=== PATIENT | female | born 1945 | race Caucasian/White ===

== ENCOUNTER 2016-09-12 15:03 | Outpatient (CLI) | payer MEDICARE, BC | END 2016-09-12 15:04 | disposition home or self-care (01) | DX: R06.02 Shortness of breath (principal); R53.83 Other fatigue; R00.2 Palpitations ==

== ENCOUNTER 2016-09-14 19:45 | Observation (INO) | payer MEDICARE, BC ==
[2016-09-14] MEDS ORDERED: SODIUM CHLORIDE 0.9% 1,000 ML IV ONE (20:24)
[2016-09-14] MEDS ORDERED: POTASSIUM BICARB 25 MEQ TABLET PO STA (21:27)
[2016-09-14] MEDS ORDERED: POTASSIUM BICARB 25 MEQ TABLET PO ONE (21:33)
[2016-09-14] MEDS ORDERED: ACETAMINOPHEN 325 MG TABLET PO PRN (21:54)
[2016-09-14] MEDS ORDERED: PROCHLORPERAZINE 10 MG/2 ML VIAL IVP PRN (21:54)
[2016-09-14] MEDS ORDERED: SODIUM CHLORIDE FLUSH 0.9% 10 ML SYRINGE IVP PRN (21:54)
[2016-09-14] MEDS ORDERED: ONDANSETRON 4 MG/2 ML VIAL IVP PRN (21:54)
[2016-09-14] MEDS ORDERED: ALPRAZolam 0.25 MG TABLET PO PRN (22:08)
[2016-09-14] MEDS ORDERED: traZODone 50 MG TABLET PO PRN (22:08)
[2016-09-14] MEDS ORDERED: ZOLPIDEM 5 MG TABLET PO PRN (22:08)
[2016-09-14] MEDS ORDERED: ALBUTEROL NEB 2.5 MG/3 ML INH PRN (23:05)
[2016-09-14] MEDS: NS W/20 MEQ KCL 1,000 ML IV SCH (23:35)
[2016-09-14] MEDS: SODIUM CHLORIDE FLUSH 0.9% 10 ML SYRINGE IVP SCH (23:35)
[2016-09-15] MEDS: BUDESONIDE 0.5 MG/2 ML NEB INH SCH ×2 (00:30→07:41)
[2016-09-15] MEDS: SODIUM CHLORIDE FLUSH 0.9% 10 ML SYRINGE IVP SCH ×2 (06:09→09:12)
[2016-09-15] MEDS ORDERED: POLYETHYLENE GLYCOL 3350 17 GM PACKET PO SCH (09:00)
[2016-09-15] MEDS ORDERED: ESCITALOPRAM 10 MG TABLET PO SCH (09:00)
[2016-09-15] MEDS ORDERED: ASPIRIN EC 81 MG TABLET PO SCH (09:00)
[2016-09-15] MEDS ORDERED: LOSARTAN 50 MG TABLET PO SCH (09:00)
[2016-09-15] MEDS ORDERED: ENOXAPARIN 40 MG/0.4 ML SYRINGE SUBQ SCH (09:00)
[2016-09-15] MEDS: INSULIN ASPART 300 UNIT/3 ML PEN SUBQ SCH ×2 (09:13→11:14)
[2016-09-15] MEDS: NS W/20 MEQ KCL 1,000 ML IV SCH (09:14)
[2016-09-15] MEDS ORDERED: ATORVASTATIN 40 MG TABLET PO SCH (21:00)
== END 2016-09-15 16:00 | disposition home or self-care (01) ==
DX: R20.9 Unspecified disturbances of skin sensation (principal); E10.42 Type 1 diabetes mellitus with diabetic polyneuropathy; E87.6 Hypokalemia; E86.0 Dehydration; I45.10 Unspecified right bundle-branch block; I10 Essential (primary) hypertension; E78.5 Hyperlipidemia, unspecified; J45.909 Unspecified asthma, uncomplicated; Z96.41 Presence of insulin pump (external) (internal); Z79.82 Long term (current) use of aspirin; Z98.84 Bariatric surgery status; Z85.828 Personal history of other malignant neoplasm of skin
CPT/HCPCS: 36415; 70450; 70551; 80053; 81003; 83690; 83735; 84443; 84484; 85025; 93005; 93010; 93306; 93880; 94640; 96360; 96361; 96372; 99285; A9270; G0378; J1650; J7626

== ENCOUNTER 2017-09-07 12:00 | Outpatient (CLI) | payer MEDICARE, OTHER ==
--- NOTE | 2017-09-07 18:00 | XRAY Report ---
TWO VIEW CHEST: 09/07/2017 CLINICAL INDICATION: Cough, fever. FINDINGS: Frontal and lateral views of the chest demonstrate a normal cardiac silhouette. The lungs are clear. No effusion or pneumothorax is present. IMPRESSION: NORMAL CHEST. TD: 09/07/2017 17:58
== END 2017-09-07 12:01 | disposition home or self-care (01) ==
LOC: DI 12:00 → DI.S 12:01
PROVIDERS: ATTEND Nurse Practitioner Family
DX: R05 Cough (principal); R50.9 Fever, unspecified
CPT/HCPCS: 71046

== ENCOUNTER 2017-09-09 11:54 | Emergency (ER) | payer MEDICARE, OTHER ==
[2017-09-09 13:14] LABS: BASOPHILS # (AUTO) 0.1 10^3/uL (0.0-0.1); BASOPHILS % (AUTO) 0.5 %; EOSINOPHILS % (AUTO) 0.3 %; HGB - HEMOGLOBIN 9.4 g/dL (12.0-16.0); LYMPHOCYTES # (AUTO) 0.7 10^3/uL (1.5-3.5); MEAN CORPUSCULAR HEMOGLOBIN 27.6 pg (27.0-31.0); MEAN CORPUSCULAR HGB CONC 33.5 g/dL (32.0-36.0); MEAN CORPUSCULAR VOLUME 82.4 fL (81.0-99.0); MEAN PLATELET VOLUME 7.6 fL (7.9-10.8); MONOCYTES # (AUTO) 0.5 10^3/uL (0.0-1.0); NEUTROPHILS # (AUTO) 10.3 10^3/uL (1.5-6.6); NEUTROPHILS % (AUTO) 89.2 %; PLT - PLATELET COUNT 387 10^3/uL (130-450); RED BLOOD COUNT 3.41 10^6/uL (4.20-5.40); RED CELL DISTRIBUTION WIDTH 13.9 % (12.0-15.0); WHITE BLOOD COUNT 11.5 x10^3/uL (4.8-10.8)
[2017-09-09 13:17] LABS: CALCIUM 8.6 mg/dL (8.5-10.3); CREATININE 0.6 mg/dL (0.4-1.0)
--- NOTE | 2017-09-09 13:26 | ED Physician Documentation ---
History of Present Illness - Stated complaint Stated Complaint: FEVER - Chief complaint Chief Complaint: General - Additonal information Additional information: hx from pt 71 female has had fevers to 104 for 3-4 weeks seen PMD a few times - had blood work (not available) CXR (neg) and a UA (not available) fevers continue pt denies [employer] no sore throat cough NV has had diarrhea s blood and urinary freq no back pain no rash no recent surgery or dental work uses an insulin pump and site is s infection her blood sugar have been hard to control travelled to [facility] in July but sx did not start for at least a month after that Review of Systems Constitutional: reports: Fever. denies: Chills Throat: denies: Sore throat Cardiac: denies: Chest pain / pressure Respiratory: denies: Dyspnea, Cough GI: reports: Diarrhea. denies: Abdominal Pain, Nausea, Vomiting, Bloody / black stool : reports: Frequency Endocrine: denies: Easy bruising / bleeding Immunocompromised: denies: Immunocompromised PD PAST MEDICAL HISTORY - Past Medical History Cardiovascular: Hypertension, High cholesterol Respiratory: Asthma Endocrine/Autoimmune: Type 1 diabetes Psych: Depression Musculoskeletal: Osteoarthritis Derm: Psoriasis - Past Surgical History Past Surgical History: Yes General: Gastric surgery HEENT: Cataracts - Present Medications Home Medications: Ambulatory Orders Medication Instructions Recorded Confirmed Albuterol Sulfate [Proair Hfa 2 puffs IH QID PRN 11/13/12 09/14/16 Inhaler] Aspirin 81 mg PO DAILY 11/13/12 09/14/16 Calcium Citrate [Calcitrate] 600 mg PO DAILY 11/13/12 09/14/16 Cholecalciferol (Vitamin D3) 5,000 unit PO DAILY 11/13/12 09/14/16 [Vitamin D3] Losartan Potassium [Cozaar] 100 mg PO DAILY 11/13/12 09/14/16 Multivitamin [Multivitamins] 1 each PO DAILY 11/13/12 09/14/16 Zolpidem Tartrate [Ambien] 5 mg PO DAILY PRN 11/13/12 09/14/16 Ascorbic Acid [Vitamin C] 500 mg PO DAILY 06/11/13 09/14/16 Cetirizine HCl 10 mg PO BID 06/11/13 09/14/16 Cyanocobalamin/Folic Acid [Vitamin 2 each PO DAILY 06/11/13 09/14/16 T73-Qitim Acid Tablet] Escitalopram [Lexapro] 20 mg PO DAILY 06/11/13 09/14/16 Ferrous Sulfate [Slow Release Iron] 1 tab PO DAILY 06/11/13 09/14/16 Ibandronate Sodium [Boniva] 150 mg PO ONCE 06/11/13 09/14/16 Insulin Lispro [Humalog] 80 unit SUBQ DAILY 06/11/13 09/14/16 Lactobacillus Acidophilus 1 each PO DAILY 06/11/13 09/14/16 [Acidophilus] Trazodone HCl 50 mg PO HS PRN 06/11/13 09/14/16 Ubidecarenone [Co Q-10] 200 mg PO DAILY 06/11/13 09/14/16 Vitamin B Complex [B Complex] 1 each PO DAILY 06/11/13 09/14/16 Simvastatin 20 mg PO DAILY 09/03/13 09/14/16 Estrogens, Conjugated [Premarin] 0.625 mg TOP ONCE 09/28/15 09/14/16 Fluocinonide/Emollient Base 15 gm TP BID 09/28/15 09/14/16 [Fluocinonide-E 0.05% Cream] Loperamide HCl [Loperamide] 2 mg PO QID PRN 09/28/15 09/14/16 ALPRAZolam [Xanax] 0.25 mg PO DAILY PRN 09/14/16 09/14/16 Cephalexin [Keflex] 500 mg PO Q6H #28 capsule 09/09/17 - Allergies Allergies/Adverse Reactions: Allergies Allergy/AdvReac Type Severity Reaction Status Date / Time Penicillins Allergy Intermediate Rash Verified 09/14/16 20:28 amoxicillin Allergy Rash Verified 09/09/17 12:19 gabapentin AdvReac diarrhea Verified 09/09/17 12:19 - Social History Does the pt smoke?: No Smoking Status: Never smoker Does the pt drink ETOH?: No Does the pt have substance abuse?: No - Immunizations Immunizations are current?: Yes - POLST Patient has POLST: No PD ED PE NORMAL - Vitals Vital signs reviewed: Yes - General General: Alert and oriented X 3 - HEENT HEENT: PERRL - Neck Neck: Supple, no meningeal sign - Cardiac Cardiac: RRR. No: No murmur (_ sys mumrur - pt rpeorts hx of a mild murmur but this is quite noticable) - Respiratory Respiratory: No respiratory distress - Abdomen Abdomen: Soft, Non tender - Back Back: No CVA TTP, No spinal TTP - Derm Derm: Normal color, No rash - Extremities Extremities: No deformity, No tenderness to palpate, Other (no red warm or swollen joints) - Neuro Neuro: Alert and oriented X 3 Results - Vitals Vitals: Vital Signs - 24 hr 09/09/17 09/09/17 09/09/17 12:12 14:34 17:25 Temperature 37.4 C 37.3 C Heart Rate 105 H 107 H 86 Respiratory 20 18 18 Rate Blood Pressure 110/48 L 102/47 L 113/52 L O2 Saturation 96 97 96 Oxygen O2 Source Room air - Labs Labs: Laboratory Tests 09/09/17 09/09/17 09/09/17 12:40 12:40 12:40 WBC 11.5 H RBC 3.41 L Hgb 9.4 L Hct 28.1 L MCV 82.4 MCH 27.6 MCHC 33.5 RDW 13.9 Plt Count 387 MPV 7.6 L Neut # 10.3 H Lymph # 0.7 L Bailey # 0.5 Eos # 0.0 Baso # 0.1 Absolute Nucleated RBC 0.00 Nucleated RBC % 0.0 Sodium 136 Potassium 2.8 L Chloride 103 Carbon Dioxide 25 Anion Gap 8.0 BUN 13 Creatinine 0.6 Estimated GFR (MDRD) 99 Glucose 149 H Lactic Acid 1.2 Calcium 8.6 Urine Color Urine Clarity Urine pH Ur Specific [place] Urine Protein Urine Glucose (UA) Urine Ketones Urine Occult Blood Urine Nitrite Urine Bilirubin Urine Urobilinogen Ur Leukocyte Esterase Urine RBC Urine WBC Ur Squamous Epith Cells Urine Bacteria Ur Microscopic Review Urine Culture Comments Influenza A (Rapid) Influenza B (Rapid) Influenza Types A,B Ag 09/09/17 09/09/17 13:40 14:43 WBC RBC Hgb Hct MCV MCH MCHC RDW Plt Count MPV Neut # Lymph # Bailey # Eos # Baso # Absolute Nucleated RBC Nucleated RBC % Sodium Potassium Chloride Carbon Dioxide Anion Gap BUN Creatinine Estimated GFR (MDRD) Glucose Lactic Acid Calcium Urine Color YELLOW Urine Clarity CLOUDY Urine pH 6.0 Ur Specific [place] 1.015 Urine Protein NEGATIVE Urine Glucose (UA) NEGATIVE Urine Ketones TRACE Urine Occult Blood NEGATIVE Urine Nitrite POSITIVE H Urine Bilirubin NEGATIVE Urine Urobilinogen 0.2 (NORMAL) Ur Leukocyte Esterase MODERATE H Urine RBC 0-5 Urine WBC >25 H Ur Squamous Epith Cells MOD Squamous H Urine Bacteria Many H Ur Microscopic Review INDICATED Urine Culture Comments NOT INDICATED Influenza A (Rapid) Negative Influenza B (Rapid) Negative Influenza Types A,B Ag - - Rads (name of study) echo Radiology: See rad report (no vegetations, no change from prior (prelim)) PD MEDICAL DECISION MAKING - ED course ED course: source seems to be UTI CXR 2 days ago neg and no resp sx so did not rpt pt states already on macrobid and not better and UA still + pt reports itchy rash rxn to amox but has taken cephalosporins s rxn - gave rocephin and will dc on keflex pt advised to fup PMD re anemia and K and final echo report Departure - Departure Disposition: Home, Self Care Clinical Impression: Hypokalemia UTI (urinary tract infection) Qualifiers: Urinary tract infection type: acute cystitis Hematuria presence: without hematuria Qualified Code(s): N30.00 - Acute cystitis without hematuria Anemia Qualifiers: Anemia type: unspecified type Qualified Code(s): D64.9 - Anemia, unspecified Condition: Good Instructions: ED Diet High Potassium, ED UTI Cystitis Female Follow-Up: Javan Black MD [Primary Care Provider] - Prescriptions: Cephalexin [Keflex] 500 mg PO Q6H #28 capsule Comments: It looks like the source of your fever is a urine infection. A culture will be run on the urine to identify the bacteria causing the infection and you will be called if a change of antibiotic is needed Also you have blood cultures running and will be called if those are positive The preliminary echocardiogram report does not indicate a heart valve infection - a final report will be available later this week - please have Dr Black follow up on that result Also please follow up with Dr Black about the anemia and low potassium Discharge Date/Time: 09/09/17 17:35
[2017-09-09] MEDS ORDERED: POTASSIUM CHLORIDE 20 MEQ TABLET PO STA (14:18)
[2017-09-09 14:46] LABS: BILIRUBIN,URINE NEGATIVE (NEGATIVE); GLUCOSE, URINE (UA) NEGATIVE (NEGATIVE); KETONES,URINE (UA) TRACE mg/dL (NEGATIVE); LEUKOCYTE ESTERASE, URINE MODERATE (NEGATIVE); NITRITE,URINE POSITIVE (NEGATIVE); OCCULT BLOOD,URINE NEGATIVE (NEGATIVE); PROTEIN,URINE NEGATIVE (NEGATIVE); UROBILINOGEN,URINE 0.2 (NORMAL) E.U./dL (NORMAL)
[2017-09-09 14:48] LABS: CLARITY,URINE CLOUDY (CLEAR)
[2017-09-09 14:54] LABS: BACTERIA,URINE Many /HPF (None Seen); RBC,URINE 0-5 /HPF (0-5); SQUAMOUS EPITHELIAL CELL,UR MOD Squamous (<= Few)
[2017-09-09] MEDS ORDERED: cefTRIAXone 1 GM in SODIUM CHLORIDE 0.9% MINIBAG 100 ML IV STA (15:17)
[2017-09-09] MEDS ORDERED: SODIUM CHLORIDE 0.9% 1,000 ML IV ONE (15:19)
[2017-09-09 17:26] VITALS: BP 113/52
== END 2017-09-09 17:35 | disposition home or self-care (01) ==
LOC: ED 11:54
DX: E87.6 Hypokalemia (principal); N30.00 Acute cystitis without hematuria; I10 Essential (primary) hypertension; E78.00 Pure hypercholesterolemia, unspecified; E10.9 Type 1 diabetes mellitus without complications; Z96.41 Presence of insulin pump (external) (internal); Z79.82 Long term (current) use of aspirin
CPT/HCPCS: 36415; 80048; 81001; 83605; 85025; 87040; 87275; 87276; 93306; 96365; 96366; 99283; 99284; A9270; 81003; 87086

== ENCOUNTER 2017-09-10 09:17 | Inpatient (IN) | payer MEDICARE, OTHER ==
[2017-09-10] MEDS ORDERED: cefTRIAXone 1 GM in SODIUM CHLORIDE 0.9% MINIBAG 100 ML IV STA (09:23)
--- NOTE | 2017-09-10 09:51 | ED Physician Documentation ---
History of Present Illness - Stated complaint Stated Complaint: NAUSEA/FEVER/SHAKY - Chief complaint Chief Complaint: Fever - Additonal information Additional information: hx from pt and EMR pt seen by me yesterday for a fever up to 104 for 3-4 weeks had seen PMD and had some workup including blood and urine (results not available on weekend) and CXR 09/07 which was neg workup yesterday included labs, blood cx, UA, and an echo because a heart murmur was noted (no vegetation) UA was + - pt was already on macrobid but not getting better and so gave rocephin and dc on keflex overnight her blood cx grew gram neg bacilli so she was caled and asked to return which she did she states no fever chills overnight stills feels generally weak and nauseated Review of Systems Constitutional: reports: Fever, Chills, Myalgias, Fatigue Respiratory: denies: Cough GI: reports: Nausea. denies: Abdominal Pain, Vomiting, Diarrhea : denies: Dysuria Skin: denies: Rash Musculoskeletal: denies: Back pain Endocrine: denies: Easy bruising / bleeding Immunocompromised: denies: Immunocompromised PD PAST MEDICAL HISTORY - Past Medical History Cardiovascular: Hypertension, High cholesterol Respiratory: Asthma Endocrine/Autoimmune: Type 1 diabetes Psych: Depression Musculoskeletal: Osteoarthritis Derm: Psoriasis - Past Surgical History Past Surgical History: Yes General: Gastric surgery HEENT: Cataracts - Present Medications Home Medications: Ambulatory Orders Medication Instructions Recorded Confirmed Albuterol Sulfate [Proair Hfa 2 puffs INH QID PRN 11/13/12 09/10/17 Inhaler] Aspirin 81 mg PO DAILY 11/13/12 09/10/17 Losartan Potassium [Cozaar] 100 mg PO DAILY 11/13/12 09/10/17 Multivitamin [Multivitamins] 1 each PO DAILY 11/13/12 09/10/17 Zolpidem Tartrate [Ambien] 2.5 - 5 mg PO DAILY PRN 11/13/12 09/10/17 Ascorbic Acid [Vitamin C] 500 mg PO DAILY 06/11/13 09/10/17 Ferrous Sulfate [Slow Release Iron] 1 tab PO DAILY 06/11/13 09/10/17 Ibandronate Sodium [Boniva] 150 mg PO Q30D 06/11/13 09/10/17 Insulin Lispro [Humalog] 60 unit SUBQ .INSULINPUMP 06/11/13 09/10/17 Lactobacillus Acidophilus 1 each PO BID 06/11/13 09/10/17 [Acidophilus] Trazodone HCl 25 - 50 mg PO QPM PRN 06/11/13 09/10/17 Ubidecarenone [Co Q-10] 200 mg PO QPM 06/11/13 09/10/17 Vitamin B Complex [B Complex] 1 each PO DAILY 06/11/13 09/10/17 Fluocinonide/Emollient Base 1 applic TP BID PRN 09/28/15 09/10/17 [Fluocinonide-E 0.05% Cream] Loperamide HCl [Loperamide] 2 mg PO QID PRN 09/28/15 09/10/17 Calcium Carbonate/Vitamin D3 2 each PO DAILY 09/10/17 09/10/17 [Calcium 600-Vit D3 800 Tablet] Cholecalciferol [Vitamin D3] 5,000 unit PO DAILY 09/10/17 09/10/17 Cyanocobalamin (Vitamin B-12) 500 mcg SL DAILY 09/10/17 09/10/17 [Vitamin B-12 (500 mcg sublingual)] Escitalopram Oxalate [Lexapro] 20 mg PO DAILY 09/10/17 09/10/17 Estrogens, Conjugated Cream 0.5 applic VG Q7D 09/10/17 09/10/17 [Premarin Cream] Glucosamine HCl/Chondroitin Rojas 1,000 mg PO DAILY 09/10/17 09/10/17 [Endur-Flex Sr Tablet] Magnesium Glycinate 120 mg PO DAILY 09/10/17 09/10/17 Mometasone Furoate [Asmanex Hfa] 2 puffs INH BID 09/10/17 09/10/17 Naproxen Sodium [Aleve] 220 mg PO BID PRN 09/10/17 09/10/17 Simvastatin [Zocor] 40 mg PO QPM 09/10/17 09/10/17 - Allergies Allergies/Adverse Reactions: Allergies Allergy/AdvReac Type Severity Reaction Status Date / Time Penicillins Allergy Intermediate Rash Verified 09/10/17 09:24 amoxicillin Allergy Rash Verified 09/10/17 09:24 gabapentin AdvReac diarrhea Verified 09/10/17 09:24 - Social History Does the pt smoke?: No Smoking Status: Never smoker Does the pt drink ETOH?: No Does the pt have substance abuse?: No - Immunizations Immunizations are current?: Yes - POLST Patient has POLST: No PD ED PE NORMAL - Vitals Vital signs reviewed: Yes - General General: Alert and oriented X 3 - HEENT HEENT: PERRL - Neck Neck: Supple, no meningeal sign - Cardiac Cardiac: RRR - Respiratory Respiratory: No respiratory distress, Clear bilaterally - Abdomen Abdomen: Soft, Non tender - Back Back: No CVA TTP, No spinal TTP (no redness swelling focal TTP) - Derm Derm: No rash - Extremities Extremities: No deformity - Neuro Neuro: Alert and oriented X 3 Results - Vitals Vitals: Vital Signs - 24 hr 09/10/17 09:20 Temperature 36.7 C Heart Rate 92 Respiratory 18 Rate Blood Pressure 123/57 L O2 Saturation 97 Oxygen O2 Source Room air - Labs Labs: Laboratory Tests 09/10/17 09/10/17 09/10/17 09:57 09:57 09:57 WBC 10.0 RBC 3.04 L Hgb 8.5 L Hct 25.2 L MCV 83.0 MCH 28.0 MCHC 33.8 RDW 13.6 Plt Count 352 MPV 7.4 L Neut # 7.6 H Lymph # 1.4 L [place] # 0.8 Eos # 0.1 Baso # 0.1 Absolute Nucleated RBC 0.00 Nucleated RBC % 0.0 Sodium 133 L Potassium 2.9 L Chloride 102 Carbon Dioxide 23 Anion Gap 8.0 BUN 13 Creatinine 0.6 Estimated GFR (MDRD) 99 Glucose 343 H Glycated Hemoglobin Estim Average Glucose Lactic Acid 0.9 Calcium 8.4 L 09/10/17 09:57 WBC RBC Hgb Hct MCV MCH MCHC RDW Plt Count MPV Neut # Lymph # [place] # Eos # Baso # Absolute Nucleated RBC Nucleated RBC % Sodium Potassium Chloride Carbon Dioxide Anion Gap BUN Creatinine Estimated GFR (MDRD) Glucose Glycated Hemoglobin 8.4 H Estim Average Glucose 194 H Lactic Acid Calcium PD MEDICAL DECISION MAKING - ED course ED course: gram neg bacilli on blood cx gave rocephin will admit spoke to Dr Rodriguez at 1005 AM pt and family updated Departure - Departure Disposition: 66 [facility] DC/Xfer Clinical Impression: Gram-negative bacteremia, Hypokalemia, Hyperglycemia Anemia Qualifiers: Anemia type: unspecified type Qualified Code(s): D64.9 - Anemia, unspecified Condition: Good Discharge Date/Time: 09/10/17 11:37
[2017-09-10 10:10] LABS: BASOPHILS # (AUTO) 0.1 10^3/uL (0.0-0.1); BASOPHILS % (AUTO) 0.6 %; EOSINOPHILS # (AUTO) 0.1 10^3/uL (0.0-0.7); EOSINOPHILS % (AUTO) 0.9 %; HGB - HEMOGLOBIN 8.5 g/dL (12.0-16.0); LYMPHOCYTES # (AUTO) 1.4 10^3/uL (1.5-3.5); LYMPHOCYTES % (AUTO) 13.8 %; MEAN CORPUSCULAR HGB CONC 33.8 g/dL (32.0-36.0); MEAN PLATELET VOLUME 7.4 fL (7.9-10.8); MONOCYTES # (AUTO) 0.8 10^3/uL (0.0-1.0); MONOCYTES % (AUTO) 8.3 %; NEUTROPHILS # (AUTO) 7.6 10^3/uL (1.5-6.6); NEUTROPHILS % (AUTO) 76.4 %; PLT - PLATELET COUNT 352 10^3/uL (130-450); RED BLOOD COUNT 3.04 10^6/uL (4.20-5.40); RED CELL DISTRIBUTION WIDTH 13.6 % (12.0-15.0)
[2017-09-10 10:14] LABS: CALCIUM 8.4 mg/dL (8.5-10.3); CREATININE 0.6 mg/dL (0.4-1.0)
[2017-09-10] MEDS ORDERED: SODIUM CHLORIDE FLUSH 0.9% 10 ML SYRINGE IVP PRN (10:52)
[2017-09-10] MEDS ORDERED: ZOLPIDEM 5 MG TABLET PO PRN (10:52)
[2017-09-10] MEDS ORDERED: ONDANSETRON 4 MG/2 ML VIAL IVP PRN (10:52)
[2017-09-10] MEDS ORDERED: ACETAMINOPHEN 325 MG TABLET PO PRN (10:52)
[2017-09-10] MEDS ORDERED: ALBUTEROL NEB 2.5 MG/3 ML INH PRN (11:14)
--- NOTE | 2017-09-10 11:25 | HISTORY & PHYSICAL EXAMINATION ---
Chief Complaint - Chief Complaint Chief Complaint: fever History of Present Illness - Admitted From Admitted From:: ER - History Obtained From History obtained from: pt - History of Present Illness HPI Comment/Other: Ms. Jacob is a 71-year-old female with a past medical history significant for DM1 , recurrent UTI, HTN, HLD, Asthma, Depression, Osteoarthritis, Psoriasis, anemia , who present ER for complains of fever, and subsequent positive bacterial blood culture. Pt report she had fever for about one week, and at 104 degree fever with chill for the last four days. Pt went to her PCP and she was prescribed Macrobid but it seems pt did not get better. Pt went to ER yesterday. UA reveals she had UTI. The blood was draw for culture and pt was treated with IV rocephin and was prescribed Kflex to D/C to home. The blood culture was positive for negative bacilli. Pt was called to come back to hospital for further treatment. Pt also report she had nausea but no vomiting, and loose stool but not diarrhea, and with discomfort in abdomen. Pt report she had DM1 since forty year ago. Pt denies chest pain, shortness of breath, cough, headache, vision changing. In lab test in ER, pt has 2.9 potassium, glucose 343 , HGB 8.5. Na 133. History - Past Medical History Cardiovascular: reports: Hypertension, High cholesterol Respiratory: reports: Asthma Endocrine/Autoimmune: reports: Type 1 diabetes Psych: reports: Depression Musculoskeletal: reports: Osteoarthritis Derm: reports: Psoriasis MRSA Hx?: No - Past Surgical History General: reports: Gastric surgery HEENT: reports: Cataracts - Family & Social History Family History Comment/Other: pt is living [place] with her and two children Living arrangement: At home Living Situation: With spouse/s.o., With family - Substance History Use: Uses substance without health or social issues: NONE Abuse: Recurrent use of substance despite neg consequences: NONE Dependence: Experiences withdrawal or developed tolerances: NONE - POLST Patient has POLST: No POLST Status: Full Code Meds/Allgy - Home Medications Home Medications: Ambulatory Orders Medication Instructions Recorded Confirmed Albuterol Sulfate [Proair Hfa 2 puffs INH QID PRN 11/13/12 09/10/17 Inhaler] Aspirin 81 mg PO DAILY 11/13/12 09/10/17 Losartan Potassium [Cozaar] 100 mg PO DAILY 11/13/12 09/10/17 Multivitamin [Multivitamins] 1 each PO DAILY 11/13/12 09/10/17 Zolpidem Tartrate [Ambien] 2.5 - 5 mg PO DAILY PRN 11/13/12 09/10/17 Ascorbic Acid [Vitamin C] 500 mg PO DAILY 06/11/13 09/10/17 Ferrous Sulfate [Slow Release Iron] 1 tab PO DAILY 06/11/13 09/10/17 Ibandronate Sodium [Boniva] 150 mg PO Q30D 06/11/13 09/10/17 Insulin Lispro [Humalog] 60 unit SUBQ .INSULINPUMP 06/11/13 09/10/17 Lactobacillus Acidophilus 1 each PO BID 06/11/13 09/10/17 [Acidophilus] Trazodone HCl 25 - 50 mg PO QPM PRN 06/11/13 09/10/17 Ubidecarenone [Co Q-10] 200 mg PO QPM 06/11/13 09/10/17 Vitamin B Complex [B Complex] 1 each PO DAILY 06/11/13 09/10/17 Fluocinonide/Emollient Base 1 applic TP BID PRN 09/28/15 09/10/17 [Fluocinonide-E 0.05% Cream] Loperamide HCl [Loperamide] 2 mg PO QID PRN 09/28/15 09/10/17 Calcium Carbonate/Vitamin D3 2 each PO DAILY 09/10/17 09/10/17 [Calcium 600-Vit D3 800 Tablet] Cholecalciferol [Vitamin D3] 5,000 unit PO DAILY 09/10/17 09/10/17 Cyanocobalamin (Vitamin B-12) 500 mcg SL DAILY 09/10/17 09/10/17 [Vitamin B-12 (500 mcg sublingual)] Escitalopram Oxalate [Lexapro] 20 mg PO DAILY 09/10/17 09/10/17 Estrogens, Conjugated Cream 0.5 applic VG Q7D 09/10/17 09/10/17 [Premarin Cream] Glucosamine HCl/Chondroitin Rojas 1,000 mg PO DAILY 09/10/17 09/10/17 [Endur-Flex Sr Tablet] Magnesium Glycinate 120 mg PO DAILY 09/10/17 09/10/17 Mometasone Furoate [Asmanex Hfa] 2 puffs INH BID 09/10/17 09/10/17 Naproxen Sodium [Aleve] 220 mg PO BID PRN 09/10/17 09/10/17 Simvastatin [Zocor] 40 mg PO QPM 09/10/17 09/10/17 - Allergies Allergies/Adverse Reactions: Allergies Allergy/AdvReac Type Severity Reaction Status Date / Time Penicillins Allergy Intermediate Rash Verified 09/10/17 09:24 amoxicillin Allergy Rash Verified 09/10/17 09:24 gabapentin AdvReac diarrhea Verified 09/10/17 09:24 Review of Systems - Constitutional Constitutional: reports: Fatigue, Fever, Chills. denies: Malaise, Weakness, Poor appetite, Diaphoresis, Night sweats - Eyes Eyes: denies: Pain, Irritation, Amaurosis, Blurred vision, Spots in vision, Field loss, Vision loss, Dipolpia - Ears, Nose & Throat Ears, Nose & Throat: denies: Ear pain, Hearing loss, Hearing aids, Tinnitus, Vertigo, Nasal pain, Nasal discharge, Nosebleeds, Nasal obstruction, Dentures, Sore throat, Bleeding gums - Cardiovascular Cariovascular: denies: Irregular heart rate, Palpitations, Chest pain, Edema, Lightheadedness, Syncope, Exertional dyspnea, Decr. exercise tolerance - Respiratory Respiratory: denies: Cough, Sputum production, Wheezing, Snoring, Hemoptysis, Orthopnea, SOB at rest, SOB with exertion - Gastrointestinal Gastrointestinal: reports: Nausea. denies: Abdominal pain, Abdominal distention , Constipation, Diarrhea, Change in bowel habits, Rectal bleeding, Black stools , Bloody stools, Vomiting, Prabhjot blood emesis, Coffee grounds emesis - Genitourinary Genitourinary: denies: Dysuria, Frequency, Urgency, Hematuria, Incontinence, Flank pain, Nocturia, Urethral discharge - Musculoskeletal Musculoskeletal: denies: Muscle pain, Back pain, Muscle aches, Stiffness, Limited range of motion, Muscle weakness, Gout, Joint pain - Integumentary Integumentary: denies: Rash, Pruritis, Lesions, Dryness, Lumps, Acne, Pigment changes, Nail changes - Neurological Neurological: denies: General weakness, Focal weakness, Headache, Dizziness, Numbness, Memory problems, Pre-existing deficit, Abnormal gait, Seizures, Incoordination, Slurred speech - Psychiatric Psychiatric: denies: Depression, Anxiety, Suicidal, Delusions, Hallucinations, Homicidal - Endocrine Endocrine: denies: Polyuria, Polydypsia, Polyphagia, Intolerance to cold, Intolerance to heat - Hematologic/Lymphatic Hematologic/Lymphatic: reports: Anemia, Recurrent infections. denies: Bruising , Petechiae, Blood clots, Lymphadenopathy, Bleeding tendencies Exam - Vital Signs Reviewed Vital Signs: Yes Vital Signs: Vital Signs x48h Temp Pulse Resp BP Pulse Ox 09/10/17 11:03 81 15 120/68 97 09/10/17 09:20 36.7 C 92 18 123/57 L 97 - Physical Exam General Appearance: positive: No acute distress, Alert. negative: Lethargic Eyes Bilateral: positive: Normal inspection, PERRL, No lid inflammation, Conjunctivae nml ENT: positive: ENT inspection nml, Pharynx nml, No signs of dehydration. negative: Purulent nasal drainage, Pharyngeal erythema, Oral lesions Neck: positive: Nml inspection, Thyroid nml, No JVD, Trachea midline. negative : Thyromegaly, Lymphadenopathy (R), Lymphadenopathy (L), Stiff neck, Carotid bruit, Swelling/bruising, Tracheal deviation Respiratory: positive: Chest non-tender, No respiratory distress, Breath sounds nml. negative: Wheezes, Rales, Rhonchi Cardiovascular: positive: Regular rate & rhythm, No murmur, No gallop. negative : Irregularly irregular, Extrasystoles, Tachycardia, Bradycardia, Systolic murmur, Diastolic murmur Peripheral Pulses: positive: 2+ Abdomen: positive: Non-tender, No organomegaly, Nml bowel sounds, No distention. negative: Tenderness, Guarding, Rebound Back: positive: Nml inspection. negative: CVA tenderness (R), CVA tenderness (L ) Skin: positive: Color nml, No rash, Warm, Dry. negative: Cyanosis, Diaphoresis , Pallor Extremities: positive: Non-tender, Full ROM, Nml appearance. negative: Calf tenderness, Joint swelling, Peter's sign/cords Neurologic/Psychiatric: positive: Oriented x3, Motor nml, Sensation nml, Mood/ affect nml. negative: Sensory loss, Facial droop, Slurred/abnml speech, Depressed mood/affect Conclusion/Plan - Problem List (1) Gram-negative bacteremia Conclusion/Plan: blood culture reveals ESBL negative bacilli, fever for a week with 104 degree fever for 4 days start with Meropenem IVF with NS follow with second culture vital and lab monitor (2) UTI (urinary tract infection) Conclusion/Plan: UA culture positive, recurrent infection for recently nearly year treat with Meropenem Qualifiers: Urinary tract infection type: acute cystitis Hematuria presence: without hematuria Qualified Code(s): N30.00 - Acute cystitis without hematuria (3) Diabetes 1.5, managed as type 1 Conclusion/Plan: pt had DM1 for forty years with insulin Pump check A1c continue insulin Pump slide scale, [facility] hypoglycemia protocol (4) Hypokalemia Conclusion/Plan: Potassium 2.9 today replacement Potassium, closely monitor Potassium when using insulin and insulin Pump (5) Abdominal discomfort Conclusion/Plan: pt with negative Bacilli bacteremia, abdominal discomfort, loose stool order CT of abdomen and Pelvis to r/o etiology, follow up the test (6) Anemia Conclusion/Plan: HGB is 8.5, pt was already on B12 and Ferrous, will continue these meds Qualifiers: Anemia type: unspecified type Qualified Code(s): D64.9 - Anemia, unspecified (7) DVT prophylaxis Conclusion/Plan: SCD and Lovenox (8) Full code status Conclusion/Plan: pt request full code status - Lab Results Fish Bones: 09/10/17 09:57 09/10/17 09:57 Core Measures - Anticipated LOS I expect patient to be DC'd or transferred within 96 hours.: Yes - DVT/VTE - Prophylaxis VTE/DVT Device ordered at admit?: Yes VTE/DVT Prophylaxis med ordered at admit?: Yes
[2017-09-10 11:40] LABS: HB2 TOTAL 8.8 g/dL; HEMOGLOBIN A1C 0.6 g/dL; HEMOGLOBIN A1C % 8.4 % (4.6-6.2)
[2017-09-10] MEDS ORDERED: LOPERAMIDE 2 MG CAPSULE PO PRN (11:46)
[2017-09-10] MEDS ORDERED: traZODone 50 MG TABLET PO PRN (11:46)
[2017-09-10] MEDS ORDERED: NAPROXEN 250 MG TABLET PO PRN (11:46)
[2017-09-10] MEDS ORDERED: IBANDRONATE SODIUM 150 MG PO SCH (12:00)
[2017-09-10] MEDS ORDERED: INSULIN ASPART 300 UNIT/3 ML PEN SUBQ SCH (12:00)
[2017-09-10] MEDS: SODIUM CHLORIDE 0.9% 1,000 ML IV SCH (12:00)
[2017-09-10] MEDS ORDERED: INSULIN LISPRO 60 UNIT SUBQ SCH (12:00)
[2017-09-10] MEDS: MEROPENEM 1 GM in SODIUM CHLORIDE 0.9% MINIBAG 100 ML IV SCH ×2 (12:07→21:35)
[2017-09-10] MEDS ORDERED: cefTRIAXone 1 GM in SODIUM CHLORIDE 0.9% MINIBAG 100 ML IV ONE (12:30)
[2017-09-10] MEDS ORDERED: INSULIN ASPART 300 UNIT/3 ML PEN SUBQ ONE (12:30)
[2017-09-10] MEDS ORDERED: POTASSIUM CHLORIDE 20 MEQ TABLET PO ONE (12:30)
[2017-09-10] MEDS: POTASSIUM CHLOR 10 MEQ/100 ML 10 MEQ/100 ML BAG IV SCH ×2 (12:40→13:34)
[2017-09-10] MEDS: SODIUM CHLORIDE FLUSH 0.9% 10 ML SYRINGE IVP SCH (15:29)
--- NOTE | 2017-09-10 17:33 | CT Report ---
EXAM: CT ABDOMEN AND PELVIS EXAM DATE: 09/10/2017 04:59 PM. CLINICAL HISTORY: Discomfort with diarrhea and bloating for one month. COMPARISONS: None. TECHNIQUE: Routine helical CT imaging was performed through the abdomen and pelvis. IV contrast: None . Enteric contrast: No. Reconstructions: Coronal and sagittal. In accordance with CT protocol optimization, one or more of the following dose reduction techniques w ere utilized for this exam: automated exposure control, adjustment of mA and/or KV based on patient s ize, or use of iterative reconstructive technique. FINDINGS: Lung Bases: Unremarkable. Liver: Normal. No masses. Gallbladder/Bile Ducts: Small gallstones. No dilated ducts. Spleen: Normal. Pancreas: Normal. Adrenal Glands: Normal. Kidneys: Left posterior lower pole complex cyst or mass 4 cm across with adjacent fat stranding, othe rwise unremarkable. Peritoneal Cavity/Bowel: Gastric bypass noted. No free fluid, free air or adenopathy. No masses or ac janae inflammatory process. The appendix is well visualized and normal. Pelvic Organs: Air in the bladder. Reproductive organs are unremarkable. Vasculature: No aneurysms or other significant abnormality. Bones: No significant abnormality. Other: None. IMPRESSION: 1. Small gallstones. 2. Gastric bypass, otherwise unremarkable bowel. 3. Complex 4 cm cyst or mass off the lower left kidney with mild adjacent fat stranding. Consider ult rasound evaluation. 4. Air noted within the bladder. [facility] Referring Provider Line: [phone] SITE ID: [id number]
[2017-09-10] MEDS ORDERED: LACTOBACILLUS ACIDOPHILUS PO SCH (21:00)
[2017-09-10] MEDS ORDERED: CETIRIZINE 10 MG TABLET PO SCH (21:00)
--- NOTE | 2017-09-10 21:29 | Ultrasound Report ---
EXAM: RENAL ULTRASOUND EXAM DATE: 09/10/2017 08:14 PM. CLINICAL HISTORY: Mass at left kidney. COMPARISON: CT earlier today. TECHNIQUE: Real-time scanning was performed with static images obtained. FINDINGS: Right Kidney: 9.7 x 5.4 x 5.4 cm. The resistive index measures . Normal echotexture with no stones, c ontour-deforming masses, or hydronephrosis. Left Kidney: 10.3 x 5.6 x 8.4 cm. The resistive index measures . Normal echotexture with no stones, c ontour-deforming masses, or hydronephrosis. Lower pole 2.8 x 3.1 x 3.2 cm well-circumscribed complex cyst with internal nodule. Bladder: Only the left ureteral jet seen. The prevoid bladder volume was 199 cc. The postvoid bladder volume was 22 cc. Other: None. IMPRESSION: Lower left renal complex cyst corresponding to the CT abnormality with internal nodule, c lot versus mass. Consider one-year follow-up ultrasound. [facility] Referring Provider Line: [phone] SITE ID: [id number]
[2017-09-10] MEDS: ATORVASTATIN 10 MG TABLET PO SCH (21:34)
[2017-09-11] MEDS: SODIUM CHLORIDE 0.9% 1,000 ML IV SCH ×3 (00:54→17:41)
[2017-09-11] MEDS: SODIUM CHLORIDE FLUSH 0.9% 10 ML SYRINGE IVP SCH ×3 (00:59→17:42)
[2017-09-11 05:58] LABS: BASOPHILS % (AUTO) 0.5 %; EOSINOPHILS # (AUTO) 0.1 10^3/uL (0.0-0.7); EOSINOPHILS % (AUTO) 0.8 %; HGB - HEMOGLOBIN 7.9 g/dL (12.0-16.0); LYMPHOCYTES # (AUTO) 1.6 10^3/uL (1.5-3.5); LYMPHOCYTES % (AUTO) 19.4 %; MEAN CORPUSCULAR HEMOGLOBIN 28.1 pg (27.0-31.0); MEAN CORPUSCULAR HGB CONC 33.2 g/dL (32.0-36.0); MEAN CORPUSCULAR VOLUME 84.5 fL (81.0-99.0); MEAN PLATELET VOLUME 7.6 fL (7.9-10.8); MONOCYTES # (AUTO) 0.9 10^3/uL (0.0-1.0); MONOCYTES % (AUTO) 10.2 %; NEUTROPHILS # (AUTO) 5.8 10^3/uL (1.5-6.6); NEUTROPHILS % (AUTO) 69.1 %; PLT - PLATELET COUNT 332 10^3/uL (130-450); RED BLOOD COUNT 2.81 10^6/uL (4.20-5.40); RED CELL DISTRIBUTION WIDTH 13.8 % (12.0-15.0); WHITE BLOOD COUNT 8.4 x10^3/uL (4.8-10.8)
[2017-09-11 06:06] LABS: ALBUMIN 2.2 g/dL (3.2-5.5); ALBUMIN/GLOBULIN RATIO 0.7 (1.0-2.2); BILIRUBIN,TOTAL 0.7 mg/dL (0.2-1.0); CALCIUM 7.7 mg/dL (8.5-10.3); CREATININE 0.6 mg/dL (0.4-1.0); MAGNESIUM 1.7 mg/dL (1.7-2.8); TOTAL PROTEIN 5.3 g/dL (6.7-8.2)
[2017-09-11] MEDS: FAMOTIDINE 20 MG TABLET PO SCH (08:20)
[2017-09-11] MEDS: MEROPENEM 1 GM in SODIUM CHLORIDE 0.9% MINIBAG 100 ML IV SCH ×2 (08:20→22:08)
[2017-09-11] MEDS: ESCITALOPRAM 10 MG TABLET PO SCH (08:32)
[2017-09-11] MEDS: LOSARTAN 50 MG TABLET PO SCH (08:32)
[2017-09-11] MEDS: ASPIRIN CHEW 81 MG TABLET PO SCH (08:33)
[2017-09-11] MEDS: ASCORBIC ACID CHEW 500 MG TABLET PO SCH (08:33)
[2017-09-11] MEDS: CHOLECALCIFEROL 5,000 UNIT CAPSULE PO SCH (08:33)
[2017-09-11] MEDS: MULTIVITAMIN TABLET PO SCH (08:33)
[2017-09-11] MEDS: ENOXAPARIN 40 MG/0.4 ML SYRINGE SUBQ SCH (08:37)
[2017-09-11] MEDS ORDERED: CYANOCOBALAMIN 500 MCG TABLET PO SCH (09:00)
[2017-09-11] MEDS ORDERED: cefTRIAXone 2 GM in SODIUM CHLORIDE 0.9% MINIBAG 100 ML IV SCH (09:00)
[2017-09-11] MEDS ORDERED: FERROUS SULFATE PO SCH (09:00)
[2017-09-11] MEDS ORDERED: VITAMIN D3 PO SCH (09:00)
[2017-09-11] MEDS ORDERED: cefTRIAXone 1 GM VIAL IVP SCH ×2 (09:00)
[2017-09-11] MEDS ORDERED: CYANOCOBALAMIN SL SCH (09:00)
[2017-09-11] MEDS ORDERED: CALCIUM CARBONATE PO SCH (09:00)
[2017-09-11] MEDS ORDERED: POLYETHYLENE GLYCOL 3350 17 GM PACKET PO SCH (09:00)
[2017-09-11] MEDS ORDERED: SODIUM CHLORIDE 0.9% 500 ML IV ONE ×2 (09:45→10:13)
[2017-09-11] MEDS ORDERED: CALCIUM GLUCONATE 1,000 MG in SODIUM CHLORIDE 0.9% 50 ML IV ONE (10:30)
[2017-09-11 10:31] LABS: MEAN RETIC VALUE 108.7; RED BLOOD COUNT 3.07 10^6/uL (4.20-5.40)
[2017-09-11 10:54] LABS: % IRON SATURATION 7 % (20-50); IRON 13 ug/dL (28-170); TOTAL IRON BINDING CAPACITY 181 ug/dL (250-450); TRANSFERRIN 129 mg/dL (192-382)
[2017-09-11] MEDS: Mometasone Furoate [Asmanex Hfa] 2 PUFFS INH SCH ×2 (11:00→20:23)
[2017-09-11] MEDS ORDERED: [UNRECOGNIZED DRUG - OTHER] TOP PRN (12:00)
--- NOTE | 2017-09-11 12:03 | PROVIDER PROGRESS NOTE ---
Subjective - Prog Note Date Prog Note Date: 09/11/17 - Subjective Pt reports feeling: Improved Subjective: pt feel better. No fever, chill, cough, chest pain, shortness of breath. Current Medications - Current Medications Current Medications: Active Medications Acetaminophen (Tylenol) 650 mg PO Q4HR PRN PRN Reason: Pain 1 to 4 Albuterol () 2.5 mg INH RTQ4H PRN PRN Reason: Wheezing Ascorbic Acid (Vitamin C) 500 mg PO DAILY [facility] Last Admin: 09/11/17 08:33 Dose: 500 mg Aspirin ([place] Aspirin) 81 mg PO DAILY [facility] Last Admin: 09/11/17 08:33 Dose: 81 mg Atorvastatin Calcium (Lipitor) 20 mg PO QPM [facility] Last Admin: 09/10/17 21:34 Dose: 20 mg Cholecalciferol (Vitamin D3) 5,000 unit PO DAILY [facility] Last Admin: 09/11/17 08:33 Dose: 5,000 unit Cyanocobalamin (Vitamin B-12) 500 mcg PO DAILY [facility] Last Admin: 09/11/17 08:33 Dose: 500 mcg Enoxaparin Sodium (Lovenox) 40 mg SUBQ DAILY [facility] Last Admin: 09/11/17 08:37 Dose: 40 mg Escitalopram Oxalate (Lexapro) 20 mg PO DAILY [facility] Last Admin: 09/11/17 08:32 Dose: 20 mg Famotidine (Pepcid) 20 mg PO DAILY [facility] Last Admin: 09/11/17 08:20 Dose: 20 mg Ferrous Sulfate (Feosol) 325 mg PO BIDWM [facility] Sodium Chloride (Normal Saline 0.9%) 1,000 mls @ 83.3 mls/hr IV .Q12H1M [facility] Last Admin: 09/11/17 00:54 Dose: 83 mls/hr Meropenem 1 gm/ Sodium (Chloride) 100 mls @ 200 mls/hr IV BID [facility] Last Infusion: 09/11/17 08:45 Dose: 0 mls/hr Loperamide HCl (Imodium) 2 mg PO QID PRN PRN Reason: Diarrhea Losartan Potassium (Cozaar) 100 mg PO DAILY [facility] Last Admin: 09/11/17 08:32 Dose: 100 mg Multivitamins (Theragran) 1 tab PO DAILY [facility] Last Admin: 09/11/17 08:33 Dose: 1 tab Naproxen (Naprosyn) 220 mg PO BID PRN PRN Reason: PAIN Non-Formulary Medication (Insulin Lispro [Humalog]) 60 unit SUBQ .INSULINPUMP [facility] Ondansetron HCl (Zofran Inj) 4 mg IVP Q6HR PRN PRN Reason: Nausea / Vomiting Vitamin B Complex 1 each PO DAILY [facility] Mometasone Furoate [ (Asmanex Hfa] 2 Puffs) 2 each INH RTBID [facility] Fluocinonide-E 0.05% (Cream) 1 each TOP BID PRN PRN Reason: ITCHING Polyethylene Glycol (Miralax) 17 gm PO DAILY [facility] Last Admin: 09/11/17 09:53 Dose: 17 gm Sodium Chloride (Normal Saline Flush 0.9%) 10 ml IVP PRN PRN PRN Reason: NEEDED PER PROVIDER ORDERS Last Admin: 09/10/17 17:34 Dose: 10 ml Sodium Chloride (Normal Saline Flush 0.9%) 10 ml IVP 0100,0900,1700 [facility] Last Admin: 09/11/17 09:53 Dose: Not Given Trazodone HCl (Desyrel) 25 - 50 mg PO QPM PRN PRN Reason: Insomnia Zolpidem Tartrate (Ambien) 5 mg PO QPM PRN PRN Reason: Insomnia Albuterol Sulfate [Proair Hfa Inhaler] 2 puffs INH QID PRN 11/13/12 Aspirin 81 mg PO DAILY 11/13/12 Losartan Potassium [Cozaar] 100 mg PO DAILY 11/13/12 Multivitamin [Multivitamins] 1 each PO DAILY 11/13/12 Zolpidem Tartrate [Ambien] 2.5 - 5 mg PO DAILY PRN 11/13/12 Ascorbic Acid [Vitamin C] 500 mg PO DAILY 06/11/13 Ferrous Sulfate [Slow Release Iron] 1 tab PO DAILY 06/11/13 Ibandronate Sodium [Boniva] 150 mg PO Q30D 06/11/13 Insulin Lispro [Humalog] 60 unit SUBQ .INSULINPUMP 06/11/13 Lactobacillus Acidophilus [Acidophilus] 1 each PO BID 06/11/13 Trazodone HCl 25 - 50 mg PO QPM PRN 06/11/13 Ubidecarenone [Co Q-10] 200 mg PO QPM 06/11/13 Vitamin B Complex [B Complex] 1 each PO DAILY 06/11/13 Fluocinonide/Emollient Base [Fluocinonide-E 0.05% Cream] 1 applic TP BID PRN Loperamide HCl [Loperamide] 2 mg PO QID PRN 09/28/15 Calcium Carbonate/Vitamin D3 [Calcium 600-Vit D3 800 Tablet] 2 each PO DAILY 05/20 Cholecalciferol [Vitamin D3] 5,000 unit PO DAILY 09/10/17 Cyanocobalamin (Vitamin B-12) [Vitamin B-12 (500 mcg sublingual)] 500 mcg SL DAILY 09/10/17 Escitalopram Oxalate [Lexapro] 20 mg PO DAILY 09/10/17 Estrogens, Conjugated Cream [Premarin Cream] 0.5 applic VG Q7D 09/10/17 Glucosamine HCl/Chondroitin Rojas [Endur-Flex Sr Tablet] 1,000 mg PO DAILY Magnesium Glycinate 120 mg PO DAILY 09/10/17 Mometasone Furoate [Asmanex Hfa] 2 puffs INH BID 09/10/17 Naproxen Sodium [Aleve] 220 mg PO BID PRN 09/10/17 Simvastatin [Zocor] 40 mg PO QPM 09/10/17 Objective - Vital Signs/Intake & Output Reviewed Vital Signs: Yes Vital Signs: Vital Signs x48h Temp Pulse Pulse Resp BP Pulse Ox 09/11/17 08:40 90 20 09/11/17 08:10 37.1 C 81 18 137/65 H 97 09/11/17 05:00 37.3 C 91 16 141/67 H 95 Intake & Output: Intake & Output 09/08/17 09/09/17 09/10/17 09/11/17 22:59 22:59 23:59 23:59 Intake Total 839.333 Output Total 325 Balance 514.333 - Objective General Appearance: positive: No acute distress, Alert. negative: Lethargic Eyes Bilateral: positive: Normal inspection, PERRL, No lid inflammation, Conjunctivae nml ENT: positive: ENT inspection nml, Pharynx nml, No signs of dehydration. negative: Purulent nasal drainage, Pharyngeal erythema, Oral lesions Neck: positive: Nml inspection, Thyroid nml, No JVD, Trachea midline. negative : Thyromegaly, Lymphadenopathy (R), Lymphadenopathy (L), Stiff neck, Carotid bruit, Swelling/bruising, Tracheal deviation Respiratory: positive: Chest non-tender, No respiratory distress, Breath sounds nml. negative: Wheezes, Rales, Rhonchi Cardiovascular: positive: Regular rate & rhythm, No murmur, No gallop. negative : Irregularly irregular, Extrasystoles, Tachycardia, Bradycardia, Systolic murmur, Diastolic murmur Peripheral Pulses: 2+ Radial (R), 2+ Radial (L), 2+ Dorsalis pedis (R), 2+ Dorsalis pedis (L) Abdomen: positive: Non-tender, No organomegaly, Nml bowel sounds, No distention. negative: Tenderness, Guarding, Rebound Back: positive: Nml inspection. negative: CVA tenderness (R), CVA tenderness (L ) Skin: positive: Color nml, No rash, Warm, Dry. negative: Cyanosis, Diaphoresis , Pallor Extremities: positive: Non-tender, Full ROM, Nml appearance. negative: Calf tenderness, Joint swelling, Peter's sign/cords Neurologic/Psychiatric: positive: Oriented x3, Motor nml, Sensation nml, Mood/ affect nml. negative: Sensory loss, Facial droop, Slurred/abnml speech, Depressed mood/affect - Lab Results Fish Bones: 09/11/17 05:17 09/11/17 05:17 Other Labs: Lab Results x24hrs 09/11/17 09/11/17 09/11/17 Range/Units 10:05 10:05 10:05 WBC (4.8-10.8) x10^3/uL RBC (4.20-5.40) 10^6/uL Hgb (12.0-16.0) g/dL Hct (37.0-47.0) % MCV (81.0-99.0) fL MCH (27.0-31.0) pg MCHC (32.0-36.0) g/dL RDW (12.0-15.0) % Plt Count (130-450) 10^3/uL MPV (7.9-10.8) fL Reticulocyte % (Auto) (0.5-2.3) % Neut # (1.5-6.6) 10^3/uL Lymph # (1.5-3.5) 10^3/uL Archuleta # (0.0-1.0) 10^3/uL Eos # (0.0-0.7) 10^3/uL Baso # (0.0-0.1) 10^3/uL Absolute Nucleated RBC x10^3/uL Nucleated RBC % /100WBC Absolute Retic (0.020-0.110) 10^6/uL Sodium (135-145) mmol/L Potassium (3.5-5.0) mmol/L Chloride (101-111) mmol/L Carbon Dioxide (21-32) mmol/L Anion Gap (6-13) BUN (6-20) mg/dL Creatinine (0.4-1.0) mg/dL Estimated GFR (MDRD) (>89) Glucose (70-100) mg/dL POC Whole Bld Glucose (70 - 100) mg/dL Calcium (8.5-10.3) mg/dL Magnesium (1.7-2.8) mg/dL Iron 13 L (28-170) ug/dL TIBC 181 L (250-450) ug/dL % Saturation 7 L (20-50) % Transferrin 129 L (192-382) mg/dL Ferritin 296.0 (11.0-306.8) ng/mL Total Bilirubin (0.2-1.0) mg/dL AST (10-42) IU/L ALT (10-60) IU/L Alkaline Phosphatase (42-121) IU/L Lactate Dehydrogenase 128 (91-225) IU/L Total Protein (6.7-8.2) g/dL Albumin (3.2-5.5) g/dL Globulin (2.1-4.2) g/dL Albumin/Globulin Ratio (1.0-2.2) Vitamin B12 751 (180-914) pg/mL 09/11/17 09/11/17 09/11/17 Range/Units 10:05 05:17 05:17 WBC 8.4 (4.8-10.8) x10^3/uL RBC 3.07 L 2.81 L (4.20-5.40) 10^6/uL Hgb 7.9 L (12.0-16.0) g/dL Hct 23.8 L (37.0-47.0) % MCV 84.5 (81.0-99.0) fL MCH 28.1 (27.0-31.0) pg MCHC 33.2 (32.0-36.0) g/dL RDW 13.8 (12.0-15.0) % Plt Count 332 (130-450) 10^3/uL MPV 7.6 L (7.9-10.8) fL Reticulocyte % (Auto) 2.07 (0.5-2.3) % Neut # 5.8 (1.5-6.6) 10^3/uL Lymph # 1.6 (1.5-3.5) 10^3/uL Archuleta # 0.9 (0.0-1.0) 10^3/uL Eos # 0.1 (0.0-0.7) 10^3/uL Baso # 0.0 (0.0-0.1) 10^3/uL Absolute Nucleated RBC 0.00 x10^3/uL Nucleated RBC % 0.0 /100WBC Absolute Retic 0.064 (0.020-0.110) 10^6/uL Sodium 136 (135-145) mmol/L Potassium 3.8 (3.5-5.0) mmol/L Chloride 109 (101-111) mmol/L Carbon Dioxide 19 L (21-32) mmol/L Anion Gap 8.0 (6-13) BUN 12 (6-20) mg/dL Creatinine 0.6 (0.4-1.0) mg/dL Estimated GFR (MDRD) 99 (>89) Glucose 337 H (70-100) mg/dL POC Whole Bld Glucose (70 - 100) mg/dL Calcium 7.7 L (8.5-10.3) mg/dL Magnesium 1.7 (1.7-2.8) mg/dL Iron (28-170) ug/dL TIBC (250-450) ug/dL % Saturation (20-50) % Transferrin (192-382) mg/dL Ferritin (11.0-306.8) ng/mL Total Bilirubin 0.7 (0.2-1.0) mg/dL AST 18 (10-42) IU/L ALT 15 (10-60) IU/L Alkaline Phosphatase 62 (42-121) IU/L Lactate Dehydrogenase (91-225) IU/L Total Protein 5.3 L (6.7-8.2) g/dL Albumin 2.2 L (3.2-5.5) g/dL Globulin 3.1 (2.1-4.2) g/dL Albumin/Globulin Ratio 0.7 L (1.0-2.2) Vitamin B12 (180-914) pg/mL 09/10/17 09/10/17 Range/Units 20:37 16:48 WBC (4.8-10.8) x10^3/uL RBC (4.20-5.40) 10^6/uL Hgb (12.0-16.0) g/dL Hct (37.0-47.0) % MCV (81.0-99.0) fL MCH (27.0-31.0) pg MCHC (32.0-36.0) g/dL RDW (12.0-15.0) % Plt Count (130-450) 10^3/uL MPV (7.9-10.8) fL Reticulocyte % (Auto) (0.5-2.3) % Neut # (1.5-6.6) 10^3/uL Lymph # (1.5-3.5) 10^3/uL Archuleta # (0.0-1.0) 10^3/uL Eos # (0.0-0.7) 10^3/uL Baso # (0.0-0.1) 10^3/uL Absolute Nucleated RBC x10^3/uL Nucleated RBC % /100WBC Absolute Retic (0.020-0.110) 10^6/uL Sodium (135-145) mmol/L Potassium (3.5-5.0) mmol/L Chloride (101-111) mmol/L Carbon Dioxide (21-32) mmol/L Anion Gap (6-13) BUN (6-20) mg/dL Creatinine (0.4-1.0) mg/dL Estimated GFR (MDRD) (>89) Glucose (70-100) mg/dL POC Whole Bld Glucose 258 H 150 H (70 - 100) mg/dL Calcium (8.5-10.3) mg/dL Magnesium (1.7-2.8) mg/dL Iron (28-170) ug/dL TIBC (250-450) ug/dL % Saturation (20-50) % Transferrin (192-382) mg/dL Ferritin (11.0-306.8) ng/mL Total Bilirubin (0.2-1.0) mg/dL AST (10-42) IU/L ALT (10-60) IU/L Alkaline Phosphatase (42-121) IU/L Lactate Dehydrogenase (91-225) IU/L Total Protein (6.7-8.2) g/dL Albumin (3.2-5.5) g/dL Globulin (2.1-4.2) g/dL Albumin/Globulin Ratio (1.0-2.2) Vitamin B12 (180-914) pg/mL Assessment/Plan - Problem List (1) Gram-negative bacteremia Impression: (1) Gram-negative bacteremia Conclusion/Plan: no fever, chill, cough continue Meropenem the second culture is negative in preliminary, pt may switch to PO antibiotics, plan for d/c blood culture reveals ESBL negative bacilli, fever for a week with 104 degree fever for 4 days start with Meropenem IVF with NS follow with second culture vital and lab monitor (2) UTI (urinary tract infection) Conclusion/Plan: continue Meropenem UA culture positive, recurrent infection for recently nearly year treat with Meropenem (3) Diabetes 1.5, managed as type 1 Conclusion/Plan: continue to use pt'w own insulin Pump ACHS pt had DM1 for forty years with insulin Pump check A1c continue insulin Pump slide scale, [facility] hypoglycemia protocol (4) Hypokalemia Conclusion/Plan: resolved Potassium 2.9 today replacement Potassium, closely monitor Potassium when using insulin and insulin Pump (5) Abdominal discomfort Conclusion/Plan: discuss with pt for the CT and US result, advise pt annual check her kidney nodule pt with negative Bacilli bacteremia, abdominal discomfort, loose stool order CT of abdomen and Pelvis to r/o etiology, follow up the test (6) Anemia Conclusion/Plan: continue B12 oral and Ferrous sulfate order anemia study, follow up HGB is 8.5, pt was already on B12 and Ferrous, will continue these meds (7) hx of Asthma stable, resume home, pt may have her own meds (2) UTI (urinary tract infection) Qualifiers: Urinary tract infection type: acute cystitis Hematuria presence: without hematuria Qualified Code(s): N30.00 - Acute cystitis without hematuria (6) Anemia Qualifiers: Anemia type: unspecified type Qualified Code(s): D64.9 - Anemia, unspecified
[2017-09-11] MEDS: FERROUS SULFATE 325 MG TABLET PO SCH ×2 (12:16→17:42)
[2017-09-11] MEDS: ATORVASTATIN 10 MG TABLET PO SCH (22:07)
[2017-09-11] MEDS: INSULIN ASPART 300 UNIT/3 ML PEN SUBQ SCH (22:10)
[2017-09-12] MEDS: SODIUM CHLORIDE FLUSH 0.9% 10 ML SYRINGE IVP SCH ×2 (02:07→11:37)
[2017-09-12 06:10] LABS: BASOPHILS % (AUTO) 0.6 %; EOSINOPHILS # (AUTO) 0.1 10^3/uL (0.0-0.7); EOSINOPHILS % (AUTO) 1.3 %; HGB - HEMOGLOBIN 8.5 g/dL (12.0-16.0); LYMPHOCYTES # (AUTO) 2.1 10^3/uL (1.5-3.5); LYMPHOCYTES % (AUTO) 23.9 %; MEAN CORPUSCULAR HEMOGLOBIN 27.4 pg (27.0-31.0); MEAN CORPUSCULAR HGB CONC 32.4 g/dL (32.0-36.0); MEAN CORPUSCULAR VOLUME 84.6 fL (81.0-99.0); MEAN PLATELET VOLUME 7.7 fL (7.9-10.8); MONOCYTES % (AUTO) 11.4 %; NEUTROPHILS # (AUTO) 5.5 10^3/uL (1.5-6.6); NEUTROPHILS % (AUTO) 62.8 %; PLT - PLATELET COUNT 376 10^3/uL (130-450); RED BLOOD COUNT 3.09 10^6/uL (4.20-5.40); RED CELL DISTRIBUTION WIDTH 13.5 % (12.0-15.0); WHITE BLOOD COUNT 8.8 x10^3/uL (4.8-10.8)
[2017-09-12 06:19] LABS: ALBUMIN 2.3 g/dL (3.2-5.5); ALBUMIN/GLOBULIN RATIO 0.7 (1.0-2.2); BILIRUBIN,TOTAL 0.5 mg/dL (0.2-1.0); CALCIUM 8.4 mg/dL (8.5-10.3); CREATININE 0.5 mg/dL (0.4-1.0); TOTAL PROTEIN 5.7 g/dL (6.7-8.2)
[2017-09-12] MEDS: SODIUM CHLORIDE 0.9% 1,000 ML IV SCH (06:33)
[2017-09-12] MEDS: Mometasone Furoate [Asmanex Hfa] 2 PUFFS INH SCH (06:46)
[2017-09-12] MEDS: MEROPENEM 1 GM in SODIUM CHLORIDE 0.9% MINIBAG 100 ML IV SCH (08:12)
[2017-09-12] MEDS: ASCORBIC ACID CHEW 500 MG TABLET PO SCH (08:14)
[2017-09-12] MEDS: FAMOTIDINE 20 MG TABLET PO SCH (08:15)
[2017-09-12] MEDS: LOSARTAN 50 MG TABLET PO SCH (08:15)
[2017-09-12] MEDS: MULTIVITAMIN TABLET PO SCH (08:15)
[2017-09-12] MEDS: FERROUS SULFATE 325 MG TABLET PO SCH (08:15)
[2017-09-12] MEDS: ASPIRIN CHEW 81 MG TABLET PO SCH (08:15)
[2017-09-12] MEDS: CHOLECALCIFEROL 5,000 UNIT CAPSULE PO SCH (08:16)
[2017-09-12] MEDS: ESCITALOPRAM 10 MG TABLET PO SCH (08:17)
[2017-09-12] MEDS: ENOXAPARIN 40 MG/0.4 ML SYRINGE SUBQ SCH (08:17)
[2017-09-12] MEDS: INSULIN ASPART 300 UNIT/3 ML PEN SUBQ SCH ×2 (08:17→11:35)
--- NOTE | 2017-09-12 11:44 | Discharge Plan ---
Discharge Plan Disposition: Home, Self Care Condition: Good Prescriptions: Diphenoxylate/Atropine [Lomotil] 1 each PO Q4H PRN #30 tablet PRN Reason: Diarrhea Saccharomyces Boulardii [Florastor] 250 mg PO BID 14 Days #28 capsule Sulfamethoxazole/Trimethoprim [Bactrim 400-80 mg Tablet] 1 each PO BID 7 Days # 14 tablet Diet: Diabetic Activity Restrictions: No Restrictions Shower Restrictions: No Driving Restrictions: No Weight Bearing: Full Weight Additional Instructions or Follow Up instructions: You were admitted for treatment of your UTI, and it was suspected that you may have a "blood infection". All testing for this was negative. Cultures from your urine grew e. coli (ESBL+). You should continue on the antibiotics most sensitive to this bacteria for 7 days. Please see your PCP within one week of your hospitalization. No Smoking: If you smoke, Please STOP! Call for help. Follow-up with: Javan Black MD [Primary Care Provider] -
--- NOTE | 2017-09-12 11:49 | DISCHARGE SUMMARY ---
Discharge Summary Admit Date: 09/10/17 Discharge Date: 09/12/17 Discharging Provider: AREN Macias Primary Care Provider: Javan Black Code Status: Attempt Resuscitation Condition at Discharge: Good Discharge Disposition: 01 Home, Self Care - DIAGNOSES Admission Diagnoses: Bacteremia (R78.81) Urinary tract infection, site not specified (N39.0) Type 2 diabetes mellitus without complications (E11.9) Hypokalemia (E87.6) Anemia, unspecified (D64.9) Discharge Diagnoses with Status of Each Condition: UTI (urinary tract infection) (N39.0) improved, treatment to continue. Diabetes mellitus type 1 (E10.9) chronic, stable. Hypokalemia (E87.6) resolved. Anemia (D64.9) chronic, stable. Bacteremia due to Gram-negative bacteria (R78.81) new on this admission, treatment to continue. - HPI History of Present Illness: Ms. Jacob is a 71-year-old female with a past medical history significant for DM1 , recurrent UTI, HTN, HLD, Asthma, Depression, Osteoarthritis, Psoriasis, anemia , who present ER for complains of fever, and subsequent positive bacterial blood culture. Pt report she had fever for about one week, and at 104 degree fever with chill for the last four days. Pt went to her PCP and she was prescribed Macrobid but it seems pt did not get better. Pt went to ER yesterday. UA reveals she had UTI. The blood was draw for culture and pt was treated with IV rocephin and was prescribed Kflex to D/C to home. The blood culture was positive for negative bacilli. Pt was called to come back to hospital for further treatment. Pt also report she had nausea but no vomiting, and loose stool but not diarrhea, and with discomfort in abdomen. Pt report she had DM1 since forty year ago. Patient denies chest pain, shortness of breath, cough, headache, or vision changes. Lab tests in ER show a potassium of 2.9, glucose 343, HGB 8.5. Na 133. - HOSPITAL COURSE Hospital Course: The following diagnoses were prevalent during this hospital stay: (1) Gram-negative bacteremia- Blood culture reveals + ESBL. Patient stated that she had a fever for about a week with a max temp of 104. Patient was prescribed Meropenem, given IV fluids, and final cultures show sensitivities to florquinalones. (2) UTI (urinary tract infection)- A UA was obtained in the ED at the time of admission, and cultures were positive. Patient has had recurrent infections for the past year. She was treated with Meropenem IV that was changed to Rocephin and finally to Keflex PO to be continued. (3) Diabetes 1.5, managed as type 1- Patient was allowed to continue using her home insulin Pump. Blood sugars were checked as usual ACHS, an patient admits to a 40 history of DM. A hemoglobin A1c 8.4 that was obtained on 09/10/17. No changes were made at the time of discharge. (4) Hypokalemia- This is considered to be resolved at the time of discharge. Potassium was 2.9 upon admission. Both PO/IV forms of K+ were used for replacement. Labs were monitored during her stay. (5) Abdominal discomfort- Results were discussed with patient regarding CT and US. She was advised to follow up as a kidney nodule was noted. Patient's blood cultures grew out gram negative Bacilli. The patient struggled with loose at the beginning of her stay that resolved by the time of discharge. (6) Anemia- Patient was continued on supplemental B12 and Ferrous sulfate. Irons studies showed a low iron of 13, low TIBC at 181, saturation of 7%, a low transferrin of 129 and a normal ferritin level of 296. Last H/H was 8.5/26.2 and has been stable. She did not require a blood transfusion while here. (7) hx of Asthma- This remains stable and the patient was maintained on home medications as per patient request. Disposition: The patient was discharged in stable condition home. - ALLERGIES Allergies/Adverse Reactions: Allergies Allergy/AdvReac Type Severity Reaction Status Date / Time Penicillins Allergy Intermediate Rash Verified 09/10/17 09:24 amoxicillin Allergy Rash Verified 09/10/17 09:24 gabapentin AdvReac diarrhea Verified 09/10/17 09:24 - MEDICATIONS Home Medications: Ambulatory Orders Medication Instructions Recorded Confirmed Albuterol Sulfate [Proair Hfa 2 puffs INH QID PRN 11/13/12 09/10/17 Inhaler] Aspirin 81 mg PO DAILY 11/13/12 09/10/17 Losartan Potassium [Cozaar] 100 mg PO DAILY 11/13/12 09/10/17 Multivitamin [Multivitamins] 1 each PO DAILY 11/13/12 09/10/17 Zolpidem Tartrate [Ambien] 2.5 - 5 mg PO DAILY PRN 11/13/12 09/10/17 Ascorbic Acid [Vitamin C] 500 mg PO DAILY 06/11/13 09/10/17 Ferrous Sulfate [Slow Release Iron] 1 tab PO DAILY 06/11/13 09/10/17 Ibandronate Sodium [Boniva] 150 mg PO Q30D 06/11/13 09/10/17 Insulin Lispro [Humalog] 60 unit SUBQ .INSULINPUMP 06/11/13 09/10/17 Lactobacillus Acidophilus 1 each PO BID 06/11/13 09/10/17 [Acidophilus] Trazodone HCl 25 - 50 mg PO QPM PRN 06/11/13 09/10/17 Ubidecarenone [Co Q-10] 200 mg PO QPM 06/11/13 09/10/17 Vitamin B Complex [B Complex] 1 each PO DAILY 06/11/13 09/10/17 Fluocinonide/Emollient Base 1 applic TP BID PRN 09/28/15 09/10/17 [Fluocinonide-E 0.05% Cream] Loperamide HCl [Loperamide] 2 mg PO QID PRN 09/28/15 09/10/17 Calcium Carbonate/Vitamin D3 2 each PO DAILY 09/10/17 09/10/17 [Calcium 600-Vit D3 800 Tablet] Cholecalciferol [Vitamin D3] 5,000 unit PO DAILY 09/10/17 09/10/17 Cyanocobalamin (Vitamin B-12) 500 mcg SL DAILY 09/10/17 09/10/17 [Vitamin B-12 (500 mcg sublingual)] Escitalopram Oxalate [Lexapro] 20 mg PO DAILY 09/10/17 09/10/17 Estrogens, Conjugated Cream 0.5 applic VG Q7D 09/10/17 09/10/17 [Premarin Cream] Glucosamine HCl/Chondroitin Rojas 1,000 mg PO DAILY 09/10/17 09/10/17 [Endur-Flex Sr Tablet] Magnesium Glycinate 120 mg PO DAILY 09/10/17 09/10/17 Mometasone Furoate [Asmanex Hfa] 2 puffs INH BID 09/10/17 09/10/17 Naproxen Sodium [Aleve] 220 mg PO BID PRN 09/10/17 09/10/17 Simvastatin [Zocor] 40 mg PO QPM 09/10/17 09/10/17 Diphenoxylate/Atropine [Lomotil] 1 each PO Q4H PRN #30 tablet 09/12/17 Saccharomyces Boulardii [Florastor] 250 mg PO BID 14 Days #28 capsule 09/12/17 Sulfamethoxazole/Trimethoprim 1 each PO BID 7 Days #14 tablet 09/12/17 [Bactrim 400-80 mg Tablet] - PHYSICAL EXAM AT DISCHARGE General Appearance: positive: No acute distress, Alert Eyes Bilateral: positive: Normal inspection, PERRL ENT: positive: ENT inspection nml, Pharynx nml, No signs of dehydration Neck: positive: Nml inspection, Thyroid nml, No JVD, Trachea midline Respiratory: positive: Chest non-tender, No respiratory distress, Breath sounds nml Cardiovascular: positive: Regular rate & rhythm, No murmur, No gallop Peripheral Pulses: positive: 2+ Abdomen: positive: Non-tender, No organomegaly, Abnml bowel sounds (hyperactive. ) Back: positive: Nml inspection Skin: positive: No rash, Warm, Dry Extremities: positive: Non-tender, Full ROM, Nml appearance, No pedal edema Neurologic/Psychiatric: positive: Oriented x3, CN's nml (2-12), Motor nml, Sensation nml, Mood/affect nml Reflexes: Bicep (R): 3+, Bicep (L): 3+ - LABS Result Diagrams: 09/12/17 05:20 09/12/17 05:20 - DIAGNOSTIC IMAGING Diagnostic Imaging Results: Final report reviewed Diagnostic Imaging Results Comments: EXAM: CT ABDOMEN AND PELVIS EXAM DATE: 09/10/2017 04:59 PM. CLINICAL HISTORY: Discomfort with diarrhea and bloating for one month. COMPARISONS: None. TECHNIQUE: Routine helical CT imaging was performed through the abdomen and pelvis. IV contrast: None. Enteric contrast: No. Reconstructions: Coronal and sagittal. In accordance with CT protocol optimization, one or more of the following dose reduction techniques were utilized for this exam: automated exposure control, adjustment of mA and/or KV based on patient size, or use of iterative reconstructive technique. FINDINGS: Lung Bases: Unremarkable. Liver: Normal. No masses. Gallbladder/Bile Ducts: Small gallstones. No dilated ducts. Spleen: Normal. Pancreas: Normal. Adrenal Glands: Normal. Kidneys: Left posterior lower pole complex cyst or mass 4 cm across with adjacent fat stranding, otherwise unremarkable. Peritoneal Cavity/Bowel: Gastric bypass noted. No free fluid, free air or adenopathy. No masses or acute inflammatory process. The appendix is well visualized and normal. Pelvic Organs: Air in the bladder. Reproductive organs are unremarkable. Vasculature: No aneurysms or other significant abnormality. Bones: No significant abnormality. Other: None. IMPRESSION: 1. Small gallstones. 2. Gastric bypass, otherwise unremarkable bowel. 3. Complex 4 cm cyst or mass off the lower left kidney with mild adjacent fat stranding. Consider ultrasound evaluation. 4. Air noted within the bladder. EXAM: RENAL ULTRASOUND EXAM DATE: 09/10/2017 08:14 PM. CLINICAL HISTORY: Mass at left kidney. COMPARISON: CT earlier today. TECHNIQUE: Real-time scanning was performed with static images obtained. FINDINGS: Right Kidney: 9.7 x 5.4 x 5.4 cm. The resistive index measures . Normal echotexture with no stones, contour-deforming masses, or hydronephrosis. Left Kidney: 10.3 x 5.6 x 8.4 cm. The resistive index measures . Normal echotexture with no stones, contour-deforming masses, or hydronephrosis. Lower pole 2.8 x 3.1 x 3.2 cm well-circumscribed complex cyst with internal nodule. Bladder: Only the left ureteral jet seen. The prevoid bladder volume was 199 cc. The postvoid bladder volume was 22 cc. Other: None. IMPRESSION: Lower left renal complex cyst corresponding to the CT abnormality with internal nodule, clot versus mass. Consider one-year follow-up ultrasound. - FOLLOW UP Follow Up: Disposition: 01 Home, Self Care Condition: Good Prescriptions: Diphenoxylate/Atropine [Lomotil] 1 each PO Q4H PRN #30 tablet PRN Reason: Diarrhea Saccharomyces Boulardii [Florastor] 250 mg PO BID 14 Days #28 capsule Sulfamethoxazole/Trimethoprim [Bactrim 400-80 mg Tablet] 1 each PO BID 7 Days # 14 tablet Diet: Diabetic Activity Restrictions: No Restrictions Shower Restrictions: No Driving Restrictions: No Weight Bearing: Full Weight Additional Instructions or Follow Up instructions: You were admitted for treatment of your UTI, and it was suspected that you may have a "blood infection". All testing for this was negative. Cultures from your urine grew e. coli (ESBL+). You should continue on the antibiotics most sensitive to this bacteria for 7 days. Please see your PCP within one week of your hospitalization. - TIME SPENT Time Spent in Discharge (Minutes): 60
[2017-09-12 11:56] VITALS: BP 103/61
== END 2017-09-12 14:00 | disposition home or self-care (01) | DRG 690 ==
LOC: ED 09:17 → MS2 10:52
PROVIDERS: ADMIT Nurse Practitioner Gerontology; ATTEND Nurse Practitioner Gerontology
DX: N30.00 Acute cystitis without hematuria (principal); R78.81 Bacteremia; E10.65 Type 1 diabetes mellitus with hyperglycemia; B96.20 Unspecified Escherichia coli [E. coli] as the cause of diseases classified elsewhere; Z16.12 Extended spectrum beta lactamase (ESBL) resistance; Z79.4 Long term (current) use of insulin; R10.9 Unspecified abdominal pain; E10.9 Type 1 diabetes mellitus without complications; E87.6 Hypokalemia; D64.9 Anemia, unspecified; I10 Essential (primary) hypertension; E78.5 Hyperlipidemia, unspecified; F32.9 Major depressive disorder, single episode, unspecified; J45.909 Unspecified asthma, uncomplicated; M19.90 Unspecified osteoarthritis, unspecified site; Z96.41 Presence of insulin pump (external) (internal); Z88.0 Allergy status to penicillin; Z79.82 Long term (current) use of aspirin; Z98.84 Bariatric surgery status
CPT/HCPCS: 36415; 74176; 76770; 80048; 80053; 82607; 82728; 83036; 83540; 83605; 83615; 83735; 84466; 85025; 85044; 87040; 94640; 96365; 99283; 99284

== ENCOUNTER 2017-10-23 06:08 | Day surgery (SDC) | payer MEDICARE, OTHER ==
[2017-10-23] MEDS ORDERED: LACTATED RINGERS 1,000 ML IV ONE (06:50)
[2017-10-23] MEDS ORDERED: LIDO GARGLE 30 ML BOTTLE ONE (07:35)
[2017-10-23] MEDS ORDERED: BENZOCAINE/TETRACAINE/BUTAMBEN SPRAY 56 GM TOP ONE (07:55)
[2017-10-23] MEDS ORDERED: LIDO GARGLE 30 ML BOTTLE TOP ONE (07:55)
[2017-10-23] MEDS ORDERED: fentaNYL 250 MCG/5 ML VIAL IVP ONE (08:40)
[2017-10-23] MEDS ORDERED: MIDAZOLAM 2 MG/2 ML VIAL IVP ONE (08:40)
[2017-10-23 09:07] VITALS: BP 132/68
== END 2017-10-23 06:09 | disposition home or self-care (01) ==
LOC: SDS 06:08
PROVIDERS: ATTEND Surgery
PROC: 0DJD8ZZ Inspection of Lower Intestinal Tract, Via Natural or Artificial Opening Endoscopic (ICD-10-PCS; principal; 2017-10-23 07:30)
DX: D50.9 Iron deficiency anemia, unspecified (principal); K64.8 Other hemorrhoids; E11.9 Type 2 diabetes mellitus without complications; Z79.4 Long term (current) use of insulin; Z96.41 Presence of insulin pump (external) (internal); Z86.010 Personal history of colon polyps; J45.909 Unspecified asthma, uncomplicated; Z98.84 Bariatric surgery status
CPT/HCPCS: 45378; A9270; J3010; J7120

== ENCOUNTER 2017-12-30 12:04 | Emergency (ER) | payer MEDICARE, OTHER ==
[2017-12-30 12:29] LABS: BILIRUBIN,URINE NEGATIVE (NEGATIVE); GLUCOSE, URINE (UA) >=1000 mg/dL (NEGATIVE); KETONES,URINE (UA) NEGATIVE (NEGATIVE); LEUKOCYTE ESTERASE, URINE MODERATE (NEGATIVE); NITRITE,URINE POSITIVE (NEGATIVE); OCCULT BLOOD,URINE TRACE-INTA (NEGATIVE); PROTEIN,URINE TRACE mg/dL (NEGATIVE); UROBILINOGEN,URINE 0.2 (NORMAL) E.U./dL (NORMAL)
[2017-12-30 12:31] LABS: CLARITY,URINE SL. CLOUDY (CLEAR)
[2017-12-30 12:39] LABS: BACTERIA,URINE Many /HPF (None Seen); RBC,URINE 0-5 /HPF (0-5); SQUAMOUS EPITHELIAL CELL,UR RARE Squamous (<= Few); WBC CLUMPS,URINE PRESENT
[2017-12-30] MEDS ORDERED: CIPROFLOXACIN 250 MG TABLET PO STA (12:58)
--- NOTE | 2017-12-30 13:00 | ED Physician Documentation ---
PD HPI FEMALE - Stated complaint Stated Complaint: FEMALE - Chief complaint Chief Complaint: UTI - History obtained from History obtained from: Patient - History of Present Illness Timing - onset: Yesterday (72-year-old woman with history of recurrent UTIs. She was admitted here in August with ESBL UTI/sepsis. She was on Macrobid starting about 10 days ago for a week. The symptoms recurred over the last day or 2 and she also has a yeast infection. She is very mild left flank pain but no fevers or chills.) Review of Systems Constitutional: denies: Fever, Chills GI: denies: Abdominal Pain, Nausea, Vomiting : reports: Dysuria, Frequency PD PAST MEDICAL HISTORY - Past Medical History Cardiovascular: Hypertension, High cholesterol Respiratory: Asthma Endocrine/Autoimmune: Type 1 diabetes GI: GERD Psych: Depression Musculoskeletal: Osteoarthritis Derm: Psoriasis - Past Surgical History Past Surgical History: Yes General: Gastric surgery, Colonoscopy Ortho: Other HEENT: Cataracts - Present Medications Home Medications: Ambulatory Orders Medication Instructions Recorded Confirmed Albuterol Sulfate [Proair Hfa 2 puffs INH QID PRN 11/13/12 12/11/17 Inhaler] Aspirin 81 mg PO DAILY 11/13/12 12/11/17 Losartan Potassium [Cozaar] 100 mg PO DAILY 11/13/12 12/11/17 Multivitamin [Multivitamins] 1 each PO DAILY 11/13/12 12/11/17 Zolpidem Tartrate [Ambien] 2.5 - 5 mg PO DAILY PRN 11/13/12 12/11/17 Ascorbic Acid [Vitamin C] 500 mg PO DAILY 06/11/13 12/11/17 Ferrous Sulfate [Slow Release Iron] 1 tab PO DAILY 06/11/13 12/11/17 Ibandronate Sodium [Boniva] 150 mg PO Q30D 06/11/13 12/11/17 Insulin Lispro [Humalog] 60 unit SUBQ .INSULINPUMP 06/11/13 12/11/17 Lactobacillus Acidophilus 1 each PO BID 06/11/13 12/11/17 [Acidophilus] Trazodone HCl 25 - 50 mg PO QPM PRN 06/11/13 12/11/17 Ubidecarenone [Co Q-10] 200 mg PO QPM 06/11/13 12/11/17 Vitamin B Complex [B Complex] 1 each PO DAILY 06/11/13 12/11/17 Fluocinonide/Emollient Base 1 applic TP BID PRN 09/28/15 12/11/17 [Fluocinonide-E 0.05% Cream] Calcium Carbonate/Vitamin D3 2 each PO DAILY 09/10/17 12/11/17 [Calcium 600-Vit D3 800 Tablet] Cholecalciferol [Vitamin D3] 5,000 unit PO DAILY 09/10/17 12/11/17 Cyanocobalamin (Vitamin B-12) 500 mcg SL DAILY 09/10/17 12/11/17 [Vitamin B-12 (500 mcg sublingual)] Escitalopram Oxalate [Lexapro] 20 mg PO DAILY 09/10/17 12/11/17 Estrogens, Conjugated Cream 0.5 applic VG Q7D 09/10/17 12/11/17 [Premarin Cream] Glucosamine HCl/Chondroitin Rojas 1,000 mg PO DAILY 09/10/17 12/11/17 [Endur-Flex Sr Tablet] Magnesium Glycinate 120 mg PO DAILY 09/10/17 12/11/17 Mometasone Furoate [Asmanex Hfa] 2 puffs INH BID 09/10/17 12/11/17 Naproxen Sodium [Aleve] 220 mg PO BID PRN 09/10/17 12/11/17 Simvastatin [Zocor] 40 mg PO QPM 09/10/17 12/11/17 Saccharomyces Boulardii [Florastor] 250 mg PO BID 14 Days #28 capsule 09/12/17 12/11/17 [place] Pump 1 infus.set SUBQ TITR 12/11/17 12/11/17 Ciprofloxacin HCl [Cipro] 500 mg PO BID #20 tablet 12/30/17 Fluconazole [Diflucan] 150 mg PO ONCE #2 tablet 12/30/17 - Allergies Allergies/Adverse Reactions: Allergies Allergy/AdvReac Type Severity Reaction Status Date / Time Penicillins Allergy Intermediate Rash Verified 09/10/17 09:24 amoxicillin Allergy Rash Verified 09/10/17 09:24 gabapentin AdvReac diarrhea Verified 09/10/17 09:24 - Social History Does the pt smoke?: No Smoking Status: Never smoker Does the pt drink ETOH?: No Does the pt have substance abuse?: No - Immunizations Immunizations are current?: Yes - POLST Patient has POLST: No POLST Status: Full Code PD ED PE NORMAL - Vitals Vital signs reviewed: Yes - General General: Alert and oriented X 3, No acute distress - Abdomen Abdomen: Normal bowel sounds, Soft, Non tender - Back Back: No CVA TTP - Neuro Neuro: Alert and oriented X 3, Normal speech Results - Vitals Vitals: Vital Signs - 24 hr 12/30/17 12/30/17 12:06 13:04 Temperature 36.4 C L 37.4 C Heart Rate 91 71 Respiratory 17 16 Rate Blood Pressure 107/57 L 124/58 L O2 Saturation 98 100 Oxygen O2 Source Room air - Labs Labs: Laboratory Tests 12/30/17 12:26 Urine Color YELLOW Urine Clarity SL. CLOUDY Urine pH 6.0 Ur Specific [place] 1.010 Urine Protein TRACE Urine Glucose (UA) >=1000 H Urine Ketones NEGATIVE Urine Occult Blood TRACE-INTA Urine Nitrite POSITIVE H Urine Bilirubin NEGATIVE Urine Urobilinogen 0.2 (NORMAL) Ur Leukocyte Esterase MODERATE H Urine RBC 0-5 Urine WBC >25 H Urine WBC Clumps PRESENT Ur Squamous Epith Cells RARE Squamous Urine Bacteria Many H Ur Microscopic Review INDICATED Urine Culture Comments INDICATED PD MEDICAL DECISION MAKING - ED course ED course: 72-year-old woman with history of ESBL producing pyelonephritis/sepsis presents with symptoms of UTI and also very mild symptoms of pyelonephritis but no evidence of sepsis and is well-appearing. Prior cultures were reviewed and she was started on Cipro, also as needed Diflucan for yeast infection. - Sepsis Event Vital Signs: Vital Signs - 24 hr 12/30/17 12/30/17 12:06 13:04 Temperature 36.4 C L 37.4 C Heart Rate 91 71 Respiratory 17 16 Rate Blood Pressure 107/57 L 124/58 L O2 Saturation 98 100 Oxygen O2 Source Room air Departure - Departure Disposition: 01 Home, Self Care Clinical Impression: Pyelonephritis Condition: Good Record reviewed to determine appropriate education?: Yes Instructions: Pyelonephritis Dc Prescriptions: Ciprofloxacin HCl [Cipro] 500 mg PO BID #20 tablet Fluconazole [Diflucan] 150 mg PO ONCE #2 tablet Comments: We will culture your urine, the results should be done in 48-72 hours. If an antibiotic change is necessary we will call you. Return if worse in the meantime, especially if you develop increasing flank pain, fevers, or cannot keep down the medication. Discharge Date/Time: 12/30/17 13:08
[2017-12-30 13:05] VITALS: BP 124/58
== END 2017-12-30 13:08 | disposition home or self-care (01) ==
LOC: ED 12:04
DX: N12 Tubulo-interstitial nephritis, not specified as acute or chronic (principal); I10 Essential (primary) hypertension; E10.9 Type 1 diabetes mellitus without complications; B37.9 Candidiasis, unspecified; Z79.82 Long term (current) use of aspirin; Z79.4 Long term (current) use of insulin; Z16.12 Extended spectrum beta lactamase (ESBL) resistance
CPT/HCPCS: 81001; 87086; 87181; 99283; A9270; 81003

== ENCOUNTER 2019-05-12 09:05 | Outpatient (CLI) | payer MEDICARE, OTHER ==
--- NOTE | 2019-05-12 14:57 | Ultrasound Report ---
Reason: LEFT UPPER QUADRANT PAIN Procedure Date: 05/12/2019 Accession Number: [id number] / [id number] Procedure: US - Abdomen Complete CPT Code: Final Report FULL RESULT: EXAM: ABDOMEN ULTRASOUND EXAM DATE: 05/12/2019 10:31 AM. CLINICAL HISTORY: LEFT UPPER QUADRANT PAIN. COMPARISON: ABDOMEN/PELVIS W/O 09/10/2017 4:58 PM RETROPERITONEAL 09/10/2017 7:25 PM. TECHNIQUE: Real-time scanning was performed with static images obtained. FINDINGS: Liver: No focal abnormality. Liver size approximately 12.7 cm. Main portal vein flow: Hepatopetal. Gallbladder: The gallbladder contains a small amount of sludge and a stone measuring up to 1.9 cm. Borderline wall thickening measuring 3 mm. Negative sonographic Kirby's sign. Biliary System: Common bile duct measures 3 mm. No intrahepatic or extrahepatic ductal dilatation. Pancreas: Visualized portion is unremarkable. Kidneys: Right: 9.7 cm longitudinally. Normal. No contour-deforming mass, stones, or hydronephrosis. Left: 10.5 cm longitudinally. Normal. No contour-deforming mass, stones, or hydronephrosis. Spleen: 8.8 x 2.6 x 8.9 cm. Normal in size and echotexture. Aorta and Inferior Vena Cava: Unremarkable. Other: None. IMPRESSION: 1. There is gallbladder sludge and a 1.9 cm shadowing stone. The gallbladder wall is borderline thickened measuring 3 mm. Negative sonographic Kirby's sign. Cholecystitis not excluded. 2. No other significant abnormality. RADIA
== END 2019-05-12 09:06 | disposition home or self-care (01) ==
LOC: DI 09:05
PROVIDERS: ATTEND Internal Medicine
DX: K80.20 Calculus of gallbladder without cholecystitis without obstruction (principal); K82.8 Other specified diseases of gallbladder
CPT/HCPCS: 76700

== ENCOUNTER 2019-06-03 14:00 | Outpatient (CLI) | payer MEDICARE, OTHER ==
--- NOTE | 2019-06-03 14:59 | Mammography Report ---
Reason: ROUTINE MAMMO Procedure Date: 06/03/2019 Accession Number: [id number] / [id number] Procedure: MGS - Screening Mammo Dig Bilat CPT Code: Final Report FULL RESULT: EXAM: Screening Mammo Dig Bilat DATE: 06/03/2019 2:00 PM CLINICAL HISTORY: The patient is an asymptomatic 73-year-old female presenting for screening mammography. No personal or family history of breast cancer. TECHNIQUE: (B) - Bilateral CC and MLO views were obtained. COMPARISON: 05/13/2015, 08/26/2013 and 07/05/2012 PARENCHYMAL PATTERN: (A) - The breasts demonstrate scattered fibroglandular densities bilaterally. FINDINGS: The pattern of asymmetry is stable given positional variation. Progressive benign parenchymal and vascular calcifications noted. No developing mass, distortion or pleomorphic calcifications. IMPRESSION: Benign findings. BI-RADS category 2. RECOMMENDATION: (ANNUAL) - Recommend routine annual screening mammography. BI-RADS CATEGORY: (2) - Benign Findings. STANDARD QUALIFYING STATEMENTS: 1. This examination was reviewed with the aid of Computer-Aided Detection (CAD). 2. A negative or benign imaging report should not preclude biopsy if clinically suspicious findings are present. 3. Dense breasts may obscure an underlying neoplasm.
== END 2019-06-03 14:01 | disposition home or self-care (01) ==
LOC: DI.S 14:00
DX: Z12.31 Encounter for screening mammogram for malignant neoplasm of breast (principal)
CPT/HCPCS: 77067

== ENCOUNTER 2019-09-20 10:08 | Inpatient (IN) | payer MEDICARE, OTHER ==
[2019-09-20] MEDS ORDERED: SODIUM CHLORIDE 0.9% 1,000 ML IV ONE ×2 (10:32→11:28)
[2019-09-20] MEDS ORDERED: cefTRIAXone 1 GM VIAL IVP STA (10:33)
--- NOTE | 2019-09-20 10:35 | ED Physician Documentation ---
History of Present Illness - Stated complaint Stated Complaint: FEMALE - Chief complaint Chief Complaint: General - History obtained from History obtained from: Patient - History of Present Illness Pain level max: 0 Pain level now: 0 - Additonal information Additional information: 73-year-old diabetic female has an insulin pump and continuous blood glucose monitor, was seen by her doctor on Monday. Had a urine dipstick that showed nitrite positive, she was not treated for a UTI however. The urine culture came back yesterday and antibiotics were called in. She has not taken them yet. She states that she had a temperature of 100.3 last night. Has been having chills and states that her blood sugar is around 400 currently. She is having dysuria and urinary frequency as well. States she is feeling generally unwell. Nothing makes it better or worse. Review of Systems Ten Systems: 10 systems reviewed and negative Constitutional: reports: Fever, Chills Throat: denies: Sore throat Cardiac: denies: Chest pain / pressure Respiratory: denies: Dyspnea, Cough, Wheezing GI: reports: Abdominal Pain (Crampy, diffuse), Nausea. denies: Vomiting, Diarrhea : reports: Dysuria, Frequency, Hesitancy Skin: denies: Rash Musculoskeletal: denies: Neck pain, Back pain Neurologic: denies: Headache PD PAST MEDICAL HISTORY - Past Medical History Cardiovascular: Hypertension, High cholesterol Respiratory: Asthma Endocrine/Autoimmune: Type 1 diabetes GI: GERD Psych: Depression Musculoskeletal: Osteoarthritis Derm: Psoriasis - Past Surgical History Past Surgical History: Yes General: Gastric surgery, Colonoscopy Ortho: Other HEENT: Cataracts - Present Medications Home Medications: Ambulatory Orders Medication Instructions Recorded Confirmed Albuterol Sulfate [Proair Hfa 2 puffs INH QID PRN 11/13/12 12/11/17 Inhaler] Aspirin 81 mg PO DAILY 11/13/12 12/11/17 Losartan Potassium [Cozaar] 100 mg PO DAILY 11/13/12 12/11/17 Multivitamin [Multivitamins] 1 each PO DAILY 11/13/12 12/11/17 Zolpidem Tartrate [Ambien] 2.5 - 5 mg PO DAILY PRN 11/13/12 12/11/17 Ascorbic Acid [Vitamin C] 500 mg PO DAILY 06/11/13 12/11/17 Ferrous Sulfate [Slow Release Iron] 1 tab PO DAILY 06/11/13 12/11/17 Ibandronate Sodium [Boniva] 150 mg PO Q30D 06/11/13 12/11/17 Insulin Lispro [Humalog] 60 unit SUBQ .INSULINPUMP 06/11/13 12/11/17 Lactobacillus Acidophilus 1 each PO BID 06/11/13 12/11/17 [Acidophilus] Trazodone HCl 25 - 50 mg PO QPM PRN 06/11/13 12/11/17 Ubidecarenone [Co Q-10] 200 mg PO QPM 06/11/13 12/11/17 Vitamin B Complex [B Complex] 1 each PO DAILY 06/11/13 12/11/17 Fluocinonide/Emollient Base 1 applic TP BID PRN 09/28/15 12/11/17 [Fluocinonide-E 0.05% Cream] Calcium Carbonate/Vitamin D3 2 each PO DAILY 09/10/17 12/11/17 [Calcium 600-Vit D3 800 Tablet] Cholecalciferol [Vitamin D3] 5,000 unit PO DAILY 09/10/17 12/11/17 Cyanocobalamin (Vitamin B-12) 500 mcg SL DAILY 09/10/17 12/11/17 [Vitamin B-12 (500 mcg sublingual)] Escitalopram Oxalate [Lexapro] 20 mg PO DAILY 09/10/17 12/11/17 Estrogens, Conjugated Cream 0.5 applic VG Q7D 09/10/17 12/11/17 [Premarin Cream] Glucosamine HCl/Chondroitin Rojas 1,000 mg PO DAILY 09/10/17 12/11/17 [Endur-Flex Sr Tablet] Magnesium Glycinate 120 mg PO DAILY 09/10/17 12/11/17 Mometasone Furoate [Asmanex Hfa] 2 puffs INH BID 09/10/17 12/11/17 Naproxen Sodium [Aleve] 220 mg PO BID PRN 09/10/17 12/11/17 Simvastatin [Zocor] 40 mg PO QPM 09/10/17 12/11/17 Saccharomyces Boulardii [Florastor] 250 mg PO BID 14 Days #28 capsule 09/12/17 12/11/17 Yutan Pump 1 infus.set SUBQ TITR 12/11/17 12/11/17 Ciprofloxacin HCl [Cipro] 500 mg PO BID #20 tablet 12/30/17 Fluconazole [Diflucan] 150 mg PO ONCE #2 tablet 12/30/17 - Allergies Allergies/Adverse Reactions: Allergies Allergy/AdvReac Type Severity Reaction Status Date / Time Penicillins Allergy Intermediate Rash Verified 09/20/19 10:16 amoxicillin Allergy Rash Verified 09/20/19 10:16 gabapentin AdvReac diarrhea Verified 09/20/19 10:16 - Social History Does the pt smoke?: No Smoking Status: Never smoker Does the pt drink ETOH?: No Does the pt have substance abuse?: No - Immunizations Immunizations are current?: Yes - POLST Patient has POLST: No POLST Status: Full Code PD ED PE NORMAL - Vitals Vital signs reviewed: Yes - General General: Alert and oriented X 3, No acute distress, Well developed/nourished - HEENT HEENT: PERRL, Moist mucous membranes - Neck Neck: Supple, no meningeal sign - Cardiac Cardiac: RRR, Strong equal pulses - Respiratory Respiratory: No respiratory distress, Clear bilaterally - Abdomen Abdomen: Soft, Non tender, Non distended - Back Back: Other (Mild bilateral CVA tenderness) - Derm Derm: Warm and dry, No rash - Extremities Extremities: No edema - Neuro Neuro: Alert and oriented X 3 - Psych Psych: Normal mood, Normal affect Results - Vitals Vitals: Vital Signs - 24 hr 09/20/19 09/20/19 09/20/19 10:13 10:45 11:27 Temperature 37.1 C 36.8 C Heart Rate 115 H 100 93 Respiratory 20 18 18 Rate Blood Pressure 181/55 H 200/71 H 188/89 H O2 Saturation 99 99 94 Oxygen O2 Source Room air - Labs Labs: Laboratory Tests 09/20/19 09/20/19 09/20/19 10:40 10:40 10:40 WBC 17.5 H RBC 4.66 Hgb 13.4 Hct 40.9 MCV 87.8 MCH 28.8 MCHC 32.8 RDW 13.0 Plt Count 289 MPV 10.3 Neut # (Auto) 15.2 H Lymph # (Auto) 0.9 L [place] # (Auto) 1.2 H Eos # (Auto) 0.0 Baso # (Auto) 0.1 Absolute Nucleated RBC 0.00 Nucleated RBC % 0.0 VBG pH VBG pCO2 VBG pO2 VBG HCO3 VBG Total CO2 VBG O2 Saturation VBG Base Excess Sodium 134 L Potassium 3.2 L Chloride 98 L Carbon Dioxide 20 L Anion Gap 16.0 H BUN 14 Creatinine 0.7 Estimated GFR (MDRD) 82 L Glucose 300 H Lactic Acid 2.8 H Calcium 9.8 Total Bilirubin 1.0 AST 32 ALT 23 Alkaline Phosphatase 48 Total Protein 7.9 Albumin 4.8 Globulin 3.1 Albumin/Globulin Ratio 1.5 Urine Color Urine Clarity Urine pH Ur Specific [place] Urine Protein Urine Glucose (UA) Urine Ketones Urine Occult Blood Urine Nitrite Urine Bilirubin Urine Urobilinogen Ur Leukocyte Esterase Urine RBC Urine WBC Ur Squamous Epith Cells Urine Bacteria Urine Culture Comments Serum Ketones NEGATIVE 09/20/19 09/20/19 10:40 10:55 WBC RBC Hgb Hct MCV MCH MCHC RDW Plt Count MPV Neut # (Auto) Lymph # (Auto) [place] # (Auto) Eos # (Auto) Baso # (Auto) Absolute Nucleated RBC Nucleated RBC % VBG pH 7.493 H VBG pCO2 31.2 L VBG pO2 31.3 VBG HCO3 23.4 VBG Total CO2 24.4 VBG O2 Saturation 68.2 VBG Base Excess 0.8 Sodium Potassium Chloride Carbon Dioxide Anion Gap BUN Creatinine Estimated GFR (MDRD) Glucose Lactic Acid Calcium Total Bilirubin AST ALT Alkaline Phosphatase Total Protein Albumin Globulin Albumin/Globulin Ratio Urine Color LT. YELLOW Urine Clarity CLEAR Urine pH 6.0 Ur Specific [place] 1.015 Urine Protein TRACE Urine Glucose (UA) 500 H Urine Ketones >=80 H Urine Occult Blood NEGATIVE Urine Nitrite POSITIVE H Urine Bilirubin NEGATIVE Urine Urobilinogen 0.2 (NORMAL) Ur Leukocyte Esterase NEGATIVE Urine RBC 0-5 Urine WBC 0-3 Ur Squamous Epith Cells RARE Squamous Urine Bacteria Moderate H Urine Culture Comments INDICATED Serum Ketones PD MEDICAL DECISION MAKING - ED course Complexity details: reviewed results, re-evaluated patient, considered differential, d/w patient ED course: 73-year-old female with urosepsis. Fever last night. Vomiting last night. Uncontrolled hyperglycemia. Not in DKA. Given IV fluids, Rocephin. Blood cultures drawn. Mildly elevated lactate. Discussed the case with Dr. Rodriguez, hospitalist who accepts This document was made in part using voice recognition software. While efforts are made to proofread this document, sound alike and grammatical errors may occur. - Sepsis Event Current Stage of Sepsis: Sepsis Possible source of Sepsis: Genitourinary Mental/Cognitive Status: Alert/Oriented X3 Reason for not giving 30ml/kg crystalloid fluids: Bolus previously given Capillary refill: Less than 2 seconds Peripheral Pulse Strength: 3+ Normal Peripheral Pulse Location: Radial Bedside ultrasound performed: No Departure - Departure Disposition: 66 [facility] DC/Xfer Clinical Impression: Pyelonephritis, Hyperglycemia Sepsis Qualifiers: Sepsis type: sepsis due to unspecified organism Sepsis acute organ dysfunction status: without acute organ dysfunction Qualified Code(s): A41.9 - Sepsis, un specified organism Condition: Stable
[2019-09-20] MEDS ORDERED: ONDANSETRON 4 MG/2 ML VIAL IVP STA (10:59)
[2019-09-20] MEDS ORDERED: MORPHINE 2 MG/ML CARPUJECT IVP STA (10:59)
[2019-09-20 11:03] LABS: VBG BASE EXCESS 0.8 mmol/L (-2 - +2); VBG PCO2 31.2 mmHg (41-51); VBG PH 7.493 (7.31-7.41); VBG PO2 31.3 mmHg (25-47); VBG TOTAL CO2 24.4 mmol/L (24-29)
[2019-09-20 11:04] LABS: BASOPHILS # (AUTO) 0.1 10^3/uL (0.0-0.1); BASOPHILS % (AUTO) 0.3 %; EOSINOPHILS % (AUTO) 0.1 %; HGB - HEMOGLOBIN 13.4 g/dL (12.0-16.0); LYMPHOCYTES # (AUTO) 0.9 10^3/uL (1.5-3.5); LYMPHOCYTES % (AUTO) 5.2 %; MEAN CORPUSCULAR HEMOGLOBIN 28.8 pg (27.0-31.0); MEAN CORPUSCULAR HGB CONC 32.8 g/dL (32.0-36.0); MEAN CORPUSCULAR VOLUME 87.8 fL (81.0-99.0); MEAN PLATELET VOLUME 10.3 fL (7.9-10.8); MONOCYTES # (AUTO) 1.2 10^3/uL (0.0-1.0); MONOCYTES % (AUTO) 7.1 %; NEUTROPHILS # (AUTO) 15.2 10^3/uL (1.5-6.6); NEUTROPHILS % (AUTO) 86.7 %; PLT - PLATELET COUNT 289 10^3/uL (130-450); RED BLOOD COUNT 4.66 10^6/uL (4.20-5.40); WHITE BLOOD COUNT 17.5 x10^3/uL (4.8-10.8)
[2019-09-20 11:06] LABS: BILIRUBIN,URINE NEGATIVE (NEGATIVE); GLUCOSE, URINE (UA) 500 mg/dL (NEGATIVE); KETONES,URINE (UA) >=80 mg/dL (NEGATIVE); LEUKOCYTE ESTERASE, URINE NEGATIVE (NEGATIVE); NITRITE,URINE POSITIVE (NEGATIVE); OCCULT BLOOD,URINE NEGATIVE (NEGATIVE); PROTEIN,URINE TRACE mg/dL (NEGATIVE); UROBILINOGEN,URINE 0.2 (NORMAL) E.U./dL (NORMAL)
[2019-09-20 11:07] LABS: CLARITY,URINE CLEAR (CLEAR)
[2019-09-20 11:10] LABS: KETONES, SERUM (ACETEST) NEGATIVE (NEGATIVE)
[2019-09-20 11:14] LABS: BACTERIA,URINE Moderate /HPF (None Seen); RBC,URINE 0-5 /HPF (0-5); SQUAMOUS EPITHELIAL CELL,UR RARE Squamous (<= Few)
[2019-09-20 11:16] LABS: ALBUMIN 4.8 g/dL (3.2-5.5); ALBUMIN/GLOBULIN RATIO 1.5 (1.0-2.2); ALKALINE PHOSPHATASE 48 IU/L (42-121); ALT ALANINE AMINOTRANSFERASE 23 IU/L (10-60); AST ASPARTATE AMINOTRANSFERASE 32 IU/L (10-42); BUN - BLOOD UREA NITROGEN 14 mg/dL (6-20); CALCIUM 9.8 mg/dL (8.5-10.3); CARBON DIOXIDE - CO2 20 mmol/L (21-32); CHLORIDE 98 mmol/L (101-111); CREATININE 0.7 mg/dL (0.4-1.0); GFR - MDRD 82 (>89); GLUCOSE 300 mg/dL (70-100); SODIUM 134 mmol/L (135-145); TOTAL PROTEIN 7.9 g/dL (6.7-8.2)
[2019-09-20] MEDS ORDERED: SODIUM CHLORIDE FLUSH 0.9% 10 ML SYRINGE IVP PRN (11:44)
--- NOTE | 2019-09-20 13:18 | HISTORY & PHYSICAL EXAMINATION ---
Chief Complaint - Chief Complaint Chief Complaint: N/V, back pain, UTI History of Present Illness - Admitted From Admitted From:: ED - History Obtained From Records Reviewed: yes History obtained from: patient, chart review Exam Limitations: none - History of Present Illness HPI Comment/Other: Carmela Jacob is a pleasant 73-year old white female with a past medical history of hypertension, hyperlipidemia, kidney stones, recurrent UTI, IBS, GERD, gastric bypass surgery with Ra fundoplication, allergic rhinitis, eczema, insomnia, PANKAJ, TIA, diabetes mellitus type 1.5, treated as a type 1 on chronic home insulin pump, asthma, depression, anxiety, restless leg syndrome, fatigue, colon polyps, basal cell carcinoma, MARCIE-resolved since weight loss, diabetic peripheral neuropathy, and osteopenia. The patient was brought in via private car for ongoing nausea and the inability to consume and food or liquids. The patient states that she had a urinalysis done at her PCP office, and results were back yesterday. A prescription for antibiotics were sent to her pharmacy, but she has not started them yet. She has fever, nausea, vomiting, loss of appetite, and lower abdominal pain. There was no labs initially, so a kidney US is ordered to evaluate for hydronephrosis, or kidney stones. Labs show a WBC count of 17.5, neut # 15.2, sodium 134, potassium 3.2, chloride 98, carbon dioxide 20, anion gap 16.0, GFR 82, glucose 300, lactic acid 2.8, with no other lab abnormalities. Her urine shows + nitrites, urine glucose of 500, urine ketones greater than 80, and moderate bacteria with a culture pending. She had a similar admission in 2018 for urosepsis of which she was treated with IV meropenem. She was initially given IV Rocephin, but we will continue with IV meropenem since she is showing signs of sepsis. History - Past Medical History Cardiovascular: reports: Hypertension, High cholesterol, Peripheral Vascular Disease Respiratory: reports: Asthma, Sleep apnea Neuro: reports: Headaches, Peripheral neuropathy Endocrine/Autoimmune: reports: Type 1 diabetes, Type 2 diabetes GI: reports: GERD, Hiatal hernia (repaired with gastric bypass surgery), Colon polyps, Chronic diarrhea (IBS) [employer]ATEGY: reports: None : reports: Chronic bladder infection, Nocturia, Frequency, Kidney stones HEENT: reports: Chronic vision loss Psych: reports: Depression, Anxiety Musculoskeletal: reports: Osteoarthritis, Osteopenia Derm: reports: Eczema, Psoriasis MRSA Hx?: No - Past Surgical History General: reports: Gastric surgery (gastric bypass), Colonoscopy HEENT: reports: Cataracts - Family & Social History Family History: Mother: , Father: , Sister: , Brother: Alive and Well Family History Comment/Other: Father: cancer, arthritis, anxiety, depression, HTN, HLD, melanoma. Mother: arthritis, asthma, HTN, HLD, osteoporosis, weight disorder. Sister: for unknown reasons, one brother who is alive and well Living arrangement: At home Living Situation: With spouse/s.o. Social History Notes: Patient lives independently in [place], [place] with her and dogs. 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 She denies tobacco, alcohol, or illicit drug use. She wishes to be a full code. - Substance History Use: Uses substance without health or social issues: NONE Abuse: Recurrent use of substance despite neg consequences: NONE Dependence: Experiences withdrawal or developed tolerances: NONE - POLST Patient has POLST: No POLST Status: Full Code Meds/Allgy - Home Medications Home Medications: Ambulatory Orders Medication Instructions Recorded Confirmed Zolpidem Tartrate [Ambien] 5 mg PO QPM PRN 11/13/12 09/21/19 Insulin Lispro [Humalog] 60 unit SUBQ .INSULINPUMP 06/11/13 09/21/19 ALPRAZolam [Alprazolam] 0.25 mg PO DAILY PRN 09/21/19 09/21/19 Albuterol Sulf [Ventolin Hfa 1 - 2 puffs INH Q4HR PRN 09/21/19 09/21/19 Inhaler] Alpha Lipoic Acid 300 mg PO BID 09/21/19 09/21/19 Ascorbic Acid 500 mg PO DAILY 09/21/19 09/21/19 Aspirin [Children's Aspirin] 81 mg PO DAILY 09/21/19 09/21/19 Budesonide [Pulmicort] 2 puffs INH BID 09/21/19 09/21/19 Buspirone HCl 10 mg PO BID 09/21/19 09/21/19 Calcium Carbonate/Vitamin D3 [Sm 1 each PO BID 09/21/19 09/21/19 Calcium 600-Vit D3 400 Tab] Cyanocobalamin (Vitamin B-12) 500 mcg PO DAILY 09/21/19 09/21/19 [Vitamin B-12] Escitalopram Oxalate 20 mg PO DAILY 09/21/19 09/21/19 Fluocinonide 1 applic TOP DAILY 09/21/19 09/21/19 Omeprazole 20 mg PO BIDAC 09/21/19 09/21/19 Simvastatin 20 mg PO QPM 09/21/19 09/21/19 Vitamin B Complex [Balanced B-50] 1 each PO DAILY 09/21/19 09/21/19 traZODone [Desyrel] 50 mg PO QPM PRN 09/21/19 09/21/19 - Allergies Allergies/Adverse Reactions: Allergies Allergy/AdvReac Type Severity Reaction Status Date / Time Penicillins Allergy Intermediate Rash Verified 09/20/19 10:16 amoxicillin Allergy Rash Verified 09/20/19 10:16 doxycycline Allergy Rash Verified 09/20/19 13:30 gabapentin AdvReac diarrhea Verified 09/20/19 10:16 Review of Systems - Constitutional Constitutional: reports: Fatigue, Fever, Chills, Weakness, Poor appetite, Diaphoresis, Weight loss - Eyes Eyes: reports: Vision loss - Ears, Nose & Throat Ears, Nose & Throat: reports: Sore throat - Cardiovascular Cariovascular: reports: Lightheadedness, Syncope, Decr. exercise tolerance - Respiratory Respiratory: reports: Cough, SOB with exertion - Gastrointestinal Gastrointestinal: reports: Abdominal pain, Change in bowel habits, Nausea, Vomiting, Reflux/heartburn, Bloating, Poor appetite - Genitourinary Genitourinary: reports: Dysuria, Frequency, Nocturia - Musculoskeletal Musculoskeletal: reports: Muscle aches, Joint pain - Integumentary Integumentary: reports: Dryness - Neurological Neurological: reports: General weakness, Headache, Numbness, Pre-existing deficit - Psychiatric Psychiatric: reports: Depression, Anxiety - Hematologic/Lymphatic Hematologic/Lymphatic: reports: Recurrent infections - All Other Systems All Other Systems: reports: Reviewed and negative Prior Level of Functionality: No use of a walker or a cane, uses a walking stick when going to the beach. No recent falls, lives independently with her . Exam - Vital Signs Reviewed Vital Signs: Yes Vital Signs: Vital Signs x48h Temp Pulse Resp BP Pulse Ox 09/20/19 12:27 37.7 C H 118 H 16 189/78 H 95 09/20/19 11:57 37.7 C H 118 H 18 187/87 H 95 09/20/19 11:52 36.8 C 108 H 16 198/76 H 95 09/20/19 11:27 93 18 188/89 H 94 09/20/19 10:45 36.8 C 100 18 200/71 H 99 09/20/19 10:13 37.1 C 115 H 20 181/55 H 99 - Physical Exam General Appearance: positive: Alert, Moderate distress, Anxious Eyes Bilateral: positive: No lid inflammation ENT: positive: Pharyngeal erythema, Dry mucous membranes Neck: positive: Trachea midline Respiratory: positive: Chest non-tender, No respiratory distress, Breath sounds nml Cardiovascular: positive: Regular rate & rhythm, No gallop, Tachycardia, Systolic murmur, Decreased pulse(s) Peripheral Pulses: positive: 1+ Abdomen: positive: Tenderness, Guarding, Abnml bowel sounds, Other (rounded, soft) Back: positive: Nml inspection Skin: positive: No rash, Warm, Dry, Other (bronze toned skin) Neurologic/Psychiatric: positive: Oriented x3, CN's nml (2-12), Motor nml, Weakness, Sensory loss, Depressed mood/affect (flat) Reflexes: Bicep (R): 3+, Bicep (L): 3+ Sepsis Event Note (H) - Evaluation Current Stage of Sepsis: Sepsis Possible source of Sepsis: positive: Genitourinary - Sepsis Criteria Sepsis Criteria: Recorded Temperature greater than 38.3C or Less than 36C, Recorded Heart Rate greater than 90 bpm, Recorded Respiratory Rate greater than 20, Respiratory: Increasing oxygen requirements, Metabolic: lactate > 2 mmol/L Conclusion/Plan - Problem List (1) Sepsis Conclusion/Plan: -Sepsis criteria met due to: febrile, tachycardia, respiratory rate elevated, and elevated lactic acid indicating potential end organ damage -Confusion noted at home -Continue generous IV fluids, IV meropenem, await blood culture results Pyelonephritis -Patient was seen outpatient, and there was a delay in treatment -Low abdominal pain, nausea with vomiting, poor appetite, and slight confusion -Nausea started a "few weeks ago" -US of the kidneys show no hydronephrosis, but a few renal cysts, no stones -UA shows +nitrites Nausea and vomiting -These symptoms do improve with treatment, but soon return -This is a hospital problem, as it will delay proper treatment which could lead to a progression of the presenting sepsis -No hematemesis, no black tarry stools -Continue to treat with IV zofran, add additional agents if needed -Continue IV hydration, IV antibiotics Dehydration -Caused by ongoing N/V, acute infection -Has not caused ROGER -Continue IV fluids Hypokalemia -serum K+ down to 3.2, likely due to GI losses -IV fluids with 20 Kcl -Routine labs Abdominal discomfort -Low abdominal pain, intermittent -Confirms pyelonephritis, also with N/V -Monitor for improvement, use IV dilaudid if needed Low back pain -Likely a result of ongoing illness, may be from recurrent vomiting, less activity -Treat acute pain with IV dilaudid, monitor for improvement Kidney stones -Listed in history, kidney US did not show any currently Recurrent UTI -Patient required inpatient care in 2018, for the same illness -Risk factors include; female anatomy, DM, age, chronic diarrhea due to IBS -Consider outpatient referral to Urology for recommendations long-term Essential (primary) hypertension -Blood pressures have been elevated since admission -197/90, also with tachycardia -Likely a result of this illness, no chest pain or dizziness on exam -Since not taking PO, scheduled metoprolol 2.5mg Q6H -Monitor on telemetry x24 hours, adjust as needed Diabetes 1.5, managed as type 1 -Unknown last A1C, but patient claims with the exception of the past few weeks, her blood sugars have been well managed -Patient will leave her home insulin pump in place -Admission glucose on electrolyte panel was 300 -Blood sugar checks ordered AC/HS, no SSI for now -Order new A1C in the AM Hyperlipidemia -Unknown recent lipid panel -No indication for a lipid panel for this hospital stay -Holding home statin for now, resume when clinically improved History of IBS -A consequence of gastric bypass per patient -Likely a contributing factor to this illness -No recent stools since loss of appetite, N/V -Recommend no c-diff testing since her baseline is diarrhea -Offer imodium for diarrhea by tomorrow Asthma -Home rescue inhaler, now on albuterol, PRN while here Depression -Patient has a flat affect, but also is ill -Holding home meds for now - Lab Results Lab results reviewed: Yes Fish Bones: 09/20/19 10:40 09/20/19 10:40 Core Measures - Anticipated LOS I expect patient to be DC'd or transferred within 96 hours.: Yes - DVT/VTE - Prophylaxis VTE/DVT Device ordered at admit?: Yes VTE/DVT Prophylaxis med ordered at admit?: No Not Ordered - Medical Reason: Contraindicated - Stroke - Rehab Assessment Rehab services assessment to be ordered?: No Not Ordered - Medical Reason: Contraindicated - AMI - Statin at Admit Aspirin Prescribed on Admit: Yes
[2019-09-20] MEDS: HYDROmorphone 1 MG/ML CARPUJECT IVP PRN ×2 (13:34→19:25)
[2019-09-20] MEDS: ONDANSETRON 4 MG/2 ML VIAL IVP PRN (13:34)
[2019-09-20] MEDS: NS W/20 MEQ KCL 1,000 ML IV SCH ×2 (13:37→23:36)
[2019-09-20] MEDS: MEROPENEM 1 GM in SODIUM CHLORIDE 0.9% MINIBAG 100 ML IV SCH ×2 (13:37→20:24)
[2019-09-20] MEDS: METOPROLOL 5 MG/5 ML VIAL IVP SCH ×2 (14:12→20:25)
[2019-09-20] MEDS: SODIUM CHLORIDE FLUSH 0.9% 10 ML SYRINGE IVP SCH (20:30)
--- NOTE | 2019-09-20 21:56 | Ultrasound Report ---
Reason: kidney infection, back pain Procedure Date: 09/20/2019 Accession Number: [id number] / [id number] Procedure: US - Retroperitoneal CPT Code: Final Report FULL RESULT: EXAM: RENAL ULTRASOUND EXAM DATE: 09/20/2019 08:22 PM. CLINICAL HISTORY: Kidney infection, back pain. COMPARISON: RETROPERITONEAL 09/10/2017 7:25 PM ABDOMEN COMPLETE 05/12/2019 9:37 AM. TECHNIQUE: Real-time scanning was performed with static images obtained. FINDINGS: Right Kidney: 9.5 cm. Right mid kidney cyst measuring 11 mm. Normal echotexture with no stones, contour-deforming masses, or hydronephrosis. Left Kidney: 10.1 cm. Normal echotexture with no stones, contour-deforming masses, or hydronephrosis. Previous ultrasound noted cyst not identified on this exam. Bladder: Bilateral jets seen. The prevoid bladder volume was 48.4 cc. Other: None. IMPRESSION: No significant sonographic abnormality of the kidneys. RADIA
[2019-09-21] MEDS: METOPROLOL 5 MG/5 ML VIAL IVP SCH ×2 (00:35→07:26)
[2019-09-21] MEDS: MEROPENEM 1 GM in SODIUM CHLORIDE 0.9% MINIBAG 100 ML IV SCH ×3 (05:22→20:38)
[2019-09-21] MEDS: SODIUM CHLORIDE FLUSH 0.9% 10 ML SYRINGE IVP SCH ×3 (05:23→21:55)
[2019-09-21] MEDS ORDERED: ALBUTEROL NEB 2.5 MG/3 ML INH PRN (08:12)
[2019-09-21] MEDS ORDERED: ALPRAZolam 0.25 MG TABLET PO PRN ×2 (08:13→08:39)
--- NOTE | 2019-09-21 08:49 | PHARMACY PROGRESS NOTE ---
- Best Possible Medication History Admit Date and Time: 09/20/19 1144 Processed by: Pharmacy Medication History completed: Yes Patient Interview: Completed Secondary Source(s): Written medication list, Pharmacy records, Insurance records As the person ultimately responsible for medication therapy, providers are able to order a medication from an existing home medication list in [facility] via the "Reconcile Routine" prior to Confirmation of that medication by direct support specialist. Such practice is discouraged except when the physician, in their clinical judgment, deems that a medical need exists for a medication without regard to previous use.
[2019-09-21] MEDS: NS W/20 MEQ KCL 1,000 ML IV SCH ×2 (09:04→18:34)
[2019-09-21] MEDS: BUDESONIDE 0.5 MG/2 ML NEB INH SCH ×2 (09:08→19:55)
[2019-09-21] MEDS: ESCITALOPRAM 10 MG TABLET PO SCH (09:52)
[2019-09-21] MEDS: busPIRone 5 MG TABLET PO SCH ×2 (09:52→20:38)
[2019-09-21] MEDS: ONDANSETRON 4 MG/2 ML VIAL IVP PRN (09:52)
[2019-09-21] MEDS: HYDROmorphone 1 MG/ML CARPUJECT IVP PRN (12:14)
[2019-09-21] MEDS: LORazepam 2 MG/ML VIAL IVP PRN (12:53)
[2019-09-21] MEDS: INSULIN ASPART 300 UNIT/3 ML PEN SUBQ SCH ×2 (12:57→17:34)
[2019-09-21] MEDS: METOPROLOL 5 MG/5 ML VIAL IVP PRN (13:07)
--- NOTE | 2019-09-21 15:59 | PROVIDER PROGRESS NOTE ---
Subjective - Prog Note Date Prog Note Date: 09/21/19 Prog Note Time: 15:57 - Subjective Pt reports feeling: Improved Subjective: Carmela is having much less nausea, although did not tolerate breakfast. Her nausea is treatable with lorazepam. Her poor appetite continues. She has no new symptoms and no issues with her insulin pump. Current Medications - Current Medications Current Medications: Active Medications: Albuterol 2.5 mg INH RTQ4H PRN Alprazolam (Xanax) 0.25 mg PO DAILY PRN Aspirin ([facility] Aspirin) 81 mg PO DAILY KANIKA Budesonide (Pulmicort) 0.5 mg INH RTBID KANIKA Buspirone HCl (Buspar) 10 mg PO BID KANIKA Escitalopram Oxalate (Lexapro) 10 mg PO DAILY KANIKA Hydromorphone HCl (Dilaudid Inj Carp) 1 mg IVP Q2HR PRN Meropenem 1 gm/ Sodium (Chloride) 100 mls @ 200 mls/hr IV Q8H KANIKA Potassium Chloride/Sodium Chloride 1,000 mls @ 125 mls/hr IV .Q8H KANIKA Insulin Aspart (Novolog) 5 unit SUBQ TIDWM KANIKA Lorazepam (Ativan Inj (Vial)) 0.5 mg IVP Q2H PRN Metoprolol Tartrate (Lopressor Inj) 5 mg IVP Q6H PRN Ondansetron HCl (Zofran Inj) 4 mg IVP Q4HR PRN HOME meds: Zolpidem Tartrate [Ambien] 5 mg PO QPM PRN 11/13/12 Insulin Lispro [Humalog] 60 unit SUBQ .INSULINPUMP 06/11/13 ALPRAZolam [Alprazolam] 0.25 mg PO DAILY PRN 09/21/19 Albuterol Sulf [Ventolin Hfa Inhaler] 1 - 2 puffs INH Q4HR PRN 09/21/19 Alpha Lipoic Acid 300 mg PO BID 09/21/19 Ascorbic Acid 500 mg PO DAILY 09/21/19 Aspirin [Children's Aspirin] 81 mg PO DAILY 09/21/19 Budesonide [Pulmicort] 2 puffs INH BID 09/21/19 Buspirone HCl 10 mg PO BID 09/21/19 Calcium Carbonate/Vitamin D3 [Sm Calcium 600-Vit D3 400 Tab] 1 each PO BID 09/21/19 Cyanocobalamin (Vitamin B-12) [Vitamin B-12] 500 mcg PO DAILY 09/21/19 Escitalopram Oxalate 20 mg PO DAILY 09/21/19 Fluocinonide 1 applic TOP DAILY 09/21/19 Omeprazole 20 mg PO BIDAC 09/21/19 Simvastatin 20 mg PO QPM 09/21/19 Objective - Vital Signs/Intake & Output Reviewed Vital Signs: Yes Vital Signs: Vital Signs x48h Temp Pulse Pulse Resp BP BP Pulse Ox 09/21/19 13:37 146/87 H 09/21/19 13:07 149/66 H 09/21/19 09:12 37.1 C 87 16 96 09/21/19 09:11 87 16 09/21/19 08:00 37.2 C 96 10 L 158/63 H 97 Intake & Output: Intake & Output 09/18/19 09/19/19 09/20/19 09/21/19 23:59 23:59 23:59 23:59 Intake Total 2200 1500 Output Total 100 1010 Balance 2100 490 - Objective General Appearance: positive: No acute distress, Alert, Lethargic (due to taking a nap after lunch, otherwise more alert today, no confusion) Eyes Bilateral: positive: PERRL, No lid inflammation Eyes: OU Conjunctivae pale ENT: positive: Dry mucous membranes Neck: positive: No JVD, Trachea midline, Stiff neck Respiratory: positive: Chest non-tender, No respiratory distress, Breath sounds nml Cardiovascular: positive: Regular rate & rhythm, No gallop, Tachycardia, Systolic murmur, Decreased pulse(s) Peripheral Pulses: 1+ Radial (R), 1+ Radial (L) Abdomen: positive: Non-tender, Nml bowel sounds, Guarding, Other (rounded, soft) Back: positive: Nml inspection Skin: positive: No rash, Warm, Dry, Other (pale, bronze toned) Extremities: positive: Non-tender, Full ROM, Nml appearance, No pedal edema, Joint swelling Neurologic/Psychiatric: positive: Oriented x3, CN's nml (2-12), Motor nml, Sensation nml, Depressed mood/affect (flat) Reflexes: Bicep (R): 3+, Bicep (L): 3+ - Lab Results Fish Bones: 09/20/19 10:40 09/20/19 10:40 Other Labs: Lab Results x24hrs 09/21/19 09/20/19 Range/Units 00:00 16:27 POC Whole Bld Glucose 223 H (70 - 100) mg/dL Lactic Acid 1.9 (0.5-2.2) mmol/L ABX Reporting Has patient been on IV antibiotics over the past 48 hours?: Yes Sepsis Event Note (H) - Evaluation Current Stage of Sepsis: Sepsis Possible source of Sepsis: positive: Genitourinary Confirmed Source and Organism (if known) of Sepsis: e coli urine culture - Sepsis Criteria Sepsis Criteria: Recorded Temperature greater than 38.3C or Less than 36C, Recorded Heart Rate greater than 90 bpm Assessment/Plan - Problem List (1) Sepsis Impression: -Sepsis criteria met due to: febrile, tachycardia, respiratory rate elevated, and elevated lactic acid indicating potential end organ damage -Confusion noted at home -No growth for blood cultures today -Urine culture is as expected with showing e. coli -Continue generous IV fluids, IV meropenem, await final blood culture results Fever -Temp max was 38.0 C on 09/20 @ 2300 -Afebrile for today so far -Overall improved -Continues on IV meropenem, IV fluids Pyelonephritis -Low abdominal pain, nausea with vomiting, poor appetite, and slight confusion -Confusion and vomiting have resolved, but patient remains sleepy today, overall poor appetite, but had a few bites for lunch, and intermittent nausea with abdominal pain -Nausea started a "few weeks ago", which may have the start of this infection -Also blood sugars have been more out of control, greater than 300's -US of the kidneys show no hydronephrosis, but a few renal cysts, no stones -UA shows +nitrites, preliminary cultures shows e. coli -Continues on IV meropenem, IV fluids Nausea and vomiting -These symptoms do improve with treatment, but soon return -This is a hospital problem, as it will delay proper treatment which could lead to a progression of the presenting sepsis -No hematemesis, no black tarry stools -Continue to treat with IV zofran, add additional agents if needed -Continue IV hydration, IV antibiotics Diabetes 1.5, managed as type 1 -Unknown last A1C, but patient claims with the exception of the past few weeks, her blood sugars have been well managed -Patient will leave her home insulin pump in place -Admission glucose on electrolyte panel was 300 -Blood sugar checks ordered AC/HS, no SSI for now -Order new A1C in the AM Dehydration -Caused by ongoing N/V, acute infection -Continue IV fluids Hypokalemia -serum K+ down to 3.2, likely due to GI losses -IV fluids with 20 Kcl -Routine labs Abdominal discomfort -Low abdominal pain, intermittent -Confirms pyelonephritis, also with N/V -Monitor for improvement, use IV dilaudid if needed Low back pain -Likely a result of ongoing illness, may be from recurrent vomiting, less activity -Treat acute pain with IV dilaudid, monitor for improvement Kidney stones -Listed in history, kidney US did not show any currently Recurrent UTI -Patient required inpatient care in 2018, for the same illness -Risk factors include; female anatomy, DM, age, chronic diarrhea due to IBS -Consider outpatient referral to Urology for recommendations long-term Essential (primary) hypertension -Blood pressures have been elevated since admission -197/90, also with tachycardia -Likely a result of this illness, no chest pain or dizziness on exam -Since not taking PO, scheduled metoprolol 2.5mg Q6H -Monitor on telemetry x24 hours, adjust as needed Hyperlipidemia -Unknown recent lipid panel -No indication for a lipid panel for this hospital stay -Holding home statin for now, resume when clinically improved History of IBS -A consequence of gastric bypass per patient -Likely a contributing factor to this illness -No recent stools since loss of appetite, N/V -Recommend no c-diff testing since her baseline is diarrhea -Offer imodium for diarrhea by tomorrow Asthma -Home rescue inhaler, now on albuterol, PRN while here Depression -Patient has a flat affect, but also is ill -Holding home meds for now
[2019-09-21 19:12] LABS: HB2 TOTAL 12.8 g/dL; HEMOGLOBIN A1C 0.81 g/dL; HEMOGLOBIN A1C % 7.9 % (4.6-6.2)
[2019-09-22] MEDS: NS W/20 MEQ KCL 1,000 ML IV SCH ×2 (03:45→07:50)
[2019-09-22] MEDS: MEROPENEM 1 GM in SODIUM CHLORIDE 0.9% MINIBAG 100 ML IV SCH ×2 (03:45→14:31)
[2019-09-22] MEDS: SODIUM CHLORIDE FLUSH 0.9% 10 ML SYRINGE IVP SCH ×3 (04:22→16:20)
[2019-09-22] MEDS: METOPROLOL 5 MG/5 ML VIAL IVP PRN (06:10)
[2019-09-22] MEDS: BUDESONIDE 0.5 MG/2 ML NEB INH SCH ×2 (07:04→20:22)
[2019-09-22 07:24] LABS: CALCIUM 8.9 mg/dL (8.5-10.3); CREATININE 0.5 mg/dL (0.4-1.0); MAGNESIUM 1.8 mg/dL (1.7-2.8); PHOSPHORUS 1.5 mg/dL (2.5-4.6)
[2019-09-22 07:59] LABS: BASOPHILS % (AUTO) 0.2 %; EOSINOPHILS # (AUTO) 0.1 10^3/uL (0.0-0.7); EOSINOPHILS % (AUTO) 0.7 %; HGB - HEMOGLOBIN 10.8 g/dL (12.0-16.0); LYMPHOCYTES # (AUTO) 1.1 10^3/uL (1.5-3.5); MEAN CORPUSCULAR HEMOGLOBIN 27.7 pg (27.0-31.0); MEAN CORPUSCULAR HGB CONC 31.3 g/dL (32.0-36.0); MEAN CORPUSCULAR VOLUME 88.5 fL (81.0-99.0); MEAN PLATELET VOLUME 10.4 fL (7.9-10.8); MONOCYTES % (AUTO) 7.1 %; NEUTROPHILS # (AUTO) 11.8 10^3/uL (1.5-6.6); NEUTROPHILS % (AUTO) 82.9 %; PLT - PLATELET COUNT 191 10^3/uL (130-450); RED CELL DISTRIBUTION WIDTH 13.2 % (12.0-15.0); WHITE BLOOD COUNT 14.3 x10^3/uL (4.8-10.8)
[2019-09-22] MEDS: INSULIN ASPART 300 UNIT/3 ML PEN SUBQ SCH ×4 (08:13→21:12)
[2019-09-22] MEDS: ASPIRIN CHEW 81 MG TABLET PO SCH (08:15)
[2019-09-22] MEDS: polyethylene glycoL 3350 17 GM PACKET PO SCH (08:16)
[2019-09-22] MEDS: busPIRone 5 MG TABLET PO SCH ×2 (08:16→21:11)
[2019-09-22] MEDS: ESCITALOPRAM 10 MG TABLET PO SCH (08:16)
[2019-09-22 08:30] LABS: PLATELET ESTIMATE, MANUAL NORMAL (130-450,000) (NORMAL); PLATELET MORPHOLOGY NORMAL APPEARANCE (NORMAL); RBC MORPHOLOGY (MULTIPLE) NORMAL APPEARANCE (NORMAL)
[2019-09-22] MEDS ORDERED: INSULIN ASPART 300 UNIT/3 ML PEN SUBQ ONE (12:04)
[2019-09-22] MEDS ORDERED: MAGNESIUM OXIDE 400 MG TABLET PO ONE (12:05)
[2019-09-22] MEDS ORDERED: CIPROFLOXACIN 250 MG TABLET PO SCH (14:36)
[2019-09-22] MEDS: NEUTRA-PHOS 250 MG TABLET PO SCH ×2 (14:44→18:01)
[2019-09-22] MEDS: ONDANSETRON 4 MG/2 ML VIAL IVP PRN (16:19)
[2019-09-22] MEDS ORDERED: INSULIN ASPART 300 UNIT/3 ML PEN SUBQ SCH ×2 (17:00→21:00)
[2019-09-22] MEDS ORDERED: ACETAMINOPHEN 325 MG TABLET PO PRN (17:01)
--- NOTE | 2019-09-22 17:02 | PROVIDER PROGRESS NOTE ---
Subjective - Prog Note Date Prog Note Date: 09/22/19 Prog Note Time: 16:59 - Subjective Pt reports feeling: Improved Subjective: Carmela complains of a continued poor appetite and intermittent nausea. Her blood sugars are not getting below 300, despite adding AC/HS aspart. She agrees to stay one more night given her symptoms and hyperglycemia which is not controlled. Current Medications - Current Medications Current Medications: Active Medications: Tylenol 650 mgPO Q4H, PRN Albuterol 2.5 mg INH RTQ4H PRN Alprazolam (Xanax) 0.25 mg PO DAILY PRN Aspirin ([facility] Aspirin) 81 mg PO DAILY KANIKA Budesonide (Pulmicort) 0.5 mg INH RTBID KANIKA Buspirone HCl (Buspar) 10 mg PO BID KANIKA Escitalopram Oxalate (Lexapro) 10 mg PO DAILY KANIKA Hydromorphone HCl (Dilaudid Inj Carp) 1 mg IVP Q2HR PRN Vantin 200 mg PO BID starting at 2100 Insulin Aspart (Novolog) 12 unit SUBQ TIDWM KANIKA Lorazepam (Ativan Inj (Vial) 0.5 mg IVP Q2H PRN Metoprolol Tartrate (Lopressor Inj) 5 mg IVP Q6H PRN Ondansetron HCl (Zofran Inj) 4 mg IVP Q4HR PRN HOME meds: Zolpidem Tartrate [Ambien] 5 mg PO QPM PRN 11/13/12 Insulin Lispro [Humalog] 60 unit SUBQ .INSULINPUMP 06/11/13 ALPRAZolam [Alprazolam] 0.25 mg PO DAILY PRN 09/21/19 Albuterol Sulf [Ventolin Hfa Inhaler] 1 - 2 puffs INH Q4HR PRN 09/21/19 Alpha Lipoic Acid 300 mg PO BID 09/21/19 Ascorbic Acid 500 mg PO DAILY 09/21/19 Aspirin [Children's Aspirin] 81 mg PO DAILY 09/21/19 Budesonide [Pulmicort] 2 puffs INH BID 09/21/19 Buspirone HCl 10 mg PO BID 09/21/19 Calcium Carbonate/Vitamin D3 [ Calcium 600-Vit D3 400 Tab] 1 each PO BID 09/21/19 Cyanocobalamin (Vitamin B-12) [Vitamin B-12] 500 mcg PO DAILY 09/21/19 Escitalopram Oxalate 20 mg PO DAILY 09/21/19 Fluocinonide 1 applic TOP DAILY 09/21/19 Omeprazole 20 mg PO BIDAC 09/21/19 Simvastatin 20 mg PO QPM 09/21/19 Objective - Vital Signs/Intake & Output Reviewed Vital Signs: Yes Vital Signs: Vital Signs x48h Temp Pulse Resp BP Pulse Ox 09/22/19 16:01 37 C 87 16 165/56 H 98 09/22/19 12:00 36.7 C 80 16 149/68 H 96 Intake & Output: Intake & Output 09/19/19 09/20/19 09/21/19 09/22/19 23:59 23:59 23:59 23:59 Intake Total 2200 3030 2183.000 Output Total 100 1710 775 Balance 2100 1320 1408.000 - Objective General Appearance: positive: No acute distress, Alert, Other (taking naps today) Eyes Bilateral: positive: PERRL, No lid inflammation ENT: positive: Pharynx nml, No signs of dehydration Neck: positive: No JVD, Trachea midline Respiratory: positive: Chest non-tender, No respiratory distress, Breath sounds nml Cardiovascular: positive: Regular rate & rhythm, No gallop, Tachycardia, Systolic murmur, Decreased pulse(s) Peripheral Pulses: 1+ Radial (R), 1+ Radial (L) Abdomen: positive: Non-tender, Nml bowel sounds, Guarding, Other (rounded, full, soft) Back: positive: Nml inspection Skin: positive: Color nml, No rash, Warm, Dry Extremities: positive: Non-tender, Full ROM, Nml appearance, No pedal edema (very skinny legs) Neurologic/Psychiatric: positive: Oriented x3, CN's nml (2-12), Motor nml, Sensation nml, Mood/affect nml Reflexes: Bicep (R): 3+, Bicep (L): 3+ - Lab Results Fish Bones: 09/22/19 07:06 09/22/19 07:06 Other Labs: Lab Results x24hrs 09/22/19 09/22/19 09/22/19 Range/Units 11:42 07:06 07:06 WBC 14.3 H (4.8-10.8) x10^3/uL RBC 3.90 L (4.20-5.40) 10^6/uL Hgb 10.8 L (12.0-16.0) g/dL Hct 34.5 L (37.0-47.0) % MCV 88.5 (81.0-99.0) fL MCH 27.7 (27.0-31.0) pg MCHC 31.3 L (32.0-36.0) g/dL RDW 13.2 (12.0-15.0) % Plt Count 191 (130-450) 10^3/uL MPV 10.4 (7.9-10.8) fL Neut # (Auto) 11.8 H (1.5-6.6) 10^3/uL Lymph # (Auto) 1.1 L (1.5-3.5) 10^3/uL [place] # (Auto) 1.0 (0.0-1.0) 10^3/uL Eos # (Auto) 0.1 (0.0-0.7) 10^3/uL Baso # (Auto) 0.0 (0.0-0.1) 10^3/uL Absolute Nucleated RBC 0.00 x10^3/uL Nucleated RBC % 0.0 /100WBC Manual Slide Review Indicated WBC Morphology NORMAL APPEARANCE (NORMAL) Platelet Estimate NORMAL (130-450,000) (NORMAL) Platelet Morphology NORMAL APPEARANCE (NORMAL) RBC Morph Micro Appear NORMAL APPEARANCE (NORMAL) Sodium 135 (135-145) mmol/L Potassium 4.1 (3.5-5.0) mmol/L Chloride 106 (101-111) mmol/L Carbon Dioxide 20 L (21-32) mmol/L Anion Gap 9.0 (6-13) BUN 11 (6-20) mg/dL Creatinine 0.5 (0.4-1.0) mg/dL Estimated GFR (MDRD) 122 (>89) Glucose 275 H (70-100) mg/dL POC Whole Bld Glucose 342 H (70 - 100) mg/dL Glycated Hemoglobin (4.6-6.2) % Estim Average Glucose (70-100) Calcium 8.9 (8.5-10.3) mg/dL Phosphorus 1.5 L (2.5-4.6) mg/dL Magnesium 1.8 (1.7-2.8) mg/dL 09/21/19 Range/Units 05:12 WBC (4.8-10.8) x10^3/uL RBC (4.20-5.40) 10^6/uL Hgb (12.0-16.0) g/dL Hct (37.0-47.0) % MCV (81.0-99.0) fL MCH (27.0-31.0) pg MCHC (32.0-36.0) g/dL RDW (12.0-15.0) % Plt Count (130-450) 10^3/uL MPV (7.9-10.8) fL Neut # (Auto) (1.5-6.6) 10^3/uL Lymph # (Auto) (1.5-3.5) 10^3/uL [place] # (Auto) (0.0-1.0) 10^3/uL Eos # (Auto) (0.0-0.7) 10^3/uL Baso # (Auto) (0.0-0.1) 10^3/uL Absolute Nucleated RBC x10^3/uL Nucleated RBC % /100WBC Manual Slide Review WBC Morphology (NORMAL) Platelet Estimate (NORMAL) Platelet Morphology (NORMAL) RBC Morph Micro Appear (NORMAL) Sodium (135-145) mmol/L Potassium (3.5-5.0) mmol/L Chloride (101-111) mmol/L Carbon Dioxide (21-32) mmol/L Anion Gap (6-13) BUN (6-20) mg/dL Creatinine (0.4-1.0) mg/dL Estimated GFR (MDRD) (>89) Glucose (70-100) mg/dL POC Whole Bld Glucose (70 - 100) mg/dL Glycated Hemoglobin 7.9 H (4.6-6.2) % Estim Average Glucose 180 H (70-100) Calcium (8.5-10.3) mg/dL Phosphorus (2.5-4.6) mg/dL Magnesium (1.7-2.8) mg/dL ABX Reporting Has patient been on IV antibiotics over the past 48 hours?: Yes Sepsis Event Note (H) - Evaluation Current Stage of Sepsis: Resolved Assessment/Plan - Problem List (1) Pyelonephritis due to Escherichia coli Impression: -Low abdominal pain, nausea with vomiting, poor appetite, and slight confusion -Confusion and vomiting have resolved, but patient remains sleepy today, overall poor appetite, but had a few bites for lunch, and intermittent nausea with abdominal pain -Nausea started a "few weeks ago", which may have the start of this infection -Also blood sugars have been more out of control, greater than 300's -US of the kidneys show no hydronephrosis, but a few renal cysts, no stones -Transitioned form IV meropenem, to PO Cipro, but not tolerated, starting PO Vantin tonight to prepare for D/C home in the AM Nausea and vomiting -Ongoing intermittent nausea, no related to intolerance of PO ciprofloxacin, added to adverse reaction list in EMR -Monitor for improvement after tonights new antibiotic, Vantin Hyperglycemia -Blood sugars have been 340-347 for the past 24 hours -Added Aspart, now increased to 12 units AC/HS -Routine labs, insulin pump to remain in place -Nutritional consult in the AM for guidance in discharging home and for a device check Diabetes 1.5, managed as type 1 -Unknown last A1C, but patient claims with the exception of the past few weeks, her blood sugars have been well managed -Patient will leave her home insulin pump in place -Admission glucose on electrolyte panel was 300 -Blood sugar checks ordered AC/HS, no SSI for now -Order new A1C in the AM Dehydration -Resolved, but likely to return due to ongoing hyperglycemia ~300's -Stay one more night to better control sugars Hypokalemia -Resolved -Routine labs Abdominal discomfort -Low abdominal pain, intermittent -Confirms pyelonephritis, also with N/V -Tylenol if needed Low back pain -Likely a result of ongoing illness, may be from recurrent vomiting, less activity -Treat acute pain with tylenol, monitor for improvement Kidney stones -Listed in history, kidney US did not show any currently Recurrent UTI -Patient required inpatient care in 2018, for the same illness -Risk factors include; female anatomy, DM, age, chronic diarrhea due to IBS -Consider outpatient referral to Urology for recommendations long-term Essential (primary) hypertension -Blood pressures have been elevated since admission -165/56, heart rates 80's -Likely a result of this illness, no chest pain or dizziness on exam Hyperlipidemia -Unknown recent lipid panel -No indication for a lipid panel for this hospital stay -Holding home statin for now, resume when clinically improved History of IBS -A consequence of gastric bypass per patient -Likely a contributing factor to this illness -No recent stools since loss of appetite, N/V -Recommend no c-diff testing since her baseline is diarrhea -Offer imodium for diarrhea by tomorrow Asthma -Home rescue inhaler, now on albuterol, PRN while here Depression -Patient has a flat affect, but also is ill, more manager strategic 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
[2019-09-22] MEDS: LORazepam 2 MG/ML VIAL IVP PRN (18:06)
[2019-09-22] MEDS: CEFPODOXIME PROXETIL 100 MG TABLET PO SCH (21:12)
[2019-09-23] MEDS: SODIUM CHLORIDE FLUSH 0.9% 10 ML SYRINGE IVP SCH ×2 (01:56→08:23)
[2019-09-23 06:35] LABS: BASOPHILS % (AUTO) 0.3 %; EOSINOPHILS # (AUTO) 0.1 10^3/uL (0.0-0.7); EOSINOPHILS % (AUTO) 0.5 %; HGB - HEMOGLOBIN 10.6 g/dL (12.0-16.0); LYMPHOCYTES # (AUTO) 1.6 10^3/uL (1.5-3.5); LYMPHOCYTES % (AUTO) 17.1 %; MEAN CORPUSCULAR HEMOGLOBIN 29.3 pg (27.0-31.0); MEAN CORPUSCULAR HGB CONC 33.3 g/dL (32.0-36.0); MEAN CORPUSCULAR VOLUME 87.8 fL (81.0-99.0); MONOCYTES # (AUTO) 0.8 10^3/uL (0.0-1.0); MONOCYTES % (AUTO) 8.2 %; NEUTROPHILS % (AUTO) 73.5 %; PLT - PLATELET COUNT 216 10^3/uL (130-450); RED BLOOD COUNT 3.62 10^6/uL (4.20-5.40); RED CELL DISTRIBUTION WIDTH 12.8 % (12.0-15.0); WHITE BLOOD COUNT 9.6 x10^3/uL (4.8-10.8)
[2019-09-23 06:42] LABS: CALCIUM 8.5 mg/dL (8.5-10.3); CREATININE 0.4 mg/dL (0.4-1.0); PHOSPHORUS 1.3 mg/dL (2.5-4.6)
[2019-09-23] MEDS: busPIRone 5 MG TABLET PO SCH (08:21)
[2019-09-23] MEDS: CEFPODOXIME PROXETIL 100 MG TABLET PO SCH (08:21)
[2019-09-23] MEDS: ASPIRIN CHEW 81 MG TABLET PO SCH (08:22)
[2019-09-23] MEDS: ESCITALOPRAM 10 MG TABLET PO SCH (08:22)
[2019-09-23] MEDS: INSULIN ASPART 300 UNIT/3 ML PEN SUBQ SCH (08:22)
[2019-09-23] MEDS: polyethylene glycoL 3350 17 GM PACKET PO SCH (08:22)
[2019-09-23] MEDS: BUDESONIDE 0.5 MG/2 ML NEB INH SCH (08:34)
--- NOTE | 2019-09-23 08:49 | Discharge Plan ---
Discharge Plan Problem Reviewed?: Yes Disposition: Home, Self Care Condition: Good Prescriptions: Cefpodoxime Proxetil [Vantin] 200 mg PO Q12H 10 Days #40 tablet Diet: Diabetic Activity Restrictions: Activity as Tolerated Shower Restrictions: No Driving Restrictions: No Health Concerns: E coli kidney infection Hypergylcemia (elevated blood sugars) Nausea, vomiting and abdominal pain Plan of Treatment: Continue the antibiotic for an extended course at home (another 10 days) See your PCP within one week if they are allowing this with the COVID restrictions See your provider who manages your insulin pump for adjustments Drink plenty of fluids Care Goals: Prevent a recurrence of this infection Prevent ED visits or hospital stays Manage blood sugars to a more reasonable range Maintain your independence at home Assessment: You were admitted to the hospital for a UTI which was determined to be involving your kidneys. You were initially given IV antibiotics that were transitioned to a pill form. Your blood sugars were greater than 300 for most of your stay, so a rapid acting insulin was given along with your insulin pump. You will need prompt follow up regarding your pump in the event it is not delivering the insulin intended. You are medically stable and can return home with your today. Additional Instructions or Follow Up instructions: On the ultrasound of your kidneys you were found to have kidney cysts with NO mention of malignancy (cancer). Please have your primary care provider follow up with this. No Smoking: If you smoke, Please STOP! Call for help. Follow-up with: Javan Black MD [Primary Care Provider] -
[2019-09-23 08:55] VITALS: BP 136/64
--- NOTE | 2019-09-23 17:42 | DISCHARGE SUMMARY ---
Discharge Summary Admit Date: 09/20/19 Discharge Date: 09/23/19 Discharging Provider: AREN Macias Primary Care Provider: Javan Black Code Status: Attempt Resuscitation Condition at Discharge: Good Discharge Disposition: 01 Home, Self Care - DIAGNOSES Discharge Diagnoses with Status of Each Condition: E. coli pyelonephritis-Present on admit, treatment to continue at home, stable Nausea and vomiting-Present on admit, resolved Hyperglycemia-Chronic, ongoing Diabetes 1.5, managed as type 1-Chronic, stable Dehydration-Present on admit, resolved Hypokalemia-Present on admit, resolved Abdominal discomfort-Present on admit, resolved Low back pain-Chronic, ongoing Kidney stones-Chronic, ongoing Recurrent UTI-Chronic, ongoing Essential (primary) hypertension-Chronic, ongoing Hyperlipidemia-Chronic, ongoing Insulin pump in place-Chronic, ongoing History of IBS-Chronic, ongoing Asthma-Chronic, ongoing Depression-Chronic, ongoing - HPI History of Present Illness: Carmela Jacob is a pleasant 73-year old white female with a past medical history of hypertension, hyperlipidemia, kidney stones, recurrent UTI, IBS, GERD, gastric bypass surgery with Ra fundoplication, allergic rhinitis, eczema, insomnia, PANKAJ, TIA, diabetes mellitus type 1.5, treated as a type 1 on chronic home insulin pump, asthma, depression, anxiety, restless leg syndrome, fatigue, colon polyps, basal cell carcinoma, MARCIE-resolved since weight loss, diabetic peripheral neuropathy, and osteopenia. The patient was brought in via private car for ongoing nausea and the inability to consume and food or liquids. The patient states that she had a urinalysis done at her PCP office, and results were back yesterday. A prescription for antibiotics were sent to her pharmacy, but she has not started them yet. She has fever, nausea, vomiting, loss of appetite, and lower abdominal pain. There was no labs initially, so a kidney US is ordered to evaluate for hydronephrosis, or kidney stones. Labs show a WBC count of 17.5, neut # 15.2, sodium 134, potassium 3.2, chloride 98, carbon dioxide 20, anion gap 16.0, GFR 82, glucose 300, lactic acid 2.8, with no other lab abnormalities. Her urine shows + nitrites, urine glucose of 500, urine ketones greater than 80, and moderate bacteria with a culture pending. She had a similar admission in 2018 for urosepsis of which she was treated with IV meropenem. She was initially given IV Rocephin, but we will continue with IV meropenem since she is showing signs of sepsis. - HOSPITAL COURSE Hospital Course: The patient was admitted to the hospital for a UTI which was determined to be pyelonephritis. She was initially given IV antibiotics that were transitioned to a pill form. Her blood sugars were greater than 300 for most of her stay, so a rapid acting insulin was given along with her insulin pump. She will need prompt follow up regarding her pump in the event it is not delivering the insulin intended. The patient is medically stable and can return home with her today. Upon the discharge exam, she was encouraged to request to see a Urologist, and to follow her kidney cysts in the next 6 months. - ALLERGIES Allergies/Adverse Reactions: Allergies Allergy/AdvReac Type Severity Reaction Status Date / Time Penicillins Allergy Intermediate Rash Verified 09/20/19 10:16 amoxicillin Allergy Rash Verified 09/20/19 10:16 doxycycline Allergy Rash Verified 09/20/19 13:30 gabapentin AdvReac diarrhea Verified 09/20/19 10:16 - MEDICATIONS Home Medications: Ambulatory Orders Medication Instructions Recorded Confirmed Zolpidem Tartrate [Ambien] 5 mg PO QPM PRN 11/13/12 09/21/19 Insulin Lispro [Humalog] 60 unit SUBQ .INSULINPUMP 06/11/13 09/21/19 ALPRAZolam [Alprazolam] 0.25 mg PO DAILY PRN 09/21/19 09/21/19 Albuterol Sulf [Ventolin Hfa 1 - 2 puffs INH Q4HR PRN 09/21/19 09/21/19 Inhaler] Alpha Lipoic Acid 300 mg PO BID 09/21/19 09/21/19 Ascorbic Acid 500 mg PO DAILY 09/21/19 09/21/19 Aspirin [Children's Aspirin] 81 mg PO DAILY 09/21/19 09/21/19 Budesonide [Pulmicort] 2 puffs INH BID 09/21/19 09/21/19 Buspirone HCl 10 mg PO BID 09/21/19 09/21/19 Calcium Carbonate/Vitamin D3 [Sm 1 each PO BID 09/21/19 09/21/19 Calcium 600-Vit D3 400 Tab] Cyanocobalamin (Vitamin B-12) 500 mcg PO DAILY 09/21/19 09/21/19 [Vitamin B-12] Escitalopram Oxalate 20 mg PO DAILY 09/21/19 09/21/19 Fluocinonide 1 applic TOP DAILY 09/21/19 09/21/19 Omeprazole 20 mg PO BIDAC 09/21/19 09/21/19 Simvastatin 20 mg PO QPM 09/21/19 09/21/19 Vitamin B Complex [Balanced B-50] 1 each PO DAILY 09/21/19 09/21/19 traZODone [Desyrel] 50 mg PO QPM PRN 09/21/19 09/21/19 Cefpodoxime Proxetil [Vantin] 200 mg PO Q12H 10 Days #40 tablet 09/23/19 - PHYSICAL EXAM AT DISCHARGE General Appearance: positive: No acute distress, Alert Eyes Bilateral: positive: Normal inspection, PERRL ENT: positive: Pharynx nml, No signs of dehydration Neck: positive: No JVD, Trachea midline Respiratory: positive: Chest non-tender, No respiratory distress, Breath sounds nml Cardiovascular: positive: Regular rate & rhythm, No gallop, Systolic murmur Peripheral Pulses: positive: 2+ Abdomen: positive: Non-tender, Nml bowel sounds, Other (rounded, soft) Back: positive: Nml inspection Skin: positive: Color nml, No rash, Warm, Dry Extremities: positive: Non-tender, Full ROM, Nml appearance, No pedal edema, Other (very thin extremities, very little subq fat) Neurologic/Psychiatric: positive: Oriented x3, CN's nml (2-12), Motor nml, Sensation nml, Mood/affect nml Reflexes: Bicep (R): 3+, Bicep (L): 3+ - LABS Result Diagrams: 09/23/19 06:16 09/23/19 06:16 - SEPSIS Current Stage of Sepsis: Resolved Possible source of Sepsis: Genitourinary Sepsis Criteria: Recorded Temperature greater than 38.3C or Less than 36C, R ecorded Heart Rate greater than 90 bpm - FOLLOW UP Follow Up: Continue the antibiotic for an extended course at home (another 10 days) See your PCP within one week if they are allowing this with the COVID restrictions See about a Urology referral for recurrent UTIs Follow kidney cysts, not thought to be worrisome for malignancy See your provider who manages your insulin pump for adjustments - TIME SPENT Time Spent in Discharge (Minutes): 55
== END 2019-09-23 11:28 | disposition home or self-care (01) | DRG 872 ==
LOC: ED 10:08 → MS2 11:44
PROVIDERS: ADMIT Nurse Practitioner; ATTEND Nurse Practitioner
DX: A41.51 Sepsis due to Escherichia coli [E. coli] (principal); N12 Tubulo-interstitial nephritis, not specified as acute or chronic; N30.20 Other chronic cystitis without hematuria; R11.2 Nausea with vomiting, unspecified; E86.0 Dehydration; E87.6 Hypokalemia; A41.9 Sepsis, unspecified organism; N39.0 Urinary tract infection, site not specified; E13.65 Other specified diabetes mellitus with hyperglycemia; E78.5 Hyperlipidemia, unspecified; K58.9 Irritable bowel syndrome, unspecified; J45.909 Unspecified asthma, uncomplicated; F32.9 Major depressive disorder, single episode, unspecified; F41.9 Anxiety disorder, unspecified; N28.1 Cyst of kidney, acquired; E13.51 Other specified diabetes mellitus with diabetic peripheral angiopathy without gangrene; E13.42 Other specified diabetes mellitus with diabetic polyneuropathy; G47.30 Sleep apnea, unspecified; I10 Essential (primary) hypertension; K58.0 Irritable bowel syndrome with diarrhea; H54.7 Unspecified visual loss; K21.9 Gastro-esophageal reflux disease without esophagitis; M85.80 Other specified disorders of bone density and structure, unspecified site; L40.9 Psoriasis, unspecified; L30.9 Dermatitis, unspecified; G47.00 Insomnia, unspecified; G25.81 Restless legs syndrome; M19.90 Unspecified osteoarthritis, unspecified site; Z96.41 Presence of insulin pump (external) (internal); Z79.51 Long term (current) use of inhaled steroids; Z98.84 Bariatric surgery status; Z87.442 Personal history of urinary calculi; Z86.73 Personal history of transient ischemic attack (TIA), and cerebral infarction without residual deficits; Z85.828 Personal history of other malignant neoplasm of skin; Z79.82 Long term (current) use of aspirin; Z79.899 Other long term (current) drug therapy
CPT/HCPCS: 36415; 76770; 80048; 80053; 81001; 82009; 82803; 83036; 83605; 83735; 83880; 84100; 85025; 87040; 87086; 87181; 94640; 96361; 96374; 96375; 99285; A9270; J1170; J2060; J2185; J7626

== ENCOUNTER 2020-04-24 09:02 | Observation (INO) | payer MEDICARE, OTHER ==
--- NOTE | 2020-04-24 09:17 | ED Physician Documentation ---
PD HPI ABD PAIN - Stated complaint Stated Complaint: FEVER/NAUSEA/ABD PX - History obtained from History obtained from: Patient - History of Present Illness Timing - onset: Today, Last night Timing - duration: Hours (5-6) Timing - details: Abrupt onset, Still present Quality: Cramping, Aching, Pain Location: RUQ, Periumbilical Radiation: Right flank, Upper back. No: Chest, Left flank Improved by: No: Vomiting Worsened by: Palpation. No: Moving, Breathing Associated symptoms: Nausea, Loss of appetite. No: Vomiting, Diarrhea, Constipation, Dysuria Similar symptoms before: No diagnosis (Had similar symptoms 1 1/2 weeks ago lasting just an hour and not as severe.) Recently seen: Not recently seen Review of Systems Constitutional: reports: Fever (mild subjective). denies: Myalgias, Fatigue Nose: denies: Rhinorrhea / runny nose, Congestion Throat: denies: Sore throat Cardiac: denies: Chest pain / pressure Respiratory: denies: Cough GI: reports: Abdominal Pain, Nausea. denies: Vomiting, Constipation, Diarrhea Skin: denies: Rash, Lesions Neurologic: reports: Generalized weakness. 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 : Chronic bladder infection, Nocturia, Frequency, Kidney stones HEENT: Chronic vision loss Psych: Depression, Anxiety Musculoskeletal: Osteoarthritis, Osteopenia Derm: Eczema, Psoriasis - Past Surgical History Past Surgical History: Yes General: Gastric surgery (gastric bypass), Colonoscopy Ortho: Other HEENT: Cataracts - Present Medications Home Medications: Ambulatory Orders Medication Instructions Recorded Confirmed Zolpidem Tartrate [Ambien] 5 mg PO QPM PRN 11/13/12 09/21/19 Insulin Lispro [Humalog] 60 unit SUBQ .INSULINPUMP 06/11/13 09/21/19 ALPRAZolam [Alprazolam] 0.25 mg PO DAILY PRN 09/21/19 09/21/19 Albuterol Sulf [Ventolin Hfa 1 - 2 puffs INH Q4HR PRN 09/21/19 09/21/19 Inhaler] Alpha Lipoic Acid 300 mg PO BID 09/21/19 09/21/19 Ascorbic Acid 500 mg PO DAILY 09/21/19 09/21/19 Aspirin [Children's Aspirin] 81 mg PO DAILY 09/21/19 09/21/19 Budesonide [Pulmicort] 2 puffs INH BID 09/21/19 09/21/19 Buspirone HCl 10 mg PO BID 09/21/19 09/21/19 Calcium Carbonate/Vitamin D3 [Sm 1 each PO BID 09/21/19 09/21/19 Calcium 600-Vit D3 400 Tab] Cyanocobalamin (Vitamin B-12) 500 mcg PO DAILY 09/21/19 09/21/19 [Vitamin B-12] Escitalopram Oxalate 20 mg PO DAILY 09/21/19 09/21/19 Fluocinonide 1 applic TOP DAILY 09/21/19 09/21/19 Omeprazole 20 mg PO BIDAC 09/21/19 09/21/19 Simvastatin 20 mg PO QPM 09/21/19 09/21/19 Vitamin B Complex [Balanced B-50] 1 each PO DAILY 09/21/19 09/21/19 traZODone [Desyrel] 50 mg PO QPM PRN 09/21/19 09/21/19 Cefpodoxime Proxetil [Vantin] 200 mg PO Q12H 10 Days #40 tablet 09/23/19 - Allergies Allergies/Adverse Reactions: Allergies Allergy/AdvReac Type Severity Reaction Status Date / Time Penicillins Allergy Intermediate Rash Verified 04/24/20 09:19 amoxicillin Allergy Rash Verified 04/24/20 09:19 doxycycline Allergy Rash Verified 04/24/20 09:19 gabapentin AdvReac diarrhea Verified 04/24/20 09:19 - Social History Does the pt smoke?: No Smoking Status: Never smoker Does the pt drink ETOH?: No Does the pt have substance abuse?: No - Immunizations Immunizations are current?: Yes - POLST Patient has POLST: No POLST Status: Full Code PD ED PE NORMAL - Vitals Vital signs reviewed: Yes (hypertensive, with good heart rate.) - General General: Alert and oriented X 3, Well developed/nourished, Other (appears in pain and discomfort; holding emesis bag. ) - HEENT HEENT: Pharynx benign. No: Moist mucous membranes - Neck Neck: Supple, no meningeal sign, No adenopathy - Cardiac Cardiac: RRR, No murmur - Respiratory Respiratory: Clear bilaterally - Abdomen Abdomen: Non distended, Other (tender mid to RUQ abd with guarding. Some local percussion RUQ tenderness. No rebound. ). No: Normal bowel sounds (diminished) - Rectal Rectal: Deferred - Back Back: No CVA TTP - Derm Derm: Normal color, Warm and dry - Extremities Extremities: No deformity, Normal ROM s pain, No edema, No calf tenderness / cord - Neuro Neuro: Alert and oriented X 3, No motor deficit, Normal speech Results - Vitals Vitals: Vital Signs - 24 hr 04/24/20 04/24/20 04/24/20 09:12 09:33 10:17 Temperature 36.9 C Heart Rate 96 83 Respiratory 17 32 H 15 Rate Blood Pressure 216/75 H 220/84 H 197/61 H O2 Saturation 96 98 04/24/20 04/24/20 04/24/20 10:30 11:42 12:22 Temperature 37.3 C Heart Rate 74 92 84 Respiratory 12 16 16 Rate Blood Pressure 197/71 H 164/59 H 180/63 H O2 Saturation 100 99 100 04/24/20 04/24/20 04/24/20 12:56 13:00 13:30 Temperature Heart Rate 106 H 100 92 Respiratory 21 20 14 Rate Blood Pressure 155/57 H 130/103 H 124/56 L O2 Saturation 98 97 97 04/24/20 04/24/20 14:30 15:07 Temperature Heart Rate 77 73 Respiratory 14 17 Rate Blood Pressure 134/48 H 135/50 H O2 Saturation 98 97 Oxygen O2 Source Room air - Labs Labs: Laboratory Tests 04/24/20 04/24/20 04/24/20 09:30 09:30 09:40 WBC 13.0 H RBC 4.38 Hgb 12.4 Hct 37.4 MCV 85.4 MCH 28.3 MCHC 33.2 RDW 12.3 Plt Count 282 MPV 10.0 Neut # (Auto) 10.8 H Lymph # (Auto) 1.0 L [place] # (Auto) 1.0 Eos # (Auto) 0.0 Baso # (Auto) 0.0 Absolute Nucleated RBC 0.00 Nucleated RBC % 0.0 Sodium 137 Potassium 3.0 L Chloride 102 Carbon Dioxide 20 L Anion Gap 15.0 H BUN 14 Creatinine 0.4 Estimated GFR (MDRD) 157 Glucose 166 H POC Whole Bld Glucose Calcium 9.2 Magnesium 1.7 Total Bilirubin 2.7 H AST 421 H ALT 310 H Alkaline Phosphatase 174 H Total Protein 7.0 Albumin 3.7 Globulin 3.3 Albumin/Globulin Ratio 1.1 Lipase 539 H Urine Color DARK YELLOW Urine Clarity CLEAR Urine pH 8.5 H Ur Specific [place] 1.020 Urine Protein NEGATIVE Urine Glucose (UA) NEGATIVE Urine Ketones 15 H Urine Occult Blood NEGATIVE Urine Nitrite NEGATIVE Urine Bilirubin NEGATIVE Urine Urobilinogen 2 H Ur Leukocyte Esterase NEGATIVE Ur Microscopic Review NOT INDICATED Urine Culture Comments NOT INDICATED Serum Ketones 04/24/20 04/24/20 04/24/20 09:43 14:02 14:02 WBC RBC Hgb Hct MCV MCH MCHC RDW Plt Count MPV Neut # (Auto) Lymph # (Auto) [place] # (Auto) Eos # (Auto) Baso # (Auto) Absolute Nucleated RBC Nucleated RBC % Sodium 138 Potassium 3.0 L Chloride 103 Carbon Dioxide 24 Anion Gap 11.0 BUN 11 Creatinine 0.4 Estimated GFR (MDRD) 157 Glucose 110 H POC Whole Bld Glucose 155 H Calcium 8.6 Magnesium Total Bilirubin 2.9 H AST 276 H ALT 248 H Alkaline Phosphatase 149 H Total Protein 6.1 L Albumin 3.3 Globulin 2.8 Albumin/Globulin Ratio 1.2 Lipase 293 H Urine Color Urine Clarity Urine pH Ur Specific [place] Urine Protein Urine Glucose (UA) Urine Ketones Urine Occult Blood Urine Nitrite Urine Bilirubin Urine Urobilinogen Ur Leukocyte Esterase Ur Microscopic Review Urine Culture Comments Serum Ketones NEGATIVE - Rads (name of study) abd CT Radiology: Prelim report reviewed (CT showing normal gallbladder with some possible small stones. However the common bile duct is dilated at 9 mm. No pancreatic lesions.), See rad report RUQ U/S Radiology: Prelim report reviewed (No gallstones seen in the gallbladder. Common bile duct is again demonstrated to be dilated up to 9 mm distally. No stones seen in the duct itself. Pancreatic duct appeared okay.), See rad report PD MEDICAL DECISION MAKING - ED course Complexity details: reviewed results, re-evaluated patient (Remarkably better after some IV fluids pain and nausea medicines.), considered differential, d/w patient, d/w eyewear consultant (With Dr. Srivastava on for GI at [facility]. Given her pain had greatly improved/resolved, he suggested following numbers and he would not do an ERCP at this point unless she has return of symptoms or increasing) ED course: The patient seems to have had some sludging or small stones blocking the common bile duct with elevation of liver enzymes and symptoms associated. However her symptoms have remarkably improved and repeat exam is minimally to nontender at this point. I talked with GI at [facility], Dr. Srivastava, who suggested this blockage may have resolved. He would not do ERCP at this point but would watch her symptoms and labs and see if they improve overnight. This will be done through the hospitalist service and gave me the option of their hospital or hours. I talked with our hospitalist here who is comfortable with this plan Departure - Departure Disposition: ED Place in Observation Clinical Impression: Acute upper abdominal pain, Common bile duct (CBD) obstruction, Elevated liver enzymes Condition: Stable Record reviewed to determine appropriate education?: Yes
[2020-04-24] MEDS ORDERED: ONDANSETRON 4 MG/2 ML VIAL IVP STA (09:46)
[2020-04-24] MEDS ORDERED: MORPHINE 2 MG/ML CARPUJECT IVP STA (09:46)
[2020-04-24] MEDS ORDERED: SODIUM CHLORIDE 0.9% 1,000 ML IV STA (09:46)
[2020-04-24 09:57] LABS: BASOPHILS % (AUTO) 0.3 %; HGB - HEMOGLOBIN 12.4 g/dL (12.0-16.0); LYMPHOCYTES % (AUTO) 7.7 %; MEAN CORPUSCULAR HEMOGLOBIN 28.3 pg (27.0-31.0); MEAN CORPUSCULAR HGB CONC 33.2 g/dL (32.0-36.0); MEAN CORPUSCULAR VOLUME 85.4 fL (81.0-99.0); MONOCYTES % (AUTO) 7.9 %; NEUTROPHILS # (AUTO) 10.8 10^3/uL (1.5-6.6); NEUTROPHILS % (AUTO) 83.6 %; PLT - PLATELET COUNT 282 10^3/uL (130-450); RED BLOOD COUNT 4.38 10^6/uL (4.20-5.40); RED CELL DISTRIBUTION WIDTH 12.3 % (12.0-15.0)
[2020-04-24 10:02] LABS: BILIRUBIN,URINE NEGATIVE (NEGATIVE); CLARITY,URINE CLEAR (CLEAR); GLUCOSE, URINE (UA) NEGATIVE (NEGATIVE); KETONES,URINE (UA) 15 mg/dL (NEGATIVE); LEUKOCYTE ESTERASE, URINE NEGATIVE (NEGATIVE); NITRITE,URINE NEGATIVE (NEGATIVE); OCCULT BLOOD,URINE NEGATIVE (NEGATIVE); PH,URINE 8.5 PH (5.0-7.5); PROTEIN,URINE NEGATIVE (NEGATIVE); UROBILINOGEN,URINE 2 E.U./dL (NORMAL)
[2020-04-24] MEDS ORDERED: IOVERSOL 320 100 ML VIAL IVP ONE ×2 (10:08→11:29)
[2020-04-24 10:31] LABS: ALBUMIN 3.7 g/dL (3.2-5.5); ALBUMIN/GLOBULIN RATIO 1.1 (1.0-2.2); BILIRUBIN,TOTAL 2.7 mg/dL (0.2-1.0); CALCIUM 9.2 mg/dL (8.5-10.3); CREATININE 0.4 mg/dL (0.4-1.0); MAGNESIUM 1.7 mg/dL (1.7-2.8)
--- NOTE | 2020-04-24 11:46 | CT Report ---
PROCEDURE: Abdomen/Pelvis W INDICATIONS: mid/upper abd pain and vomiting CONTRAST: IV CONTRAST: Isovue 370 ml: 100 PO CONTRAST: *NO PO CONTRAST TECHNIQUE: After the administration of intravenous contrast, 5 mm thick sections acquired from the diaphragms to the symphysis. 5 mm thick coronal and sagittal reformats were acquired. For radiation dose reducti on, the following was used: automated exposure control, adjustment of mA and/or kV according to chika ent size. COMPARISON: CT abdomen pelvis 09/10/2017. FINDINGS: Image quality: Excellent. ABDOMEN: Lung bases: There is minimal scarring in the lung bases. Heart size is normal. Solid organs: Evaluation of the liver demonstrates no focal hepatic lesions. There are small depende nt filling defects in the gallbladder fundus suggestive of gallstones. No definite gallbladder wall t hickening or pericholecystic fluid. There is intra and extra hepatic biliary ductal dilatation, with the common bile duct measuring up to 0.9 cm. This extends distally to the ampulla with a suspected sm all filling defect measuring up to 0.4 cm. No pancreatic duct dilatation. No peripancreatic fluid col lections. The spleen is normal in size. No adrenal nodules. Kidneys demonstrate no hydronephrosis. Peritoneum and bowel: There are postsurgical changes consistent with prior gastric bypass. Small bow el loops are predominantly nondistended. There is suggestion of associated mild bowel wall thickening . The appendix is normal in appearance. Colon demonstrates mild segmental wall thickening involving t he transverse, descending, and rectosigmoid colon. No free fluid or air. Nodes and vessels: No retroperitoneal or mesenteric adenopathy by size criteria. Aorta and inferior vena cava are normal in size. Miscellaneous: No ventral hernias. PELVIS: Genitourinary: Bladder wall thickness is normal. Miscellaneous: No inguinal hernias or adenopathy. Bones: No suspicious bony lesions. No vertebral body compression fractures. IMPRESSION: 1. Mild intra- and extrahepatic biliary ductal dilatation with suspected choledocholithiasis distally at the ampulla. Probable noncalcified gallstones are demonstrated in the gallbladder without definit e CT evidence of acute cholecystitis. Recommend correlation clinically and if indicated further evalu ation may be obtained with ultrasound or MRCP. 2. Mild segmental wall thickening involving the distal colon beginning in the proximal transverse col on compatible with a mild colitis, likely infectious or inflammatory in etiology. 3. Nondistention of the majority of the small bowel with suggestion of mild associated wall thickenin g which may also represent a mild infectious or inflammatory enteritis. No bowel obstruction. Reviewed by: Jose Serraon MD on 04/24/2020 11:45 AM PDT Approved by: Jose Serrano MD on 04/24/2020 11:45 AM PDT Station ID: [id number]
--- NOTE | 2020-04-24 13:24 | Ultrasound Report ---
PROCEDURE: Abdomen Limited INDICATIONS: elevated LFTs; abd pain; apparent dilated duct CT TECHNIQUE: Real-time scanning was performed of the abdominal and retroperitoneal organs, with image documentatio n. COMPARISON: CT of abdomen and pelvis from the same day.. FINDINGS: Liver: Liver is normal in size. Normal liver parenchymal echotexture is seen. No discrete hepatic les ion. Gallbladder: No obvious gallstone is seen. No gallbladder wall thickening or pericholecystic fluid. N o sonographic Kirby's sign. Biliary ducts: Intrahepatic bile ducts are mildly distended. Extrahepatic bile duct caliber measure s 9 mm. Normal is 6-7 mm or less in diameter, or 10 mm or less post-cholecystectomy. Pancreas: Visualized portions of the pancreas are sonographically normal. Kidneys: Right kidney measures 10.7 cm long. No hydronephrosis or nephrolithiasis. No solid masses. Miscellaneous: No free abdominal fluid. IMPRESSION: 1. No definite gallstone is seen. No gallbladder wall thickening or pericholecystic fluid. No sonogra phic evidence of acute cholecystitis. 2. Mild intrahepatic biliary ductal dilatation of mild dilatation of common bile the. No obvious chol edocholithiasis is seen. This can be further evaluated with MRCP if indicated. 3. No gross abnormality is seen in the visualized portion of pancreas, or right kidney. Reviewed by: Ankit Ray MD on 04/24/2020 12:23 PM CELI Approved by: Ankit Ray MD on 04/24/2020 12:23 PM AKJULIO Station ID: [id number]
[2020-04-24 14:21] LABS: ALBUMIN 3.3 g/dL (3.2-5.5); ALBUMIN/GLOBULIN RATIO 1.2 (1.0-2.2); BILIRUBIN,TOTAL 2.9 mg/dL (0.2-1.0); CALCIUM 8.6 mg/dL (8.5-10.3); CREATININE 0.4 mg/dL (0.4-1.0); TOTAL PROTEIN 6.1 g/dL (6.7-8.2)
[2020-04-24] MEDS ORDERED: ACETAMINOPHEN 325 MG TABLET PO PRN (15:15)
[2020-04-24] MEDS ORDERED: SODIUM CHLORIDE FLUSH 0.9% 10 ML SYRINGE IVP PRN (15:15)
[2020-04-24] MEDS ORDERED: oxyCODONE 5 MG TABLET PO PRN (15:15)
[2020-04-24] MEDS ORDERED: ONDANSETRON 4 MG/2 ML VIAL IVP PRN (15:15)
[2020-04-24] MEDS ORDERED: MORPHINE 2 MG/ML CARPUJECT IVP PRN (15:15)
[2020-04-24] MEDS ORDERED: ALBUTEROL NEB 2.5 MG/3 ML INH PRN (15:23)
[2020-04-24] MEDS ORDERED: ALPRAZolam 0.25 MG TABLET PO PRN ×2 (15:24→15:28)
[2020-04-24] MEDS ORDERED: traZODone 50 MG TABLET PO PRN (15:29)
--- NOTE | 2020-04-24 15:35 | HISTORY & PHYSICAL EXAMINATION ---
Chief Complaint - Chief Complaint Chief Complaint: abdominal pain History of Present Illness - Admitted From Admitted From:: ER - History Obtained From Records Reviewed: [facility] History obtained from: pt Exam Limitations: no - History of Present Illness HPI Comment/Other: Ms. Carmela Jacob is a pleasant 74-year old white female with a past medical history of hypertension, hyperlipidemia, kidney stones, recurrent UTI, IBS, GERD, gastric bypass surgery with Ra fundoplication, allergic rhinitis, eczema, insomnia, PANKAJ, TIA, diabetes mellitus type 1.5, treated as a type 1 on chronic home insulin pump, asthma, depression, anxiety, restless leg syndrome, fatigue, colon polyps, basal cell carcinoma, MARCIE-resolved since weight loss, diabetic peripheral neuropathy, and osteopenia. Patient report in the senior oracle soa developer she had upper abdominal pain with radiating pain in the right back. She also report nausea but without vomiting or diarrhea. She denies fever, shortness of breathing, chest pain. Patient reported she feel much better now her pain is almost controlled, No more nausea or vomiting. CAT scan of abdomen and pelvis show Mild intra and extra hepatic biliary ductal dilatation with suspicion choledocholithiasis distally at the ampulla, without CT evidence of acute cholecystitis, Mild segmental wall thickening involving the distal colon compatible with a mild colitis, nondistention of the majority of the small bowel of mild associated wall thickening which may represent a mild infectious or inflammatory enteritis, no bowel obstruction. Ultrasound of the abdomen show, No definite gallstone, no gallstone wall thickening, no sonographic evidence of acute cholecystitis, Mild intra hepatic biliary ductal dilatation and mild dilatation of common bile, no obvious choledocholithiasis is seen, no gross abnormality is seen in the pancreas or right kidney. Routine laboratory test show patient has elevated total bili, AST, ALT, alkaline phosphate, And a slight elevated lipase and WBC. Patient is afebrile, Initially patient had a significantly elevated blood pressure. When assessment to patient, patient's blood pressure is in the normal range now. Patient is admitted in observation unit for further medical management. Discussed the care goal with the patient, patient requests full code. History - Past Medical History Cardiovascular: reports: Hypertension, High cholesterol, Peripheral Vascular Disease Respiratory: reports: Asthma, Sleep apnea Neuro: reports: Headaches, Peripheral neuropathy Endocrine/Autoimmune: reports: Type 1 diabetes, Type 2 diabetes GI: reports: GERD, Hiatal hernia (repaired with gastric bypass surgery), Colon polyps, Chronic diarrhea (IBS) BODY AND FENDER WORKER: reports: None : reports: Chronic bladder infection, Nocturia, Frequency, Kidney stones HEENT: reports: Chronic vision loss Psych: reports: Depression, Anxiety Musculoskeletal: reports: Osteoarthritis, Osteopenia Derm: reports: Eczema, Psoriasis MRSA Hx?: No - Past Surgical History General: reports: Gastric surgery (gastric bypass), Colonoscopy Ortho: reports: Other HEENT: reports: Cataracts - Family & Social History Family History: Mother: , Father: , Sister: , Brother: Alive and Well Family History Comment/Other: Father: cancer, arthritis, anxiety, depression, HTN, HLD, melanoma. Mother: arthritis, asthma, HTN, HLD, osteoporosis, weight disorder. Sister: for unknown reasons, one brother who is alive and well Social History Notes: Patient lives independently in [place], [place] with her and dogs. 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 She denies tobacco, alcohol, or illicit drug use. She wishes to be a full code. - Substance History Use: Uses substance without health or social issues: NONE - POLST Patient has POLST: No POLST Status: Full Code Meds/Allgy - Home Medications Home Medications: Ambulatory Orders Medication Instructions Recorded Confirmed Zolpidem Tartrate [Ambien] 5 mg PO QPM PRN 11/13/12 09/21/19 Insulin Lispro [Humalog] 60 unit SUBQ .INSULINPUMP 06/11/13 09/21/19 ALPRAZolam [Alprazolam] 0.25 mg PO DAILY PRN 09/21/19 09/21/19 Albuterol Sulf [Ventolin Hfa 1 - 2 puffs INH Q4HR PRN 09/21/19 09/21/19 Inhaler] Alpha Lipoic Acid 300 mg PO BID 09/21/19 09/21/19 Ascorbic Acid 500 mg PO DAILY 09/21/19 09/21/19 Aspirin [Children's Aspirin] 81 mg PO DAILY 09/21/19 09/21/19 Budesonide [Pulmicort] 2 puffs INH BID 09/21/19 09/21/19 Buspirone HCl 10 mg PO BID 09/21/19 09/21/19 Calcium Carbonate/Vitamin D3 [Sm 1 each PO BID 09/21/19 09/21/19 Calcium 600-Vit D3 400 Tab] Cyanocobalamin (Vitamin B-12) 500 mcg PO DAILY 09/21/19 09/21/19 [Vitamin B-12] Escitalopram Oxalate 20 mg PO DAILY 09/21/19 09/21/19 Fluocinonide 1 applic TOP DAILY 09/21/19 09/21/19 Omeprazole 20 mg PO BIDAC 09/21/19 09/21/19 Simvastatin 20 mg PO QPM 09/21/19 09/21/19 Vitamin B Complex [Balanced B-50] 1 each PO DAILY 09/21/19 09/21/19 traZODone [Desyrel] 50 mg PO QPM PRN 09/21/19 09/21/19 Cefpodoxime Proxetil [Vantin] 200 mg PO Q12H 10 Days #40 tablet 09/23/19 - Allergies Allergies/Adverse Reactions: Allergies Allergy/AdvReac Type Severity Reaction Status Date / Time Penicillins Allergy Intermediate Rash Verified 04/24/20 09:19 amoxicillin Allergy Rash Verified 04/24/20 09:19 doxycycline Allergy Rash Verified 04/24/20 09:19 gabapentin AdvReac diarrhea Verified 04/24/20 09:19 Review of Systems - Constitutional Constitutional: denies: Fatigue, Fever, Chills, Weakness, Poor appetite - Eyes Eyes: denies: Pain, Blurred vision, Field loss, Vision loss - Ears, Nose & Throat Ears, Nose & Throat: denies: Ear pain, Hearing loss, Nosebleeds, Nasal congestion, Bleeding gums - Cardiovascular Cariovascular: denies: Irregular heart rate, Palpitations, Chest pain, Edema, Lightheadedness, Syncope, Exertional dyspnea, Orthopnea - Respiratory Respiratory: denies: Cough, Sputum production, Wheezing, Hemoptysis, Orthopnea, SOB at rest, SOB with exertion - Gastrointestinal Gastrointestinal: reports: Abdominal pain, Nausea, Vomiting. denies: Abdominal distention, Constipation, Diarrhea, Change in bowel habits, Rectal bleeding, Black stools, Bloody stools, Bile emesis, Prabhjot blood emesis, Coffee grounds emesis - Genitourinary Genitourinary: denies: Dysuria, Hematuria, Incontinence - Musculoskeletal Musculoskeletal: denies: Muscle pain, Muscle aches, Limited range of motion, Muscle weakness - Integumentary Integumentary: denies: Rash, Lesions, Lumps - Neurological Neurological: denies: General weakness, Focal weakness, Headache, Dizziness, Numbness, Memory problems, Pre-existing deficit, Abnormal gait, Seizures, Incoordination, Slurred speech - Psychiatric Psychiatric: denies: Depression, Suicidal, Delusions, Hallucinations - Endocrine Endocrine: denies: Polyuria, Intolerance to cold - Hematologic/Lymphatic Hematologic/Lymphatic: denies: Anemia, Lymphadenopathy Exam - Vital Signs Vital Signs: Vital Signs x48h Temp Pulse Resp BP Pulse Ox 04/24/20 15:22 84 13 130/47 L 98 04/24/20 15:07 73 17 135/50 H 97 04/24/20 14:30 77 14 134/48 H 98 04/24/20 13:30 92 14 124/56 L 97 04/24/20 13:00 100 20 130/103 H 97 04/24/20 12:56 106 H 21 155/57 H 98 04/24/20 12:22 84 16 180/63 H 100 04/24/20 11:42 37.3 C 92 16 164/59 H 99 04/24/20 10:30 74 12 197/71 H 100 04/24/20 10:17 83 15 197/61 H 98 04/24/20 09:33 32 H 220/84 H 04/24/20 09:12 36.9 C 96 17 216/75 H 96 - Physical Exam General Appearance: positive: No acute distress, Alert. negative: Lethargic Eyes Bilateral: positive: Normal inspection, PERRL, No lid inflammation ENT: positive: ENT inspection nml, No signs of dehydration. negative: Purulent nasal drainage Neck: positive: Nml inspection, Thyroid nml, Trachea midline. negative: Thyromegaly, Stiff neck, Tracheal deviation Respiratory: negative: Chest non-tender, No respiratory distress, Wheezes, Rales, Rhonchi Cardiovascular: positive: Regular rate & rhythm, Systolic murmur, Diastolic murmur. negative: Tachycardia, Bradycardia Peripheral Pulses: positive: 2+ Abdomen: positive: Non-tender, Nml bowel sounds, No distention. negative: Tenderness, Guarding, Rebound Back: positive: Nml inspection. negative: CVA tenderness (R), CVA tenderness (L) Skin: positive: Color nml, Warm, Dry. negative: Cyanosis, Diaphoresis, Pallor Extremities: positive: Non-tender, Full ROM, Nml appearance. negative: Calf tenderness Neurologic/Psychiatric: positive: Oriented x3, Motor nml, Sensation nml, Mood/affect nml. negative: Weakness, Sensory loss, Facial droop, Slurred/abnml speech, Depressed mood/affect Conclusion/Plan - Problem List (1) Acute upper abdominal pain Conclusion/Plan: Patient reported she had a upper abdominal pain In the senior oracle soa developer. After the patient was given intravenous IV fluids, pain medication, right now her abdominal pain is resolved. She denies any more nausea vomiting, fever or chill. In physical exam, patient has negative Kirby sign, Soft abdominal, good bowel sounds,No tenderness. CAT scan show patient has choledocholithiasis at distally ampulla, No evidence acute cholecystitis. It indicated patient's stone in common bile may pass through ampulla. At this stage we will put the patient in the observation unit, We will clinically closely monitor patient. We may consult with surgeon or further image study such as MRCP if patient clinically become worsening. Continue IV fluids, continue pain control, Continue field laboratory operator and vital signs monitor. (2) Elevated liver enzymes Conclusion/Plan: Patient had elevated total bili, AST, ALT, alkaline phosphatePatient, and slight elevated Lipase, pt might have choledocholithiasis before and in this morning Which caused patient had elevated liver enzyme. Now stone is likely passed through ampulla. Clinically patient has no abdominal pain, no nausea or vomiting, she feel much better. We will continue field laboratory operator patient, hold Hepatic toxic agent. (3) Hypokalemia Conclusion/Plan: Patient potassium is 3.0, we will replace and field laboratory operator (4) Diabetes Conclusion/Plan: Patient has a combination of diabetic 1 and diabetic 2, patient has insulin pump and sensors. But the patient still take extra insulin in the home. Continue sliding scale, ACHS to check glucose level, check A1c, Hypoglycemia protocol. (5) Asthma Conclusion/Plan: Patient has a history of asthma, patient has no Respiratory distress, no asthma exacerbation in hospital now. We added albuterol as needed, will resume home medication after confirmed (6) Anxiety Conclusion/Plan: continue Xanax, and Buspar, Resume home medication after confirmed - Lab Results Fish Bones: 04/24/20 09:30 04/24/20 14:02 Core Measures - Anticipated LOS I expect patient to be DC'd or transferred within 96 hours.: Yes - DVT/VTE - Prophylaxis VTE/DVT Device ordered at admit?: Yes VTE/DVT Prophylaxis med ordered at admit?: Yes
[2020-04-24] MEDS: SODIUM CHLORIDE 0.9% 1,000 ML IV SCH (16:48)
[2020-04-24] MEDS: POTASSIUM CHLOR 10 MEQ/100 ML 10 MEQ/100 ML BAG IV SCH ×2 (16:48→18:36)
[2020-04-24] MEDS: SODIUM CHLORIDE FLUSH 0.9% 10 ML SYRINGE IVP SCH (16:49)
[2020-04-24] MEDS ORDERED: POTASSIUM CHLORIDE 20 MEQ TABLET PO ONE (17:00)
[2020-04-24] MEDS: PANTOPRAZOLE 40 MG TABLET PO SCH (17:06)
[2020-04-24] MEDS ORDERED: POTASSIUM CHLORIDE 20 MEQ TABLET PO SCH (17:10)
[2020-04-24] MEDS: INSULIN ASPART 300 UNIT/3 ML PEN SUBQ SCH ×2 (17:34→21:43)
--- NOTE | 2020-04-24 17:38 | PHARMACY PROGRESS NOTE ---
- Best Possible Medication History Admit Date and Time: 04/24/20 1515 Processed by: Pharmacy Medication History completed: Yes Patient Interview: Completed Secondary Source(s): Physician records, Pharmacy records, Insurance records (PATIENT INTERVIEWED BY PHARMACY. PATIENT ABLE TO CONFIRM HOME MEDICATIONS ) As the person ultimately responsible for medication therapy, providers are able to order a medication from an existing home medication list in [facility] via the "Reconcile Routine" prior to Confirmation of that medication by supportive employment case manager. Such practice is discouraged except when the physician, in their clinical judgment, deems that a medical need exists for a medication without regard to previous use.
[2020-04-24] MEDS ORDERED: ZOLPIDEM 5 MG TABLET PO PRN (17:59)
[2020-04-24] MEDS: BUDESONIDE 0.5 MG/2 ML NEB INH SCH (18:17)
[2020-04-24 20:23] LABS: HEMOGLOBIN A1c% 6.6 % (4.27-6.07)
[2020-04-24] MEDS: busPIRone 5 MG TABLET PO SCH (20:50)
[2020-04-24] MEDS ORDERED: traZODone 50 MG TABLET PO SCH (21:00)
[2020-04-24] MEDS ORDERED: busPIRone 5 MG TABLET PO SCH (21:00)
[2020-04-25] MEDS: SODIUM CHLORIDE 0.9% 1,000 ML IV SCH (02:47)
[2020-04-25] MEDS: SODIUM CHLORIDE FLUSH 0.9% 10 ML SYRINGE IVP SCH ×2 (02:48→09:31)
[2020-04-25] MEDS: PANTOPRAZOLE 40 MG TABLET PO SCH (05:27)
[2020-04-25 06:30] LABS: BASOPHILS % (AUTO) 0.3 %; EOSINOPHILS # (AUTO) 0.1 10^3/uL (0.0-0.7); EOSINOPHILS % (AUTO) 1.2 %; HGB - HEMOGLOBIN 9.7 g/dL (12.0-16.0); LYMPHOCYTES # (AUTO) 2.3 10^3/uL (1.5-3.5); LYMPHOCYTES % (AUTO) 30.4 %; MEAN CORPUSCULAR HGB CONC 30.9 g/dL (32.0-36.0); MEAN CORPUSCULAR VOLUME 90.5 fL (81.0-99.0); MEAN PLATELET VOLUME 9.8 fL (7.9-10.8); MONOCYTES # (AUTO) 0.6 10^3/uL (0.0-1.0); MONOCYTES % (AUTO) 7.7 %; NEUTROPHILS # (AUTO) 4.5 10^3/uL (1.5-6.6); PLT - PLATELET COUNT 196 10^3/uL (130-450); RED BLOOD COUNT 3.47 10^6/uL (4.20-5.40); RED CELL DISTRIBUTION WIDTH 12.8 % (12.0-15.0); WHITE BLOOD COUNT 7.4 x10^3/uL (4.8-10.8)
[2020-04-25 06:45] LABS: ALBUMIN 2.9 g/dL (3.2-5.5); ALBUMIN/GLOBULIN RATIO 1.2 (1.0-2.2); BILIRUBIN,TOTAL 0.8 mg/dL (0.2-1.0); CALCIUM 8.6 mg/dL (8.5-10.3); CREATININE 0.6 mg/dL (0.4-1.0); MAGNESIUM 1.9 mg/dL (1.7-2.8); PHOSPHORUS 2.9 mg/dL (2.5-4.6); TOTAL PROTEIN 5.4 g/dL (6.7-8.2)
[2020-04-25] MEDS: BUDESONIDE 0.5 MG/2 ML NEB INH SCH (07:30)
[2020-04-25] MEDS: INSULIN ASPART 300 UNIT/3 ML PEN SUBQ SCH ×2 (08:03→11:27)
[2020-04-25] MEDS ORDERED: ENOXAPARIN 40 MG/0.4 ML SYRINGE SUBQ SCH (09:00)
[2020-04-25] MEDS ORDERED: ESCITALOPRAM 10 MG TABLET PO SCH (09:00)
[2020-04-25] MEDS ORDERED: ASPIRIN CHEW 81 MG TABLET PO SCH (09:00)
[2020-04-25] MEDS: busPIRone 5 MG TABLET PO SCH (09:27)
--- NOTE | 2020-04-25 11:56 | Discharge Plan ---
Discharge Plan Problem Reviewed?: Yes Disposition: Home, Self Care Condition: Stable Diet: Soft Activity Restrictions: Activity as Tolerated Shower Restrictions: No Driving Restrictions: No Instruction Topics: Gallstones Tx, Pancreatitis Health Concerns: You have been diagnosed with gallstone pancreatitis and hepatitis. You were brought in to evaluate if your pain and blood tests all remained improved, after it appears that you passed a gallstone. Please remain on a low fat diet that is easily digestible, advance your diet as tolerated. Adjust your insulin as needed for this change in diet. You may resume taking all your usual medications EXCEPT stop the Simvastatin for a while, because it can affect your liver. Your PCP will tell you when to restart that. You need follow-up with your PCP in this next week for repeat blood tests and hospital follow-up. Plan of Treatment: As above. Care Goals: Improvement in symptoms and stabilization are the goals. Assessment: Patient understands and is agreeable with the plan. Additional Instructions or Follow Up instructions: If you have new or worsening symptoms, call your PCP for advice or come to the ER. No Smoking: If you smoke, Please STOP! Call for help. Follow-up with: Javan Black MD [Primary Care Provider] -
--- NOTE | 2020-04-25 12:06 | DISCHARGE SUMMARY ---
Discharge Summary Admit Date: 04/24/20 Discharge Date: 04/25/20 Discharging Provider: Dr Steffanie Garcia Primary Care Provider: Dr Javan Black Code Status: Attempt Resuscitation Condition at Discharge: Stable Discharge Disposition: 01 Home, Self Care - [facility] History of Present Illness: From the admission H&P of [employer] STUDENT SUPPORT SERVICES DIRECTOR: Ms. Carmela Jacob is a pleasant 74-year old white female with a past medical history of hypertension, hyperlipidemia, kidney stones, recurrent UTI, IBS, GERD, gastric bypass surgery with Ra fundoplication, allergic rhinitis, eczema, insomnia, PANKAJ, TIA, diabetes mellitus type 1.5, treated as a type 1 on chronic home insulin pump, asthma, depression, anxiety, restless leg syndrome, fatigue, colon polyps, basal cell carcinoma, MARCIE-resolved since weight loss, diabetic peripheral neuropathy, and osteopenia. 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 She also report nausea but without vomiting or diarrhea. She denies fever, shortness of breathing, chest pain. Patient reported she feels much better now, afgter pain management in [facility] ER; her pain is almost gone and no more nausea. In the ER, CT scan of abdomen and pelvis showed mild intra and extra hepatic biliary ductal dilatation with suspicion of choledocholithiasis distally at the ampulla, without CT evidence of acute cholecystitis, also mild segmental wall thickening involving the distal colon compatible with a mild colitis, nondistention of the majority of the small bowel of mild associated wall thickening which may represent a mild infectious or inflammatory enteritis, no bowel obstruction. Ultrasound of the abdomen showed no definite gallstone, no gallbladder wall thickening, no sonographic evidence of acute cholecystitis. Mild intra hepatic biliary ductal dilatation and mild dilatation of common bile, no obvious choledocholithiasis was seen, no gross abnormality was seen in the pancreas or right kidney. Routine laboratory tests show patient has elevated total bili, AST, ALT, alkaline phosphate, and an elevated lipase of 539, and elevated WBC of . Patient is afebrile. Initially patient had a significantly elevated blood pressure. When I assessed her, the patient's blood pressure is in the normal range now. Patient is being admitted into Observation unit for further medical management of gallstone pancreatitis, and she probably already passed a gallstone. ER doctor's note states: "I talked with GI at [facility] Gorey, who suggested this blockage may have resolved. He would not do ERCP at this point but would watch her symptoms and labs and see if they continue to improve overnight." I discussed care goals with the patient; patient requests to be a full code. - HOSPITAL COURSE Hospital Course: (1) Gallstone pancreatitis Lipase was elevated at 539 and decreased to 263 on the following day, with bowel rest. Diet was advanced from clears to pureed and she tolerated this. She did not need any further medications for abdominal pain. Still to have follow-up with her PCP this upcoming week for repeat blood tests and any further management. (2) Choledocholithiasis She probably had choledocholithiasis before and passed it already through the ampulla. Clinically, patient had no further abdominal pain, no nausea or vomiting, she continued to feel much better. She needs follow-up for future gallstone management after discharge. (3) Hepatitis Patient had elevated total bili, AST, ALT, alkaline phosphate, which were resolving at discharge. She was told not to take her statin until OKd by her PCP. (4) Colitis Imaging reported "mild colitis". This was felt to be inflammatory in origin. She had no diarrhea, cramping and antibiotics were not started. (5) Hypokalemia Patient's potassium was 3.0, it was replaced and labs monitored. (6) Diabetes Patient has a combination of diabetic 1 and diabetic 2, and she has insulin pump and sensors, but the patient still takes extra sq insulin for coverage. Continue sliding scale, ACHS glucose level checks, and diabetic diet as she resumes it. (7) Hx of asthma Patient has a history of asthma, but patient had no respiratory distress or asthma exacerbation in hospital now. (8) Anxiety We continued her Xanax, and Buspar. - ALLERGIES Allergies/Adverse Reactions: Allergies Allergy/AdvReac Type Severity Reaction Status Date / Time Penicillins Allergy Intermediate Rash Verified 04/24/20 09:19 amoxicillin Allergy Rash Verified 04/24/20 09:19 doxycycline Allergy Rash Verified 04/24/20 09:19 gabapentin AdvReac diarrhea Verified 04/24/20 09:19 - MEDICATIONS Home Medications: Ambulatory Orders Medication Instructions Recorded Confirmed Zolpidem Tartrate [Ambien] 5 mg PO QPM PRN 11/13/12 04/24/20 Insulin Lispro [Humalog] 40 unit SUBQ .INSULINPUMP 06/11/13 04/24/20 ALPRAZolam [Alprazolam] 0.25 mg PO DAILY PRN 09/21/19 04/24/20 Albuterol Sulf [Ventolin Hfa 1 - 2 puffs INH Q4HR PRN 09/21/19 04/24/20 Inhaler] Alpha Lipoic Acid 300 mg PO DAILY 09/21/19 04/24/20 Ascorbic Acid 500 mg PO DAILY 09/21/19 04/24/20 Aspirin [Children's Aspirin] 81 mg PO DAILY 09/21/19 04/24/20 Budesonide [Pulmicort] 2 puffs INH BID 09/21/19 04/24/20 Buspirone HCl 20 mg PO BID 09/21/19 04/24/20 Calcium Carbonate/Vitamin D3 [Sm 1 each PO BID 09/21/19 04/24/20 Calcium 600-Vit D3 400 Tab] Cyanocobalamin (Vitamin B-12) 500 mcg PO DAILY 09/21/19 04/24/20 [Vitamin B-12] Escitalopram Oxalate 20 mg PO DAILY 09/21/19 04/24/20 Omeprazole 20 mg PO BIDAC 09/21/19 04/24/20 Vitamin B Complex [Balanced B-50] 1 tab PO DAILY 09/21/19 04/24/20 traZODone [Desyrel] 50 mg PO QPM PRN 09/21/19 04/24/20 - PHYSICAL EXAM AT DISCHARGE General Appearance: positive: No acute distress, Alert Eyes Bilateral: positive: Normal inspection, EOMI ENT: positive: ENT inspection nml, No signs of dehydration Neck: positive: Nml inspection, No JVD Respiratory: positive: No respiratory distress, Breath sounds nml Cardiovascular: positive: Regular rate & rhythm, No murmur Abdomen: positive: Non-tender, Nml bowel sounds, No distention Skin: positive: Warm, Dry Extremities: positive: No pedal edema Neurologic/Psychiatric: positive: Oriented x3 (Non-focal) - LABS Result Diagrams: 04/25/20 06:10 04/25/20 06:10 - DIAGNOSTIC IMAGING Diagnostic Imaging Results: Final report reviewed - FOLLOW UP Follow Up: See Dr Javan Black or his partner in this upcoming week, for lab tests and hospital follow-up.
[2020-04-25 15:23] VITALS: BP 112/94
== END 2020-04-25 12:55 | disposition home or self-care (01) ==
LOC: ED 09:02 → MS2 15:15
PROVIDERS: ADMIT Nurse Practitioner Gerontology; ATTEND Internal Medicine
DX: K85.10 Biliary acute pancreatitis without necrosis or infection (principal); K75.9 Inflammatory liver disease, unspecified; K52.9 Noninfective gastroenteritis and colitis, unspecified; E87.6 Hypokalemia; E13.42 Other specified diabetes mellitus with diabetic polyneuropathy; E13.51 Other specified diabetes mellitus with diabetic peripheral angiopathy without gangrene; F41.9 Anxiety disorder, unspecified; J45.909 Unspecified asthma, uncomplicated; E78.5 Hyperlipidemia, unspecified; I10 Essential (primary) hypertension; Z96.41 Presence of insulin pump (external) (internal); Z79.4 Long term (current) use of insulin; Z79.899 Other long term (current) drug therapy; Z98.84 Bariatric surgery status; Z79.82 Long term (current) use of aspirin; Z79.51 Long term (current) use of inhaled steroids; Z87.19 Personal history of other diseases of the digestive system
CPT/HCPCS: 36415; 74177; 76705; 80053; 81003; 82009; 83036; 83690; 83735; 84100; 85025; 93005; 94640; 96365; 96366; 96375; 99284; 99285; A9270; G0378; J7626; Q9967; 81001; 87086

== ENCOUNTER 2020-06-10 15:29 | Outpatient (CLI) | payer MEDICARE, OTHER ==
[2020-06-10 20:13] LABS: HEMOGLOBIN A1c% 6.6 % (4.27-6.07)
== END 2020-06-10 15:30 | disposition home or self-care (01) ==
LOC: LAB.S 15:29
PROVIDERS: ATTEND Nurse Practitioner
DX: E10.65 Type 1 diabetes mellitus with hyperglycemia (principal)
CPT/HCPCS: 36415; 83036

== ENCOUNTER 2020-08-31 10:00 | Outpatient (CLI) | payer MEDICARE, OTHER ==
[2020-08-31 16:04] LABS: BASOPHILS % (AUTO) 0.6 %; EOSINOPHILS # (AUTO) 0.3 10^3/uL (0.0-0.7); EOSINOPHILS % (AUTO) 4.8 %; HCT - HEMATOCRIT 36.3 % (37.0-47.0); HGB - HEMOGLOBIN 11.4 g/dL (12.0-16.0); LYMPHOCYTES # (AUTO) 2.8 10^3/uL (1.5-3.5); LYMPHOCYTES % (AUTO) 42.6 %; MEAN CORPUSCULAR HEMOGLOBIN 28.8 pg (27.0-31.0); MEAN CORPUSCULAR HGB CONC 31.4 g/dL (32.0-36.0); MEAN CORPUSCULAR VOLUME 91.7 fL (81.0-99.0); MEAN PLATELET VOLUME 10.8 fL (7.9-10.8); MONOCYTES # (AUTO) 0.5 10^3/uL (0.0-1.0); MONOCYTES % (AUTO) 8.2 %; NEUTROPHILS # (AUTO) 2.8 10^3/uL (1.5-6.6); NEUTROPHILS % (AUTO) 43.5 %; PLT - PLATELET COUNT 248 10^3/uL (130-450); RED BLOOD COUNT 3.96 10^6/uL (4.20-5.40); RED CELL DISTRIBUTION WIDTH 13.1 % (12.0-15.0); WHITE BLOOD COUNT 6.5 x10^3/uL (4.8-10.8)
[2020-08-31 16:23] LABS: ALBUMIN 3.6 g/dL (3.2-5.5); ALBUMIN/GLOBULIN RATIO 1.5 (1.0-2.2); BILIRUBIN,TOTAL 0.8 mg/dL (0.2-1.0); CALCIUM 9.2 mg/dL (8.5-10.3); CREATININE 0.7 mg/dL (0.4-1.0); POTASSIUM 3.8 mmol/L (3.5-5.0)
== END 2020-08-31 10:01 | disposition home or self-care (01) ==
LOC: LAB.S 10:00
PROVIDERS: ATTEND Internal Medicine Gastroenterology
DX: K85.90 Acute pancreatitis without necrosis or infection, unspecified (principal)
CPT/HCPCS: 36415; 80053; 83690; 85025

== ENCOUNTER 2020-09-08 21:42 | Emergency (ER) | payer MEDICARE, OTHER ==
--- NOTE | 2020-09-08 21:55 | ED Physician Documentation ---
PD HPI ABD PAIN - Stated complaint Stated Complaint: ABD/BACK PX; NAUSEA - History obtained from History obtained from: Patient, EMS - History of Present Illness Timing - onset: Enter time (17:00) Timing - details: Abrupt onset Pain level max: 8 Pain level now: 0 Quality: Pain Location: RUQ, Epigastric, LUQ Radiation: Left flank, Right flank Improved by: Other (no apparent ameliorating factors but pain spontaneously resolved) Worsened by: Other (no inciting nor exacerbating factors) Associated symptoms: Nausea, Vomiting ("dry heaves" per patient), Diarrhea (one episode earlier today). No: Fever Similar symptoms before: Other (see narrative below) Recently seen: Emergency Dept - Additional information Additional information: c/o sudden onset abdominal pain across upper abdomen radiating around bilateral flanks to back. Onset was while at home at rest. She had shaking chills but she did take her temperature and she says there was no fever (cannot recall exact result but that it was normal). She had nausea with episode of "dry heaving" (per patient). She called 911 but the symptoms resolved prior to EMS arrival and she remains asymptomatic on ED arrival except for nausea. Patient has h/o gastric bypass. Patient was evaluated in this ED in April 2020 and was admitted to [facility] due to abnormal LFTs, lipase, and findings on CT A/P included "suspected choledocholithiasis at the ampulla" (per radiologist's interpretation). At that time she was admitted to [facility]; per ED MD note, investment analyst was contacted by phone and they opined that patient did not need ERCP at that time as her symptoms had resolved and thus could be admitted to [facility] for observation for any recurrence of symptoms as well as improvement in lab abnormalities. Patient was discharged the following day without recurrence of symptoms and improving lab tests. Patient's workup is ongoing, including upper endoscopy last week; patient says the test could not be completed due to difficulty related to the gastric bypass surgery. Patient says the plan is to schedule a double balloon enteroscopy. Review of Systems Constitutional: reports: Chills. 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 denies: Abdominal Swelling, Hematemesis, Bloody / black stool : denies: Dysuria, Frequency Skin: reports: Reviewed and negative PD PAST MEDICAL HISTORY - Past Medical History Cardiovascular: Hypertension, High cholesterol, Peripheral Vascular Disease Respiratory: Asthma, Sleep apnea Neuro: Headaches, Peripheral neuropathy Endocrine/Autoimmune: Type 1 diabetes, Type 2 diabetes GI: GERD, Hiatal hernia (repaired with gastric bypass surgery), Colon polyps, Chronic diarrhea (IBS) STOPPING BUILDER: None : Chronic bladder infection, Nocturia, Frequency, Kidney stones HEENT: Chronic vision loss Psych: Depression, Anxiety Musculoskeletal: Osteoarthritis, Osteopenia Derm: Eczema, Psoriasis - Past Surgical History Past Surgical History: Yes General: Gastric surgery (gastric bypass), Colonoscopy Ortho: Other HEENT: Cataracts - Present Medications Home Medications: Ambulatory Orders Medication Instructions Recorded Confirmed Zolpidem Tartrate [Ambien] 5 mg PO QPM PRN 11/13/12 09/08/20 Insulin Lispro [Humalog] 40 unit SUBQ .INSULINPUMP 06/11/13 09/08/20 ALPRAZolam [Alprazolam] 0.25 mg PO DAILY PRN 09/21/19 09/08/20 Albuterol Sulf [Ventolin Hfa 1 - 2 puffs INH Q4HR PRN 09/21/19 09/08/20 Inhaler] Ascorbic Acid 500 mg PO DAILY 09/21/19 09/08/20 Aspirin [Children's Aspirin] 81 mg PO DAILY 09/21/19 09/08/20 Budesonide [Pulmicort] 2 puffs INH BID 09/21/19 09/08/20 Buspirone HCl 20 mg PO BID 09/21/19 09/08/20 Calcium Carbonate/Vitamin D3 [Sm 1 each PO BID 09/21/19 09/08/20 Calcium 600-Vit D3 400 Tab] Cyanocobalamin (Vitamin B-12) 500 mcg PO DAILY 09/21/19 09/08/20 [Vitamin B-12] Escitalopram Oxalate 20 mg PO DAILY 09/21/19 09/08/20 Vitamin B Complex [Balanced B-50] 1 tab PO DAILY 09/21/19 09/08/20 traZODone [Desyrel] 50 mg PO QPM PRN 09/21/19 09/08/20 Ondansetron HCl [Zofran] 4 mg PO QID PRN 09/08/20 09/08/20 - Allergies Allergies/Adverse Reactions: Allergies Allergy/AdvReac Type Severity Reaction Status Date / Time Penicillins Allergy Intermediate Rash Verified 09/08/20 21:59 amoxicillin Allergy Rash Verified 09/08/20 21:59 doxycycline Allergy Rash Verified 09/08/20 21:59 gabapentin AdvReac diarrhea Verified 09/08/20 21:59 - Social History Does the pt smoke?: No Smoking Status: Never smoker Does the pt drink ETOH?: No Does the pt have substance abuse?: No - Immunizations Immunizations are current?: Yes - POLST Patient has POLST: No POLST Status: Full Code PD ED PE NORMAL - Vitals Vital signs reviewed: Yes - General General: Alert and oriented X 3, No acute distress, Well developed/nourished - Neck Neck: Supple, no meningeal sign - Cardiac Cardiac: RRR, No murmur - Respiratory Respiratory: No respiratory distress, Clear bilaterally - Abdomen Abdomen: Normal bowel sounds, Soft, Non tender, Non distended - Back Back: No CVA TTP - Derm Derm: Normal color, Warm and dry Results - Vitals Vitals: Vital Signs - 24 hr 09/08/20 09/08/20 09/08/20 21:45 22:40 23:28 Temperature 37.7 C Heart Rate 102 H 97 96 Respiratory 16 16 Rate Blood Pressure 170/57 H 151/55 H 142/56 H O2 Saturation 97 99 95 09/09/20 09/09/20 09/09/20 01:00 01:10 02:45 Temperature 37.7 C 37.6 C Heart Rate 98 95 91 Respiratory 15 16 16 Rate Blood Pressure 133/50 H 133/50 H 135/58 H O2 Saturation 95 98 99 09/09/20 02:50 Temperature 37.6 C Heart Rate 91 Respiratory 16 Rate Blood Pressure 135/58 H O2 Saturation 99 Oxygen O2 Source Room air - Labs Labs: Laboratory Tests 09/08/20 09/08/20 09/08/20 22:20 22:20 22:50 WBC 6.2 RBC 3.96 L Hgb 11.5 L Hct 34.7 L MCV 87.6 MCH 29.0 MCHC 33.1 RDW 13.1 Plt Count 195 MPV 9.6 Neut # (Auto) 5.0 Lymph # (Auto) 0.5 L [place] # (Auto) 0.6 Eos # (Auto) 0.0 Baso # (Auto) 0.0 Absolute Nucleated RBC 0.00 Nucleated RBC % 0.0 Sodium 136 Potassium 2.8 L Chloride 104 Carbon Dioxide 21 Anion Gap 11.0 BUN 15 Creatinine 0.5 Estimated GFR (MDRD) 121 Glucose 112 H Calcium 8.8 Total Bilirubin 2.5 H AST < 10 L ALT 260 H Alkaline Phosphatase 188 H Total Protein 5.8 L Albumin 3.4 Globulin 2.4 Albumin/Globulin Ratio 1.4 Lipase 17 L Urine Color YELLOW Urine Clarity CLEAR Urine pH 6.0 Ur Specific [place] 1.010 Urine Protein NEGATIVE Urine Glucose (UA) NEGATIVE Urine Ketones NEGATIVE Urine Occult Blood NEGATIVE Urine Nitrite NEGATIVE Urine Bilirubin NEGATIVE Urine Urobilinogen 1 (NORMAL) Ur Leukocyte Esterase NEGATIVE Ur Microscopic Review NOT INDICATED Urine Culture Comments NOT INDICATED PD MEDICAL DECISION MAKING - ED course Complexity details: reviewed old records, reviewed results, re-evaluated patient, considered differential, d/w patient ED course: nontender on abdominal exam. She denies pain during ED stay, although she did continue to have nausea that improved with zofran 4mg IV x 2 (though did not resolve). She is found to be hypokalemic and is given 20meq KCL PO prior to discharge and advised to follow up for recheck and further evaluation of this finding. She has an elevated bilirubin and ALT but normal AST and lipase. Alkaline phosphotase is also found to be elevated. The bilirubin and ALT are comparable to results from April admission to [facility]. Her symptoms had resolved when she was admitted on that visit with subsequent improvement in these tests. Given that her pain has again resolved without intervention tonight, it is reasonable to d/c home with careful instruction provided to return if she has recurrence of pain. Other concerning signs/symptoms reviewed such as intractable n/v, blood in stool or vomitus, or fever 100.4 or greater. I provided a copy of her test results to her and highlighted the most concerning findings and she is to contact her PMD regarding her hypokalemia and her GI physician to inform them of the abnormal LFTs Departure - Departure Disposition: Home, Self Care Clinical Impression: Elevated liver enzymes Condition: Good Instructions: ED Abdominal Pain Unkn Cause Follow-Up: Javan Black MD [Primary Care Provider] - Comments: Your liver function tests are abnormal. At this time, it is appropriate to discharge you home based on several factors: your pain has resolved (prior to arriving to the emergency department), and your white blood cell count and pancreatic enzyme blood test are both normal (an elevated white blood cell count would be concerning for infection, while an elevated pancreatic enzyme would suggest inflammation of the pancreas which often requires hospitalization). I recommend that you contact your investment analyst's office in the morning and make them aware of the results of tonight's blood tests. They might be able to obtain the results by request from the hospital, but I have highlighted the most relevant results should they ask you about the results. Based on these results, your physician might recommend closer follow up and/or repeat testing. Also noted is a low potassium. This should also be rechecked soon; within 1 week is reasonable but the timing can be decided by your doctor (your primary care provider can arrange for this). Discharge Date/Time: 09/09/20 03:08
[2020-09-08] MEDS ORDERED: SODIUM CHLORIDE 0.9% 1,000 ML IV STA (22:10)
[2020-09-08 22:26] LABS: BASOPHILS % (AUTO) 0.3 %; EOSINOPHILS % (AUTO) 0.5 %; HCT - HEMATOCRIT 34.7 % (37.0-47.0); HGB - HEMOGLOBIN 11.5 g/dL (12.0-16.0); LYMPHOCYTES # (AUTO) 0.5 10^3/uL (1.5-3.5); LYMPHOCYTES % (AUTO) 8.6 %; MEAN CORPUSCULAR HGB CONC 33.1 g/dL (32.0-36.0); MEAN CORPUSCULAR VOLUME 87.6 fL (81.0-99.0); MEAN PLATELET VOLUME 9.6 fL (7.9-10.8); MONOCYTES # (AUTO) 0.6 10^3/uL (0.0-1.0); MONOCYTES % (AUTO) 9.2 %; NEUTROPHILS % (AUTO) 80.9 %; PLT - PLATELET COUNT 195 10^3/uL (130-450); RED BLOOD COUNT 3.96 10^6/uL (4.20-5.40); RED CELL DISTRIBUTION WIDTH 13.1 % (12.0-15.0); WHITE BLOOD COUNT 6.2 x10^3/uL (4.8-10.8)
[2020-09-08 23:04] LABS: BILIRUBIN,URINE NEGATIVE (NEGATIVE); GLUCOSE, URINE (UA) NEGATIVE (NEGATIVE); KETONES,URINE (UA) NEGATIVE (NEGATIVE); LEUKOCYTE ESTERASE, URINE NEGATIVE (NEGATIVE); NITRITE,URINE NEGATIVE (NEGATIVE); OCCULT BLOOD,URINE NEGATIVE (NEGATIVE); PROTEIN,URINE NEGATIVE (NEGATIVE); UROBILINOGEN,URINE 1 (NORMAL) E.U./dL (NORMAL)
[2020-09-08 23:09] LABS: CLARITY,URINE CLEAR (CLEAR)
[2020-09-08 23:12] LABS: ALBUMIN 3.4 g/dL (3.2-5.5); ALBUMIN/GLOBULIN RATIO 1.4 (1.0-2.2); ALKALINE PHOSPHATASE 188 IU/L (42-121); ALT ALANINE AMINOTRANSFERASE 260 IU/L (10-60); AST ASPARTATE AMINOTRANSFERASE < 10 IU/L (10-42); BILIRUBIN,TOTAL 2.5 mg/dL (0.2-1.0); BUN - BLOOD UREA NITROGEN 15 mg/dL (6-20); CALCIUM 8.8 mg/dL (8.5-10.3); CARBON DIOXIDE - CO2 21 mmol/L (21-32); CHLORIDE 104 mmol/L (101-111); CREATININE 0.5 mg/dL (0.4-1.0); GFR - MDRD 121 (>89); GLUCOSE 112 mg/dL (70-100); LIPASE 17 U/L (22-51); POTASSIUM 2.8 mmol/L (3.5-5.0); SODIUM 136 mmol/L (135-145); TOTAL PROTEIN 5.8 g/dL (6.7-8.2)
[2020-09-08] MEDS ORDERED: ONDANSETRON 4 MG/2 ML VIAL IVP STA (23:16)
[2020-09-09] MEDS ORDERED: ONDANSETRON 4 MG/2 ML VIAL IVP STA (02:01)
[2020-09-09] MEDS ORDERED: POTASSIUM CHLORIDE 20 MEQ TABLET PO STA (02:05)
[2020-09-09 02:45] VITALS: BP 135/58
== END 2020-09-09 03:08 | disposition home or self-care (01) ==
LOC: ED 21:42
DX: R74.8 Abnormal levels of other serum enzymes (principal); E87.6 Hypokalemia; R11.2 Nausea with vomiting, unspecified; R10.13 Epigastric pain; R19.7 Diarrhea, unspecified; Z98.84 Bariatric surgery status; I10 Essential (primary) hypertension; E10.42 Type 1 diabetes mellitus with diabetic polyneuropathy; E10.51 Type 1 diabetes mellitus with diabetic peripheral angiopathy without gangrene; Z79.82 Long term (current) use of aspirin
CPT/HCPCS: 36415; 80053; 81003; 83690; 85025; 96361; 96374; 96376; 99283; 99284; A9270; 81001; 87086

== ENCOUNTER 2020-09-12 16:38 | Emergency (ER) | payer MEDICARE, OTHER ==
[2020-09-12 17:04] LABS: BASOPHILS % (AUTO) 0.4 %; EOSINOPHILS # (AUTO) 0.1 10^3/uL (0.0-0.7); HGB - HEMOGLOBIN 11.5 g/dL (12.0-16.0); LYMPHOCYTES # (AUTO) 1.4 10^3/uL (1.5-3.5); LYMPHOCYTES % (AUTO) 17.2 %; MEAN CORPUSCULAR HGB CONC 32.9 g/dL (32.0-36.0); MEAN CORPUSCULAR VOLUME 88.4 fL (81.0-99.0); MEAN PLATELET VOLUME 8.8 fL (7.9-10.8); MONOCYTES # (AUTO) 0.6 10^3/uL (0.0-1.0); MONOCYTES % (AUTO) 7.5 %; NEUTROPHILS % (AUTO) 73.3 %; PLT - PLATELET COUNT 285 10^3/uL (130-450); RED BLOOD COUNT 3.96 10^6/uL (4.20-5.40); RED CELL DISTRIBUTION WIDTH 13.6 % (12.0-15.0); WHITE BLOOD COUNT 8.2 x10^3/uL (4.8-10.8)
[2020-09-12 17:16] LABS: ALBUMIN 3.8 g/dL (3.2-5.5); ALBUMIN/GLOBULIN RATIO 1.3 (1.0-2.2); BILIRUBIN,TOTAL 2.3 mg/dL (0.2-1.0); CALCIUM 9.1 mg/dL (8.5-10.3); CREATININE 0.6 mg/dL (0.4-1.0); TOTAL PROTEIN 6.8 g/dL (6.7-8.2)
--- NOTE | 2020-09-12 18:26 | ED Physician Documentation ---
PD HPI ABD PAIN - Stated complaint Stated Complaint: ABD PX - Chief complaint Chief Complaint: Abd Pain - History obtained from History obtained from: Patient - History of Present Illness Timing - onset: Today Timing - duration: Days (2) Timing - details: Gradual onset Pain level max: 8 Pain level now: 3 Quality: Aching, Pain Location: RUQ, Epigastric Radiation: No: Chest, , Lower back, Left flank, Left shoulder, Right flank, Right shoulder, Upper back Improved by: Vomiting Worsened by: Eating Associated symptoms: Nausea, Vomiting. No: Fever, Hematemesis, Diarrhea, Constipation, Melena, Hematochezia, Dysuria, Hematuria Similar symptoms before: Diagnosis ("gallbladder attacks") Recently seen: Emergency Dept (seen here 4 days ago for same) Review of Systems Ten Systems: 10 systems reviewed and negative Constitutional: denies: Fever, Chills Ears: denies: Ear pain Nose: denies: Rhinorrhea / runny nose, Congestion Throat: denies: Sore throat Cardiac: denies: Chest pain / pressure Respiratory: denies: Dyspnea, Cough GI: denies: Hematemesis, Bloody / black stool : denies: Dysuria, Frequency, Hesitancy Skin: denies: Rash Musculoskeletal: denies: Neck pain, Back pain Neurologic: denies: Headache PD PAST MEDICAL HISTORY - Past Medical History Past Medical History: Yes Cardiovascular: Hypertension, High cholesterol, Peripheral Vascular Disease Respiratory: Asthma, Sleep apnea Neuro: Headaches, Peripheral neuropathy Endocrine/Autoimmune: Type 1 diabetes GI: GERD, Hiatal hernia, Colon polyps, Chronic diarrhea CLINICAL RN LIAISON: None : Chronic bladder infection, Nocturia, Frequency, Kidney stones HEENT: Chronic vision loss Psych: Depression, Anxiety Musculoskeletal: Osteoarthritis, Osteopenia Derm: Eczema, Psoriasis - Past Surgical History Past Surgical History: Yes General: Gastric surgery, Colonoscopy Ortho: Other HEENT: Cataracts - Present Medications Home Medications: Ambulatory Orders Medication Instructions Recorded Confirmed Zolpidem Tartrate [Ambien] 5 mg PO QPM PRN 11/13/12 09/12/20 Insulin Lispro [Humalog] 40 unit SUBQ .INSULINPUMP 06/11/13 09/12/20 ALPRAZolam [Alprazolam] 0.25 mg PO DAILY PRN 09/21/19 09/12/20 Albuterol Sulf [Ventolin Hfa 1 - 2 puffs INH Q4HR PRN 09/21/19 09/12/20 Inhaler] Ascorbic Acid 500 mg PO DAILY 09/21/19 09/12/20 Aspirin [Children's Aspirin] 81 mg PO DAILY 09/21/19 09/12/20 Budesonide [Pulmicort] 2 puffs INH BID 09/21/19 09/12/20 Buspirone HCl 20 mg PO BID 09/21/19 09/12/20 Calcium Carbonate/Vitamin D3 [Sm 1 each PO BID 09/21/19 09/12/20 Calcium 600-Vit D3 400 Tab] Cyanocobalamin (Vitamin B-12) 500 mcg PO DAILY 09/21/19 09/12/20 [Vitamin B-12] Escitalopram Oxalate 20 mg PO DAILY 09/21/19 09/12/20 Vitamin B Complex [Balanced B-50] 1 tab PO DAILY 09/21/19 09/12/20 traZODone [Desyrel] 50 mg PO QPM PRN 09/21/19 09/12/20 Ondansetron HCl [Zofran] 4 mg PO QID PRN 09/08/20 09/12/20 - Allergies Allergies/Adverse Reactions: Allergies Allergy/AdvReac Type Severity Reaction Status Date / Time Penicillins Allergy Intermediate Rash Verified 09/12/20 16:45 amoxicillin Allergy Rash Verified 09/12/20 16:45 doxycycline Allergy Rash Verified 09/12/20 16:45 gabapentin AdvReac diarrhea Verified 09/12/20 16:45 - Social History Does the pt smoke?: No Smoking Status: Never smoker Does the pt drink ETOH?: No Does the pt have substance abuse?: Yes Substance Use and Type: CBD oil / Products - Immunizations Immunizations are current?: Yes - POLST Patient has POLST: No POLST Status: Full Code PD ED PE NORMAL - Vitals Vital signs reviewed: Yes - General General: Alert and oriented X 3, No acute distress, Well developed/nourished - HEENT HEENT: PERRL, Moist mucous membranes - Neck Neck: Supple, no meningeal sign - Cardiac Cardiac: RRR, Strong equal pulses - Respiratory Respiratory: No respiratory distress, Clear bilaterally - Abdomen Abdomen: Soft, Non distended, Other (TTP RUQ, +espino's sign) - Back Back: No CVA TTP - Derm Derm: Warm and dry - Neuro Neuro: Alert and oriented X 3 - Psych Psych: Normal mood, Normal affect Results - Vitals Vitals: Vital Signs - 24 hr 09/12/20 09/12/20 09/12/20 16:42 17:52 18:40 Temperature 36.5 C Heart Rate 88 88 78 Respiratory 18 14 16 Rate Blood Pressure 169/66 H 188/69 H 180/66 H O2 Saturation 99 98 99 09/12/20 20:00 Temperature Heart Rate 84 Respiratory 16 Rate Blood Pressure 186/64 H O2 Saturation 100 Oxygen O2 Source Room air - Labs Labs: Laboratory Tests 09/12/20 09/12/20 09/12/20 16:58 16:58 19:10 WBC 8.2 RBC 3.96 L Hgb 11.5 L Hct 35.0 L MCV 88.4 MCH 29.0 MCHC 32.9 RDW 13.6 Plt Count 285 MPV 8.8 Neut # (Auto) 6.0 Lymph # (Auto) 1.4 L [place] # (Auto) 0.6 Eos # (Auto) 0.1 Baso # (Auto) 0.0 Absolute Nucleated RBC 0.00 Nucleated RBC % 0.0 Sodium 138 Potassium 3.0 L Chloride 103 Carbon Dioxide 24 Anion Gap 11.0 BUN 17 Creatinine 0.6 Estimated GFR (MDRD) 98 Glucose 106 H Calcium 9.1 Total Bilirubin 2.3 H AST 223 H ALT 174 H Alkaline Phosphatase 216 H Total Protein 6.8 Albumin 3.8 Globulin 3.0 Albumin/Globulin Ratio 1.3 Lipase 16 L Urine Color YELLOW Urine Clarity CLEAR Urine pH 6.5 Ur Specific [place] 1.010 Urine Protein NEGATIVE Urine Glucose (UA) NEGATIVE Urine Ketones NEGATIVE Urine Occult Blood NEGATIVE Urine Nitrite NEGATIVE Urine Bilirubin NEGATIVE Urine Urobilinogen 1 (NORMAL) Ur Leukocyte Esterase NEGATIVE Ur Microscopic Review NOT INDICATED Urine Culture Comments NOT INDICATED - Rads (name of study) RUQ US Radiology: Prelim report reviewed, EMP read contemporaneously, See rad report Ct abd/pelvis Radiology: Prelim report reviewed, EMP read contemporaneously, See rad report PD MEDICAL DECISION MAKING - ED course Complexity details: reviewed old records, reviewed results, re-evaluated chika ent, considered differential, d/w patient, d/w quality assurance consultant ED course: 74-year-old female presents to the emergency department with continued right right upper quadrant abdominal pain. She appears to have common bile duct dilatation, possible acalculous cholecystitis as well. No fever or white count. She states that her pain is resolved, but remains significantly tender to palpation in the right upper quadrant. Therefore I consulted GI at [place] in Dr. Raul Saldana. She recommends transfer and admission to the hospitalist for an MRCP. 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 Discussed with the hospitalist, Dr. Vidya Oconnor who graciously accepts in transfer. COBRA forms completed. 1. Mild appearance of gallbladder wall thickening without definitively visualized stone. This is overall nonspecific and could be related to acalculous cholecystitis. However, other etiologies of gallbladder wall thickening can be related to entity such as hepatic disease. IMPRESSION: 1. No acute intra-abdominal or pelvic process. 2. Less prominent appearance of previous biliary dilation when compared to prior exam. Previously noted filling defect within the ampulla is not as well visualized when compared to prior exam. Departure - Departure Disposition: 02 Transfer Acute Care Hosp Clinical Impression: Biliary colic, LFT elevation, Dilated cbd, acquired Condition: Stable
[2020-09-12 19:21] LABS: BILIRUBIN,URINE NEGATIVE (NEGATIVE); GLUCOSE, URINE (UA) NEGATIVE (NEGATIVE); KETONES,URINE (UA) NEGATIVE (NEGATIVE); LEUKOCYTE ESTERASE, URINE NEGATIVE (NEGATIVE); NITRITE,URINE NEGATIVE (NEGATIVE); OCCULT BLOOD,URINE NEGATIVE (NEGATIVE); PH,URINE 6.5 PH (5.0-7.5); PROTEIN,URINE NEGATIVE (NEGATIVE); UROBILINOGEN,URINE 1 (NORMAL) E.U./dL (NORMAL)
[2020-09-12 19:26] LABS: CLARITY,URINE CLEAR (CLEAR)
[2020-09-12] MEDS ORDERED: IOVERSOL 320 100 ML VIAL IVP ONE ×2 (20:18→20:58)
--- NOTE | 2020-09-12 21:18 | CT Report ---
PROCEDURE: Abdomen/Pelvis W INDICATIONS: abd pain, elevated LFT CONTRAST: IV CONTRAST: Optiray 320 ml: 100 PO CONTRAST: *NO PO CONTRAST TECHNIQUE: After the administration of IV contrast, 5 mm thick sections acquired from the diaphragms to the symp hysis. 5 mm thick coronal and sagittal reformats were acquired. For radiation dose reduction, the f ollowing was used: automated exposure control, adjustment of mA and/or kV according to patient size. COMPARISON: Abdominal ultrasound 09/12/2020, CT abdomen pelvis 04/24/2020 FINDINGS: Image quality: Excellent. ABDOMEN: Lung bases: Lung bases are clear. Heart size is normal. Solid organs: Liver and spleen are normal in size and enhancement. Gallbladder is unremarkable prev ious dilation of the biliary system is less prominent in the extrahepatic portion. There remains mild common bile duct dilation, although slightly less prominent. Previously noted filling defect near th e ampulla is not as well visualized on current exam. Pancreas is markedly atretic. No adrenal nodules . Kidneys demonstrate normal size and enhancement, without hydronephrosis. Peritoneum and bowel: Bowel loops demonstrate normal wall thickness and caliber. No free fluid or a ir. Nodes and vessels: No retroperitoneal or mesenteric adenopathy by size criteria. Aorta and inferior vena cava are normal in size. Miscellaneous: No ventral hernias. Calcifications are noted within the anterior subcutaneous fat po ssibly related to injection granulomas. PELVIS: Genitourinary: Bladder wall thickness is normal. Miscellaneous: No inguinal hernias or adenopathy. Bones: No suspicious bony lesions. No vertebral body compression fractures. IMPRESSION: 1. No acute intra-abdominal or pelvic process. 2. Less prominent appearance of previous biliary dilation when compared to prior exam. Previously not ed filling defect within the ampulla is not as well visualized when compared to prior exam. Reviewed by: La Peter MD on 09/12/2020 9:16 PM PST Approved by: La Peter MD on 09/12/2020 9:16 PM PST Station ID: [id number]
--- NOTE | 2020-09-12 21:20 | Ultrasound Report ---
PROCEDURE: Abdomen Limited INDICATIONS: RUQ abd pain TECHNIQUE: Real-time focused scanning was performed of the abdomen, with image documentation. COMPARISON: CT abdomen and pelvis 09/12/2020, 04/23/2020, abdominal ultrasound 04/24/2020. FINDINGS: Liver is normal in size measuring 14.2 cm. No stones are identified within the gallbladder . Polyps are noted along the gallbladder wall. These are unchanged. Wall thickness is mildly prominen t measuring 3.6 cm. The common bile duct is dilated measuring 9 mm, similar to prior exam. No definit arun stone is identified. Right kidney measures 10.3 cm, cortex measures 1.4 cm. Small cyst measuring approximately 9 x 9 x 14 mm is noted. IMPRESSION: 1. Mild appearance of gallbladder wall thickening without definitively visualized stone. This is over all nonspecific and could be related to acalculous cholecystitis. However, other etiologies of gallbl adder wall thickening can be related to entity such as hepatic disease. Reviewed by: La Peter MD on 09/12/2020 9:19 PM PST Approved by: La Peter MD on 09/12/2020 9:19 PM PST Station ID: [id number]
[2020-09-12 22:12] VITALS: BP 191/69
[2020-09-12] MEDS ORDERED: HYDROmorphone 1 MG/ML CARPUJECT IVP STA (22:23)
[2020-09-12] MEDS ORDERED: ONDANSETRON 4 MG/2 ML VIAL IVP STA (22:23)
[2020-09-12 22:53] LABS: B. PARAPERTUSSIS- RESP PCR PAN NOT DETECTED; B. PERTUSSIS- RESP PCR PANEL NOT DETECTED; C. PNEUMONIAE- RESP PCR PANEL NOT DETECTED; CORONAVIRUS 229E-RESP PCR NOT DETECTED; CORONAVIRUS HKU1-RESP PCR NOT DETECTED; CORONAVIRUS NL63-RESP PCR NOT DETECTED; CORONAVIRUS OC43-RESP PCR NOT DETECTED; HUMAN METAPNEUMOVIRUS NOT DETECTED; INFLUENZA A- RESP PCR PANEL NOT DETECTED; INFLUENZA B - RESP PCR PANEL NOT DETECTED; M. PNEUMONIAE- RESP PCR PANEL NOT DETECTED; PARAINFLUENZA VIRUS 1 NOT DETECTED; PARAINFLUENZA VIRUS 2 NOT DETECTED; PARAINFLUENZA VIRUS 3 NOT DETECTED; PARAINFLUENZA VIRUS 4 NOT DETECTED; RHINOVIRUS/ENTEROVIRUS NOT DETECTED; RSV- RESP PCR PANEL NOT DETECTED; SARS-CoV-2 -RESP PCR PANEL NOT DETECTED
== END 2020-09-12 22:59 | disposition short-term general hospital (02) ==
LOC: ED 16:38
DX: K80.50 Calculus of bile duct without cholangitis or cholecystitis without obstruction (principal); K83.8 Other specified diseases of biliary tract; R74.8 Abnormal levels of other serum enzymes; Z20.822 Contact with and (suspected) exposure to COVID-19; I10 Essential (primary) hypertension; E10.42 Type 1 diabetes mellitus with diabetic polyneuropathy; E10.51 Type 1 diabetes mellitus with diabetic peripheral angiopathy without gangrene; Z79.82 Long term (current) use of aspirin
CPT/HCPCS: 36415; 74177; 76705; 80053; 81003; 83690; 85025; 87631; 96374; 96375; 99285; J1170; Q9967; 0202U; 81001; 87086

== ENCOUNTER 2020-09-12 22:58 | Outpatient (CLI) | payer MEDICARE, OTHER | END 2020-09-12 22:59 | disposition short-term general hospital (02) | LOC: EMS 22:58 | PROVIDERS: ATTEND Emergency Medicine | DX: K80.50 Calculus of bile duct without cholangitis or cholecystitis without obstruction (principal); R79.89 Other specified abnormal findings of blood chemistry | CPT/HCPCS: A0425; A0428 ==

== ENCOUNTER 2020-10-17 09:56 | Outpatient (CLI) | payer MEDICARE, OTHER ==
[2020-10-17 15:26] LABS: BUN - BLOOD UREA NITROGEN 20 mg/dL (6-20); CALCIUM 9.1 mg/dL (8.5-10.3); CARBON DIOXIDE - CO2 26 mmol/L (21-32); CHLORIDE 102 mmol/L (101-111); CHOL/HDL RATIO 2.2 (<4.4); CHOLESTEROL 161 mg/dL; CREATININE 0.5 mg/dL (0.4-1.0); GFR - MDRD 121 (>89); GLUCOSE 314 mg/dL (70-100); HDL CHOLESTEROL 74 mg/dL; LDL CHOLESTEROL,CALCULATED 71 mg/dL; POTASSIUM 3.6 mmol/L (3.5-5.0); SODIUM 137 mmol/L (135-145); TRIGLYCERIDES 80 mg/dL; VLDL CHOLESTEROL 16 mg/dL
[2020-10-17 21:17] LABS: ESTIMATED AVERAGE GLUCOSE 140 mg/dL (70-100); HEMOGLOBIN A1c% 6.5 % (4.27-6.07)
== END 2020-10-17 09:57 | disposition home or self-care (01) ==
LOC: LAB.S 09:56
PROVIDERS: ATTEND Nurse Practitioner
DX: E10.65 Type 1 diabetes mellitus with hyperglycemia (principal)
CPT/HCPCS: 36415; 80048; 80061; 82043; 82570; 83036; 83721

== ENCOUNTER 2020-10-18 08:00 | Outpatient (CLI) | payer MEDICARE, OTHER ==
[2020-10-18 18:24] LABS: CREATININE,URINE 135.7 mg/dL; MICROALBUM/CREATININE RATIO,UR 7.4 ug/mg (<30.0)
== END 2020-10-18 23:59 | disposition home or self-care (01) ==
LOC: LAB.S 08:00
PROVIDERS: ATTEND Nurse Practitioner
DX: E10.65 Type 1 diabetes mellitus with hyperglycemia (principal)
CPT/HCPCS: 82043; 82570

== ENCOUNTER 2021-02-09 13:33 | Outpatient (CLI) | payer MEDICARE, OTHER ==
[2021-02-09 20:49] LABS: ESTIMATED AVERAGE GLUCOSE 151 mg/dL (70-100); HEMOGLOBIN A1c% 6.9 % (4.27-6.07)
== END 2021-02-09 13:34 | disposition home or self-care (01) ==
LOC: LAB.S 13:33
PROVIDERS: ATTEND Nurse Practitioner
DX: E10.65 Type 1 diabetes mellitus with hyperglycemia (principal)
CPT/HCPCS: 36415; 83036

== ENCOUNTER 2021-03-05 11:19 | Outpatient (CLI) | payer MEDICARE, OTHER ==
[2021-03-05 14:44] LABS: BASOPHILS # (AUTO) 0.1 10^3/uL (0.0-0.1); BASOPHILS % (AUTO) 0.8 %; EOSINOPHILS # (AUTO) 0.2 10^3/uL (0.0-0.7); HCT - HEMATOCRIT 36.4 % (37.0-47.0); HGB - HEMOGLOBIN 11.7 g/dL (12.0-16.0); LYMPHOCYTES # (AUTO) 2.7 10^3/uL (1.5-3.5); LYMPHOCYTES % (AUTO) 44.8 %; MEAN CORPUSCULAR HEMOGLOBIN 30.2 pg (27.0-31.0); MEAN CORPUSCULAR HGB CONC 32.1 g/dL (32.0-36.0); MEAN CORPUSCULAR VOLUME 94.1 fL (81.0-99.0); MEAN PLATELET VOLUME 9.9 fL (7.9-10.8); MONOCYTES # (AUTO) 0.4 10^3/uL (0.0-1.0); MONOCYTES % (AUTO) 7.3 %; NEUTROPHILS # (AUTO) 2.6 10^3/uL (1.5-6.6); NEUTROPHILS % (AUTO) 43.9 %; PLT - PLATELET COUNT 270 10^3/uL (130-450); RED BLOOD COUNT 3.87 10^6/uL (4.20-5.40); RED CELL DISTRIBUTION WIDTH 12.2 % (12.0-15.0); WHITE BLOOD COUNT 5.9 x10^3/uL (4.8-10.8)
[2021-03-05 15:21] LABS: % IRON SATURATION 33 % (20-50); ALBUMIN 3.5 g/dL (3.2-5.5); ALBUMIN/GLOBULIN RATIO 1.4 (1.0-2.2); ALKALINE PHOSPHATASE 38 IU/L (42-121); ALT ALANINE AMINOTRANSFERASE 41 IU/L (10-60); AST ASPARTATE AMINOTRANSFERASE 35 IU/L (10-42); BILIRUBIN,TOTAL 0.9 mg/dL (0.2-1.0); BUN - BLOOD UREA NITROGEN 24 mg/dL (6-20); CALCIUM 8.9 mg/dL (8.5-10.3); CARBON DIOXIDE - CO2 27 mmol/L (21-32); CHLORIDE 106 mmol/L (101-111); CHOL/HDL RATIO 2.2 (<4.4); CHOLESTEROL 165 mg/dL; CREATININE 0.5 mg/dL (0.4-1.0); GFR - MDRD 121 (>89); GLUCOSE 167 mg/dL (70-100); HDL CHOLESTEROL 76 mg/dL; IRON 125 ug/dL (28-170); LDL CHOLESTEROL,CALCULATED 76 mg/dL; POTASSIUM 3.6 mmol/L (3.5-5.0); SODIUM 140 mmol/L (135-145); TOTAL IRON BINDING CAPACITY 378 ug/dL (250-450); TRANSFERRIN 270 mg/dL (192-382); TRIGLYCERIDES 63 mg/dL; VLDL CHOLESTEROL 13 mg/dL
== END 2021-03-05 11:20 | disposition home or self-care (01) ==
LOC: LAB.S 11:19
PROVIDERS: ATTEND Internal Medicine
DX: E78.5 Hyperlipidemia, unspecified (principal); Z98.84 Bariatric surgery status; I10 Essential (primary) hypertension
CPT/HCPCS: 36415; 80053; 80061; 82306; 82607; 83540; 83721; 84466; 85025

== ENCOUNTER 2021-04-13 19:30 | Inpatient (IN) | payer MEDICARE, OTHER ==
[2021-04-13 19:59] LABS: BASOPHILS # (AUTO) 0.1 10^3/uL (0.0-0.1); BASOPHILS % (AUTO) 0.7 %; EOSINOPHILS # (AUTO) 0.1 10^3/uL (0.0-0.7); EOSINOPHILS % (AUTO) 0.6 %; HGB - HEMOGLOBIN 10.2 g/dL (12.0-16.0); LYMPHOCYTES # (AUTO) 1.9 10^3/uL (1.5-3.5); LYMPHOCYTES % (AUTO) 12.8 %; MEAN CORPUSCULAR HEMOGLOBIN 29.1 pg (27.0-31.0); MEAN CORPUSCULAR VOLUME 96.9 fL (81.0-99.0); MEAN PLATELET VOLUME 8.8 fL (7.9-10.8); MONOCYTES # (AUTO) 0.8 10^3/uL (0.0-1.0); MONOCYTES % (AUTO) 5.3 %; NEUTROPHILS # (AUTO) 11.8 10^3/uL (1.5-6.6); NEUTROPHILS % (AUTO) 79.4 %; PLT - PLATELET COUNT 780 10^3/uL (130-450); RED BLOOD COUNT 3.51 10^6/uL (4.20-5.40); RED CELL DISTRIBUTION WIDTH 13.4 % (12.0-15.0); WHITE BLOOD COUNT 14.9 x10^3/uL (4.8-10.8)
[2021-04-13] MEDS ORDERED: SODIUM CHLORIDE 0.9% 500 ML IV STA (20:01)
[2021-04-13] MEDS ORDERED: SODIUM CHLORIDE 0.9% 1,000 ML IV STA (20:01)
[2021-04-13 20:07] LABS: ALBUMIN 3.7 g/dL (3.2-5.5); ALBUMIN/GLOBULIN RATIO 0.9 (1.0-2.2); CALCIUM 10.2 mg/dL (8.5-10.3); CREATININE 1.2 mg/dL (0.4-1.0); POTASSIUM 4.9 mmol/L (3.5-5.0); PT - PROTHROMBIN TIME 11.4 secs (9.9-12.6); TOTAL PROTEIN 7.6 g/dL (6.7-8.2)
[2021-04-13] MEDS ORDERED: MORPHINE 2 MG/ML CARPUJECT IVP STA (20:15)
--- NOTE | 2021-04-13 20:19 | ED Physician Documentation ---
History of Present Illness - Stated complaint Stated Complaint: POST OP CONFUSION - Chief complaint Chief Complaint: General - History obtained from History obtained from: Patient - History of Present Illness Timing: How many days ago (3) Pain level max: 7 Pain level now: 5 - Additonal information Additional information: Patient is a 75-year-old female who presents to the emergency department with increasing back pain over the past 2 to 3 days. She states that she had a laminectomy and spinal fusion on March 31 at [facility] in [place] by Dr. Santos. She states that the back pain has been increasing. Taking gabapentin without relief. She states she has also been feeling more confused and having difficulty concentrating. She states that her blood sugar was over 500 today and she was told to come to the emergency department for evaluation. Denies any fevers. No chills. No trauma. No focal weakness or numbness. No dysarthria or aphasia Review of Systems Ten Systems: 10 systems reviewed and negative Constitutional: denies: Fever, Chills Ears: denies: Ear pain Nose: denies: Rhinorrhea / runny nose, Congestion Respiratory: denies: Cough GI: denies: Abdominal Pain, Abdominal Swelling, Nausea, Vomiting, Diarrhea : reports: Dysuria, Frequency Skin: denies: Rash Musculoskeletal: reports: Back pain (Has chronic back pain, she states that the pain used to be worse on the right side of her back but since the surgery has been worse on the left.). denies: Neck pain Neurologic: reports: Confused (Patient states she has been feeling more confused over the past several days and having difficulty following commands. No focal neurological deficits.). denies: Headache PD PAST MEDICAL HISTORY - Past Medical History Past Medical History: Yes Cardiovascular: Hypertension, High cholesterol, Peripheral Vascular Disease Respiratory: Asthma, Sleep apnea Neuro: Headaches, Peripheral neuropathy Endocrine/Autoimmune: Type 1 diabetes GI: GERD, Hiatal hernia, Colon polyps, Chronic diarrhea HAND FUR CLEANER: None : Chronic bladder infection, Nocturia, Frequency, Kidney stones HEENT: Chronic vision loss Psych: Depression, Anxiety Musculoskeletal: Osteoarthritis, Osteopenia Derm: Eczema, Psoriasis - Past Surgical History Past Surgical History: Yes General: Gastric surgery, Colonoscopy Ortho: Other HEENT: Cataracts - Present Medications Home Medications: Ambulatory Orders Medication Instructions Recorded Confirmed Zolpidem Tartrate [Ambien] 5 mg PO QPM PRN 11/13/12 04/13/21 Insulin Lispro [Humalog] 40 unit SUBQ .INSULINPUMP 06/11/13 04/13/21 ALPRAZolam [Alprazolam] 0.25 mg PO DAILY PRN 09/21/19 04/13/21 Albuterol Sulf [Ventolin Hfa 1 - 2 puffs INH Q4HR PRN 09/21/19 04/13/21 Inhaler] Ascorbic Acid 500 mg PO DAILY 09/21/19 04/13/21 Aspirin [Children's Aspirin] 81 mg PO DAILY 09/21/19 04/13/21 Budesonide [Pulmicort] 2 puffs INH BID 09/21/19 04/13/21 Buspirone HCl 20 mg PO BID 09/21/19 04/13/21 Calcium Carbonate/Vitamin D3 [Sm 1 each PO BID 09/21/19 04/13/21 Calcium 600-Vit D3 400 Tab] Cyanocobalamin (Vitamin B-12) 500 mcg PO DAILY 09/21/19 04/13/21 [Vitamin B-12] Escitalopram Oxalate 20 mg PO DAILY 09/21/19 04/13/21 Vitamin B Complex [Balanced B-50] 1 tab PO DAILY 09/21/19 04/13/21 traZODone [Desyrel] 50 mg PO QPM PRN 09/21/19 04/13/21 Ondansetron HCl [Zofran] 4 mg PO QID PRN 09/08/20 04/13/21 methocarbamoL [Methocarbamol] 750 mg PO DAILY 04/13/21 04/13/21 - Allergies Allergies/Adverse Reactions: Allergies Allergy/AdvReac Type Severity Reaction Status Date / Time Penicillins Allergy Intermediate Rash Verified 04/13/21 19:39 amoxicillin Allergy Rash Verified 04/13/21 19:39 doxycycline Allergy Rash Verified 04/13/21 19:39 gabapentin AdvReac diarrhea Verified 04/13/21 19:39 - Social History Does the pt smoke?: No Smoking Status: Never smoker Does the pt drink ETOH?: No Does the pt have substance abuse?: Yes - Immunizations Immunizations are current?: Yes - POLST Patient has POLST: No POLST Status: Full Code PD ED PE NORMAL - Vitals Vital signs reviewed: Yes - General General: Alert and oriented X 3, No acute distress, Well developed/nourished - HEENT HEENT: PERRL, Moist mucous membranes - Neck Neck: Supple, no meningeal sign - Cardiac Cardiac: Strong equal pulses, Other (tachycardic) - Respiratory Respiratory: No respiratory distress, Clear bilaterally - Abdomen Abdomen: Soft, Non tender, Non distended - Back Back: No spinal TTP, Other (Incision is well-healed. Clean, dry, intact. No redness. No swelling. No drainage. No signs of infection) - Derm Derm: Warm and dry - Extremities Extremities: No edema, No calf tenderness / cord - Neuro Neuro: Alert and oriented X 3, Other (Patient does have mild confusion, occasionally she becomes confused when answering a question.) - Psych Psych: Normal mood, Normal affect Results - Vitals Vitals: Vital Signs - 24 hr 04/13/21 04/13/21 04/13/21 19:34 19:39 20:54 Temperature 36.8 C 36.8 C Heart Rate 122 H 122 H 124 H Respiratory 14 14 13 Rate Blood Pressure 153/64 H 153/64 H 171/60 H O2 Saturation 100 100 100 Oxygen O2 Source Room air - Labs Labs: Laboratory Tests 04/13/21 04/13/21 04/13/21 19:50 19:50 19:50 WBC 14.9 H RBC 3.51 L Hgb 10.2 L Hct 34.0 L MCV 96.9 MCH 29.1 MCHC 30.0 L RDW 13.4 Plt Count 780 H MPV 8.8 Neut # (Auto) 11.8 H Lymph # (Auto) 1.9 Nicollet # (Auto) 0.8 Eos # (Auto) 0.1 Baso # (Auto) 0.1 Absolute Nucleated RBC 0.00 Nucleated RBC % 0.0 PT 11.4 INR 1.0 APTT 29.0 VBG pH VBG pCO2 VBG pO2 VBG HCO3 VBG Total CO2 VBG O2 Saturation VBG Base Excess Sodium 129 L Potassium 4.9 Chloride 93 L Carbon Dioxide 10 L* Anion Gap 26.0 H BUN 19 Creatinine 1.2 H Estimated GFR (MDRD) 44 L Glucose 557 H* Lactic Acid Calcium 10.2 Total Bilirubin 2.0 H AST 20 ALT 18 Alkaline Phosphatase 119 Total Protein 7.6 Albumin 3.7 Globulin 3.9 Albumin/Globulin Ratio 0.9 L Lipase 19 L Urine Color Urine Clarity Urine pH Ur Specific Elgin Urine Protein Urine Glucose (UA) Urine Ketones Urine Occult Blood Urine Nitrite Urine Bilirubin Urine Urobilinogen Ur Leukocyte Esterase Ur Microscopic Review Urine Culture Comments Nasal Adenovirus (PCR) Nasal B. parapertussis DNA (PCR) Nasal Coronavir 229E PCR Nasal Coronavir HKU1 PCR Nasal Coronavir NL63 PCR Nasal Coronavir OC43 PCR Nasal Enterovir/Rhinovir PCR Nasal Influenza B PCR Nasal Influenza A PCR Nasal Parainfluen 1 PCR Nasal Parainfluen 2 PCR Nasal Parainfluen 3 PCR Nasal Parainfluen 4 PCR Nasal RSV (PCR) Nasal B.pertussis DNA PCR Nasal C.pneumoniae (PCR) Mathew Human Metapneumo PCR Nasal M.pneumoniae (PCR) Nasal SARS-CoV-2 (PCR) Serum Ketones 04/13/21 04/13/21 04/13/21 19:50 19:50 20:08 WBC RBC Hgb Hct MCV MCH MCHC RDW Plt Count MPV Neut # (Auto) Lymph # (Auto) Nicollet # (Auto) Eos # (Auto) Baso # (Auto) Absolute Nucleated RBC Nucleated RBC % PT INR APTT VBG pH 7.123 L VBG pCO2 27.0 L VBG pO2 41.7 VBG HCO3 8.6 L VBG Total CO2 9.5 L VBG O2 Saturation 71.8 VBG Base Excess -19.2 L Sodium Potassium Chloride Carbon Dioxide Anion Gap BUN Creatinine Estimated GFR (MDRD) Glucose Lactic Acid 1.9 Calcium Total Bilirubin AST ALT Alkaline Phosphatase Total Protein Albumin Globulin Albumin/Globulin Ratio Lipase Urine Color Urine Clarity Urine pH Ur Specific Elgin Urine Protein Urine Glucose (UA) Urine Ketones Urine Occult Blood Urine Nitrite Urine Bilirubin Urine Urobilinogen Ur Leukocyte Esterase Ur Microscopic Review Urine Culture Comments Nasal Adenovirus (PCR) Nasal B. parapertussis DNA (PCR) Nasal Coronavir 229E PCR Nasal Coronavir HKU1 PCR Nasal Coronavir NL63 PCR Nasal Coronavir OC43 PCR Nasal Enterovir/Rhinovir PCR Nasal Influenza B PCR Nasal Influenza A PCR Nasal Parainfluen 1 PCR Nasal Parainfluen 2 PCR Nasal Parainfluen 3 PCR Nasal Parainfluen 4 PCR Nasal RSV (PCR) Nasal B.pertussis DNA PCR Nasal C.pneumoniae (PCR) Mathew Human Metapneumo PCR Nasal M.pneumoniae (PCR) Nasal SARS-CoV-2 (PCR) Serum Ketones SMALL H 04/13/21 04/13/21 20:21 20:51 WBC RBC Hgb Hct MCV MCH MCHC RDW Plt Count MPV Neut # (Auto) Lymph # (Auto) Nicollet # (Auto) Eos # (Auto) Baso # (Auto) Absolute Nucleated RBC Nucleated RBC % PT INR APTT VBG pH VBG pCO2 VBG pO2 VBG HCO3 VBG Total CO2 VBG O2 Saturation VBG Base Excess Sodium Potassium Chloride Carbon Dioxide Anion Gap BUN Creatinine Estimated GFR (MDRD) Glucose Lactic Acid Calcium Total Bilirubin AST ALT Alkaline Phosphatase Total Protein Albumin Globulin Albumin/Globulin Ratio Lipase Urine Color YELLOW Urine Clarity CLEAR Urine pH 5.5 Ur Specific Elgin 1.025 Urine Protein NEGATIVE Urine Glucose (UA) >=1000 H Urine Ketones >=80 H Urine Occult Blood TRACE-INTA Urine Nitrite NEGATIVE Urine Bilirubin NEGATIVE Urine Urobilinogen 0.2 (NORMAL) Ur Leukocyte Esterase NEGATIVE Ur Microscopic Review NOT INDICATED Urine Culture Comments NOT INDICATED Nasal Adenovirus (PCR) NOT DETECTED Nasal B. parapertussis DNA (PCR) NOT DETECTED Nasal Coronavir 229E PCR NOT DETECTED Nasal Coronavir HKU1 PCR NOT DETECTED Nasal Coronavir NL63 PCR NOT DETECTED Nasal Coronavir OC43 PCR NOT DETECTED Nasal Enterovir/Rhinovir PCR NOT DETECTED Nasal Influenza B PCR NOT DETECTED Nasal Influenza A PCR NOT DETECTED Nasal Parainfluen 1 PCR NOT DETECTED Nasal Parainfluen 2 PCR NOT DETECTED Nasal Parainfluen 3 PCR NOT DETECTED Nasal Parainfluen 4 PCR NOT DETECTED Nasal RSV (PCR) NOT DETECTED Nasal B.pertussis DNA PCR NOT DETECTED Nasal C.pneumoniae (PCR) NOT DETECTED Mathew Human Metapneumo PCR NOT DETECTED Nasal M.pneumoniae (PCR) NOT DETECTED Nasal SARS-CoV-2 (PCR) NOT DETECTED Serum Ketones - Rads (name of study) cxr Radiology: Final report received, EMP read contemporaneously, See rad report (no acute abnormality) PD MEDICAL DECISION MAKING - ED course Complexity details: reviewed old records, reviewed results, re-evaluated patient , considered differential, d/w patient, d/w hospice care consultant ED course: 75-year-old female presents the emergency department with DKA. She apparently used to be on insulin pump, but is now on Lantus 8 units twice a day. Initial symptoms were consistent with a UTI, therefore was given Rocephin but urinalysis is negative. Blood cultures were drawn. Lactate is normal. Discussed the case with Dr. Cespedes, neurosurgery who recommends admission to the hospitalist here and does not see an issue with her spine surgery at this point. She does not have any focal neurological deficits. The incision is without signs of infection. Patient was given IV fluids and started on an insulin drip. Discussed the case with Dr. Melendrez, hospitalist who accepts This document was made in part using voice recognition software. While efforts are made to proofread this document, sound alike and grammatical errors may occur. Departure - Departure Disposition: 66 [facility] DC/Xfer Clinical Impression: DKA (diabetic ketoacidosis) Qualifiers: Diabetes mellitus type: type 1 Diabetes mellitus complication detail: without coma Qualified Code(s): E10.10 - Type 1 diabetes mellitus with ketoacidosis without coma Condition: Stable
[2021-04-13 20:20] LABS: VBG BASE EXCESS -19.2 mmol/L (-2 - +2); VBG HCO3 8.6 mmol/L (23-28); VBG OXYGEN SATURATION 71.8 % (60-80); VBG PH 7.123 (7.31-7.41); VBG PO2 41.7 mmHg (25-47); VBG TOTAL CO2 9.5 mmol/L (24-29)
[2021-04-13] MEDS ORDERED: INSULIN REGULAR HUMAN 100 UNIT in SODIUM CHLORIDE 0.9% 100ML 99 ML IV STA (20:21)
[2021-04-13] MEDS ORDERED: INSULIN REGULAR HUMAN 100 UNIT/1 ML 10 ML MDV ONE (20:32)
--- NOTE | 2021-04-13 20:33 | XRAY Report ---
PROCEDURE: Chest 1 View X-Ray INDICATIONS: fever post op TECHNIQUE: One view of the chest was acquired. COMPARISON: Chest x-ray 318 FINDINGS: Surgical changes and devices: None. Lungs and pleura: No pleural effusions or pneumothorax. Lungs are clear. Mediastinum: Mediastinal contours appear normal. Heart size is enlarged. Bones and chest wall: No suspicious bony lesions. Overlying soft tissues appear unremarkable. IMPRESSION: No acute pulmonary process. Reviewed by: La Peter MD on 04/13/2021 8:32 PM PDT Approved by: La Peter MD on 04/13/2021 8:32 PM PDT Station ID: [id number]
[2021-04-13] MEDS ORDERED: ONDANSETRON ODT 4 MG TABLET TL PRN (21:00)
[2021-04-13] MEDS ORDERED: cefTRIAXone 1 GM VIAL IVP STA (21:00)
[2021-04-13] MEDS ORDERED: ONDANSETRON 4 MG/2 ML VIAL IVP PRN (21:00)
[2021-04-13] MEDS ORDERED: SODIUM CHLORIDE FLUSH 0.9% 10 ML SYRINGE IVP PRN (21:00)
[2021-04-13 21:02] LABS: BILIRUBIN,URINE NEGATIVE (NEGATIVE); GLUCOSE, URINE (UA) >=1000 mg/dL (NEGATIVE); KETONES,URINE (UA) >=80 mg/dL (NEGATIVE); LEUKOCYTE ESTERASE, URINE NEGATIVE (NEGATIVE); NITRITE,URINE NEGATIVE (NEGATIVE); OCCULT BLOOD,URINE TRACE-INTA (NEGATIVE); PH,URINE 5.5 PH (5.0-7.5); PROTEIN,URINE NEGATIVE (NEGATIVE); UROBILINOGEN,URINE 0.2 (NORMAL) E.U./dL (NORMAL)
[2021-04-13 21:03] LABS: CLARITY,URINE CLEAR (CLEAR)
[2021-04-13] MEDS ORDERED: SODIUM CHLORIDE 0.9% 1,000 ML IV ONE (21:05)
--- NOTE | 2021-04-13 21:08 | HISTORY & PHYSICAL EXAMINATION ---
Chief Complaint - Chief Complaint Chief Complaint: Confusion and high blood sugar History of Present Illness - Admitted From Admitted From:: Home - History Obtained From Records Reviewed: Yes History obtained from: Patient, ER Physician, EMR - History of Present Illness HPI Comment/Other: This is a 75-year-old female with a past medical history significant for type 1 diabetes mellitus, asthma, anxiety who presents today complaining of increasing confusion and an elevated blood glucose. She reports having a laminectomy and lumbar fusion on March 31 at [facility] in [place] with Dr. Ma. She states that since surgery she has been increasingly confused but this was worse over the past few days. She also noticed that her blood glucose has been elevated at greater than 400 despite taking her usual insulin regimen. She states she takes short and long-acting insulin but cannot tell me exactly how much of each she takes but she believes it is at least 18 units a day. She tells me that her blood glucose is normally well controlled. She reports a decreased appetite over the past few days as well. She does have polyuria but no dysuria, urgency, hematuria. She reports no nausea, vomiting, abdominal pain, chest pain, dyspnea. She states she has been ambulating with a walker or cane since surgical intervention. Her back pain previously radiated down her right lower extremity but is now radiating down her left lower extremity. She states her pain is relatively controlled. Denies any focal deficits. In the emergency department, she was noted to be in diabetic ketoacidosis with elevated blood glucose, anion gap as well as a decreased pH and bicarbonate. Her serum ketones were positive. She was given insulin and IV fluids in the emergency department. Her surgeon was contacted who felt there was no concern for surgical site infection at this time. Given the above findings, medicine was consulted for admission. I did discuss goals of care with the patient and she would like to be a full code. History - Past Medical History Cardiovascular: reports: High cholesterol, Peripheral Vascular Disease Respiratory: reports: Asthma, Sleep apnea Neuro: reports: Headaches, Peripheral neuropathy Endocrine/Autoimmune: reports: Type 1 diabetes GI: reports: GERD, Hiatal hernia, Colon polyps, Chronic diarrhea COMMISSIONED POLICE OFFICER: reports: None : reports: Chronic bladder infection, Nocturia, Frequency, Kidney stones HEENT: reports: Chronic vision loss Psych: reports: Depression, Anxiety Musculoskeletal: reports: Osteoarthritis, Osteopenia Derm: reports: Eczema, Psoriasis MRSA Hx?: No - Past Surgical History General: reports: Gastric surgery, Colonoscopy Ortho: reports: Spine surgery HEENT: reports: Cataracts - Family & Social History Family History: Mother: , Father: , Sister: Family History Comment/Other: She states her father from melanoma. Both of her parents had hypertension. She denies a history of coronary artery disease. Living arrangement: At home Living Situation: With spouse/s.o. Social History Notes: She lives at home with her , Brennen. She denies any alcohol or tobacco use. - Substance History Use: Uses substance without health or social issues: NONE - POLST Patient has POLST: No POLST Status: Full Code Meds/Allgy - Home Medications Home Medications: Ambulatory Orders Medication Instructions Recorded Confirmed Zolpidem Tartrate [Ambien] 5 mg PO QPM PRN 11/13/12 04/13/21 Insulin Lispro [Humalog] 40 unit SUBQ .INSULINPUMP 06/11/13 04/13/21 ALPRAZolam [Alprazolam] 0.25 mg PO DAILY PRN 09/21/19 04/13/21 Albuterol Sulf [Ventolin Hfa 1 - 2 puffs INH Q4HR PRN 09/21/19 04/13/21 Inhaler] Ascorbic Acid 500 mg PO DAILY 09/21/19 04/13/21 Aspirin [Children's Aspirin] 81 mg PO DAILY 09/21/19 04/13/21 Budesonide [Pulmicort] 2 puffs INH BID 09/21/19 04/13/21 Buspirone HCl 20 mg PO BID 09/21/19 04/13/21 Calcium Carbonate/Vitamin D3 [Sm 1 each PO BID 09/21/19 04/13/21 Calcium 600-Vit D3 400 Tab] Cyanocobalamin (Vitamin B-12) 500 mcg PO DAILY 09/21/19 04/13/21 [Vitamin B-12] Escitalopram Oxalate 20 mg PO DAILY 09/21/19 04/13/21 Vitamin B Complex [Balanced B-50] 1 tab PO DAILY 09/21/19 04/13/21 traZODone [Desyrel] 50 mg PO QPM PRN 09/21/19 04/13/21 Ondansetron HCl [Zofran] 4 mg PO QID PRN 09/08/20 04/13/21 methocarbamoL [Methocarbamol] 750 mg PO DAILY 04/13/21 04/13/21 - Allergies Allergies/Adverse Reactions: Allergies Allergy/AdvReac Type Severity Reaction Status Date / Time Penicillins Allergy Intermediate Rash Verified 04/13/21 19:39 amoxicillin Allergy Rash Verified 04/13/21 19:39 doxycycline Allergy Rash Verified 04/13/21 19:39 gabapentin AdvReac diarrhea Verified 04/13/21 19:39 Review of Systems - Constitutional Constitutional: denies: Fever, Chills - Cardiovascular Cariovascular: denies: Palpitations, Chest pain, Exertional dyspnea, Decr. exercise tolerance - Respiratory Respiratory: denies: Cough, SOB at rest, SOB with exertion - Gastrointestinal Gastrointestinal: reports: Constipation. denies: Abdominal pain, Diarrhea, Nausea, Vomiting - Genitourinary Genitourinary: reports: Frequency. denies: Dysuria, Urgency, Hematuria - Musculoskeletal Musculoskeletal: reports: Back pain, Limited range of motion - Neurological Neurological: reports: General weakness, Other (Confusion.). denies: Focal weakness - Endocrine Endocrine: reports: Polyuria - All Other Systems All Other Systems: reports: Other (Review of systems is limited due to her confusion.) Prior Level of Functionality: She is normally independent with her ADLs. She currently uses a walker or cane to ambulate. Exam - Vital Signs Reviewed Vital Signs: Yes Vital Signs: Vital Signs x48h Temp Pulse Resp BP Pulse Ox 04/13/21 20:54 124 H 13 171/60 H 100 04/13/21 19:39 36.8 C 122 H 14 153/64 H 100 04/13/21 19:34 36.8 C 122 H 14 153/64 H 100 - Physical Exam General Appearance: positive: No acute distress, Alert Eyes Bilateral: positive: Normal inspection, Conjunctivae nml ENT: positive: Dry mucous membranes. negative: No signs of dehydration Neck: positive: Nml inspection Respiratory: positive: No respiratory distress. negative: Wheezes, Rales Cardiovascular: positive: Tachycardia. negative: Irregularly irregular, Bradycardia, Systolic murmur Abdomen: positive: Non-tender, No distention. negative: Tenderness, Guarding, Rebound Back: positive: Other (Incision lumbar spine appears clean dry and intact without surrounding erythema or tenderness. No fluctuance) Skin: positive: Warm, Dry Extremities: positive: No pedal edema Neurologic/Psychiatric: positive: Other (She able to move all 4 extremities without any focal deficits. Sensation is intact.). negative: Disoriented to person, Disoriented to place Conclusion/Plan - Problem List (1) DKA (diabetic ketoacidosis) Conclusion/Plan: She has evidence of diabetic acidosis given the elevated blood glucose, anion gap. She also decreased bicarbonate and positive ketones. She was given IV fluids and insulin in the emergency department. We will continue her on IV insulin and administer another liter of saline. Maintain n.p.o. status. Check labs every 4 hours and start her on clears once her anion gap is closed. Check A1c. Qualifiers: Diabetes mellitus type: type 1 Diabetes mellitus complication detail: without coma Qualified Code(s): E10.10 - Type 1 diabetes mellitus with ketoacidosis without coma (2) Altered mental status Conclusion/Plan: This appears related to the diabetic ketoacidosis. She is slow to respond to questions at times. No obvious focal deficits on exam to suggest a stroke. We will treat underlying DKA and reassess. Hold off on CT for the time being. (3) Status post laminectomy with spinal fusion Conclusion/Plan: She is status post laminectomy and spinal fusion on March 31 at [facility] in [place] by Dr. Cespedes. Low suspicion for infection at this point. Will use Tylenol as needed for pain control. (4) Thrombocytosis Conclusion/Plan: Her platelet count is elevated at 780 and this was within normal limits about 5 weeks ago. Suspect this is likely reactive. There is currently no evidence of infection. This may be related to iron deficiency anemia or hemoconcentration. We will check iron studies and repeat a CBC in the a.m. (5) Type 1 diabetes mellitus Conclusion/Plan: She is now admitted with DKA. Management as mentioned above. We will check an A1c and transition to subcutaneous insulin when appropriate. (6) Anxiety Conclusion/Plan: Stable. We will resume her home citalopram and buspirone tomorrow. (7) Asthma Conclusion/Plan: Not in exacerbation. We will continue her home budesonide and albuterol as needed. - Lab Results Lab results reviewed: Yes Fish Bones: 04/13/21 19:50 04/13/21 21:14 - Diagnostic Imaging Results Diagnostic Imaging Results: positive: Final report reviewed Core Measures - Anticipated LOS I expect patient to be DC'd or transferred within 96 hours.: Yes - Issues Hospital Issues and Management Plan: 75-year-old female presents with confusion found to have diabetic ketoacidosis. She be admitted for IV insulin and hydration. - DVT/VTE - Prophylaxis VTE/DVT Device ordered at admit?: Yes VTE/DVT Prophylaxis med ordered at admit?: Yes
[2021-04-13 21:17] LABS: B. PARAPERTUSSIS- RESP PCR PAN NOT DETECTED; B. PERTUSSIS- RESP PCR PANEL NOT DETECTED; C. PNEUMONIAE- RESP PCR PANEL NOT DETECTED; CORONAVIRUS 229E-RESP PCR NOT DETECTED; CORONAVIRUS HKU1-RESP PCR NOT DETECTED; CORONAVIRUS NL63-RESP PCR NOT DETECTED; CORONAVIRUS OC43-RESP PCR NOT DETECTED; HUMAN METAPNEUMOVIRUS NOT DETECTED; INFLUENZA A- RESP PCR PANEL NOT DETECTED; INFLUENZA B - RESP PCR PANEL NOT DETECTED; M. PNEUMONIAE- RESP PCR PANEL NOT DETECTED; PARAINFLUENZA VIRUS 1 NOT DETECTED; PARAINFLUENZA VIRUS 2 NOT DETECTED; PARAINFLUENZA VIRUS 3 NOT DETECTED; PARAINFLUENZA VIRUS 4 NOT DETECTED; RHINOVIRUS/ENTEROVIRUS NOT DETECTED; RSV- RESP PCR PANEL NOT DETECTED; SARS-CoV-2 -RESP PCR PANEL NOT DETECTED
[2021-04-13 21:34] LABS: CREATININE 1.1 mg/dL (0.4-1.0); MAGNESIUM 2.1 mg/dL (1.7-2.8); PHOSPHORUS 3.6 mg/dL (2.5-4.6); POTASSIUM 5.1 mmol/L (3.5-5.0)
[2021-04-13] MEDS ORDERED: INSULIN REGULAR HUMAN 100 UNIT in SODIUM CHLORIDE 0.9% 100ML 99 ML IV SCH ×2 (22:00→23:00)
[2021-04-13] MEDS ORDERED: SODIUM CHLORIDE 0.9% 1,000 ML IV SCH (22:00)
[2021-04-13] MEDS: DEXTROSE 5%-0.45% NACL 1,000 ML IV SCH (22:28)
[2021-04-14] MEDS: DEXTROSE 5%-0.45% NACL 1,000 ML IV SCH (01:00)
[2021-04-14] MEDS: SODIUM CHLORIDE FLUSH 0.9% 10 ML SYRINGE IVP SCH ×4 (01:02→21:09)
[2021-04-14 01:08] LABS: CALCIUM 9.8 mg/dL (8.5-10.3); CREATININE 0.9 mg/dL (0.4-1.0); PHOSPHORUS 2.3 mg/dL (2.5-4.6); POTASSIUM 4.2 mmol/L (3.5-5.0)
[2021-04-14] MEDS ORDERED: SODIUM PHOSPHATE 15 MMOL in SODIUM CHLORIDE 0.9% 250 ML IV ONE (01:37)
[2021-04-14] MEDS: ACETAMINOPHEN 325 MG TABLET PO PRN (04:16)
[2021-04-14 04:34] LABS: BASOPHILS # (AUTO) 0.1 10^3/uL (0.0-0.1); BASOPHILS % (AUTO) 0.6 %; EOSINOPHILS # (AUTO) 0.1 10^3/uL (0.0-0.7); EOSINOPHILS % (AUTO) 1.2 %; HCT - HEMATOCRIT 28.9 % (37.0-47.0); HGB - HEMOGLOBIN 8.9 g/dL (12.0-16.0); LYMPHOCYTES % (AUTO) 18.3 %; MEAN CORPUSCULAR HEMOGLOBIN 29.2 pg (27.0-31.0); MEAN CORPUSCULAR HGB CONC 30.8 g/dL (32.0-36.0); MEAN CORPUSCULAR VOLUME 94.8 fL (81.0-99.0); MEAN PLATELET VOLUME 8.6 fL (7.9-10.8); MONOCYTES # (AUTO) 0.8 10^3/uL (0.0-1.0); MONOCYTES % (AUTO) 7.6 %; NEUTROPHILS # (AUTO) 7.7 10^3/uL (1.5-6.6); NEUTROPHILS % (AUTO) 71.6 %; PLT - PLATELET COUNT 566 10^3/uL (130-450); RED BLOOD COUNT 3.05 10^6/uL (4.20-5.40); RED CELL DISTRIBUTION WIDTH 13.4 % (12.0-15.0); WHITE BLOOD COUNT 10.7 x10^3/uL (4.8-10.8)
[2021-04-14 05:20] LABS: CALCIUM 9.3 mg/dL (8.5-10.3); CREATININE 0.6 mg/dL (0.4-1.0); MAGNESIUM 1.8 mg/dL (1.7-2.8); PHOSPHORUS 2.5 mg/dL (2.5-4.6)
[2021-04-14] MEDS: oxyCODONE 5 MG TABLET PO PRN ×4 (07:09→21:09)
[2021-04-14] MEDS ORDERED: MAGNESIUM SULFATE 2 GRAM 2 GM/50 ML BAG IV ONE (07:23)
[2021-04-14] MEDS: ALBUTEROL NEB 2.5 MG/3 ML INH PRN ×2 (07:30→19:27)
[2021-04-14] MEDS: BUDESONIDE 0.5 MG/2 ML NEB INH SCH ×2 (07:30→19:28)
[2021-04-14] MEDS: busPIRone 5 MG TABLET PO SCH ×2 (08:47→20:32)
[2021-04-14] MEDS: ENOXAPARIN 40 MG/0.4 ML SYRINGE SUBQ SCH (08:47)
[2021-04-14] MEDS: ESCITALOPRAM 10 MG TABLET PO SCH (08:47)
[2021-04-14] MEDS: CYANOCOBALAMIN 500 MCG TABLET PO SCH (08:47)
[2021-04-14] MEDS: ASPIRIN CHEW 81 MG TABLET PO SCH (08:47)
[2021-04-14] MEDS: methocarbamoL 500 MG TABLET PO PRN ×3 (09:17→20:32)
--- NOTE | 2021-04-14 09:19 | PROVIDER PROGRESS NOTE ---
Subjective - Prog Note Date Prog Note Date: 04/14/21 Prog Note Time: 09:20 - Subjective Pt reports feeling: Improved Subjective: she is sleepy but more alert. c/o mod pain in back from previous surgery. denies cough, cp, sob,. Current Medications - Current Medications Current Medications: Active Medications Acetaminophen (Acetaminophen 325 Mg Tablet) 650 mg PO Q4HR PRN PRN Reason: Pain 1 to 4 Last Admin: 04/14/21 04:16 Dose: 650 mg Documented by: Albuterol (Albuterol Neb 2.5 Mg/3 Ml) 2.5 mg INH RTQ4H PRN PRN Reason: Wheezing Last Admin: 04/14/21 07:30 Dose: 2.5 mg Documented by: Aspirin (Aspirin Chew 81 Mg Tablet) 81 mg PO DAILY [facility] Last Admin: 04/14/21 08:47 Dose: 81 mg Documented by: Budesonide (Budesonide 0.5 Mg/2 Ml Neb) 0.5 mg INH BID [facility] Last Admin: 04/14/21 07:30 Dose: 0.5 mg Documented by: Buspirone HCl (Buspirone 5 Mg Tablet) 20 mg PO BID [facility] Last Admin: 04/14/21 08:47 Dose: 20 mg Documented by: Cyanocobalamin (Cyanocobalamin 500 Mcg Tablet) 500 mcg PO DAILY [facility] Last Admin: 04/14/21 08:47 Dose: 500 mcg Documented by: Enoxaparin Sodium (Enoxaparin 40 Mg/0.4 Ml Syringe) 40 mg SUBQ DAILY [facility] Last Admin: 04/14/21 08:47 Dose: 40 mg Documented by: Escitalopram Oxalate (Escitalopram 10 Mg Tablet) 20 mg PO DAILY [facility] Last Admin: 04/14/21 08:47 Dose: 20 mg Documented by: Insulin Human Regular 100 unit (/ Sodium Chloride) 100 mls @ 6.35 mls/hr IV TITR STA; Protocol Stop: 04/14/21 12:05 Last Admin: 04/13/21 20:38 Dose: 0.1 unit/kg/hr, 6.35 mls/hr Documented by: Insulin Human Regular 100 unit (/ Sodium Chloride) 100 mls @ 5.8 mls/hr IV .[id number] [facility]; Protocol Last Titration: 04/14/21 07:05 Dose: 0.02 unit/kg/hr, 1 mls/hr Documented by: Methocarbamol (Methocarbamol 500 Mg Tablet) 500 mg PO Q6HR PRN PRN Reason: Spasms Last Admin: 04/14/21 09:17 Dose: 500 mg Documented by: Ondansetron HCl (Ondansetron Odt 4 Mg Tablet) 4 mg TL Q6HR PRN PRN Reason: Nausea / Vomiting Ondansetron HCl (Ondansetron 4 Mg/2 Ml Vial) 4 mg IVP Q6HR PRN PRN Reason: Nausea / Vomiting Oxycodone HCl (Oxycodone 5 Mg Tablet) 5 mg PO Q4HR PRN PRN Reason: PAIN Last Admin: 04/14/21 07:09 Dose: 5 mg Documented by: Sodium Chloride (Sodium Chloride Flush 0.9% 10 Ml Syringe) 10 ml IVP [id number],[id number],[id number] KANIKA Last Admin: 04/14/21 08:48 Dose: 10 ml Documented by: Sodium Chloride (Sodium Chloride Flush 0.9% 10 Ml Syringe) 10 ml IVP PRN PRN PRN Reason: NEEDED PER PROVIDER ORDERS Zolpidem Tartrate [Ambien] 5 mg PO QPM PRN 11/13/12 Insulin Lispro [Humalog] 40 unit SUBQ .INSULINPUMP 06/11/13 ALPRAZolam [Alprazolam] 0.25 mg PO DAILY PRN 09/21/19 Albuterol Sulf [Ventolin Hfa Inhaler] 1 - 2 puffs INH Q4HR PRN 09/21/19 Ascorbic Acid 500 mg PO DAILY 09/21/19 Aspirin [Children's Aspirin] 81 mg PO DAILY 09/21/19 Budesonide [Pulmicort] 2 puffs INH BID 09/21/19 Buspirone HCl 20 mg PO BID 09/21/19 Calcium Carbonate/Vitamin D3 [ Calcium 600-Vit D3 400 Tab] 1 each PO BID 09/21/19 Cyanocobalamin (Vitamin B-12) [Vitamin B-12] 500 mcg PO DAILY 09/21/19 Escitalopram Oxalate 20 mg PO DAILY 09/21/19 Vitamin B Complex [Balanced B-50] 1 tab PO DAILY 09/21/19 traZODone [Desyrel] 50 mg PO QPM PRN 09/21/19 Ondansetron HCl [Zofran] 4 mg PO QID PRN 09/08/20 methocarbamoL [Methocarbamol] 750 mg PO DAILY 04/13/21 Gabapentin [Neurontin] 100 mg PO BID 04/14/21 Insulin Glargine [Lantus Solostar] 10 units SQ DAILY 04/14/21 Simvastatin [Zocor] 20 mg PO QPM 04/14/21 Objective - Vital Signs/Intake & Output Reviewed Vital Signs: Yes Vital Signs: Vital Signs x48h Temp Pulse Pulse Resp BP Pulse Ox 04/14/21 09:00 102 H 16 161/55 H 96 04/14/21 07:51 36.8 C 96 16 97 04/14/21 07:34 96 16 04/14/21 07:00 98 10 L 143/57 H 97 04/14/21 06:00 102 H 13 146/50 H 96 04/14/21 05:00 105 H 16 139/55 H 95 04/14/21 04:00 37.1 C 110 H 16 147/57 H 98 04/14/21 03:00 114 H 16 142/57 H 95 04/14/21 02:00 114 H 16 150/56 H 96 Intake & Output: Intake & Output 04/11/21 04/12/21 04/13/21 04/14/21 23:59 23:59 23:59 23:59 Intake Total 5310.236 9215.332 Output Total 0 600 Balance 1803.783 984.332 - Objective General Appearance: positive: No acute distress, Alert (but sleepy. appropriate) Eyes Bilateral: positive: PERRL, EOMI ENT: positive: No signs of dehydration Neck: positive: No JVD. negative: Stiff neck Respiratory: positive: No respiratory distress. negative: Wheezes, Rales, Rhonchi Cardiovascular: positive: Regular rate & rhythm. negative: Gallop/S4, Friction rub Abdomen: positive: Non-tender, No organomegaly, Nml bowel sounds, No distention Skin: positive: Warm, Dry, Pallor Extremities: positive: Full ROM, No pedal edema Neurologic/Psychiatric: positive: Oriented x3 (but vague on med list, especially insulin, recognizes she is not quite back to baseline), CN's nml (2-12), Motor nml, Sensation nml - Lab Results Fish Bones: 04/14/21 04:15 04/14/21 04:15 Other Labs: Lab Results x24hrs 04/14/21 04/14/21 04/14/21 Range/Units 09:00 07:04 06:47 WBC (4.8-10.8) x10^3/uL RBC (4.20-5.40) 10^6/uL Hgb (12.0-16.0) g/dL Hct (37.0-47.0) % MCV (81.0-99.0) fL MCH (27.0-31.0) pg MCHC (32.0-36.0) g/dL RDW (12.0-15.0) % Plt Count (130-450) 10^3/uL MPV (7.9-10.8) fL Neut # (Auto) (1.5-6.6) 10^3/uL Lymph # (Auto) (1.5-3.5) 10^3/uL [facility] # (Auto) (0.0-1.0) 10^3/uL Eos # (Auto) (0.0-0.7) 10^3/uL Baso # (Auto) (0.0-0.1) 10^3/uL Absolute Nucleated RBC x10^3/uL Nucleated RBC % /100WBC PT (9.9-12.6) secs INR (0.8-1.2) APTT (24.9-33.3) secs VBG pH (7.31-7.41) VBG pCO2 (41-51) mmHg VBG pO2 (25-47) mmHg VBG HCO3 (23-28) mmol/L VBG Total CO2 (24-29) mmol/L VBG O2 Saturation (60-80) % VBG Base Excess (-2 - +2) mmol/L Sodium (135-145) mmol/L Potassium (3.5-5.0) mmol/L Chloride (101-111) mmol/L Carbon Dioxide (21-32) mmol/L Anion Gap (6-13) BUN (6-20) mg/dL Creatinine (0.4-1.0) mg/dL Estimated GFR (MDRD) (>89) Glucose (70-100) mg/dL POC Whole Bld Glucose 284 H 172 H 185 H (70 - 100) mg/dL Lactic Acid (0.5-2.2) mmol/L Calcium (8.5-10.3) mg/dL Phosphorus (2.5-4.6) mg/dL Magnesium (1.7-2.8) mg/dL Iron (28-170) ug/dL TIBC (250-450) ug/dL % Saturation (20-50) % Transferrin (192-382) mg/dL Ferritin (11.0-306.8) ng/mL Total Bilirubin (0.2-1.0) mg/dL AST (10-42) IU/L ALT (10-60) IU/L Alkaline Phosphatase (42-121) IU/L Total Protein (6.7-8.2) g/dL Albumin (3.2-5.5) g/dL Globulin (2.1-4.2) g/dL Albumin/Globulin Ratio (1.0-2.2) Lipase (22-51) U/L Urine Color Urine Clarity (CLEAR) Urine pH (5.0-7.5) PH Ur Specific [place] (1.002-1.030) Urine Protein (NEGATIVE) mg/dL Urine Glucose (UA) (NEGATIVE) mg/dL Urine Ketones (NEGATIVE) mg/dL Urine Occult Blood (NEGATIVE) Urine Nitrite (NEGATIVE) Urine Bilirubin (NEGATIVE) Urine Urobilinogen (NORMAL) E.U./dL Ur Leukocyte Esterase (NEGATIVE) Ur Microscopic Review Urine Culture Comments Nasal Adenovirus (PCR) Nasal B. parapertussis DNA (PCR) Nasal Coronavir 229E PCR Nasal Coronavir HKU1 PCR Nasal Coronavir NL63 PCR Nasal Coronavir OC43 PCR Nasal Enterovir/Rhinovir PCR Nasal Influenza B PCR Nasal Influenza A PCR Nasal Parainfluen 1 PCR Nasal Parainfluen 2 PCR Nasal Parainfluen 3 PCR Nasal Parainfluen 4 PCR Nasal RSV (PCR) Nasal Screen MRSA (PCR) (NEGATIVE) Nasal B.pertussis DNA PCR Nasal C.pneumoniae (PCR) Mathew Human Metapneumo PCR Nasal M.pneumoniae (PCR) Nasal SARS-CoV-2 (PCR) Serum Ketones (NEGATIVE) 04/14/21 04/14/21 04/14/21 Range/Units 06:01 05:05 04:15 WBC (4.8-10.8) x10^3/uL RBC (4.20-5.40) 10^6/uL Hgb (12.0-16.0) g/dL Hct (37.0-47.0) % MCV (81.0-99.0) fL MCH (27.0-31.0) pg MCHC (32.0-36.0) g/dL RDW (12.0-15.0) % Plt Count (130-450) 10^3/uL MPV (7.9-10.8) fL Neut # (Auto) (1.5-6.6) 10^3/uL Lymph # (Auto) (1.5-3.5) 10^3/uL [facility] # (Auto) (0.0-1.0) 10^3/uL Eos # (Auto) (0.0-0.7) 10^3/uL Baso # (Auto) (0.0-0.1) 10^3/uL Absolute Nucleated RBC x10^3/uL Nucleated RBC % /100WBC PT (9.9-12.6) secs INR (0.8-1.2) APTT (24.9-33.3) secs VBG pH (7.31-7.41) VBG pCO2 (41-51) mmHg VBG pO2 (25-47) mmHg VBG HCO3 (23-28) mmol/L VBG Total CO2 (24-29) mmol/L VBG O2 Saturation (60-80) % VBG Base Excess (-2 - +2) mmol/L Sodium (135-145) mmol/L Potassium (3.5-5.0) mmol/L Chloride (101-111) mmol/L Carbon Dioxide (21-32) mmol/L Anion Gap (6-13) BUN (6-20) mg/dL Creatinine (0.4-1.0) mg/dL Estimated GFR (MDRD) (>89) Glucose (70-100) mg/dL POC Whole Bld Glucose 164 H 159 H 163 H (70 - 100) mg/dL Lactic Acid (0.5-2.2) mmol/L Calcium (8.5-10.3) mg/dL Phosphorus (2.5-4.6) mg/dL Magnesium (1.7-2.8) mg/dL Iron (28-170) ug/dL TIBC (250-450) ug/dL % Saturation (20-50) % Transferrin (192-382) mg/dL Ferritin (11.0-306.8) ng/mL Total Bilirubin (0.2-1.0) mg/dL AST (10-42) IU/L ALT (10-60) IU/L Alkaline Phosphatase (42-121) IU/L Total Protein (6.7-8.2) g/dL Albumin (3.2-5.5) g/dL Globulin (2.1-4.2) g/dL Albumin/Globulin Ratio (1.0-2.2) Lipase (22-51) U/L Urine Color Urine Clarity (CLEAR) Urine pH (5.0-7.5) PH Ur Specific [place] (1.002-1.030) Urine Protein (NEGATIVE) mg/dL Urine Glucose (UA) (NEGATIVE) mg/dL Urine Ketones (NEGATIVE) mg/dL Urine Occult Blood (NEGATIVE) Urine Nitrite (NEGATIVE) Urine Bilirubin (NEGATIVE) Urine Urobilinogen (NORMAL) E.U./dL Ur Leukocyte Esterase (NEGATIVE) Ur Microscopic Review Urine Culture Comments Nasal Adenovirus (PCR) Nasal B. parapertussis DNA (PCR) Nasal Coronavir 229E PCR Nasal Coronavir HKU1 PCR Nasal Coronavir NL63 PCR Nasal Coronavir OC43 PCR Nasal Enterovir/Rhinovir PCR Nasal Influenza B PCR Nasal Influenza A PCR Nasal Parainfluen 1 PCR Nasal Parainfluen 2 PCR Nasal Parainfluen 3 PCR Nasal Parainfluen 4 PCR Nasal RSV (PCR) Nasal Screen MRSA (PCR) (NEGATIVE) Nasal B.pertussis DNA PCR Nasal C.pneumoniae (PCR) Mathew Human Metapneumo PCR Nasal M.pneumoniae (PCR) Nasal SARS-CoV-2 (PCR) Serum Ketones (NEGATIVE) 04/14/21 04/14/21 04/14/21 Range/Units 04:15 04:15 04:15 WBC 10.7 (4.8-10.8) x10^3/uL RBC 3.05 L (4.20-5.40) 10^6/uL Hgb 8.9 L (12.0-16.0) g/dL Hct 28.9 L (37.0-47.0) % MCV 94.8 (81.0-99.0) fL MCH 29.2 (27.0-31.0) pg MCHC 30.8 L (32.0-36.0) g/dL RDW 13.4 (12.0-15.0) % Plt Count 566 H (130-450) 10^3/uL MPV 8.6 (7.9-10.8) fL Neut # (Auto) 7.7 H (1.5-6.6) 10^3/uL Lymph # (Auto) 2.0 (1.5-3.5) 10^3/uL [facility] # (Auto) 0.8 (0.0-1.0) 10^3/uL Eos # (Auto) 0.1 (0.0-0.7) 10^3/uL Baso # (Auto) 0.1 (0.0-0.1) 10^3/uL Absolute Nucleated RBC 0.00 x10^3/uL Nucleated RBC % 0.0 /100WBC PT (9.9-12.6) secs INR (0.8-1.2) APTT (24.9-33.3) secs VBG pH (7.31-7.41) VBG pCO2 (41-51) mmHg VBG pO2 (25-47) mmHg VBG HCO3 (23-28) mmol/L VBG Total CO2 (24-29) mmol/L VBG O2 Saturation (60-80) % VBG Base Excess (-2 - +2) mmol/L Sodium 137 (135-145) mmol/L Potassium 4.0 (3.5-5.0) mmol/L Chloride 113 H (101-111) mmol/L Carbon Dioxide 15 L (21-32) mmol/L Anion Gap 9.0 (6-13) BUN 16 (6-20) mg/dL Creatinine 0.6 (0.4-1.0) mg/dL Estimated GFR (MDRD) 98 (>89) Glucose 157 H (70-100) mg/dL POC Whole Bld Glucose (70 - 100) mg/dL Lactic Acid (0.5-2.2) mmol/L Calcium 9.3 (8.5-10.3) mg/dL Phosphorus 2.5 (2.5-4.6) mg/dL Magnesium 1.8 (1.7-2.8) mg/dL Iron 28 (28-170) ug/dL TIBC 258 (250-450) ug/dL % Saturation 11 L (20-50) % Transferrin 184 L (192-382) mg/dL Ferritin 166.9 (11.0-306.8) ng/mL Total Bilirubin (0.2-1.0) mg/dL AST (10-42) IU/L ALT (10-60) IU/L Alkaline Phosphatase (42-121) IU/L Total Protein (6.7-8.2) g/dL Albumin (3.2-5.5) g/dL Globulin (2.1-4.2) g/dL Albumin/Globulin Ratio (1.0-2.2) Lipase (22-51) U/L Urine Color Urine Clarity (CLEAR) Urine pH (5.0-7.5) PH Ur Specific [place] (1.002-1.030) Urine Protein (NEGATIVE) mg/dL Urine Glucose (UA) (NEGATIVE) mg/dL Urine Ketones (NEGATIVE) mg/dL Urine Occult Blood (NEGATIVE) Urine Nitrite (NEGATIVE) Urine Bilirubin (NEGATIVE) Urine Urobilinogen (NORMAL) E.U./dL Ur Leukocyte Esterase (NEGATIVE) Ur Microscopic Review Urine Culture Comments Nasal Adenovirus (PCR) Nasal B. parapertussis DNA (PCR) Nasal Coronavir 229E PCR Nasal Coronavir HKU1 PCR Nasal Coronavir NL63 PCR Nasal Coronavir OC43 PCR Nasal Enterovir/Rhinovir PCR Nasal Influenza B PCR Nasal Influenza A PCR Nasal Parainfluen 1 PCR Nasal Parainfluen 2 PCR Nasal Parainfluen 3 PCR Nasal Parainfluen 4 PCR Nasal RSV (PCR) Nasal Screen MRSA (PCR) (NEGATIVE) Nasal B.pertussis DNA PCR Nasal C.pneumoniae (PCR) Mathew Human Metapneumo PCR Nasal M.pneumoniae (PCR) Nasal SARS-CoV-2 (PCR) Serum Ketones (NEGATIVE) 04/14/21 04/14/21 04/14/21 Range/Units 02:58 02:00 00:50 WBC (4.8-10.8) x10^3/uL RBC (4.20-5.40) 10^6/uL Hgb (12.0-16.0) g/dL Hct (37.0-47.0) % MCV (81.0-99.0) fL MCH (27.0-31.0) pg MCHC (32.0-36.0) g/dL RDW (12.0-15.0) % Plt Count (130-450) 10^3/uL MPV (7.9-10.8) fL Neut # (Auto) (1.5-6.6) 10^3/uL Lymph # (Auto) (1.5-3.5) 10^3/uL [facility] # (Auto) (0.0-1.0) 10^3/uL Eos # (Auto) (0.0-0.7) 10^3/uL Baso # (Auto) (0.0-0.1) 10^3/uL Absolute Nucleated RBC x10^3/uL Nucleated RBC % /100WBC PT (9.9-12.6) secs INR (0.8-1.2) APTT (24.9-33.3) secs VBG pH (7.31-7.41) VBG pCO2 (41-51) mmHg VBG pO2 (25-47) mmHg VBG HCO3 (23-28) mmol/L VBG Total CO2 (24-29) mmol/L VBG O2 Saturation (60-80) % VBG Base Excess (-2 - +2) mmol/L Sodium 137 (135-145) mmol/L Potassium 4.2 (3.5-5.0) mmol/L Chloride 105 (101-111) mmol/L Carbon Dioxide 14 L (21-32) mmol/L Anion Gap 18.0 H (6-13) BUN 17 (6-20) mg/dL Creatinine 0.9 (0.4-1.0) mg/dL Estimated GFR (MDRD) 61 L (>89) Glucose 190 H (70-100) mg/dL POC Whole Bld Glucose 108 H 95 (70 - 100) mg/dL Lactic Acid (0.5-2.2) mmol/L Calcium 9.8 (8.5-10.3) mg/dL Phosphorus 2.3 L (2.5-4.6) mg/dL Magnesium 2.0 (1.7-2.8) mg/dL Iron (28-170) ug/dL TIBC (250-450) ug/dL % Saturation (20-50) % Transferrin (192-382) mg/dL Ferritin (11.0-306.8) ng/mL Total Bilirubin (0.2-1.0) mg/dL AST (10-42) IU/L ALT (10-60) IU/L Alkaline Phosphatase (42-121) IU/L Total Protein (6.7-8.2) g/dL Albumin (3.2-5.5) g/dL Globulin (2.1-4.2) g/dL Albumin/Globulin Ratio (1.0-2.2) Lipase (22-51) U/L Urine Color Urine Clarity (CLEAR) Urine pH (5.0-7.5) PH Ur Specific [place] (1.002-1.030) Urine Protein (NEGATIVE) mg/dL Urine Glucose (UA) (NEGATIVE) mg/dL Urine Ketones (NEGATIVE) mg/dL Urine Occult Blood (NEGATIVE) Urine Nitrite (NEGATIVE) Urine Bilirubin (NEGATIVE) Urine Urobilinogen (NORMAL) E.U./dL Ur Leukocyte Esterase (NEGATIVE) Ur Microscopic Review Urine Culture Comments Nasal Adenovirus (PCR) Nasal B. parapertussis DNA (PCR) Nasal Coronavir 229E PCR Nasal Coronavir HKU1 PCR Nasal Coronavir NL63 PCR Nasal Coronavir OC43 PCR Nasal Enterovir/Rhinovir PCR Nasal Influenza B PCR Nasal Influenza A PCR Nasal Parainfluen 1 PCR Nasal Parainfluen 2 PCR Nasal Parainfluen 3 PCR Nasal Parainfluen 4 PCR Nasal RSV (PCR) Nasal Screen MRSA (PCR) (NEGATIVE) Nasal B.pertussis DNA PCR Nasal C.pneumoniae (PCR) Mathew Human Metapneumo PCR Nasal M.pneumoniae (PCR) Nasal SARS-CoV-2 (PCR) Serum Ketones (NEGATIVE) 04/14/21 04/14/21 04/13/21 Range/Units 00:49 00:01 23:16 WBC (4.8-10.8) x10^3/uL RBC (4.20-5.40) 10^6/uL Hgb (12.0-16.0) g/dL Hct (37.0-47.0) % MCV (81.0-99.0) fL MCH (27.0-31.0) pg MCHC (32.0-36.0) g/dL RDW (12.0-15.0) % Plt Count (130-450) 10^3/uL MPV (7.9-10.8) fL Neut # (Auto) (1.5-6.6) 10^3/uL Lymph # (Auto) (1.5-3.5) 10^3/uL [facility] # (Auto) (0.0-1.0) 10^3/uL Eos # (Auto) (0.0-0.7) 10^3/uL Baso # (Auto) (0.0-0.1) 10^3/uL Absolute Nucleated RBC x10^3/uL Nucleated RBC % /100WBC PT (9.9-12.6) secs INR (0.8-1.2) APTT (24.9-33.3) secs VBG pH (7.31-7.41) VBG pCO2 (41-51) mmHg VBG pO2 (25-47) mmHg VBG HCO3 (23-28) mmol/L VBG Total CO2 (24-29) mmol/L VBG O2 Saturation (60-80) % VBG Base Excess (-2 - +2) mmol/L Sodium (135-145) mmol/L Potassium (3.5-5.0) mmol/L Chloride (101-111) mmol/L Carbon Dioxide (21-32) mmol/L Anion Gap (6-13) BUN (6-20) mg/dL Creatinine (0.4-1.0) mg/dL Estimated GFR (MDRD) (>89) Glucose (70-100) mg/dL POC Whole Bld Glucose 160 H 223 H 267 H (70 - 100) mg/dL Lactic Acid (0.5-2.2) mmol/L Calcium (8.5-10.3) mg/dL Phosphorus (2.5-4.6) mg/dL Magnesium (1.7-2.8) mg/dL Iron (28-170) ug/dL TIBC (250-450) ug/dL % Saturation (20-50) % Transferrin (192-382) mg/dL Ferritin (11.0-306.8) ng/mL Total Bilirubin (0.2-1.0) mg/dL AST (10-42) IU/L ALT (10-60) IU/L Alkaline Phosphatase (42-121) IU/L Total Protein (6.7-8.2) g/dL Albumin (3.2-5.5) g/dL Globulin (2.1-4.2) g/dL Albumin/Globulin Ratio (1.0-2.2) Lipase (22-51) U/L Urine Color Urine Clarity (CLEAR) Urine pH (5.0-7.5) PH Ur Specific [place] (1.002-1.030) Urine Protein (NEGATIVE) mg/dL Urine Glucose (UA) (NEGATIVE) mg/dL Urine Ketones (NEGATIVE) mg/dL Urine Occult Blood (NEGATIVE) Urine Nitrite (NEGATIVE) Urine Bilirubin (NEGATIVE) Urine Urobilinogen (NORMAL) E.U./dL Ur Leukocyte Esterase (NEGATIVE) Ur Microscopic Review Urine Culture Comments Nasal Adenovirus (PCR) Nasal B. parapertussis DNA (PCR) Nasal Coronavir 229E PCR Nasal Coronavir HKU1 PCR Nasal Coronavir NL63 PCR Nasal Coronavir OC43 PCR Nasal Enterovir/Rhinovir PCR Nasal Influenza B PCR Nasal Influenza A PCR Nasal Parainfluen 1 PCR Nasal Parainfluen 2 PCR Nasal Parainfluen 3 PCR Nasal Parainfluen 4 PCR Nasal RSV (PCR) Nasal Screen MRSA (PCR) (NEGATIVE) Nasal B.pertussis DNA PCR Nasal C.pneumoniae (PCR) Mathew Human Metapneumo PCR Nasal M.pneumoniae (PCR) Nasal SARS-CoV-2 (PCR) Serum Ketones (NEGATIVE) 04/13/21 04/13/21 04/13/21 Range/Units 22:20 22:11 21:37 WBC (4.8-10.8) x10^3/uL RBC (4.20-5.40) 10^6/uL Hgb (12.0-16.0) g/dL Hct (37.0-47.0) % MCV (81.0-99.0) fL MCH (27.0-31.0) pg MCHC (32.0-36.0) g/dL RDW (12.0-15.0) % Plt Count (130-450) 10^3/uL MPV (7.9-10.8) fL Neut # (Auto) (1.5-6.6) 10^3/uL Lymph # (Auto) (1.5-3.5) 10^3/uL [facility] # (Auto) (0.0-1.0) 10^3/uL Eos # (Auto) (0.0-0.7) 10^3/uL Baso # (Auto) (0.0-0.1) 10^3/uL Absolute Nucleated RBC x10^3/uL Nucleated RBC % /100WBC PT (9.9-12.6) secs INR (0.8-1.2) APTT (24.9-33.3) secs VBG pH (7.31-7.41) VBG pCO2 (41-51) mmHg VBG pO2 (25-47) mmHg VBG HCO3 (23-28) mmol/L VBG Total CO2 (24-29) mmol/L VBG O2 Saturation (60-80) % VBG Base Excess (-2 - +2) mmol/L Sodium (135-145) mmol/L Potassium (3.5-5.0) mmol/L Chloride (101-111) mmol/L Carbon Dioxide (21-32) mmol/L Anion Gap (6-13) BUN (6-20) mg/dL Creatinine (0.4-1.0) mg/dL Estimated GFR (MDRD) (>89) Glucose (70-100) mg/dL POC Whole Bld Glucose 430 H 454 H (70 - 100) mg/dL Lactic Acid (0.5-2.2) mmol/L Calcium (8.5-10.3) mg/dL Phosphorus (2.5-4.6) mg/dL Magnesium (1.7-2.8) mg/dL Iron (28-170) ug/dL TIBC (250-450) ug/dL % Saturation (20-50) % Transferrin (192-382) mg/dL Ferritin (11.0-306.8) ng/mL Total Bilirubin (0.2-1.0) mg/dL AST (10-42) IU/L ALT (10-60) IU/L Alkaline Phosphatase (42-121) IU/L Total Protein (6.7-8.2) g/dL Albumin (3.2-5.5) g/dL Globulin (2.1-4.2) g/dL Albumin/Globulin Ratio (1.0-2.2) Lipase (22-51) U/L Urine Color Urine Clarity (CLEAR) Urine pH (5.0-7.5) PH Ur Specific [place] (1.002-1.030) Urine Protein (NEGATIVE) mg/dL Urine Glucose (UA) (NEGATIVE) mg/dL Urine Ketones (NEGATIVE) mg/dL Urine Occult Blood (NEGATIVE) Urine Nitrite (NEGATIVE) Urine Bilirubin (NEGATIVE) Urine Urobilinogen (NORMAL) E.U./dL Ur Leukocyte Esterase (NEGATIVE) Ur Microscopic Review Urine Culture Comments Nasal Adenovirus (PCR) Nasal B. parapertussis DNA (PCR) Nasal Coronavir 229E PCR Nasal Coronavir HKU1 PCR Nasal Coronavir NL63 PCR Nasal Coronavir OC43 PCR Nasal Enterovir/Rhinovir PCR Nasal Influenza B PCR Nasal Influenza A PCR Nasal Parainfluen 1 PCR Nasal Parainfluen 2 PCR Nasal Parainfluen 3 PCR Nasal Parainfluen 4 PCR Nasal RSV (PCR) Nasal Screen MRSA (PCR) NEGATIVE (NEGATIVE) Nasal B.pertussis DNA PCR Nasal C.pneumoniae (PCR) Mathew Human Metapneumo PCR Nasal M.pneumoniae (PCR) Nasal SARS-CoV-2 (PCR) Serum Ketones (NEGATIVE) 04/13/21 04/13/21 04/13/21 Range/Units 21:14 20:51 20:21 WBC (4.8-10.8) x10^3/uL RBC (4.20-5.40) 10^6/uL Hgb (12.0-16.0) g/dL Hct (37.0-47.0) % MCV (81.0-99.0) fL MCH (27.0-31.0) pg MCHC (32.0-36.0) g/dL RDW (12.0-15.0) % Plt Count (130-450) 10^3/uL MPV (7.9-10.8) fL Neut # (Auto) (1.5-6.6) 10^3/uL Lymph # (Auto) (1.5-3.5) 10^3/uL [facility] # (Auto) (0.0-1.0) 10^3/uL Eos # (Auto) (0.0-0.7) 10^3/uL Baso # (Auto) (0.0-0.1) 10^3/uL Absolute Nucleated RBC x10^3/uL Nucleated RBC % /100WBC PT (9.9-12.6) secs INR (0.8-1.2) APTT (24.9-33.3) secs VBG pH (7.31-7.41) VBG pCO2 (41-51) mmHg VBG pO2 (25-47) mmHg VBG HCO3 (23-28) mmol/L VBG Total CO2 (24-29) mmol/L VBG O2 Saturation (60-80) % VBG Base Excess (-2 - +2) mmol/L Sodium 129 L (135-145) mmol/L Potassium 5.1 H (3.5-5.0) mmol/L Chloride 95 L (101-111) mmol/L Carbon Dioxide 9 L* (21-32) mmol/L Anion Gap 25.0 H (6-13) BUN 19 (6-20) mg/dL Creatinine 1.1 H (0.4-1.0) mg/dL Estimated GFR (MDRD) 49 L (>89) Glucose 508 H* (70-100) mg/dL POC Whole Bld Glucose (70 - 100) mg/dL Lactic Acid (0.5-2.2) mmol/L Calcium 10.0 (8.5-10.3) mg/dL Phosphorus 3.6 (2.5-4.6) mg/dL Magnesium 2.1 (1.7-2.8) mg/dL Iron (28-170) ug/dL TIBC (250-450) ug/dL % Saturation (20-50) % Transferrin (192-382) mg/dL Ferritin (11.0-306.8) ng/mL Total Bilirubin (0.2-1.0) mg/dL AST (10-42) IU/L ALT (10-60) IU/L Alkaline Phosphatase (42-121) IU/L Total Protein (6.7-8.2) g/dL Albumin (3.2-5.5) g/dL Globulin (2.1-4.2) g/dL Albumin/Globulin Ratio (1.0-2.2) Lipase (22-51) U/L Urine Color YELLOW Urine Clarity CLEAR (CLEAR) Urine pH 5.5 (5.0-7.5) PH Ur Specific [place] 1.025 (1.002-1.030) Urine Protein NEGATIVE (NEGATIVE) mg/dL Urine Glucose (UA) >=1000 H (NEGATIVE) mg/dL Urine Ketones >=80 H (NEGATIVE) mg/dL Urine Occult Blood TRACE-INTA (NEGATIVE) Urine Nitrite NEGATIVE (NEGATIVE) Urine Bilirubin NEGATIVE (NEGATIVE) Urine Urobilinogen 0.2 (NORMAL) (NORMAL) E.U./dL Ur Leukocyte Esterase NEGATIVE (NEGATIVE) Ur Microscopic Review NOT INDICATED Urine Culture Comments NOT INDICATED Nasal Adenovirus (PCR) NOT DETECTED Nasal B. parapertussis DNA (PCR) NOT DETECTED Nasal Coronavir 229E PCR NOT DETECTED Nasal Coronavir HKU1 PCR NOT DETECTED Nasal Coronavir NL63 PCR NOT DETECTED Nasal Coronavir OC43 PCR NOT DETECTED Nasal Enterovir/Rhinovir PCR NOT DETECTED Nasal Influenza B PCR NOT DETECTED Nasal Influenza A PCR NOT DETECTED Nasal Parainfluen 1 PCR NOT DETECTED Nasal Parainfluen 2 PCR NOT DETECTED Nasal Parainfluen 3 PCR NOT DETECTED Nasal Parainfluen 4 PCR NOT DETECTED Nasal RSV (PCR) NOT DETECTED Nasal Screen MRSA (PCR) (NEGATIVE) Nasal B.pertussis DNA PCR NOT DETECTED Nasal C.pneumoniae (PCR) NOT DETECTED Mathew Human Metapneumo PCR NOT DETECTED Nasal M.pneumoniae (PCR) NOT DETECTED Nasal SARS-CoV-2 (PCR) NOT DETECTED Serum Ketones (NEGATIVE) 04/13/21 04/13/21 04/13/21 Range/Units 20:08 19:50 19:50 WBC (4.8-10.8) x10^3/uL RBC (4.20-5.40) 10^6/uL Hgb (12.0-16.0) g/dL Hct (37.0-47.0) % MCV (81.0-99.0) fL MCH (27.0-31.0) pg MCHC (32.0-36.0) g/dL RDW (12.0-15.0) % Plt Count (130-450) 10^3/uL MPV (7.9-10.8) fL Neut # (Auto) (1.5-6.6) 10^3/uL Lymph # (Auto) (1.5-3.5) 10^3/uL [facility] # (Auto) (0.0-1.0) 10^3/uL Eos # (Auto) (0.0-0.7) 10^3/uL Baso # (Auto) (0.0-0.1) 10^3/uL Absolute Nucleated RBC x10^3/uL Nucleated RBC % /100WBC PT (9.9-12.6) secs INR (0.8-1.2) APTT (24.9-33.3) secs VBG pH 7.123 L (7.31-7.41) VBG pCO2 27.0 L (41-51) mmHg VBG pO2 41.7 (25-47) mmHg VBG HCO3 8.6 L (23-28) mmol/L VBG Total CO2 9.5 L (24-29) mmol/L VBG O2 Saturation 71.8 (60-80) % VBG Base Excess -19.2 L (-2 - +2) mmol/L Sodium (135-145) mmol/L Potassium (3.5-5.0) mmol/L Chloride (101-111) mmol/L Carbon Dioxide (21-32) mmol/L Anion Gap (6-13) BUN (6-20) mg/dL Creatinine (0.4-1.0) mg/dL Estimated GFR (MDRD) (>89) Glucose (70-100) mg/dL POC Whole Bld Glucose (70 - 100) mg/dL Lactic Acid 1.9 (0.5-2.2) mmol/L Calcium (8.5-10.3) mg/dL Phosphorus (2.5-4.6) mg/dL Magnesium (1.7-2.8) mg/dL Iron (28-170) ug/dL TIBC (250-450) ug/dL % Saturation (20-50) % Transferrin (192-382) mg/dL Ferritin (11.0-306.8) ng/mL Total Bilirubin (0.2-1.0) mg/dL AST (10-42) IU/L ALT (10-60) IU/L Alkaline Phosphatase (42-121) IU/L Total Protein (6.7-8.2) g/dL Albumin (3.2-5.5) g/dL Globulin (2.1-4.2) g/dL Albumin/Globulin Ratio (1.0-2.2) Lipase (22-51) U/L Urine Color Urine Clarity (CLEAR) Urine pH (5.0-7.5) PH Ur Specific [place] (1.002-1.030) Urine Protein (NEGATIVE) mg/dL Urine Glucose (UA) (NEGATIVE) mg/dL Urine Ketones (NEGATIVE) mg/dL Urine Occult Blood (NEGATIVE) Urine Nitrite (NEGATIVE) Urine Bilirubin (NEGATIVE) Urine Urobilinogen (NORMAL) E.U./dL Ur Leukocyte Esterase (NEGATIVE) Ur Microscopic Review Urine Culture Comments Nasal Adenovirus (PCR) Nasal B. parapertussis DNA (PCR) Nasal Coronavir 229E PCR Nasal Coronavir HKU1 PCR Nasal Coronavir NL63 PCR Nasal Coronavir OC43 PCR Nasal Enterovir/Rhinovir PCR Nasal Influenza B PCR Nasal Influenza A PCR Nasal Parainfluen 1 PCR Nasal Parainfluen 2 PCR Nasal Parainfluen 3 PCR Nasal Parainfluen 4 PCR Nasal RSV (PCR) Nasal Screen MRSA (PCR) (NEGATIVE) Nasal B.pertussis DNA PCR Nasal C.pneumoniae (PCR) Mathew Human Metapneumo PCR Nasal M.pneumoniae (PCR) Nasal SARS-CoV-2 (PCR) Serum Ketones SMALL H (NEGATIVE) 04/13/21 04/13/21 04/13/21 Range/Units 19:50 19:50 19:50 WBC 14.9 H (4.8-10.8) x10^3/uL RBC 3.51 L (4.20-5.40) 10^6/uL Hgb 10.2 L (12.0-16.0) g/dL Hct 34.0 L (37.0-47.0) % MCV 96.9 (81.0-99.0) fL MCH 29.1 (27.0-31.0) pg MCHC 30.0 L (32.0-36.0) g/dL RDW 13.4 (12.0-15.0) % Plt Count 780 H (130-450) 10^3/uL MPV 8.8 (7.9-10.8) fL Neut # (Auto) 11.8 H (1.5-6.6) 10^3/uL Lymph # (Auto) 1.9 (1.5-3.5) 10^3/uL [place] # (Auto) 0.8 (0.0-1.0) 10^3/uL Eos # (Auto) 0.1 (0.0-0.7) 10^3/uL Baso # (Auto) 0.1 (0.0-0.1) 10^3/uL Absolute Nucleated RBC 0.00 x10^3/uL Nucleated RBC % 0.0 /100WBC PT 11.4 (9.9-12.6) secs INR 1.0 (0.8-1.2) APTT 29.0 (24.9-33.3) secs VBG pH (7.31-7.41) VBG pCO2 (41-51) mmHg VBG pO2 (25-47) mmHg VBG HCO3 (23-28) mmol/L VBG Total CO2 (24-29) mmol/L VBG O2 Saturation (60-80) % VBG Base Excess (-2 - +2) mmol/L Sodium 129 L (135-145) mmol/L Potassium 4.9 (3.5-5.0) mmol/L Chloride 93 L (101-111) mmol/L Carbon Dioxide 10 L* (21-32) mmol/L Anion Gap 26.0 H (6-13) BUN 19 (6-20) mg/dL Creatinine 1.2 H (0.4-1.0) mg/dL Estimated GFR (MDRD) 44 L (>89) Glucose 557 H* (70-100) mg/dL POC Whole Bld Glucose (70 - 100) mg/dL Lactic Acid (0.5-2.2) mmol/L Calcium 10.2 (8.5-10.3) mg/dL Phosphorus (2.5-4.6) mg/dL Magnesium (1.7-2.8) mg/dL Iron (28-170) ug/dL TIBC (250-450) ug/dL % Saturation (20-50) % Transferrin (192-382) mg/dL Ferritin (11.0-306.8) ng/mL Total Bilirubin 2.0 H (0.2-1.0) mg/dL AST 20 (10-42) IU/L ALT 18 (10-60) IU/L Alkaline Phosphatase 119 (42-121) IU/L Total Protein 7.6 (6.7-8.2) g/dL Albumin 3.7 (3.2-5.5) g/dL Globulin 3.9 (2.1-4.2) g/dL Albumin/Globulin Ratio 0.9 L (1.0-2.2) Lipase 19 L (22-51) U/L Urine Color Urine Clarity (CLEAR) Urine pH (5.0-7.5) PH Ur Specific [place] (1.002-1.030) Urine Protein (NEGATIVE) mg/dL Urine Glucose (UA) (NEGATIVE) mg/dL Urine Ketones (NEGATIVE) mg/dL Urine Occult Blood (NEGATIVE) Urine Nitrite (NEGATIVE) Urine Bilirubin (NEGATIVE) Urine Urobilinogen (NORMAL) E.U./dL Ur Leukocyte Esterase (NEGATIVE) Ur Microscopic Review Urine Culture Comments Nasal Adenovirus (PCR) Nasal B. parapertussis DNA (PCR) Nasal Coronavir 229E PCR Nasal Coronavir HKU1 PCR Nasal Coronavir NL63 PCR Nasal Coronavir OC43 PCR Nasal Enterovir/Rhinovir PCR Nasal Influenza B PCR Nasal Influenza A PCR Nasal Parainfluen 1 PCR Nasal Parainfluen 2 PCR Nasal Parainfluen 3 PCR Nasal Parainfluen 4 PCR Nasal RSV (PCR) Nasal Screen MRSA (PCR) (NEGATIVE) Nasal B.pertussis DNA PCR Nasal C.pneumoniae (PCR) Mathew Human Metapneumo PCR Nasal M.pneumoniae (PCR) Nasal SARS-CoV-2 (PCR) Serum Ketones (NEGATIVE) Assessment/Plan - Problem List (1) DKA (diabetic ketoacidosis) Impression: Diabetic acidosis given the elevated blood glucose, anion gap, decreased bicarbonate and positive ketones. She was given IV fluids and insulin in the emergency department. Continued on IV insulin drip and administered another liter of saline. Labs were every 4 hours anion gap is closed, glucose is 170s. +maintain IV drip @ 1 unit/hr until I can verify her meds from home by pharmacy and start them + Check A1c. +start clear liquid diet this am. Qualifiers: Diabetes mellitus type: type 1 Diabetes mellitus complication detail: without coma Qualified Code(s): E10.10 - Type 1 diabetes mellitus with ketoacidosis without coma (2) Metabolic encephalopathy improved but still "sleepy" Conclusion/Plan: This appears related to the diabetic ketoacidosis. Better esponse to questions right now but she can't remember her home meds. No obvious focal deficits on exam to suggest a stroke. We will treat underlying DKA and reassess. Continue to hold off on CT for the time being. (3) Status post laminectomy with spinal fusion Conclusion/Plan: She is status post laminectomy and spinal fusion on March 31 at [place] in [place] by Dr. Cespedes. Low suspicion for infection at this point. Will use Tylenol as needed for pain control. She does say she hurts this am. If continues, add oxycodone prn. (4) Thrombocytosis Conclusion/Plan: Her platelet count is elevated at 780 and this was within normal limits about 5 weeks ago. Suspect this is likely reactive. There is currently no evidence of infection. This may be related to iron deficiency anemia or hemoconcentration. Order iron studies and repeat CBC this am shows platelets down to 544. (5) Type 1 diabetes mellitus Conclusion/Plan: She is now admitted with DKA. Management as mentioned above. We will check an A1c and transition to subcutaneous insulin when appropriate. (6) Anxiety Conclusion/Plan: Stable. We will resume her home citalopram and buspirone tomorrow. (7) Asthma Conclusion/Plan: Not in exacerbation. We will continue her home budesonide and albuterol as needed. Qualifiers: Qualified Code(s): E10.10 - Type 1 diabetes mellitus with ketoacidosis without coma
[2021-04-14 09:54] LABS: ESTIMATED AVERAGE GLUCOSE 171 mg/dL (70-100); HEMOGLOBIN A1c% 7.6 % (4.27-6.07)
[2021-04-14 10:08] LABS: % IRON SATURATION 10 % (20-50); IRON 27 ug/dL (28-170); TOTAL IRON BINDING CAPACITY 260 ug/dL (250-450); TRANSFERRIN 186 mg/dL (192-382)
--- NOTE | 2021-04-14 10:41 | PHARMACY PROGRESS NOTE ---
- Best Possible Medication History Admit Date and Time: 04/13/21 2100 Processed by: Pharmacy Medication History completed: Yes Patient Interview: Pt unable to participate (Medication history obtained through insurance records) As the person ultimately responsible for medication therapy, providers are able to order a medication from an existing home medication list in [facility] via the "Reconcile Routine" prior to Confirmation of that medication by residential support worker. Such practice is discouraged except when the physician, in their clinical judgment, deems that a medical need exists for a medication without regard to previous use.
[2021-04-14 11:16] LABS: CREATININE 0.5 mg/dL (0.4-1.0); POTASSIUM 3.8 mmol/L (3.5-5.0)
[2021-04-14 11:17] LABS: CALCIUM 9.6 mg/dL (8.5-10.3)
[2021-04-14 11:35] LABS: MAGNESIUM 2.8 mg/dL (1.7-2.8); PHOSPHORUS 2.3 mg/dL (2.5-4.6)
[2021-04-14] MEDS ORDERED: POTASSIUM CHLORIDE 20 MEQ TABLET PO ONE (11:42)
[2021-04-14] MEDS: INSULIN ASPART 300 UNIT/3 ML PEN SUBQ SCH ×5 (11:59→20:35)
[2021-04-14] MEDS ORDERED: INSULIN GLARGINE 300 UNIT/3 ML PEN SUBQ SCH ×2 (12:00→21:00)
[2021-04-14 13:37] LABS: CALCIUM 9.8 mg/dL (8.5-10.3); CREATININE 0.7 mg/dL (0.4-1.0); POTASSIUM 3.9 mmol/L (3.5-5.0)
[2021-04-14] MEDS ORDERED: BACITRACIN ZINC OINT 1 PACKET TOP PRN (14:39)
[2021-04-14] MEDS ORDERED: COD LIVER OIL/ZINC OXIDE 113 GM TUBE TOP PRN (14:55)
[2021-04-15] MEDS: oxyCODONE 5 MG TABLET PO PRN ×2 (00:56→06:21)
[2021-04-15 04:52] LABS: BASOPHILS # (AUTO) 0.1 10^3/uL (0.0-0.1); BASOPHILS % (AUTO) 0.9 %; EOSINOPHILS # (AUTO) 0.2 10^3/uL (0.0-0.7); EOSINOPHILS % (AUTO) 3.2 %; HCT - HEMATOCRIT 27.9 % (37.0-47.0); HGB - HEMOGLOBIN 8.9 g/dL (12.0-16.0); LYMPHOCYTES # (AUTO) 1.4 10^3/uL (1.5-3.5); LYMPHOCYTES % (AUTO) 26.3 %; MEAN CORPUSCULAR HEMOGLOBIN 29.6 pg (27.0-31.0); MEAN CORPUSCULAR HGB CONC 31.9 g/dL (32.0-36.0); MEAN CORPUSCULAR VOLUME 92.7 fL (81.0-99.0); MEAN PLATELET VOLUME 8.8 fL (7.9-10.8); MONOCYTES # (AUTO) 0.6 10^3/uL (0.0-1.0); MONOCYTES % (AUTO) 10.8 %; NEUTROPHILS # (AUTO) 3.1 10^3/uL (1.5-6.6); NEUTROPHILS % (AUTO) 58.4 %; PLT - PLATELET COUNT 501 10^3/uL (130-450); RED BLOOD COUNT 3.01 10^6/uL (4.20-5.40); RED CELL DISTRIBUTION WIDTH 13.4 % (12.0-15.0); WHITE BLOOD COUNT 5.4 x10^3/uL (4.8-10.8)
[2021-04-15 05:06] LABS: CALCIUM 9.1 mg/dL (8.5-10.3); CREATININE 0.6 mg/dL (0.4-1.0); PHOSPHORUS 2.2 mg/dL (2.5-4.6); POTASSIUM 3.9 mmol/L (3.5-5.0)
[2021-04-15] MEDS: methocarbamoL 500 MG TABLET PO PRN ×2 (06:21→16:16)
[2021-04-15] MEDS ORDERED: ALPRAZolam 0.25 MG TABLET PO PRN (07:26)
[2021-04-15] MEDS ORDERED: ZOLPIDEM 5 MG TABLET PO PRN (07:26)
[2021-04-15] MEDS ORDERED: traZODone 50 MG TABLET PO PRN (07:26)
[2021-04-15] MEDS: INSULIN GLARGINE 300 UNIT/3 ML PEN SUBQ SCH (07:34)
[2021-04-15] MEDS: INSULIN ASPART 300 UNIT/3 ML PEN SUBQ SCH ×7 (07:35→21:24)
[2021-04-15] MEDS ORDERED: INSULIN ASPART 300 UNIT/3 ML PEN SUBQ SCH (08:00)
[2021-04-15] MEDS: NEUTRA-PHOS 250 MG TABLET PO SCH ×2 (08:21→11:23)
[2021-04-15] MEDS: oxyCODONE 5 MG TABLET PO SCH ×4 (08:21→21:15)
[2021-04-15] MEDS: busPIRone 5 MG TABLET PO SCH ×2 (08:22→21:16)
[2021-04-15] MEDS: ASCORBIC ACID 500 MG TABLET PO SCH (08:22)
[2021-04-15] MEDS: ASPIRIN CHEW 81 MG TABLET PO SCH (08:22)
[2021-04-15] MEDS: POTASSIUM CHLORIDE 20 MEQ TABLET PO SCH ×2 (08:22→11:22)
[2021-04-15] MEDS: CHOLECALCIFEROL 400 UNIT TABLET PO SCH ×2 (08:23→21:16)
[2021-04-15] MEDS: CALCIUM CARB (OYSTER SHELL) 500 MG TABLET PO SCH ×2 (08:23→21:16)
[2021-04-15] MEDS: CYANOCOBALAMIN 500 MCG TABLET PO SCH (08:23)
[2021-04-15] MEDS: ESCITALOPRAM 10 MG TABLET PO SCH (08:24)
[2021-04-15] MEDS: ENOXAPARIN 40 MG/0.4 ML SYRINGE SUBQ SCH (08:24)
[2021-04-15] MEDS: GABAPENTIN 100 MG CAPSULE PO SCH ×2 (08:24→21:17)
[2021-04-15] MEDS: SODIUM CHLORIDE FLUSH 0.9% 10 ML SYRINGE IVP SCH ×3 (08:25→21:24)
[2021-04-15] MEDS: LOSARTAN 50 MG TABLET PO SCH (08:25)
[2021-04-15] MEDS: ALBUTEROL NEB 2.5 MG/3 ML INH PRN (08:58)
[2021-04-15] MEDS: BUDESONIDE 0.5 MG/2 ML NEB INH SCH ×2 (08:58→22:31)
[2021-04-15] MEDS ORDERED: VITAMIN B COMPLEX PO SCH (09:00)
[2021-04-15] MEDS ORDERED: METHOCARBAMOL 750 MG PO SCH (09:00)
--- NOTE | 2021-04-15 10:52 | PROVIDER PROGRESS NOTE ---
Subjective - Prog Note Date Prog Note Date: 04/15/21 Prog Note Time: 10:51 - Subjective Pt reports feeling: Improved Subjective: RN reports that patient was able to sleep well overnight and tolerated morning breakfast. She is not having difficulty oral intake. RN states that patient has appeared to have confusion throughout the morning. At care conference it was mentioned that the patient us unable to answer questions appropriately and that she cannot tell us about her medication regiment. Upon entering room patient is awake, oriented, and answered my questions. She does not appear obviously confused during casual conversation, but her inability to answer questions appropriately is apparent. She has occasional word finding difficulty. Pt reports improvement of her back pain, nausea, and confusion. When asked about her DM management, she mentioned that [place] has an [place] "Doctor of Nursing Police Liaison Officer" that comes to her house once or twice a month to help her DM management. There is currently no documentation available indicating who this specialist is. She feels that she was taking her medication appropriately. Discussion with the revealed that he does not know her medication dosages or timing. She is anxious about her pain and does not want to move around even after being educated on the importance of maintaining mobility for her condition. She was informed that she would continue to be monitored and that medication dosages may be altered during her stay. She has no additional needs at this time other than a diet coke which will be provided. Current Medications - Current Medications Current Medications: Active Medications Acetaminophen (Acetaminophen 325 Mg Tablet) 650 mg PO Q4HR PRN PRN Reason: Pain 1 to 4 Last Admin: 04/14/21 04:16 Dose: 650 mg Documented by: Albuterol (Albuterol Neb 2.5 Mg/3 Ml) 2.5 mg INH RTQ4H PRN PRN Reason: Wheezing Last Admin: 04/15/21 08:58 Dose: 2.5 mg Documented by: Alprazolam (Alprazolam 0.25 Mg Tablet) 0.25 mg PO DAILY PRN PRN Reason: Anxiety Ascorbic Acid (Ascorbic Acid 500 Mg Tablet) 500 mg PO DAILY [facility] Last Admin: 04/15/21 08:22 Dose: 500 mg Documented by: Aspirin (Aspirin Chew 81 Mg Tablet) 81 mg PO DAILY [facility] Last Admin: 04/15/21 08:22 Dose: 81 mg Documented by: Atorvastatin Calcium (Atorvastatin 10 Mg Tablet) 10 mg PO QPM [facility] Bacitracin (Bacitracin Zinc Oint 1 Packet) 1 packet TOP PRN PRN PRN Reason: Skin Care Last Admin: 04/14/21 15:10 Dose: 4 packet Documented by: Budesonide (Budesonide 0.5 Mg/2 Ml Neb) 0.5 mg INH BID [facility] Last Admin: 04/15/21 08:58 Dose: 0.5 mg Documented by: Buspirone HCl (Buspirone 5 Mg Tablet) 20 mg PO BID [facility] Last Admin: 04/15/21 08:22 Dose: 20 mg Documented by: Calcium Carbonate/Glycine (Calcium Carb (Oyster Shell) 500 Mg Tablet) 500 mg PO BID [facility] Last Admin: 04/15/21 08:23 Dose: 500 mg Documented by: Cholecalciferol (Cholecalciferol 400 Unit Tablet) 400 unit PO BID [facility] Last Admin: 04/15/21 08:23 Dose: 400 unit Documented by: Cyanocobalamin (Cyanocobalamin 500 Mcg Tablet) 500 mcg PO DAILY [facility] Last Admin: 04/15/21 08:23 Dose: 500 mcg Documented by: Docusate Sodium (Docusate Sodium 250 Mg Capsule) 250 - 500 mg PO DAILY [facility] Enoxaparin Sodium (Enoxaparin 40 Mg/0.4 Ml Syringe) 40 mg SUBQ DAILY [facility] Last Admin: 04/15/21 08:24 Dose: 40 mg Documented by: Escitalopram Oxalate (Escitalopram 10 Mg Tablet) 20 mg PO DAILY [facility] Last Admin: 04/15/21 08:24 Dose: 20 mg Documented by: Gabapentin (Gabapentin 100 Mg Capsule) 100 mg PO BID [facility] Last Admin: 04/15/21 08:24 Dose: 100 mg Documented by: Insulin Aspart (Insulin Aspart 300 Unit/3 Ml Pen) 1 - 5 unit SUBQ 0800,1200,1700,2100 [facility]; Protocol Last Admin: 04/15/21 07:35 Dose: 5 unit Documented by: Insulin Aspart (Insulin Aspart 300 Unit/3 Ml Pen) 7 unit SUBQ TIDWM [facility]; Protocol Last Admin: 04/15/21 07:35 Dose: 7 unit Documented by: Insulin Glargine (Insulin Glargine 300 Unit/3 Ml Pen) 10 unit SUBQ QPM [facility] Last Admin: 04/14/21 20:37 Dose: 10 unit Documented by: Insulin Glargine (Insulin Glargine 300 Unit/3 Ml Pen) 25 unit SUBQ QDBREAKFAST [facility] Last Admin: 04/15/21 07:34 Dose: 25 unit Documented by: Losartan Potassium (Losartan 50 Mg Tablet) 50 mg PO DAILY [facility] Last Admin: 04/15/21 08:25 Dose: 50 mg Documented by: Methocarbamol (Methocarbamol 500 Mg Tablet) 500 mg PO Q6HR PRN PRN Reason: Spasms Last Admin: 04/15/21 06:21 Dose: 500 mg Documented by: Ondansetron HCl (Ondansetron Odt 4 Mg Tablet) 4 mg TL Q6HR PRN PRN Reason: Nausea / Vomiting Ondansetron HCl (Ondansetron 4 Mg/2 Ml Vial) 4 mg IVP Q6HR PRN PRN Reason: Nausea / Vomiting Oxycodone HCl (Oxycodone 5 Mg Tablet) 5 mg PO Q4HR PRN PRN Reason: PAIN Last Admin: 04/15/21 06:21 Dose: 5 mg Documented by: Oxycodone HCl (Oxycodone 5 Mg Tablet) 5 mg PO Q4H [facility] Last Admin: 04/15/21 08:21 Dose: Not Given Documented by: Polyethylene Glycol (Polyethylene Glycol 3350 17 Gm Packet) 17 gm PO DAILY [facility] Sodium Chloride (Sodium Chloride Flush 0.9% 10 Ml Syringe) 10 ml IVP 0100,0900,1700 [facility] Last Admin: 04/15/21 08:25 Dose: 10 ml Documented by: Sodium Chloride (Sodium Chloride Flush 0.9% 10 Ml Syringe) 10 ml IVP PRN PRN PRN Reason: NEEDED PER PROVIDER ORDERS Last Admin: 04/14/21 21:09 Dose: 10 ml Documented by: Trazodone HCl (Trazodone 50 Mg Tablet) 50 mg PO QPM PRN PRN Reason: Insomnia Zinc Oxide (Cod Liver Oil/Zinc Oxide 113 Gm Tube) 113 gm TOP PRN PRN PRN Reason: Skin Care Last Admin: 04/14/21 15:53 Dose: 1 applic Documented by: Zolpidem Tartrate (Zolpidem 5 Mg Tablet) 5 mg PO QPM PRN PRN Reason: Insomnia Zolpidem Tartrate [Ambien] 5 mg PO QPM PRN 11/13/12 Insulin Lispro [Humalog] 40 - 60 unit SUBQ .INSULINPUMP 12/10/13 ALPRAZolam [Alprazolam] 0.25 mg PO DAILY PRN 09/21/19 Albuterol Sulf [Ventolin Hfa Inhaler] 1 - 2 puffs INH Q4HR PRN 09/21/19 Ascorbic Acid 500 mg PO DAILY 09/21/19 Aspirin [Children's Aspirin] 81 mg PO DAILY 09/21/19 Budesonide [Pulmicort] 2 puffs INH BID 09/21/19 Buspirone HCl 20 mg PO BID 09/21/19 Calcium Carbonate/Vitamin D3 [ Calcium 600-Vit D3 400 Tab] 1 each PO BID 09/21/19 Cyanocobalamin (Vitamin B-12) [Vitamin B-12] 500 mcg PO DAILY 09/21/19 Escitalopram Oxalate 20 mg PO DAILY 09/21/19 Vitamin B Complex [Balanced B-50] 1 tab PO DAILY 09/21/19 traZODone [Desyrel] 50 mg PO QPM PRN 09/21/19 Ondansetron HCl [Zofran] 4 mg PO QID PRN 09/08/20 methocarbamoL [Methocarbamol] 750 mg PO DAILY 04/13/21 Gabapentin [Neurontin] 100 mg PO BID 04/14/21 Insulin Glargine [Lantus Solostar] 8 - 10 units SQ BID 04/14/21 Losartan [Cozaar] 50 mg PO DAILY 04/14/21 Simvastatin [Zocor] 20 mg PO QPM 04/14/21 oxyCODONE [Roxicodone] 5 mg PO Q4H 04/14/21 Objective - Vital Signs/Intake & Output Vital Signs: Vital Signs x48h Temp Pulse Pulse Resp BP Pulse Ox 04/15/21 10:00 108 H 16 133/56 H 97 04/15/21 09:00 101 H 14 145/41 H 98 04/15/21 08:59 88 14 04/15/21 08:00 37 C 83 16 159/70 H 97 04/15/21 07:00 92 14 157/61 H 98 04/15/21 06:00 82 12 165/70 H 95 04/15/21 05:00 76 13 163/66 H 95 04/15/21 03:59 78 13 138/56 H 94 04/15/21 02:53 81 10 L 154/64 H 95 Intake & Output: Intake & Output 04/12/21 04/13/21 04/14/21 04/15/21 23:59 23:59 23:59 23:59 Intake Total 1658.865 8523.399 510 Output Total 0 1350 600 Balance 1427.197 8968.399 -90 - Objective General Appearance: positive: No acute distress, Alert, Anxious (Mild when discussing increased movement), Other (Mild confusion in answering questions about her medications.) Eyes Bilateral: positive: PERRL, EOMI ENT: positive: No signs of dehydration Neck: positive: No JVD, Trachea midline. negative: Lymphadenopathy (R), Lymphadenopathy (L) Respiratory: positive: No respiratory distress, Breath sounds nml. negative: Wheezes, Rales, Rhonchi Cardiovascular: positive: No murmur, No gallop, Tachycardia Peripheral Pulses: 1+ Radial (R), 1+ Radial (L), 1+ Dorsalis pedis (R), 1+ Dorsalis pedis (L) Abdomen: positive: Non-tender, Nml bowel sounds. negative: Guarding Skin: positive: Warm, Dry Extremities: positive: Nml appearance, No pedal edema Neurologic/Psychiatric: positive: Oriented x3, CN's nml (2-12), Motor nml, Sensation nml, Mood/affect nml, Other (word finding) Comments/Other: Due to patients pain. Did not inspect patients back. - Lab Results Fish Bones: 04/15/21 04:21 04/15/21 04:21 Other Labs: Lab Results x24hrs 04/15/21 04/15/21 04/15/21 Range/Units 07:28 04:21 04:21 WBC 5.4 (4.8-10.8) x10^3/uL RBC 3.01 L (4.20-5.40) 10^6/uL Hgb 8.9 L (12.0-16.0) g/dL Hct 27.9 L (37.0-47.0) % MCV 92.7 (81.0-99.0) fL MCH 29.6 (27.0-31.0) pg MCHC 31.9 L (32.0-36.0) g/dL RDW 13.4 (12.0-15.0) % Plt Count 501 H (130-450) 10^3/uL MPV 8.8 (7.9-10.8) fL Neut # (Auto) 3.1 (1.5-6.6) 10^3/uL [place] # (Auto) 0.6 (0.0-1.0) 10^3/uL Eos # (Auto) 0.2 (0.0-0.7) 10^3/uL Baso # (Auto) 0.1 (0.0-0.1) 10^3/uL Absolute Nucleated RBC 0.00 x10^3/uL Nucleated RBC % 0.0 /100WBC Sodium 134 L (135-145) mmol/L Potassium 3.9 (3.5-5.0) mmol/L Chloride 102 (101-111) mmol/L Carbon Dioxide 23 (21-32) mmol/L Anion Gap 9.0 (6-13) BUN 11 (6-20) mg/dL Creatinine 0.6 (0.4-1.0) mg/dL Estimated GFR (MDRD) 98 (>89) Glucose 378 H (70-100) mg/dL POC Whole Bld Glucose 366 H (70 - 100) mg/dL Calcium 9.1 (8.5-10.3) mg/dL Phosphorus 2.2 L (2.5-4.6) mg/dL Magnesium 2.0 (1.7-2.8) mg/dL 04/14/21 04/14/21 04/14/21 Range/Units 20:06 17:04 13:17 WBC (4.8-10.8) x10^3/uL RBC (4.20-5.40) 10^6/uL Hgb (12.0-16.0) g/dL Hct (37.0-47.0) % MCV (81.0-99.0) fL MCH (27.0-31.0) pg MCHC (32.0-36.0) g/dL RDW (12.0-15.0) % Plt Count (130-450) 10^3/uL MPV (7.9-10.8) fL Neut # (Auto) (1.5-6.6) 10^3/uL Lymph # (Auto) (1.5-3.5) 10^3/uL [place] # (Auto) (0.0-1.0) 10^3/uL Eos # (Auto) (0.0-0.7) 10^3/uL Baso # (Auto) (0.0-0.1) 10^3/uL Absolute Nucleated RBC x10^3/uL Nucleated RBC % /100WBC Sodium 131 L (135-145) mmol/L Potassium 3.9 (3.5-5.0) mmol/L Chloride 101 (101-111) mmol/L Carbon Dioxide 18 L (21-32) mmol/L Anion Gap 12.0 (6-13) BUN 14 (6-20) mg/dL Creatinine 0.7 (0.4-1.0) mg/dL Estimated GFR (MDRD) 82 L (>89) Glucose 248 H (70-100) mg/dL POC Whole Bld Glucose 307 H 223 H (70 - 100) mg/dL Calcium 9.8 (8.5-10.3) mg/dL Phosphorus (2.5-4.6) mg/dL Magnesium (1.7-2.8) mg/dL 04/14/21 04/14/21 04/14/21 Range/Units 11:56 10:59 09:29 WBC (4.8-10.8) x10^3/uL RBC (4.20-5.40) 10^6/uL Hgb (12.0-16.0) g/dL Hct (37.0-47.0) % MCV (81.0-99.0) fL MCH (27.0-31.0) pg MCHC (32.0-36.0) g/dL RDW (12.0-15.0) % Plt Count (130-450) 10^3/uL MPV (7.9-10.8) fL Neut # (Auto) (1.5-6.6) 10^3/uL Lymph # (Auto) (1.5-3.5) 10^3/uL [place] # (Auto) (0.0-1.0) 10^3/uL Eos # (Auto) (0.0-0.7) 10^3/uL Baso # (Auto) (0.0-0.1) 10^3/uL Absolute Nucleated RBC x10^3/uL Nucleated RBC % /100WBC Sodium 134 L (135-145) mmol/L Potassium 3.8 (3.5-5.0) mmol/L Chloride 106 (101-111) mmol/L Carbon Dioxide 17 L (21-32) mmol/L Anion Gap 11.0 (6-13) BUN 15 (6-20) mg/dL Creatinine 0.5 (0.4-1.0) mg/dL Estimated GFR (MDRD) 121 (>89) Glucose 273 H (70-100) mg/dL POC Whole Bld Glucose 160 H 219 H (70 - 100) mg/dL Calcium 9.6 (8.5-10.3) mg/dL Phosphorus 2.3 L (2.5-4.6) mg/dL Magnesium 2.8 (1.7-2.8) mg/dL ABX Reporting Has patient been on IV antibiotics over the past 48 hours?: Yes Assessment/Plan - Problem List (1) DKA (diabetic ketoacidosis) Impression: Patients insulin drip was discontinued yesterday afternoon as well as her fluids. She is tolerated oral hydration per RN. Patients current labs as of 420 showed Ca=9.1 Zw=961 phos: 2.2 mag = 2.2 K+ =3.9. At 0728 glucose 366 before breakfast and morning insulin. Her anion gap remains closed at 9. Cr/Bun normal. This patient is progressing as expected with insulin therapy however her blood glucose is still not at goal >200. She is not showing any signs of fruity ketone breath, abd pain, nausea,vomiting, or signs of dehydration. With her gap being closed at 9, labs not showing dehydration, and controlled electrolyte levels her condition appears to be stabilizing. To treat her continued elevated blood glucose her Lantus was increased from 10 to 25 units. In addition to her sliding scale protocol 7units of asparte was added. Will wait for new blood glucose reading at 1100 to reassess. Will continue to monitor BMP and vital signs. Additionally with the new information of the possibility of a diabetic specialist being involved... will try to reach about the contact information of this person. Qualifiers: Diabetes mellitus type: type 1 Diabetes mellitus complication detail: without coma Qualified Code(s): E10.10 - Type 1 diabetes mellitus with ketoacidosis without coma (2) Metabolic encephalopathy improved but still "sleepy" Conclusion/Plan: This appears related to the diabetic ketoacidosis. Patient has persistent confusion as of this morning, but is showing signs of improvement. Still does not know home med regiment. We will treat underlying DKA and reassess. Still considering head CT with the persistent confusion. Will revisit later this after noon. (3) Status post laminectomy with spinal fusion Conclusion/Plan: She is status post laminectomy and spinal fusion on March 31 at [facility] in [place] by Dr. Cespedes. Still low suspicion for infection at this point.No new signs of infection observed 04/15. Will use Tylenol as needed for pain control.Pain is better this AM. Will continue with current pain control measures. (4) Thrombocytosis Conclusion/Plan: Her platelet count was elevated at 780 and that was within normal limits about 5 weeks ago. Suspect this is likely reactive. There is currently no evidence of infection. This may be related to iron deficiency anemia or hemoconcentration. Ordered iron studies and the repeat CBC this am shows platelets down to 501 from 544 yesterday. Will continue to monitor. (5) Type 1 diabetes mellitus Conclusion/Plan: She is now admitted with DKA. Management as mentioned above. We will check an A1c and transition to subcutaneous insulin when appropriate. (6) Anxiety Conclusion/Plan: Stable. We will resume her home citalopram and buspirone tomorrow. (7) Asthma Conclusion/Plan: Not in exacerbation. We will continue her home budesonide and albuterol as needed. Qualifiers: Qualified Code(s): E10.10 - Type 1 diabetes mellitus with ketoacidosis without coma Qualifiers: Diabetes mellitus type: type 1 Qualified Code(s): E10.10 - Type 1 diabetes mellitus with ketoacidosis without coma
[2021-04-15] MEDS: DOCUSATE SODIUM 250 MG CAPSULE PO SCH (11:23)
[2021-04-15] MEDS: polyethylene glycoL 3350 17 GM PACKET PO SCH (11:23)
[2021-04-15] MEDS ORDERED: INSULIN GLARGINE 300 UNIT/3 ML PEN SUBQ SCH (21:00)
[2021-04-15] MEDS ORDERED: ATORVASTATIN 10 MG TABLET PO SCH (21:00)
[2021-04-16 05:00] LABS: BASOPHILS % (AUTO) 0.5 %; EOSINOPHILS # (AUTO) 0.3 10^3/uL (0.0-0.7); EOSINOPHILS % (AUTO) 4.1 %; HCT - HEMATOCRIT 28.9 % (37.0-47.0); HGB - HEMOGLOBIN 9.1 g/dL (12.0-16.0); LYMPHOCYTES # (AUTO) 2.3 10^3/uL (1.5-3.5); LYMPHOCYTES % (AUTO) 28.9 %; MEAN CORPUSCULAR HEMOGLOBIN 29.2 pg (27.0-31.0); MEAN CORPUSCULAR HGB CONC 31.5 g/dL (32.0-36.0); MEAN CORPUSCULAR VOLUME 92.6 fL (81.0-99.0); MEAN PLATELET VOLUME 8.9 fL (7.9-10.8); MONOCYTES # (AUTO) 0.7 10^3/uL (0.0-1.0); MONOCYTES % (AUTO) 9.2 %; NEUTROPHILS # (AUTO) 4.6 10^3/uL (1.5-6.6); NEUTROPHILS % (AUTO) 56.8 %; PLT - PLATELET COUNT 497 10^3/uL (130-450); RED BLOOD COUNT 3.12 10^6/uL (4.20-5.40); RED CELL DISTRIBUTION WIDTH 13.5 % (12.0-15.0); WHITE BLOOD COUNT 8.1 x10^3/uL (4.8-10.8)
[2021-04-16 05:11] LABS: CALCIUM 9.2 mg/dL (8.5-10.3); CREATININE 0.5 mg/dL (0.4-1.0); MAGNESIUM 2.1 mg/dL (1.7-2.8); PHOSPHORUS 2.8 mg/dL (2.5-4.6); POTASSIUM 3.5 mmol/L (3.5-5.0)
[2021-04-16] MEDS: oxyCODONE 5 MG TABLET PO SCH ×3 (06:51→10:49)
[2021-04-16] MEDS: BUDESONIDE 0.5 MG/2 ML NEB INH SCH (07:30)
[2021-04-16] MEDS: ALBUTEROL NEB 2.5 MG/3 ML INH PRN (07:30)
[2021-04-16] MEDS: INSULIN ASPART 300 UNIT/3 ML PEN SUBQ SCH ×4 (08:14→11:33)
[2021-04-16] MEDS: INSULIN GLARGINE 300 UNIT/3 ML PEN SUBQ SCH (08:17)
[2021-04-16] MEDS: ENOXAPARIN 40 MG/0.4 ML SYRINGE SUBQ SCH (08:21)
[2021-04-16] MEDS: busPIRone 5 MG TABLET PO SCH (08:22)
[2021-04-16] MEDS: ESCITALOPRAM 10 MG TABLET PO SCH (08:22)
[2021-04-16] MEDS: ASCORBIC ACID 500 MG TABLET PO SCH (08:22)
[2021-04-16] MEDS: ASPIRIN CHEW 81 MG TABLET PO SCH (08:22)
[2021-04-16] MEDS: polyethylene glycoL 3350 17 GM PACKET PO SCH (08:22)
[2021-04-16] MEDS: DOCUSATE SODIUM 250 MG CAPSULE PO SCH (08:23)
[2021-04-16] MEDS: GABAPENTIN 100 MG CAPSULE PO SCH (08:23)
[2021-04-16] MEDS: CHOLECALCIFEROL 400 UNIT TABLET PO SCH (08:23)
[2021-04-16] MEDS: CYANOCOBALAMIN 500 MCG TABLET PO SCH (08:23)
[2021-04-16] MEDS: CALCIUM CARB (OYSTER SHELL) 500 MG TABLET PO SCH (08:23)
[2021-04-16] MEDS: LOSARTAN 50 MG TABLET PO SCH (08:24)
[2021-04-16] MEDS: SODIUM CHLORIDE FLUSH 0.9% 10 ML SYRINGE IVP SCH (08:46)
[2021-04-16] MEDS: ACETAMINOPHEN 325 MG TABLET PO PRN (10:48)
[2021-04-16 12:09] VITALS: BP 102/41
--- NOTE | 2021-04-16 17:03 | Discharge Plan ---
Discharge Plan Problem Reviewed?: Yes Disposition: Home Health Service Condition: Stable Prescriptions: Syringe and Needle,Insulin,1Ml [Insulin Syringe] 1 each MC TID #100 syr Diet: Diabetic Activity Restrictions: Activity as Tolerated Shower Restrictions: No Driving Restrictions: Yes (no driving until cleared by neurosurgery) Assistance Devices: [facility] Concerns: You have a long history of type 1 diabetes mellitus and used to be on a pump. You underwent a laminectomy and lumbar fusion on March 31 at [facility] in [place] and your pump was stopped at that time. You were sent home with Humalog insulin but unfortunately you did not receive prescriptions for syringes or needles. As such she did not take your insulin for quite a few days. Your glucose started getting higher and you also started getting more and more confused. You lost her appetite, and your back was really starting to hurt with pain radiating down both her legs. In the emergency room you are found to have diabetic ketoacidosis with severe dehydration, confusion. There is no surgical site infection. Plan of Treatment: 1. You received an insulin drip with very aggressive intravenous hydration with saline water to hydrate you. This brought your glucose down enough for us to transition you to Lantus and Humalog. 2. You are on currently 25 units of Lantus in the morning, 15 units of Lantus in the evening. You also take 7 units of NovoLog before each meal. I will be sending a prescription for insulin needles and syringes to your pharmacy so that you can use the insulin that was sent home with you from [place]. 3. 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 Please, please, please make sure you follow through. Before you went home, your was able to show us that he could also give your insulin if need be. Care Goals: To get your glucose under control, did have less back pain. Assessment: Has been have demonstrated to their nurse that they can check her sugar, draw up the correct dose of insulin, and give it to the patient. No Smoking: If you smoke, Please STOP! Call for help. Follow-up with: Javan Black MD [Primary Care Provider] -
--- NOTE | 2021-04-16 18:42 | DISCHARGE SUMMARY ---
Discharge Summary Admit Date: 04/13/21 Discharge Date: 04/16/21 Discharging Provider: Nelsy Rodriguez MD Primary Care Provider: Javan Black MD Code Status: Attempt Resuscitation Condition at Discharge: Stable Discharge Disposition: Home Health Service - DIAGNOSES Discharge Diagnoses with Status of Each Condition: 1. Diabetic ketoacidosis type I 2. Altered mental status resolved 3. Status post laminectomy with spinal fusion 4. Reactive thrombocytosis 5. Type 1 diabetes mellitus 6. Anxiety 7. Asthma - HPI History of Present Illness: This is a 75-year-old female with a past medical history significant for type 1 diabetes mellitus, asthma, anxiety who presents today complaining of increasing confusion and an elevated blood glucose. She reports having a laminectomy and lumbar fusion on March 31 at [facility] in [place] with Dr. Ma. She states that since surgery she has been increasingly confused but this was worse over the past few days. She also noticed that her blood glucose has been elevated at greater than 400 despite taking her usual insulin regimen. She states she takes short and long-acting insulin but cannot tell me exactly how much of each she takes but she believes it is at least 18 units a day. She tells me that her blood glucose is normally well controlled. She reports a decreased appetite over the past few days as well. She does have polyuria but no dysuria, urgency, hematuria. She reports no nausea, vomiting, abdominal pain, chest pain, dyspnea. She states she has been ambulating with a walker or cane since surgical intervention. Her back pain previously radiated down her right lower extremity but is now radiating down her left lower extremity. She states her pain is relatively controlled. Denies any focal deficits. In the emergency department, she was noted to be in diabetic ketoacidosis with elevated blood glucose, anion gap as well as a decreased pH and bicarbonate. Her serum ketones were positive. She was given insulin and IV fluids in the emergency department. Her surgeon was contacted who felt there was no concern for surgical site infection at this time. Given the above findings, medicine was consulted for admission. I did discuss goals of care with the patient and she would like to be a full code. History - Past Medical History Cardiovascular: reports: High cholesterol, Peripheral Vascular Disease Respiratory: reports: Asthma, Sleep apnea Neuro: reports: Headaches, Peripheral neuropathy Endocrine/Autoimmune: reports: Type 1 diabetes GI: reports: GERD, Hiatal hernia, Colon polyps, Chronic diarrhea VP OF MARKETING: reports: None : reports: Chronic bladder infection, Nocturia, Frequency, Kidney stones HEENT: reports: Chronic vision loss Psych: reports: Depression, Anxiety Musculoskeletal: reports: Osteoarthritis, Osteopenia Derm: reports: Eczema, Psoriasis MRSA Hx?: No - Past Surgical History General: reports: Gastric surgery, Colonoscopy Ortho: reports: Spine surgery HEENT: reports: Cataracts - HOSPITAL COURSE Hospital Course: She was placed on an insulin drip, aggressive IV fluids for hydration. Electrolytes were replaced when needed. She had quite a bit of confusion at the beginning and was much better with lucid memory and history at the end of her stay. Apparently she was taken off of her pump with her back surgery and discharged with Humalog to be taken subcutaneously. However she was never sent with syringes or needles. As such her sugar got higher and higher and she became more more confused/dehydrated and admitted. At the time of discharge we have reinstructed her on how to do glucose checks, and give herself insulin. Her was also brought in to make sure he knew how to give it to her. She does have a occupational health nursing director that she says she will see on Monday (today is Monday). She has sent home with new prescriptions for insulin syringes. Lantus 25 units in the morning and 10 units to 15 units at night. 7 units before meals of Humalog. Hopefully this will guide her through the weekend until she can see the occupational health nursing director on Monday. Back pain was controlled with oxycodone as needed. Thrombocytosis presents on admission that we felt was reactive. She started at 780,000 was 497 by the time of discharge. Asthma was controlled. Anxiety was controlled. At the time of discharge temperature was 36.9. Pulse 79. Blood pressure 102/41. Respirations 15. 99% on room air. 5 foot 2 inch elderly female who looks older than stated age. 60.2 kg. Definite improvement in mentation from admission to discharge. She was cheerful, alert, completely appropriate at discharge. Neck was supple. Lungs were clear to auscultation and percussion without any asthma. Regular rate and rhythm. The abdomen was soft, nontender. She would occasionally wince and tell us that her tailbone hurt. But she was able to get up out of bed and walk to the bathroom slowly. She needs a walker. Very thin legs with reduced muscle mass and no edema. No venous stasis changes. Greater than 30 minutes was spent coordinating discharge. She is asked to follow-up with her primary care provider Javan Black in the next 1 to 2 weeks. And she promises to see her occupational health nursing director on Monday. She had home health prior to admission. It was ordered by her discharging hospital. I am reordering home health for home health RN to help her with glucose, bath aide, physical therapy, Occupational Therapy. - ALLERGIES Allergies/Adverse Reactions: Allergies Allergy/AdvReac Type Severity Reaction Status Date / Time Penicillins Allergy Intermediate Rash Verified 04/13/21 19:39 amoxicillin Allergy Rash Verified 04/13/21 19:39 doxycycline Allergy Rash Verified 04/13/21 19:39 gabapentin AdvReac diarrhea Verified 04/13/21 19:39 - MEDICATIONS Home Medications: Ambulatory Orders Medication Instructions Recorded Confirmed Zolpidem Tartrate [Ambien] 5 mg PO QPM PRN 11/13/12 04/13/21 Insulin Lispro [Humalog] 40 - 60 unit SUBQ .INSULINPUMP 06/11/13 04/14/21 ALPRAZolam [Alprazolam] 0.25 mg PO DAILY PRN 09/21/19 04/13/21 Albuterol Sulf [Ventolin Hfa 1 - 2 puffs INH Q4HR PRN 09/21/19 04/13/21 Inhaler] Ascorbic Acid 500 mg PO DAILY 09/21/19 04/13/21 Aspirin [Children's Aspirin] 81 mg PO DAILY 09/21/19 04/13/21 Budesonide [Pulmicort] 2 puffs INH BID 09/21/19 04/13/21 Buspirone HCl 20 mg PO BID 09/21/19 04/13/21 Calcium Carbonate/Vitamin D3 [Sm 1 each PO BID 09/21/19 04/13/21 Calcium 600-Vit D3 400 Tab] Cyanocobalamin (Vitamin B-12) 500 mcg PO DAILY 09/21/19 04/13/21 [Vitamin B-12] Escitalopram Oxalate 20 mg PO DAILY 09/21/19 04/13/21 Vitamin B Complex [Balanced B-50] 1 tab PO DAILY 09/21/19 04/13/21 traZODone [Desyrel] 50 mg PO QPM PRN 09/21/19 04/13/21 Ondansetron HCl [Zofran] 4 mg PO QID PRN 09/08/20 04/13/21 methocarbamoL [Methocarbamol] 750 mg PO DAILY 04/13/21 04/13/21 Gabapentin [Neurontin] 100 mg PO BID 04/14/21 04/14/21 Losartan [Cozaar] 50 mg PO DAILY 04/14/21 04/14/21 Simvastatin [Zocor] 20 mg PO QPM 04/14/21 04/14/21 oxyCODONE [Roxicodone] 5 mg PO Q4H 04/14/21 04/14/21 Insulin Glargine [Lantus Solostar] 25 units SQ BID #1 04/16/21 04/14/21 Syringe and Needle,Insulin,1Ml 1 each MC TID #100 syr 04/16/21 [Insulin Syringe] - LABS Result Diagrams: 04/16/21 04:29 04/16/21 04:29
== END 2021-04-16 17:45 | disposition home health service (06) | DRG 639 ==
LOC: ED 19:30 → ICU 21:00
PROVIDERS: ADMIT Internal Medicine; ATTEND Specialist
DX: E10.10 Type 1 diabetes mellitus with ketoacidosis without coma (principal); E10.42 Type 1 diabetes mellitus with diabetic polyneuropathy; E10.51 Type 1 diabetes mellitus with diabetic peripheral angiopathy without gangrene; G89.29 Other chronic pain; I10 Essential (primary) hypertension; Z79.4 Long term (current) use of insulin; G47.30 Sleep apnea, unspecified; Z98.1 Arthrodesis status; K21.9 Gastro-esophageal reflux disease without esophagitis; Z20.822 Contact with and (suspected) exposure to COVID-19; D75.838 Other thrombocytosis; F41.9 Anxiety disorder, unspecified; J45.909 Unspecified asthma, uncomplicated; M54.9 Dorsalgia, unspecified; R35.1 Nocturia; R35.0 Frequency of micturition; T38.3X6A Underdosing of insulin and oral hypoglycemic [antidiabetic] drugs, initial encounter; Z91.128 Patient's intentional underdosing of medication regimen for other reason; Y92.9 Unspecified place or not applicable; Z79.82 Long term (current) use of aspirin; Z79.899 Other long term (current) drug therapy
CPT/HCPCS: 36415; 51701; 71045; 80048; 80053; 81003; 82009; 82728; 82803; 83036; 83540; 83605; 83690; 83735; 84100; 84466; 85025; 85610; 85730; 87040; 87150; 87631; 94640; 96361; 96374; 97161; 97165; 97530; 99285; A9270; J1650; J1815; J7626; 0202U; 81001; 82947; 87086

== ENCOUNTER 2021-05-03 09:59 | Outpatient (CLI) | payer MEDICARE, OTHER ==
--- NOTE | 2021-05-03 15:13 | MRI Report ---
PROCEDURE: Lumbar Spine W/O INDICATIONS: SPINAL STENOSIS TECHNIQUE: Noncontrast sagittal T1 spin echo and T2 fast echo, sagittal STIR, axial T1 and T2 fast spin echo thr ough the lumbar spine. In cases with scoliosis, additional coronal T2 fast spin echo may be performe d. COMPARISON: No prior lumbar MRIs are available for review at the time of this dictation. Correlation is made with reports only (no images) from prior abdomen pelvis CT examinations, 04/24/2020 and 09/12. FINDINGS: Image quality: Diagnostic, with note made of motion artifact. Alignment and Curvature: There is minimal anterolisthesis seen at the L2-L3 level. Bone Marrow: The L5 vertebral body is abnormal, with decreased T1-weighted signal and loss of height centrally of approximately 50%. No abnormal STIR signal can be seen. Spinal Cord: Conus medullaris terminates at the L1-L2 level. Visualized cord demonstrates normal si gnal and size. Paraspinous Soft Tissues: No paravertebral masses. Postoperative changes are seen, with bilateral pedicle screws at L3, L4, and L5. There are disc space rs seen at L3-L4 and L4-5. T12-L1: Normal in appearance. L1-L2: The disc height is well-preserved. There is loss of disc signal seen. Mild disc bulge is se en, which is eccentric to the left. There is moderate left-sided and [id number] right-sided torie roforaminal narrowing seen. No significant central canal narrowing is seen. L2-L3: Mild loss of disc height and disc signal are seen. Moderate disc bulge is seen at this lev el. Moderate facet hypertrophy is seen. Moderate bilateral neuroforaminal narrowing can be seen, l eft worse than right. Moderate central canal narrowing is seen. L3-L4: Postoperative changes are seen at this level. Mild to moderate disc bulge is seen. There is moderate to severe bilateral neuroforaminal narrowing seen. Likely mild central canal narrowing is pr esent at this level. L4-L5: There are postoperative changes seen at this level. Moderate disc bulge is seen at this lev el. There is at least moderate right-sided and moderate to severe left-sided neuroforaminal narrowin g seen. Moderate central canal narrowing is seen. L5-S1: The disc height is well-preserved. There is loss of disc signal seen. Mild disc bulge is see n at this level. Moderate facet hypertrophy is seen. Moderate bilateral neural foraminal narrowing is seen. Mild central canal narrowing is seen. IMPRESSION: L3-L5 postoperative hardware. Chronic appearing collapse of L5. Multiple levels of degenerative change are seen. Reviewed by: Pelon Schuler MD on 05/03/2021 2:12 PM AKJULIO Approved by: Pelon Schuler MD on 05/03/2021 2:12 PM AKDT Station ID: [id number]
== END 2021-05-03 10:00 | disposition home or self-care (01) ==
LOC: DI 09:59
PROVIDERS: ATTEND Orthopaedic Surgery
DX: M48.062 Spinal stenosis, lumbar region with neurogenic claudication (principal); M51.27 Other intervertebral disc displacement, lumbosacral region

== ENCOUNTER 2021-05-10 12:18 | Outpatient (CLI) | payer MEDICARE, OTHER | END 2021-05-10 23:59 | disposition EMS.NT | LOC: EMS 12:18 | DX: M54.9 Dorsalgia, unspecified (principal) ==

== ENCOUNTER 2021-08-19 22:17 | Outpatient (CLI) | payer MEDICARE, OTHER | END 2021-08-19 23:59 | disposition EMS.NT | LOC: EMS 22:17 | DX: R41.0 Disorientation, unspecified (principal); R73.09 Other abnormal glucose ==

== ENCOUNTER 2021-09-03 08:05 | Outpatient (CLI) | payer MEDICARE, OTHER ==
[2021-09-03 16:10] LABS: BUN - BLOOD UREA NITROGEN 13 mg/dL (6-20); CALCIUM 8.7 mg/dL (8.5-10.3); CARBON DIOXIDE - CO2 25 mmol/L (21-32); CHLORIDE 101 mmol/L (101-111); CHOL/HDL RATIO 2.6 (<4.4); CHOLESTEROL 126 mg/dL; CREATININE 0.5 mg/dL (0.4-1.0); GFR - MDRD 121 (>89); GLUCOSE 333 mg/dL (70-100); HDL CHOLESTEROL 49 mg/dL; LDL CHOLESTEROL,CALCULATED 58 mg/dL; LDL/HDL RATIO 1.2 (<4.4); SODIUM 136 mmol/L (135-145); TRIGLYCERIDES 93 mg/dL; VLDL CHOLESTEROL 19 mg/dL
[2021-09-03 20:29] LABS: ESTIMATED AVERAGE GLUCOSE 157 mg/dL (70-100); HEMOGLOBIN A1c% 7.1 % (4.27-6.07)
== END 2021-09-03 08:06 | disposition home or self-care (01) ==
LOC: LAB.S 08:05
PROVIDERS: ATTEND Nurse Practitioner
DX: E10.65 Type 1 diabetes mellitus with hyperglycemia (principal); E78.2 Mixed hyperlipidemia
CPT/HCPCS: 36415; 80048; 80061; 82043; 82570; 83036; 83721

== ENCOUNTER 2021-09-04 08:00 | Outpatient (CLI) | payer MEDICARE, OTHER ==
[2021-09-04 15:33] LABS: CREATININE,URINE 89.1 mg/dL; MICROALBUM/CREATININE RATIO,UR 7.9 ug/mg (<30.0); MICROALBUMIN,URINE 0.7 mg/dL (0-300.0)
== END 2021-09-04 23:59 | disposition home or self-care (01) ==
LOC: LAB.S 08:00
PROVIDERS: ATTEND Nurse Practitioner
DX: E10.65 Type 1 diabetes mellitus with hyperglycemia (principal); E78.2 Mixed hyperlipidemia
CPT/HCPCS: 82043; 82570

== ENCOUNTER 2021-09-09 09:41 | Emergency (ER) | payer MEDICARE, OTHER ==
[2021-09-09] MEDS ORDERED: SODIUM CHLORIDE 0.9% 1,000 ML IV STA ×2 (09:52→11:19)
[2021-09-09 10:11] LABS: BASOPHILS % (AUTO) 0.5 %; EOSINOPHILS # (AUTO) 0.1 10^3/uL (0.0-0.7); EOSINOPHILS % (AUTO) 1.3 %; HCT - HEMATOCRIT 34.3 % (37.0-47.0); HGB - HEMOGLOBIN 11.2 g/dL (12.0-16.0); MEAN CORPUSCULAR HEMOGLOBIN 27.1 pg (27.0-31.0); MEAN CORPUSCULAR HGB CONC 32.7 g/dL (32.0-36.0); MEAN CORPUSCULAR VOLUME 83.1 fL (81.0-99.0); MONOCYTES # (AUTO) 0.6 10^3/uL (0.0-1.0); MONOCYTES % (AUTO) 7.4 %; NEUTROPHILS # (AUTO) 5.6 10^3/uL (1.5-6.6); NEUTROPHILS % (AUTO) 66.7 %; PLT - PLATELET COUNT 460 10^3/uL (130-450); RED BLOOD COUNT 4.13 10^6/uL (4.20-5.40); RED CELL DISTRIBUTION WIDTH 14.7 % (12.0-15.0); WHITE BLOOD COUNT 8.4 x10^3/uL (4.8-10.8)
--- NOTE | 2021-09-09 10:18 | XRAY Report ---
PROCEDURE: Hand 3 View LT INDICATIONS: injury/pain TECHNIQUE: 3 views of the hand(s) acquired. COMPARISON: None. FINDINGS: Bones: Acute fracture through distal shaft of fifth metacarpal bone is seen with volar displacement a nd angulation of fracture site. Diffuse osteopenia is seen. Osteoarthritic changes are noted througho ut the hand and wrist. No suspicious bony lesions. Soft tissues: No suspicious soft tissue calcifications. IMPRESSION: Acute boxer type fracture involving fifth metacarpal neck/distal shaft as above. Osteopenia. Left cornelius d and wrist joint osteoarthritis. Reviewed by: Ankit Ray MD on 09/09/2021 10:17 AM PST Approved by: Ankit Ray MD on 09/09/2021 10:17 AM PST Station ID: [id number]
[2021-09-09 10:22] LABS: ALBUMIN 3.1 g/dL (3.2-5.5); ALBUMIN/GLOBULIN RATIO 0.9 (1.0-2.2); BILIRUBIN,TOTAL 0.4 mg/dL (0.2-1.0); CALCIUM 9.1 mg/dL (8.5-10.3); CREATININE 0.6 mg/dL (0.4-1.0); TOTAL PROTEIN 6.6 g/dL (6.7-8.2)
[2021-09-09] MEDS ORDERED: POTASSIUM CHLORIDE 20 MEQ TABLET PO STA (11:15)
[2021-09-09 12:36] LABS: BILIRUBIN,URINE NEGATIVE (NEGATIVE); CLARITY,URINE CLEAR (CLEAR); GLUCOSE, URINE (UA) 250 mg/dL (NEGATIVE); KETONES,URINE (UA) TRACE mg/dL (NEGATIVE); LEUKOCYTE ESTERASE, URINE NEGATIVE (NEGATIVE); NITRITE,URINE NEGATIVE (NEGATIVE); OCCULT BLOOD,URINE NEGATIVE (NEGATIVE); PROTEIN,URINE NEGATIVE (NEGATIVE); UROBILINOGEN,URINE 0.2 (NORMAL) E.U./dL (NORMAL)
--- NOTE | 2021-09-09 13:23 | ED Physician Documentation ---
PD HPI ALTERED MENTAL STATUS - Stated complaint Stated Complaint: CONFUSION/LT HAND INJ - Chief complaint Chief Complaint: Neuro - History obtained from History obtained from: Patient, Family - Additional information Additional information: The patient comes to the emergency department with chief complaint of emotional outbursts and memory problems recently, as well as left hand pain and swelling. The patient has had a complicated medical history over the last approximately 6 months according to her . She had back surgery at the end of March after which she was started on oxycodone. She was admitted a couple of weeks later for diabetes and then had to have a second surgery on her back in May. Following this, she spent about 8 weeks in a short term care facility, then was discharged home in mid July with assistance from home health. Patient felt that her oxycodone was no longer needed a week or 2 ago and decided to stop taking it. She states she did not have any pain, goosebumps, yawning, or anxiety in the immediate days following the cessation of oxycodone. However, her notes that she for the last couple of nights has been agitated and combative and hostile toward him. The patient states she does not have recollection of these episodes. She has been having memory issues since April, she states, but has not had a formal evaluation of this. Since going off the oxycodone, the notes that the patient seems very anxious about her mental state, constantly writing notes for herself to try to remember what she is supposed to do. The also notes that she does not seem to know how to do tasks that she previously did, such as using her smart phone. The patient also sustained some sort of injury to her left hand but does not recall exactly how this happened. She states "I must of hit it on a cabinet", but when specifically questioned, does not actually remember the injury. She states that she has noticed pain in the hand when she puts pressure on it. states that actually, she took a fall, pitched forward, and tried to catch herself with her hand but ended up hitting the knuckles instead. The pain and swelling on the lateral aspect of the the left hand. No other complaints at this time. Review of Systems Ten Systems: 10 systems reviewed and negative Constitutional: reports: Reviewed and negative Eyes: reports: Reviewed and negative Ears: reports: Reviewed and negative Nose: reports: Reviewed and negative Throat: reports: Reviewed and negative Cardiac: reports: Reviewed and negative Respiratory: reports: Reviewed and negative GI: reports: Reviewed and negative : reports: Reviewed and negative Skin: reports: Reviewed and negative Musculoskeletal: reports: Extremity pain Neurologic: reports: Confused, Altered mental status Psychiatric: reports: Anxiety Endocrine: reports: Reviewed and negative Immunocompromised: reports: Reviewed and negative PD PAST MEDICAL HISTORY - Past Medical History Cardiovascular: High cholesterol, Peripheral Vascular Disease Respiratory: Asthma, Sleep apnea Neuro: Headaches, Peripheral neuropathy Endocrine/Autoimmune: Type 1 diabetes GI: GERD, Hiatal hernia, Colon polyps, Chronic diarrhea 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 : Chronic bladder infection, Nocturia, Frequency, Kidney stones HEENT: Chronic vision loss Psych: Depression, Anxiety Musculoskeletal: Osteoarthritis, Osteopenia Derm: Eczema, Psoriasis - Past Surgical History Past Surgical History: Yes General: Gastric surgery, Colonoscopy Ortho: Spine surgery HEENT: Cataracts - Present Medications Home Medications: Ambulatory Orders Medication Instructions Recorded Confirmed Zolpidem Tartrate [Ambien] 5 mg PO QPM PRN 11/13/12 04/13/21 Insulin Lispro [Humalog] 40 - 60 unit SUBQ .INSULINPUMP 06/11/13 04/14/21 ALPRAZolam [Alprazolam] 0.25 mg PO DAILY PRN 09/21/19 04/13/21 Albuterol Sulf [Ventolin Hfa 1 - 2 puffs INH Q4HR PRN 09/21/19 04/13/21 Inhaler] Ascorbic Acid 500 mg PO DAILY 09/21/19 04/13/21 Aspirin [Children's Aspirin] 81 mg PO DAILY 09/21/19 04/13/21 Budesonide [Pulmicort] 2 puffs INH BID 09/21/19 04/13/21 Buspirone HCl 20 mg PO BID 09/21/19 04/13/21 Calcium Carbonate/Vitamin D3 [Sm 1 each PO BID 09/21/19 04/13/21 Calcium 600-Vit D3 400 Tab] Cyanocobalamin (Vitamin B-12) 500 mcg PO DAILY 09/21/19 04/13/21 [Vitamin B-12] Escitalopram Oxalate 20 mg PO DAILY 09/21/19 04/13/21 Vitamin B Complex [Balanced B-50] 1 tab PO DAILY 09/21/19 04/13/21 traZODone [Desyrel] 50 mg PO QPM PRN 09/21/19 04/13/21 ondansetron HCL [Zofran] 4 mg PO QID PRN 09/08/20 04/13/21 methocarbamoL [Methocarbamol] 750 mg PO DAILY 04/13/21 04/13/21 Gabapentin [Neurontin] 100 mg PO BID 04/14/21 04/14/21 Losartan [Cozaar] 50 mg PO DAILY 04/14/21 04/14/21 Simvastatin [Zocor] 20 mg PO QPM 04/14/21 04/14/21 oxyCODONE [Roxicodone] 5 mg PO Q4H 04/14/21 04/14/21 Insulin Glargine [Lantus Solostar] 25 units SQ BID #1 04/16/21 04/14/21 Syringe and Needle,Insulin,1Ml 1 each MC TID #100 syr 04/16/21 [Insulin Syringe] Potassium Chloride [K-Dur] 20 meq PO BIDWM #6 tablet 09/09/21 - Allergies Allergies/Adverse Reactions: Allergies Allergy/AdvReac Type Severity Reaction Status Date / Time Penicillins Allergy Intermediate Rash Verified 09/09/21 09:58 amoxicillin Allergy Rash Verified 09/09/21 09:58 doxycycline Allergy Rash Verified 09/09/21 09:58 gabapentin AdvReac diarrhea Verified 09/09/21 09:58 - Social History Does the pt smoke?: No Smoking Status: Never smoker Does the pt drink ETOH?: No Does the pt have substance abuse?: Yes - Immunizations Immunizations are current?: Yes - POLST Patient has POLST: No POLST Status: Full Code PD ED PE NORMAL - Vitals Vital signs reviewed: Yes - General General: No acute distress, Well developed/nourished, Other (For the most part, the patient answers questions appropriately, but has admitted confusion and memory lapse when trying to remember recent events.) - HEENT HEENT: Atraumatic, PERRL, EOMI, Moist mucous membranes - Neck Neck: Supple, no meningeal sign, No bony TTP - Cardiac Cardiac: RRR, No murmur, Strong equal pulses - Respiratory Respiratory: No respiratory distress, Clear bilaterally - Abdomen Abdomen: Soft, Non tender, Non distended - Derm Derm: Normal color, Warm and dry, No rash - Extremities Extremities: Other (Mild edema over left fifth MCP joint; Mild deformity. Point tenderness over the same area.) - Neuro Neuro: collections representative 2-12 intact, No motor deficit, No sensory deficit, Normal speech, Other (Patient overall answers questions briskly and appropriately, but is confused as to some recent events. She knows her name and where she is and her birthdate.) - Psych Psych: Normal mood, Normal affect Results - Vitals Vitals: Vital Signs - 24 hr 09/09/21 09/09/21 09/09/21 09:51 12:00 14:04 Temperature 37.4 C 37 C Heart Rate 94 114 H 90 Respiratory 12 8 L 14 Rate Blood Pressure 163/74 H 157/91 H 150/92 H O2 Saturation 100 100 97 Oxygen O2 Source Room air - Labs Labs: Laboratory Tests 09/09/21 09/09/21 09/09/21 09:55 10:02 10:02 WBC 8.4 RBC 4.13 L Hgb 11.2 L Hct 34.3 L MCV 83.1 MCH 27.1 MCHC 32.7 RDW 14.7 Plt Count 460 H MPV 9.0 Neut # (Auto) 5.6 Lymph # (Auto) 2.0 [place] # (Auto) 0.6 Eos # (Auto) 0.1 Baso # (Auto) 0.0 Absolute Nucleated RBC 0.00 Nucleated RBC % 0.0 Sodium 132 L Potassium 3.0 L Chloride 98 L Carbon Dioxide 22 Anion Gap 12.0 BUN 10 Creatinine 0.6 Estimated GFR (MDRD) 98 Glucose 303 H POC Whole Bld Glucose 292 H Calcium 9.1 Total Bilirubin 0.4 AST 29 ALT 14 Alkaline Phosphatase 117 Total Protein 6.6 L Albumin 3.1 L Globulin 3.5 Albumin/Globulin Ratio 0.9 L Lipase 25 Urine Color Urine Clarity Urine pH Ur Specific [place] Urine Protein Urine Glucose (UA) Urine Ketones Urine Occult Blood Urine Nitrite Urine Bilirubin Urine Urobilinogen Ur Leukocyte Esterase Ur Microscopic Review Urine Culture Comments 09/09/21 12:31 WBC RBC Hgb Hct MCV MCH MCHC RDW Plt Count MPV Neut # (Auto) Lymph # (Auto) [place] # (Auto) Eos # (Auto) Baso # (Auto) Absolute Nucleated RBC Nucleated RBC % Sodium Potassium Chloride Carbon Dioxide Anion Gap BUN Creatinine Estimated GFR (MDRD) Glucose POC Whole Bld Glucose Calcium Total Bilirubin AST ALT Alkaline Phosphatase Total Protein Albumin Globulin Albumin/Globulin Ratio Lipase Urine Color LT. YELLOW Urine Clarity CLEAR Urine pH 7.0 Ur Specific [place] 1.010 Urine Protein NEGATIVE Urine Glucose (UA) 250 H Urine Ketones TRACE Urine Occult Blood NEGATIVE Urine Nitrite NEGATIVE Urine Bilirubin NEGATIVE Urine Urobilinogen 0.2 (NORMAL) Ur Leukocyte Esterase NEGATIVE Ur Microscopic Review NOT INDICATED Urine Culture Comments NOT INDICATED - Rads (name of study) X-ray left hand Radiology: Final report received, EMP read indepedently, See rad report ([place]'s fracture left fifth metacarpal bone) PD MEDICAL DECISION MAKING - ED course Complexity details: reviewed results, re-evaluated patient, considered differential, d/w patient ED course: The patient was worked up with labs, which showed a moderately decreased pota ssium. Her urinalysis and the remainder of her labs were unremarkable. Her left hand x-ray series showed a distal shaft fracture of the metacarpal. There was noted to be some mild angulation and displacement. The hand was placed in an ulnar gutter splint. I discussed privately with the patient's that I am concerned that the patient may have some degree of dementia that is contributing to her symptoms. Her symptoms are not consistent with oxycodone withdrawal, either in character or in timeline. Additionally, though the patient has had previous episodes of hypoglycemia and these also involve confusion, the patient has recently missed doses of insulin, not taken too much, and Her symptoms have not been consistent with previous episodes of hypoglycemia. It is possible that the oxycodone has provided some sort of sedating or calming effect that has dampen the patient's sundowning prior to this, and the cessation this medication has caused these episodes to become more severe. I have discussed with the patient's that the most likely thing to be helpful would be a mental status exam geared to evaluate for possible dementia. CT imaging is unlikely to be helpful, secondary to the patient not having any sort of focal neurologic deficits at this time. MRI may be more helpful at some point as an outpatient. The patient is stable for discharge home. I have discussed the findings and the differential diagnosis with the and the patient. I have also spoken directly with the patient's primary care physician Dr. Black and he states that while the patient actually does not have an appointment scheduled, he will make sure to see her soon and address the possibility of dementia in light of her cognitive and behavioral changes. We have discussed the usual indications for return with the patient and her Departure - Departure Disposition: 01 Home, Self Care Clinical Impression: Hypokalemia, Cognitive and behavioral changes Metacarpal bone fracture Qualifiers: Encounter type: initial encounter Metacarpal bone: fifth Fracture type: closed Metacarpal location: neck Fracture alignment: displaced Laterality: left Qualified Code(s): S62.337A - Displaced fracture of neck of fifth metacarpal bone, left hand, initial encounter for closed fracture Condition: Stable Instructions: Dementia Coping Tips Caregiver, ED Altered Loc, ED Confusion, ED Fx Hand Closed, ED Potassium Deficiency Follow-Up: Jignesh Vázquez MD [Physician No Access] - Brandt Dennis MD [Provider Admit Priv/Credential] - Prescriptions: Potassium Chloride [K-Dur] 20 meq PO BIDWM #6 tablet Comments: As we discussed, your labs overall looked fairly good. Your potassium was mildly decreased and you have been started on replacement for that today. Your Blood sugar was somewhat high in the 200s, and if this persist, you should speak with Dr. Black about whether your insulin regimen needs to be adjusted. There is no evidence of a low blood sugar at this time. Your symptoms are not typical of oxycodone withdrawal, though it is possible that the oxycodone was moderating some of the anxiety and emotional episodes a bit. It is very important that you bring up these concerns about the behavioral outbursts and the memory issues with Dr. Black when you see him on Monday. As far as brain imaging, you do not have any symptoms that are consistent with an acute stroke at this time, and so CT scan is unlikely to be helpful. An outpatient MRI may be somewhat helpful in deciphering what is going on with the cognitive and emotional issues, but this will ultimately be up to Dr. Black. Along the same lines, a mental status test may also be helpful to sort out some of this, as well. As far as your broken hand, it is very important that you follow-up with the hand specialist orthopedics within the week to determine a plan for surgical intervention. For now, you should keep the splint in place until you see the specialist. Please call first thing tomorrow morning if you cannot call this afternoon to make an appointment for follow-up. Please also plan to keep your appointment with Dr. Black on Monday. Your prescription has been electronically transmitted to [facility]. Discharge Date/Time: 09/09/21 14:06
[2021-09-09 14:06] VITALS: BP 150/92
== END 2021-09-09 14:06 | disposition home or self-care (01) ==
LOC: ED 09:41
DX: S62.337A Displaced fracture of neck of fifth metacarpal bone, left hand, initial encounter for closed fracture (principal); X58.XXXA Exposure to other specified factors, initial encounter; R41.89 Other symptoms and signs involving cognitive functions and awareness; E10.42 Type 1 diabetes mellitus with diabetic polyneuropathy; Z79.4 Long term (current) use of insulin; E87.6 Hypokalemia
CPT/HCPCS: 36415; 73130; 80053; 81003; 83690; 85025; 96360; 96361; 99283; 99284; A9270; 81001; 87086

== ENCOUNTER 2021-09-13 07:35 | Outpatient (CLI) | payer MEDICARE, OTHER | END 2021-09-13 07:36 | disposition critical access hospital (66) | LOC: EMS 07:35 | DX: R41.0 Disorientation, unspecified (principal); R47.89 Other speech disturbances; R32 Unspecified urinary incontinence; R10.2 Pelvic and perineal pain | CPT/HCPCS: A0425; A0427 ==

== ENCOUNTER 2021-09-13 08:08 | Emergency (ER) | payer MEDICARE, OTHER ==
[2021-09-13] MEDS ORDERED: SODIUM CHLORIDE 0.9% 1,000 ML IV STA (08:20)
[2021-09-13 08:29] LABS: BASOPHILS % (AUTO) 0.5 %; EOSINOPHILS # (AUTO) 0.2 10^3/uL (0.0-0.7); EOSINOPHILS % (AUTO) 2.1 %; HCT - HEMATOCRIT 32.3 % (37.0-47.0); HGB - HEMOGLOBIN 10.5 g/dL (12.0-16.0); LYMPHOCYTES # (AUTO) 2.2 10^3/uL (1.5-3.5); MEAN CORPUSCULAR HEMOGLOBIN 27.3 pg (27.0-31.0); MEAN CORPUSCULAR HGB CONC 32.5 g/dL (32.0-36.0); MEAN CORPUSCULAR VOLUME 83.9 fL (81.0-99.0); MEAN PLATELET VOLUME 8.7 fL (7.9-10.8); MONOCYTES # (AUTO) 0.6 10^3/uL (0.0-1.0); MONOCYTES % (AUTO) 7.8 %; NEUTROPHILS # (AUTO) 4.7 10^3/uL (1.5-6.6); NEUTROPHILS % (AUTO) 61.2 %; PLT - PLATELET COUNT 433 10^3/uL (130-450); RED BLOOD COUNT 3.85 10^6/uL (4.20-5.40); RED CELL DISTRIBUTION WIDTH 15.2 % (12.0-15.0); WHITE BLOOD COUNT 7.7 x10^3/uL (4.8-10.8)
[2021-09-13 08:41] LABS: ALBUMIN 2.9 g/dL (3.2-5.5); ALBUMIN/GLOBULIN RATIO 0.9 (1.0-2.2); BILIRUBIN,TOTAL 0.8 mg/dL (0.2-1.0); CALCIUM 9.1 mg/dL (8.5-10.3); CREATININE 0.5 mg/dL (0.4-1.0); POTASSIUM 3.9 mmol/L (3.5-5.0); TOTAL PROTEIN 6.3 g/dL (6.7-8.2)
--- NOTE | 2021-09-13 09:03 | CT Report ---
PROCEDURE: HEAD WO INDICATIONS: confusion, aphasia TECHNIQUE: Noncontrast 4.5 mm thick angled axial sections acquired from the foramen magnum to the vertex. For r adiation dose reduction, the following was used: automated exposure control, adjustment of mA and/or kV according to patient size. COMPARISON: CT head 09/14/2016, MRI brain 09/16/2016. FINDINGS: Image quality: Excellent. CSF spaces: There is mild cerebral volume loss with prominence of the ventricles and sulci. Basal ci sterns are patent. No extra-axial fluid collections. Brain: No intracranial hemorrhage, mass, or mass effect. Flores-white matter interface is preserved. T here are subcortical and periventricular white matter hypodensities consistent with chronic small ves denia ischemic changes. Skull and face: Calvarium and visualized facial bones are intact, without suspicious lesions. Sinuses: Visualized sinuses and mastoids are clear. IMPRESSION: 1. No acute intracranial abnormality. 2. Mild chronic white matter small vessel ischemic changes and cerebral volume loss. Reviewed by: Jose Serrano MD on 09/13/2021 9:02 AM PDT Approved by: Jose Serrano MD on 09/13/2021 9:02 AM PDT Station ID: [id number]
--- NOTE | 2021-09-13 10:12 | MRI Report ---
PROCEDURE: Brain W/O INDICATIONS: word-finding difficulty, personality change TECHNIQUE: Noncontrast axial T1 spin echo, axial T2 fast spin echo, sagittal and axial FLAIR, coronal T2 fast sp in echo, axial gradient echo, axial diffusion and ADC through the brain. COMPARISON: None. FINDINGS: Image quality: Excellent. CSF Spaces: Basal cisterns are patent. No extra-axial fluid collections. Ventricles are normal in size and shape. Brain: Midline structures are normal in configuration. Mild global cerebral volume loss and mild right of way manager cheyanne microvascular ischemic changes. No restricted diffusion to indicate recent ischemia. The major va scular flow-related signal voids are maintained. No findings of mass effect or midline shift. Skull and face: Calvarium has normal marrow signal. Orbits appear normal. Sinuses: Sinuses and mastoids are clear. IMPRESSION: Mild global cerebral volume loss and mild chronic vascular ischemic change. Otherwise unremarkable MRI brain. Reviewed by: Danish Boo MD on 09/13/2021 10:10 AM PDT Approved by: Danish Boo MD on 09/13/2021 10:10 AM PDT Station ID: [id number]
[2021-09-13 10:53] LABS: BILIRUBIN,URINE NEGATIVE (NEGATIVE); GLUCOSE, URINE (UA) 250 mg/dL (NEGATIVE); KETONES,URINE (UA) 15 mg/dL (NEGATIVE); LEUKOCYTE ESTERASE, URINE SMALL (NEGATIVE); NITRITE,URINE NEGATIVE (NEGATIVE); OCCULT BLOOD,URINE NEGATIVE (NEGATIVE); PROTEIN,URINE NEGATIVE (NEGATIVE); UROBILINOGEN,URINE 0.2 (NORMAL) E.U./dL (NORMAL)
[2021-09-13 10:57] LABS: CLARITY,URINE CLEAR (CLEAR)
[2021-09-13 11:05] LABS: BACTERIA,URINE Few /HPF (None Seen); RBC,URINE None Seen /HPF (0-5); SQUAMOUS EPITHELIAL CELL,UR RARE Squamous (<= Few)
[2021-09-13] MEDS ORDERED: SULFAMETH/TRIMETH DS 800/160 MG TABLET PO STA (11:20)
--- NOTE | 2021-09-13 12:53 | ED Physician Documentation ---
History of Present Illness - Stated complaint Stated Complaint: CONFUSED - Chief complaint Chief Complaint: Neuro - History obtained from History obtained from: Patient, Family, EMS - Additonal information Additional information: Patient returns to the emergency department chief complaint of confusion, word- finding difficulties and emotional outbursts. Please refer to my prior note pt's most recent ED visit for details on history prior to that. Since her last ED visit, the pt has had episodes of seeming "blank" and having trouble remembering the right words. The pt seems to know something is wrong at that time, and gets very angry. In between episodes, her memory seems to have worsened, also. She was supposed to be seen by Dr. Black this morning, but came here instead, due to having another episode. She has not had any motor deficits. No visual changes. Most history is per . The pt answers briskly, with clear articulation, but history per her is unclear. Review of Systems Ten Systems: 10 systems reviewed and negative Constitutional: reports: Reviewed and negative Eyes: reports: Reviewed and negative Ears: reports: Reviewed and negative Nose: reports: Reviewed and negative Throat: reports: Reviewed and negative Cardiac: reports: Reviewed and negative Respiratory: reports: Reviewed and negative GI: reports: Reviewed and negative : reports: Reviewed and negative Skin: reports: Reviewed and negative Musculoskeletal: reports: Reviewed and negative Neurologic: reports: Confused Psychiatric: reports: Reviewed and negative Endocrine: reports: Reviewed and negative Immunocompromised: reports: Reviewed and negative PD PAST MEDICAL HISTORY - Past Medical History Cardiovascular: High cholesterol, Peripheral Vascular Disease Respiratory: Asthma, Sleep apnea Neuro: Headaches, Peripheral neuropathy Endocrine/Autoimmune: Type 1 diabetes GI: GERD, Hiatal hernia, Colon polyps, Chronic diarrhea END USER SUPPORT SPECIALIST: None : Chronic bladder infection, Nocturia, Frequency, Kidney stones HEENT: Chronic vision loss Psych: Depression, Anxiety Musculoskeletal: Osteoarthritis, Osteopenia Derm: Eczema, Psoriasis - Past Surgical History Past Surgical History: Yes General: Gastric surgery, Colonoscopy Ortho: Spine surgery HEENT: Cataracts - Present Medications Home Medications: Ambulatory Orders Medication Instructions Recorded Confirmed Zolpidem Tartrate [Ambien] 5 mg PO QPM PRN 11/13/12 04/13/21 Insulin Lispro [Humalog] 40 - 60 unit SUBQ .INSULINPUMP 06/11/13 04/14/21 ALPRAZolam [Alprazolam] 0.25 mg PO DAILY PRN 09/21/19 04/13/21 Albuterol Sulf [Ventolin Hfa 1 - 2 puffs INH Q4HR PRN 09/21/19 04/13/21 Inhaler] Ascorbic Acid 500 mg PO DAILY 09/21/19 04/13/21 Aspirin [Children's Aspirin] 81 mg PO DAILY 09/21/19 04/13/21 Budesonide [Pulmicort] 2 puffs INH BID 09/21/19 04/13/21 Buspirone HCl 20 mg PO BID 09/21/19 04/13/21 Calcium Carbonate/Vitamin D3 [Sm 1 each PO BID 09/21/19 04/13/21 Calcium 600-Vit D3 400 Tab] Cyanocobalamin (Vitamin B-12) 500 mcg PO DAILY 09/21/19 04/13/21 [Vitamin B-12] Escitalopram Oxalate 20 mg PO DAILY 09/21/19 04/13/21 Vitamin B Complex [Balanced B-50] 1 tab PO DAILY 09/21/19 04/13/21 traZODone [Desyrel] 50 mg PO QPM PRN 09/21/19 04/13/21 ondansetron HCL [Zofran] 4 mg PO QID PRN 09/08/20 04/13/21 methocarbamoL [Methocarbamol] 750 mg PO DAILY 04/13/21 04/13/21 Gabapentin [Neurontin] 100 mg PO BID 04/14/21 04/14/21 Losartan [Cozaar] 50 mg PO DAILY 04/14/21 04/14/21 Simvastatin [Zocor] 20 mg PO QPM 04/14/21 04/14/21 oxyCODONE [Roxicodone] 5 mg PO Q4H 04/14/21 04/14/21 Insulin Glargine [Lantus Solostar] 25 units SQ BID #1 04/16/21 04/14/21 Syringe and Needle,Insulin,1Ml 1 each MC TID #100 syr 04/16/21 [Insulin Syringe] Potassium Chloride [K-Dur] 20 meq PO BIDWM #6 tablet 09/09/21 Sulfamethox/Trimeth 800/160 1 each PO BID #14 tablet 09/13/21 [Bactrim Ds 800/160] - Allergies Allergies/Adverse Reactions: Allergies Allergy/AdvReac Type Severity Reaction Status Date / Time Penicillins Allergy Intermediate Rash Verified 09/13/21 08:25 amoxicillin Allergy Rash Verified 09/13/21 08:25 doxycycline Allergy Rash Verified 09/13/21 08:25 gabapentin AdvReac diarrhea Verified 09/13/21 08:25 - Social History Does the pt smoke?: No Smoking Status: Never smoker Does the pt drink ETOH?: No Does the pt have substance abuse?: Yes - Immunizations Immunizations are current?: Yes - POLST Patient has POLST: No POLST Status: Full Code PD ED PE NORMAL - Vitals Vital signs reviewed: Yes - General General: No acute distress, Well developed/nourished, Other (Alert, oriented to self, knows she's in the hospital) - HEENT HEENT: Atraumatic, PERRL, EOMI, Moist mucous membranes - Neck Neck: Supple, no meningeal sign - Cardiac Cardiac: RRR, No murmur, Strong equal pulses - Respiratory Respiratory: No respiratory distress, Clear bilaterally - Abdomen Abdomen: Soft, Non tender, Non distended - Derm Derm: Normal color, Warm and dry, No rash - Extremities Extremities: No deformity, No edema - Neuro Neuro: inspector insulation 2-12 intact, No motor deficit, No sensory deficit, Normal speech, Other (The patient articulates clearly, but is easily confused by simple questions; however, others she answers easily. Occasional seeming expressive aphasia, but not consistently.) - Psych Psych: Normal mood, Normal affect Results - Vitals Vitals: Oxygen O2 Source Room air - Labs Labs: Microbiology 09/13/21 10:40 Urine Culture - Preliminary Urine,Random Laboratory Tests 09/13/21 09/13/21 09/13/21 08:17 08:17 10:40 WBC 7.7 RBC 3.85 L Hgb 10.5 L Hct 32.3 L MCV 83.9 MCH 27.3 MCHC 32.5 RDW 15.2 H Plt Count 433 MPV 8.7 Neut # (Auto) 4.7 Lymph # (Auto) 2.2 Mcminn # (Auto) 0.6 Eos # (Auto) 0.2 Baso # (Auto) 0.0 Absolute Nucleated RBC 0.00 Nucleated RBC % 0.0 Sodium 136 Potassium 3.9 Chloride 103 Carbon Dioxide 21 Anion Gap 12.0 BUN 11 Creatinine 0.5 Estimated GFR (MDRD) 121 Glucose 245 H Calcium 9.1 Total Bilirubin 0.8 AST 21 ALT 12 Alkaline Phosphatase 109 Total Protein 6.3 L Albumin 2.9 L Globulin 3.4 Albumin/Globulin Ratio 0.9 L Lipase 19 L Urine Color YELLOW Urine Clarity CLEAR Urine pH 6.0 Ur Specific [place] 1.010 Urine Protein NEGATIVE Urine Glucose (UA) 250 H Urine Ketones 15 H Urine Occult Blood NEGATIVE Urine Nitrite NEGATIVE Urine Bilirubin NEGATIVE Urine Urobilinogen 0.2 (NORMAL) Ur Leukocyte Esterase SMALL H Urine RBC None Seen Urine WBC 6-10 H Ur Squamous Epith Cells RARE Squamous Urine Bacteria Few Ur Microscopic Review INDICATED Urine Culture Comments INDICATED - Rads (name of study) CT head Radiology: Final report received, EMP read indepedently, See rad report (No acute findings) MR brain Radiology: Final report received, EMP read indepedently, See rad report (No acute findings.) PD MEDICAL DECISION MAKING - ED course Complexity details: reviewed old records, reviewed results, re-evaluated patient, considered differential, d/w patient, d/w family ED course: The patient did not have any focal deficits, other than her confusion and possibly a mild expressive aphasia. She was alert and articulated well, but did seem to be more confused and less fluid in her thought processes than she had been on her last visit. Labs were repeated, which were unremarkable. Her potassium had normalized. Pt's UA was very mildly positive, so pt was treated with abx. I sent her for a CT, given the aphasia, followed by MRI. Neither showed evidence of a CVA or space-occupying lesion. I spoke at length again with the pt's . The pt possibly has a mild UTI, but does not seem to be delirious, as she is actually quite alert and brisk in her responses. I am still concerned that the pt has advancing dementia, perhaps with some behavioral changes exacerbated by the cessation of oxycodone in recent weeks. Pt's states his sister is here to help, and that 2 other family members will be arriving to assist as well. He has already called Dr. Black's office to reschedule the appointment, and I spoke with Dr. Black on pt's last visit, so he is aware of the pt's escalating cognitive difficulties. At this time, I would prefer not to start any psychotropic medications, but defer this to Dr. Black, the pt's PCP. We have discussed the usual indications for return. Departure - Departure Disposition: 01 Home, Self Care Clinical Impression: Cognitive and behavioral changes UTI (urinary tract infection) Qualifiers: Urinary tract infection type: acute cystitis Hematuria presence: without hematuria Qualified Code(s): N30.00 - Acute cystitis without hematuria Condition: Stable Instructions: ED Confusion, ED UTI Cystitis Female Prescriptions: Sulfamethox/Trimeth 800/160 [Bactrim Ds 800/160] 1 each PO BID #14 tablet Comments: The labs are actually improved from last time with a normal potassium. Urinalysis shows perhaps a slight urinary tract infection, although it was normal last time, and this is unlikely to account for most of the symptoms that you are having. Your CT scan and MRI are unremarkable. It is very important that you follow-up with Dr. Black as soon as possible to discuss getting a mental status exam and possibly a neurologic consult if Dr. Black feels that this would be helpful. Please keep your splint in place until you are seen tomorrow morning by orthopedics. Your antibiotic prescription for your urinary tract infection has been electronically transmitted to [facility] in [place]. Discharge Date/Time: 09/13/21 13:34
[2021-09-13 12:57] VITALS: BP 169/73
--- NOTE | 2021-09-15 12:28 | ED Physician Documentation ---
ED Addendum - Addendum Addendum: 09/15/21 12:27 Culture given to me by nurse for culture review. Looking at the chart this likely represents asymptomatic bacteriuria. I asked the nurse to call the patient and if the patient is doing well without specific urinary complaints, the antibiotics can be discontinued.
== END 2021-09-13 13:34 | disposition home or self-care (01) ==
LOC: EDUNIT# → ED 08:08
DX: R41.9 Unspecified symptoms and signs involving cognitive functions and awareness (principal); R46.89 Other symptoms and signs involving appearance and behavior; N30.00 Acute cystitis without hematuria
CPT/HCPCS: 36415; 70450; 70551; 80053; 81001; 83690; 85025; 87077; 87086; 87181; 99283; 99284; A9270; 81003

== ENCOUNTER 2021-10-11 08:00 | Outpatient (CLI) | payer MEDICARE, OTHER ==
--- NOTE | 2021-10-11 14:36 | XRAY Report ---
PROCEDURE: Hand 3 View LT INDICATIONS: 5TH MC FRACTURE TECHNIQUE: 3 views of the hand(s) acquired. COMPARISON: And radiographs 09/09/2021. FINDINGS: Bones: Distal fifth metacarpal fracture with volar angulation. Dislocations. No suspicious bony lesi ons. Bones appear osteopenic. Interphalangeal joint and carpal degenerative change. Soft tissues: No suspicious soft tissue calcifications. Chondrocalcinosis suspected adjacent to the ulnar styloid. IMPRESSION: Distal fifth metacarpal fracture with volar angulation is unchanged. Reviewed by: Shashank Montiel MD on 10/11/2021 2:35 PM PDT Approved by: Shashank Montiel MD on 10/11/2021 2:35 PM PDT Station ID: [id number]
== END 2021-10-11 23:59 | disposition home or self-care (01) ==
LOC: DI.WOS 08:00
PROVIDERS: ATTEND Orthopaedic Surgery
DX: S62.337A Displaced fracture of neck of fifth metacarpal bone, left hand, initial encounter for closed fracture (principal)

== ENCOUNTER 2021-11-13 11:21 | Outpatient (CLI) | payer MEDICARE, OTHER | END 2021-11-13 11:22 | disposition short-term general hospital (02) | LOC: EMS 11:21 | DX: R41.0 Disorientation, unspecified (principal); R06.02 Shortness of breath | CPT/HCPCS: A0425; A0427 ==

== ENCOUNTER 2022-01-05 12:15 | Outpatient (CLI) | payer MEDICARE, OTHER ==
[2022-01-05 12:42] LABS: BASOPHILS % (AUTO) 0.7 %; EOSINOPHILS # (AUTO) 0.4 10^3/uL (0.0-0.7); EOSINOPHILS % (AUTO) 7.7 %; HCT - HEMATOCRIT 32.7 % (37.0-47.0); HGB - HEMOGLOBIN 10.4 g/dL (12.0-16.0); LYMPHOCYTES # (AUTO) 2.1 10^3/uL (1.5-3.5); LYMPHOCYTES % (AUTO) 38.6 %; MEAN CORPUSCULAR HEMOGLOBIN 29.1 pg (27.0-31.0); MEAN CORPUSCULAR HGB CONC 31.8 g/dL (32.0-36.0); MEAN CORPUSCULAR VOLUME 91.3 fL (81.0-99.0); MEAN PLATELET VOLUME 9.6 fL (7.9-10.8); MONOCYTES # (AUTO) 0.4 10^3/uL (0.0-1.0); MONOCYTES % (AUTO) 8.1 %; NEUTROPHILS # (AUTO) 2.4 10^3/uL (1.5-6.6); NEUTROPHILS % (AUTO) 44.7 %; PLT - PLATELET COUNT 281 10^3/uL (130-450); RED BLOOD COUNT 3.58 10^6/uL (4.20-5.40); RED CELL DISTRIBUTION WIDTH 12.9 % (12.0-15.0); WHITE BLOOD COUNT 5.4 x10^3/uL (4.8-10.8)
[2022-01-05 12:57] LABS: CALCIUM 8.9 mg/dL (8.5-10.3); CREATININE 0.6 mg/dL (0.4-1.0); POTASSIUM 4.1 mmol/L (3.5-5.0)
[2022-01-05 13:08] LABS: THYROID STIMULATING HORMONE 1.28 uIU/mL (0.34-5.60)
[2022-01-05 13:10] LABS: ESTIMATED AVERAGE GLUCOSE 194 mg/dL (70-100); HEMOGLOBIN A1c% 8.4 % (4.27-6.07)
[2022-01-05 13:36] LABS: FERRITIN 23.1 ng/mL (11.0-306.8)
[2022-01-05 13:40] LABS: FOLATE 19.01 ng/mL (5.90 - >24.8)
[2022-01-06 03:09] LABS: HCV AB 0.1 s/co ratio (0.0-0.9)
== END 2022-01-05 12:16 | disposition home or self-care (01) ==
LOC: LAB 12:15
PROVIDERS: ATTEND Nurse Practitioner Family
DX: I10 Essential (primary) hypertension (principal); Z11.59 Encounter for screening for other viral diseases; D64.9 Anemia, unspecified; E10.65 Type 1 diabetes mellitus with hyperglycemia; R60.0 Localized edema
CPT/HCPCS: 36415; 80048; 82607; 82728; 82746; 83036; 83540; 84443; 84466; 85025; 86803

== ENCOUNTER 2022-01-28 14:24 | Outpatient (CLI) | payer MEDICARE, OTHER ==
--- NOTE | 2022-01-28 16:51 | Ultrasound Report ---
PROCEDURE: Retroperitoneal INDICATIONS: CYST OF KIDNEY, POST MENOPAUSAL TECHNIQUE: Real-time scanning was performed of the retroperitoneal organs, with image documentation. COMPARISON: None. FINDINGS: Kidneys: Kidneys are normal in size. Right kidney measures 8.9 cm long; left kidney measures 9.9 cm long. Right renal cortical thickness is 1.0 cm; left renal cortical thickness is 1.0 cm. No solid masses, hydronephrosis, or nephrolithiasis. No renal cyst is seen. Bladder: Pre-void bladder volume is 182 mL. Post-void residual is 23 mL. Pre-void images demonstra te no intraluminal masses or stones. On pre-void images, bilateral ureteral jets are noted with colo r Doppler interrogation. (Of note, ureteral jets may not be detectable in up to 25% of cases due to insufficient differences in specific gravity between ureteral and bladder urine). Miscellaneous: No free abdominal fluid. IMPRESSION: Negative examination. Reviewed by: Dani Chaidez MD on 01/28/2022 4:50 PM PDT Approved by: Dani Chaidez MD on 01/28/2022 4:50 PM PDT Station ID: [id number]
== END 2022-01-28 14:25 | disposition home or self-care (01) ==
LOC: DI 14:24
PROVIDERS: ATTEND Nurse Practitioner Family
DX: N28.1 Cyst of kidney, acquired (principal)

== ENCOUNTER 2022-02-24 12:59 | Outpatient (CLI) | payer MEDICARE, OTHER ==
--- NOTE | 2022-02-24 16:53 | DEXA Report ---
PROCEDURE: Dexa Spine and/or Hip INDICATIONS: CYST OF KIDNEY, POSTMENOPAUSAL TECHNIQUE: Dual energy x-ray absorptiometry (DXA) was performed on a [employer] System. Regions measur ed are the AP Spine, femoral neck, and if needed forearm. COMPARISON: None. FINDINGS: Lumbar Spine: Bone Mineral Density 1.087 g/cm/cm,T score -0.6, normal Left Hip: Bone Mineral Density 0.469 g/cm/cm,T score -4.3, osteoporosis Left Femoral Neck: Bone Mineral Density 0.448 g/cm/cm, T score -4.2, osteoporosis (T score greater or equal to -1.0: NORMAL) (T score from -1.1 to -2.4: OSTEOPENIA) (T score less than or equal to -2.5 to: OSTEOPOROSIS) Impression: Osteoporosis within the left hip and femoral neck. Patients with diagnosis of osteoporosis or osteopenia should have regular bone mineral density assess ment. For those eligible for Medicare, routine testing is allowed once every 2 years. Testing frequ ency can be increased for patients who have rapidly progressing disease or for those who are receivin g medical therapy to restore bone mass. Reviewed by: La Peter MD on 02/24/2022 4:52 PM PDT Approved by: La Peter MD on 02/24/2022 4:52 PM PDT Station ID: [id number]
== END 2022-02-24 13:00 | disposition home or self-care (01) ==
LOC: DI 12:59
PROVIDERS: ATTEND Nurse Practitioner Family
DX: Z78.0 Asymptomatic menopausal state (principal); M81.0 Age-related osteoporosis without current pathological fracture

== ENCOUNTER 2022-04-20 10:00 | Outpatient (CLI) | payer MEDICARE, OTHER ==
[2022-04-20 13:14] LABS: ESTIMATED AVERAGE GLUCOSE 131 mg/dL (70-100); HEMOGLOBIN A1c% 6.2 % (4.27-6.07)
== END 2022-04-20 10:01 | disposition home or self-care (01) ==
LOC: LAB.S 10:00 → LAB 10:01
PROVIDERS: ATTEND Nurse Practitioner Family
DX: E10.65 Type 1 diabetes mellitus with hyperglycemia (principal)
CPT/HCPCS: 36415; 83036

== ENCOUNTER 2022-06-10 14:41 | Outpatient (CLI) | payer MEDICARE, OTHER ==
[2022-06-10 21:36] LABS: ESTIMATED AVERAGE GLUCOSE 131 mg/dL (70-100); HEMOGLOBIN A1c% 6.2 % (4.27-6.07)
== END 2022-06-10 14:42 | disposition home or self-care (01) ==
LOC: LAB.S 14:41
PROVIDERS: ATTEND Nurse Practitioner
DX: E10.65 Type 1 diabetes mellitus with hyperglycemia (principal)
CPT/HCPCS: 36415; 83036

== ENCOUNTER 2022-07-08 14:42 | Outpatient (CLI) | payer MEDICARE, OTHER ==
--- NOTE | 2022-07-08 16:24 | XRAY Report ---
PROCEDURE: Ankle 3 View RT INDICATIONS: OSTEOMYLITIS TECHNIQUE: 3 views of the ankle were acquired. COMPARISON: None FINDINGS: Bones: No displaced fracture. The ankle mortise appears intact. Mild degenerative changes. No convinc ing osseous erosion. Osseous demineralization. Soft tissues: No suspicious calcifications or subcutaneous emphysema. IMPRESSION: Osseous demyelination and mild scattered degenerative changes. No acute radiographic abnormality. Con photographs curator MRI to further evaluate for osteomyelitis if necessary. Reviewed by: Yamil Moody MD on 07/08/2022 4:22 PM PST Approved by: Yamil Moody MD on 07/08/2022 4:22 PM PST Station ID: [id number]
== END 2022-07-08 14:43 | disposition home or self-care (01) ==
LOC: DI 14:42
PROVIDERS: ATTEND Nurse Practitioner
DX: M19.071 Primary osteoarthritis, right ankle and foot (principal); E10.622 Type 1 diabetes mellitus with other skin ulcer; I73.9 Peripheral vascular disease, unspecified

== ENCOUNTER 2022-07-11 14:37 | Outpatient (CLI) | payer MEDICARE, OTHER ==
[2022-07-11 20:43] LABS: ESTIMATED AVERAGE GLUCOSE 171 mg/dL (70-100); HEMOGLOBIN A1c% 7.6 % (4.27-6.07)
== END 2022-07-11 14:38 | disposition home or self-care (01) ==
LOC: LAB.S 14:37
PROVIDERS: ATTEND Nurse Practitioner
DX: E10.65 Type 1 diabetes mellitus with hyperglycemia (principal)
CPT/HCPCS: 36415; 83036

== ENCOUNTER 2022-07-25 08:00 | Outpatient (CLI) | payer MEDICARE, OTHER | END 2022-07-25 23:59 | disposition home or self-care (01) | LOC: LAB.S 08:00 | PROVIDERS: ATTEND Physician Assistant | DX: R30.0 Dysuria (principal) | CPT/HCPCS: 87077; 87086; 87181 ==

== ENCOUNTER 2022-08-02 14:56 | Outpatient (CLI) | payer MEDICARE, OTHER ==
--- NOTE | 2022-08-03 16:41 | Ultrasound Report ---
PROCEDURE: Duplex Lwr Ext Arterial RT INDICATIONS: PVD TECHNIQUE: Color and pulse Doppler interrogation was performed of the right peroneal arterial system, with image documentation. COMPARISON: None FINDINGS: The right peroneal artery demonstrates biphasic flow throughout, with flow velocities of 78 cm/s prox imally, 64 cm/s in its midportion, and 51 cm/s distally. IMPRESSION: No evidence of right peroneal artery stenosis. Reviewed by: Dani Chaidez MD on 08/03/2022 4:39 PM PST Approved by: Dani Chaidez MD on 08/03/2022 4:39 PM PST Station ID: [id number]
== END 2022-08-02 14:57 | disposition home or self-care (01) ==
LOC: DI 14:56
PROVIDERS: ATTEND Nurse Practitioner
DX: E10.622 Type 1 diabetes mellitus with other skin ulcer (principal); E10.69 Type 1 diabetes mellitus with other specified complication; I73.9 Peripheral vascular disease, unspecified

== ENCOUNTER 2023-03-13 11:37 | Outpatient (CLI) | payer MEDICARE, OTHER ==
[2023-03-13 21:51] LABS: ESTIMATED AVERAGE GLUCOSE 160 mg/dL (70-100); HEMOGLOBIN A1c% 7.2 % (4.27-6.07)
== END 2023-03-13 11:38 | disposition home or self-care (01) ==
LOC: LAB.S 11:37
PROVIDERS: ATTEND Nurse Practitioner
DX: E10.65 Type 1 diabetes mellitus with hyperglycemia (principal)
CPT/HCPCS: 36415; 83036

== ENCOUNTER 2023-03-15 15:08 | Emergency (ER) | payer MEDICARE, OTHER ==
[2023-03-15 15:18] VITALS: BP 150/60; O2SAT 98
--- NOTE | 2023-03-15 16:13 | ED Physician Documentation ---
PD HPI LOWER EXT INJURY - Stated complaint Stated Complaint: RT FOOT SWOLLEN,PX - Chief complaint Chief Complaint: Trauma Ext - History obtained from History obtained from: Patient - Additional information Additional information: 77-year-old woman with history of diabetes and back surgery has had an abnormal gait since back surgery last year and over the last 2 weeks without specific injury has developed pain of the right lateral foot. No fevers. PD PAST MEDICAL HISTORY - Past Medical History Cardiovascular: High cholesterol, Peripheral Vascular Disease Respiratory: Asthma, Sleep apnea Neuro: Headaches, Peripheral neuropathy Endocrine/Autoimmune: Type 1 diabetes GI: GERD, Hiatal hernia, Colon polyps, Chronic diarrhea HEDGE TRIMMER: None : Chronic bladder infection, Nocturia, Frequency, Kidney stones HEENT: Chronic vision loss Psych: Depression, Anxiety Musculoskeletal: Osteoarthritis, Osteopenia Derm: Eczema, Psoriasis - Past Surgical History Past Surgical History: Yes General: Gastric surgery, Colonoscopy Ortho: Spine surgery HEENT: Cataracts - Present Medications Home Medications: Ambulatory Orders Medication Instructions Recorded Confirmed Budesonide [Pulmicort] 2 puffs INH BID 09/21/19 01/24/23 Calcium Carbonate/Vitamin D3 [Sm 2 each PO BID 09/21/19 01/24/23 Calcium 600-Vit D3 400 Tab] Cyanocobalamin (Vitamin B-12) 5,000 mcg PO DAILY 09/21/19 01/24/23 [Vitamin B-12] Vitamin B Complex [Balanced B-50] 1 tab PO DAILY 09/21/19 01/24/23 traZODone [Desyrel] 50 mg PO QPM PRN 09/21/19 01/24/23 Gabapentin [Neurontin] 300 mg PO QPM 04/14/21 01/24/23 Albuterol Sulf [Ventolin Hfa 1 - 2 puffs INH Q4HR PRN 09/28/22 01/24/23 Inhaler] DULoxetine [Cymbalta] 60 mg PO DAILY 09/28/22 01/24/23 Insulin Lispro [Humalog] 50 units SUBQ DAILY 09/28/22 01/24/23 Acetaminophen [Tylenol] 1,300 mg PO BID 03/08/23 03/08/23 Atorvastatin Calcium 40 mg PO DAILY 03/08/23 03/08/23 Betamethasone Dipropionate 15 gm TP DAILY 03/08/23 03/08/23 Ferrous Sulfate [Feosol] 325 mg PO DAILY 03/08/23 03/08/23 Omeprazole 40 mg PO DAILY 03/08/23 03/08/23 diphenhydrAMINE [Benadryl] 25 mg PO ONCE 03/08/23 03/08/23 Gentamicin Sulfate See Rx Instructions .ROUTE 03/13/23 .COMPLEX #30 gm - Allergies Allergies/Adverse Reactions: Allergies Allergy/AdvReac Type Severity Reaction Status Date / Time amoxicillin Allergy Rash Verified 03/15/23 15:14 doxycycline Allergy Rash Verified 03/15/23 15:14 - Social History Does the pt smoke?: No Smoking Status: Never smoker Does the pt drink ETOH?: No Does the pt have substance abuse?: Yes - Immunizations Immunizations are current?: Yes - POLST Patient has POLST: No POLST Status: Full Code PD ED PE NORMAL - Vitals Vital signs reviewed: Yes - General General: Alert and oriented X 3, No acute distress - Extremities Extremities: Other (Tender over the insertion of the peroneal tendon of the right foot. Good pedal pulses. No warmth or redness or signs of infection. No tenderness of the plantar fascia. No tenderness of the calcaneus.) - Neuro Neuro: Alert and oriented X 3, Normal speech - Psych Psych: Normal mood, Normal affect Results - Vitals Vitals: Vital Signs - 24 hr 03/15/23 15:14 Temperature 36.5 C Heart Rate 76 Respiratory 18 Rate Blood Pressure 150/60 H O2 Saturation 98 Oxygen O2 Source Room air - Rads (name of study) Right foot x-ray showing osteopenia but no clear acute injury. Relevant Findings:: Final report received, EMP independent interpretation of test PD Medical Decision Making - ED course ED course: This is consistent with a peroneal tendinitis. She is placed in an air splint and advised on Tylenol use and podiatry call for follow-up. Departure - Departure Disposition: 01 Home, Self Care Clinical Impression: Peroneal tendinitis of right lower leg Condition: Good Record reviewed to determine appropriate education?: Yes Instructions: Tendinitis Foot Follow-Up: Porsche Hansen DPM [Provider Admit Priv/Credential] - Comments: As discussed, this presentation is consistent with a peroneal tendinitis which is a tendon in the foot. Wear the Aircast when up and around. Tylenol as needed for pain. Follow-up with podiatry, call the number on this form. Return if worse. Forms: PCP List
--- NOTE | 2023-03-15 16:15 | XRAY Report ---
PROCEDURE: Foot 3 View RT INDICATIONS: Trauma TECHNIQUE: 3 views of the foot were acquired. COMPARISON: None. FINDINGS: Bones: Diffusely decreased osseous mineralization which limits evaluation for acute fractures. No fr actures or dislocations are seen. No suspicious bony lesions. Soft tissues: No suspicious soft tissue calcifications or masses. IMPRESSION: Diffusely decreased osseous mineralization which limits evaluation for acute fractures. No definite f racture or dislocation is seen. Reviewed by: Cheo Calix MD on 03/15/2023 4:14 PM PDT Approved by: Cheo Calix MD on 03/15/2023 4:14 PM PDT Station ID: [id number]
== END 2023-03-15 17:00 | disposition home or self-care (01) ==
LOC: ED 15:08
DX: M76.71 Peroneal tendinitis, right leg (principal)
CPT/HCPCS: 99283

== ENCOUNTER 2023-06-20 12:44 | Outpatient (CLI) | payer MEDICARE, OTHER | END 2023-06-20 12:45 | disposition home or self-care (01) | LOC: DI 12:44 | PROVIDERS: ATTEND Nurse Practitioner Family | DX: R01.1 Cardiac murmur, unspecified (principal) | CPT/HCPCS: 93306 ==

== ENCOUNTER 2023-09-08 09:39 | Outpatient (CLI) | payer MEDICARE, OTHER ==
[2023-09-08 14:58] LABS: BASOPHILS % (AUTO) 0.8 %; EOSINOPHILS # (AUTO) 0.2 10^3/uL (0.0-0.7); EOSINOPHILS % (AUTO) 4.8 %; HCT - HEMATOCRIT 32.4 % (37.0-47.0); HGB - HEMOGLOBIN 10.3 g/dL (12.0-16.0); LYMPHOCYTES # (AUTO) 2.2 10^3/uL (1.5-3.5); LYMPHOCYTES % (AUTO) 45.7 %; MEAN CORPUSCULAR HEMOGLOBIN 29.9 pg (27.0-31.0); MEAN CORPUSCULAR HGB CONC 31.8 g/dL (32.0-36.0); MEAN CORPUSCULAR VOLUME 93.9 fL (81.0-99.0); MEAN PLATELET VOLUME 9.9 fL (7.9-10.8); MONOCYTES # (AUTO) 0.4 10^3/uL (0.0-1.0); MONOCYTES % (AUTO) 8.9 %; NEUTROPHILS # (AUTO) 1.9 10^3/uL (1.5-6.6); NEUTROPHILS % (AUTO) 39.4 %; PLT - PLATELET COUNT 297 10^3/uL (130-450); RED BLOOD COUNT 3.45 10^6/uL (4.20-5.40); RED CELL DISTRIBUTION WIDTH 14.8 % (12.0-15.0); WHITE BLOOD COUNT 4.8 x10^3/uL (4.8-10.8)
[2023-09-08 16:02] LABS: THYROID STIMULATING HORMONE 1.01 uIU/mL (0.34-5.60)
[2023-09-08 16:14] LABS: CREATININE,URINE 39.9 mg/dL
[2023-09-08 16:15] LABS: MICROALBUMIN,URINE < 0.7 mg/dL
[2023-09-08 16:18] LABS: ALBUMIN 3.5 g/dL (3.2-5.5); ALBUMIN/GLOBULIN RATIO 1.5 (1.0-2.2); ALKALINE PHOSPHATASE 66 IU/L (42-121); ALT ALANINE AMINOTRANSFERASE 23 IU/L (10-60); AST ASPARTATE AMINOTRANSFERASE 44 IU/L (10-42); BILIRUBIN,TOTAL 0.6 mg/dL (0.2-1.0); BUN - BLOOD UREA NITROGEN 14 mg/dL (6-20); CALCIUM 9.8 mg/dL (8.5-10.3); CARBON DIOXIDE - CO2 28 mmol/L (21-32); CHLORIDE 108 mmol/L (101-111); CHOL/HDL RATIO 1.9 (<4.4); CHOLESTEROL 130 mg/dL; CREATININE 0.5 mg/dL (0.6-1.3); GFR - MDRD 120 (>89); GLUCOSE 172 mg/dL (74-104); HDL CHOLESTEROL 70 mg/dL; LDL CHOLESTEROL,CALCULATED 45 mg/dL; LDL/HDL RATIO 0.6 (<4.4); POTASSIUM 4.4 mmol/L (3.5-4.5); SODIUM 141 mmol/L (135-145); TOTAL PROTEIN 5.9 g/dL (6.4-8.9); TRIGLYCERIDES 75 mg/dL (48-352); VLDL CHOLESTEROL 15 mg/dL
[2023-09-08 21:31] LABS: ESTIMATED AVERAGE GLUCOSE 131 mg/dL (70-100); HEMOGLOBIN A1c% 6.2 % (4.27-6.07)
== END 2023-09-08 09:40 | disposition home or self-care (01) ==
LOC: LAB.S 09:39
PROVIDERS: ATTEND Nurse Practitioner Acute Care
DX: E10.65 Type 1 diabetes mellitus with hyperglycemia (principal); Z13.228 Encounter for screening for other metabolic disorders; Z13.220 Encounter for screening for lipoid disorders; Z13.29 Encounter for screening for other suspected endocrine disorder; Z13.0 Encounter for screening for diseases of the blood and blood-forming organs and certain disorders involving the immune mechanism
CPT/HCPCS: 36415; 80053; 80061; 82043; 82570; 83036; 83721; 84443; 85025

== ENCOUNTER 2023-10-02 13:20 | Outpatient (CLI) | payer MEDICARE, OTHER ==
[2023-10-02 19:55] LABS: ABSOLUTE RETICS # AUTO 0.065 10^6/uL (0.020-0.110); BASOPHILS # (AUTO) 0.1 10^3/uL (0.0-0.1); BASOPHILS % (AUTO) 0.8 %; EOSINOPHILS # (AUTO) 0.3 10^3/uL (0.0-0.7); EOSINOPHILS % (AUTO) 2.9 %; HGB - HEMOGLOBIN 11.6 g/dL (12.0-16.0); LYMPHOCYTES # (AUTO) 3.2 10^3/uL (1.5-3.5); LYMPHOCYTES % (AUTO) 36.8 %; MEAN CORPUSCULAR HGB CONC 30.5 g/dL (32.0-36.0); MEAN PLATELET VOLUME 9.9 fL (7.9-10.8); MONOCYTES # (AUTO) 0.6 10^3/uL (0.0-1.0); MONOCYTES % (AUTO) 6.8 %; NEUTROPHILS # (AUTO) 4.6 10^3/uL (1.5-6.6); NEUTROPHILS % (AUTO) 52.4 %; PLT - PLATELET COUNT 346 10^3/uL (130-450); RED CELL DISTRIBUTION WIDTH 13.5 % (12.0-15.0); RETICULOCYTE COUNT % (AUTO) 1.63 % (0.5-2.3); WHITE BLOOD COUNT 8.7 x10^3/uL (4.8-10.8)
[2023-10-02 20:30] LABS: FERRITIN 113.1 ng/mL (11.0-306.8)
--- NOTE | 2023-10-03 10:19 | Mammography Report ---
BILATERAL DIGITAL SCREENING MAMMOGRAM 3D/2D: 10/02/2023 CLINICAL: Routine screening. Comparison is made to exams dated: 02/22/2022 mammogram and 06/03/2019 mammogram - [facility]. There are scattered areas of fibroglandular density in both breasts (category b / 25%-50% glandular t issue). There are benign calcifications in both breasts. There also are benign vascular calcifications in katharina th breasts. Additionally, there is a biopsy clip in the right breast. No significant masses, calcifications, or other findings are seen in either breast. There has been no significant interval change. IMPRESSION: BENIGN There is no mammographic evidence of malignancy. A 1 year screening mammogram is recommended. Based on the Tyrer Cuzick model (a risk assessment model) the patient's lifetime risk is 3.5% and her 10 year risk is 3.5%. According to the ACR, ACS, and NCCN guidelines, an annual breast MRI exam selene g with mammogram is recommended if the patient's lifetime risk is 20% or greater. This exam was interpreted at Station ID: [id number]. NOTE: For mammograms, a report in lay terms will be sent to the patient. Approximately 15% of breast malignancies will not be visualized mammographically. In the management of a palpable breast mass, a negative mammogram must not discourage biopsy of a clinically suspicious lesion. Electronically Signed By: Dc limon/zenobia:10/02/2023 17:10:09 ACR BI-RADS Category 2: Benign Finding(s) 3342F PARENCHYMAL PATTERN: (A) - The breast(s) demonstrate(s) scattered fibroglandular densities. BI-RADS CATEGORY: (2) - 2 RECOMMENDATION: (ANNUAL) - Recommend routine annual screening mammography. [id number] 1 year screening LATERALITY: (B)
== END 2023-10-02 13:21 | disposition home or self-care (01) ==
LOC: DI.S 13:20
PROVIDERS: ATTEND Nurse Practitioner Acute Care
DX: Z12.31 Encounter for screening mammogram for malignant neoplasm of breast (principal); D64.9 Anemia, unspecified; R92.323 Mammographic fibroglandular density, bilateral breasts
CPT/HCPCS: 36415; 81599; 82607; 82728; 82746; 83540; 84466; 85025; 85045

== ENCOUNTER 2023-12-22 15:02 | Outpatient (CLI) | payer MEDICARE, OTHER | END 2023-12-22 23:59 | disposition home or self-care (01) | LOC: LAB.S 15:02 | PROVIDERS: ATTEND Physician Assistant Medical | DX: N39.0 Urinary tract infection, site not specified (principal) | CPT/HCPCS: 87077; 87086; 87181 ==

== ENCOUNTER 2024-01-10 07:00 | Outpatient (CLI) | payer MEDICARE, OTHER | END 2024-01-10 23:59 | disposition home or self-care (01) | LOC: LAB.S 07:00 | PROVIDERS: ATTEND Physician Assistant Medical | DX: N39.0 Urinary tract infection, site not specified (principal) | CPT/HCPCS: 87077; 87086; 87181 ==

== ENCOUNTER 2024-01-31 13:11 | Outpatient (CLI) | payer MEDICARE, OTHER ==
[2024-01-31 19:55] LABS: CREATININE,URINE 36.2 mg/dL
[2024-01-31 19:58] LABS: MICROALBUMIN,URINE < 0.7 mg/dL
[2024-01-31 21:42] LABS: ESTIMATED AVERAGE GLUCOSE 166 mg/dL (70-100); HEMOGLOBIN A1c% 7.4 % (4.27-6.07)
== END 2024-01-31 13:12 | disposition home or self-care (01) ==
LOC: LAB.S 13:11
PROVIDERS: ATTEND Nurse Practitioner Acute Care
DX: E10.9 Type 1 diabetes mellitus without complications (principal)
CPT/HCPCS: 36415; 82043; 82570; 83036

== ENCOUNTER 2024-02-06 08:00 | Outpatient (CLI) | payer MEDICARE, OTHER | END 2024-02-06 23:59 | disposition home or self-care (01) | LOC: LAB.F 08:00 | PROVIDERS: ATTEND Nurse Practitioner Acute Care | DX: Z87.440 Personal history of urinary (tract) infections (principal) | CPT/HCPCS: 81002 ==

== ENCOUNTER 2024-03-12 08:00 | Outpatient (CLI) | payer MEDICARE, OTHER ==
[2024-03-12 20:06] LABS: BILIRUBIN,URINE NEGATIVE (NEGATIVE); GLUCOSE, URINE (UA) >=1000 mg/dL (NEGATIVE); KETONES,URINE (UA) NEGATIVE (NEGATIVE); LEUKOCYTE ESTERASE, URINE SMALL (NEGATIVE); NITRITE,URINE POSITIVE (NEGATIVE); OCCULT BLOOD,URINE NEGATIVE (NEGATIVE); PROTEIN,URINE NEGATIVE (NEGATIVE); UROBILINOGEN,URINE 0.2 (NORMAL) E.U./dL (NORMAL)
[2024-03-12 20:10] LABS: CLARITY,URINE CLOUDY (CLEAR)
[2024-03-12 20:15] LABS: BACTERIA,URINE Many /HPF (None Seen); RBC,URINE 0-5 /HPF (0-5); SQUAMOUS EPITHELIAL CELL,UR MOD Squamous (<= Few); WBC,URINE >25 /HPF (0-5); YEAST,URINE PRESENT
== END 2024-03-12 23:59 | disposition home or self-care (01) ==
LOC: LAB.F 08:00
PROVIDERS: ATTEND Nurse Practitioner Acute Care
DX: Z87.440 Personal history of urinary (tract) infections (principal)
CPT/HCPCS: 81001; 87086